=== PATIENT | male | born 1950 | race Caucasian/White ===

== ENCOUNTER → 2020-08-06 09:14 | Outpatient (CLI) | payer MEDICARE, SELFPAY ==
--- NOTE | 2020-08-06 09:20 | US_ITS ---
STUDY: ABDOMINAL ULTRASOUND - RIGHT UPPER QUADRANT REASON FOR VISIT: Male, 69 years old elevated liver enzymes TECHNIQUE: Ultrasound evaluation of the right upper quadrant was performed with real-time and static martinez-scale imaging. TECHNICAL QUALITY: Adequate. COMPARISON: None. FINDINGS: Liver: The liver measures 15.1 cm. There is normal echogenicity of the liver. The bile ducts are within normal limits. There is hepatic color flow. The direction of portal flow is hepatopetal. Simple appearing cyst in the right lobe of the liver measuring 1.1 x 1.4 x 1.3 cm as well as another cyst measuring 2.2 x 2.1 x 1.6 cm. Gallbladder: Normal distended gallbladder. The gallbladder wall measures 1.0 mm. There is a negative sonographic Galindo''s sign. There is no pericholecystic fluid. There are no gallstones. Common Bile Duct (C.B.D.): The common bile duct measures 3.2 mm. Pancreas: Normal size of the head, body and tail of the pancreas. There is normal echogenicity of the pancreas. There is no demonstrated pancreatic mass or cyst. Right Kidney: Normal size of the right kidney. The right kidney measures 10.1 cm. Normal renal cortex. The right cortex measures 1.3 cm. Upper pole cyst measuring 2.0 x 1.8 x 1.7 cm. There is no right hydronephrosis. US/Liver IMPRESSION: Right renal and liver cysts. Remainder is within normal limits. Electronically Signed: Raudel Simmons DO at 11:44 EDT Tel , Service support ,
== END ==
DX: K76.89 Other specified diseases of liver (principal); N28.1 Cyst of kidney, acquired; R79.89 Other specified abnormal findings of blood chemistry; Z72.89 Other problems related to lifestyle
CPT/HCPCS: 76705

== ENCOUNTER 2021-06-17 17:09 | Emergency (ER) | payer MEDICARE, OTHER, SELFPAY ==
[2021-06-17 17:10] VITALS: BP 140/79; PULSE 90; RESP 14; TEMP 37; O2SAT 97; BMI 18.1
--- NOTE | 2021-06-17 18:54 | EKG12_ITS ---
Test Reason : WOUND Blood Pressure : / mmHG Vent. Rate : 084 BPM Atrial Rate : 084 BPM P-R Int : 148 ms QRS Dur : 072 ms QT Int : 382 ms P-R-T Axes : 083 047 074 degrees QTc Int : 451 ms Normal sinus rhythm Normal ECG Confirmed by YUNG GRIMES, ALEYDA ([id number]), news copy editor JERRY HAMPTON ([id number]) on 06/19/2021 10:41:10 AM Referred By: DOLORES Confirmed By:ALEYDA BARRAGAN MD
--- NOTE | 2021-06-17 18:55 | ED.VIS.LOWEX ---
HPI History of Present Illness Chief Complaint: Lower Extremity Injury Informant: patient and family Onset/Context/Timing Onset: Month(s) Context: Sudden Onset Timing: Continuous Current Severity: Mild Maximum Severity: Mild Narrative Narrative: 62-year-old gentleman says he has no past medical history other than a hernia repair. Currently he is on no medications for any chronic conditions. He sees the [facility]. He states out 5 weeks ago he woke up one morning and his right great toe and fourth and fifth the small toe had areas of black skin. He thought it may have done trauma to his bed railing. He denies any other complaints. He is never had any like this before. Is not been ill recently. Has not been hospitalized. Patient does smoke a pack of cigarettes a day. Prior similar symptoms: No Recent Illness/Hospitalization: No PFSH PFSH Allergy/AdvReac Type Severity Reaction Status Date / Time No Known Allergies Allergy Verified 06/17/21 17:10 Surgical History (Updated 06/17/21 @ 19:13 by Ivonne Saleem RN) H/O hernia repair Hx of tonsillectomy Social History Smoking Status: Current every day smoker tobacco type: cigarettes ROS ROS ED ROS Narrative Denies recent illness. Review of Systems ROS Unobtainable: Denies due to encephalopathy Constitutional Constitutional ED: Denies fever(s) Eyes Eyes: Denies change in vision ENT ENT ED: Denies ear pain or sore throat Cardiovascular Cardiovascular: Denies chest pain or palpitations Respiratory/Chest Respiratory/Chest: Denies cough or dyspnea Gastrointestinal Gastrointestinal: Denies abdominal pain, diarrhea, nausea or vomiting Genitourinary Genitourinary ED: Denies dysuria Musculoskeletal Musculoskeletal: Denies myalgias Integumentary Denies rash Neurologic Neurologic: Denies headache(s) Psychiatric Psychiatric: Denies depression Endocrine Endocrinology: Denies polyuria Hematologic/Lymphatic Hematologic/Lymphatic: Denies easy bruising Allergic/Immunologic Allergic/Immunologic ED: Denies urticaria EXAM Physical Exam Narrative Exam Narrative: 8-year-old male no acute distress. Lungs are clear. Heart regular rate and rhythm rate about 90. Abdomen soft nontender normal bowel sounds no peritoneal signs no pulsatile mass. Femoral pulses equal symmetrical palpable. Brisk. Moving all 4 extremities. Neurovascularly intact. No edema. Right great toe and primarily fifth toe have areas that look like ischemic scabs. There is no trauma. He is chronic nail changes from fungal infections. He does have a DP pulse on both feet. He is able to wiggle his toes. He has normal sensation. Normal motor strength. No deformities. Feet are warm to the touch. Const Vital Signs: 06/17/21 17:10 Temperature 98.6 F Temperature Source Temporal Pulse Rate 90 Respiratory Rate 14 Blood Pressure 140/79 H Blood Pressure Mean 99 Pulse Ox 97 Oxygen Delivery Method Room Air Positive well nourished and well developed; Negative for obese, cachectic or unkempt General Appearance ED: well developed and NAD; Negative for unkempt or cachectic Nutritional Appearance: Negative for cachectic or obese HEENT Reports moist mucous membranes normocephalic and atraumatic Eyes PERRL Neck full ROM and supple Thyroid: Negative for tender Chest Wall inspection of chest normal and palpation of chest normal Resp normal respiratory effort, no retractions and clear to auscultation bilaterally Auscultation: Negative for rales, rhonchi or wheezes Cardio regular rate, regular rhythm, S1 normal heart sound, S2 normal heart sound and no murmurs GI non-tender, non-distended and no masses Inspection: Negative for abdominal distention Auscultation: normoactive bowel sounds Palpation: soft; Negative for tender, guarding or rebound tenderness present Back/Spine no CVA tenderness General Back: Negative for CVA tenderness Extremity normal to inspection Extremity Narrative: Right great toe and fourth and fifth toe have lesions that appear to be ischemic scabs. Otherwise foot is neurovascular intact with a palpable femoral and DP pulse. Normal motor strength sensation. No edema. Normal touch sensation. Neuro oriented x3 and moves all extremities Sensorium / Orientation: alert, oriented to person, oriented to place and oriented to time; Negative for orientation impaired or stuporous Motor Exam: strength 5/5 throughout Psych mental status grossly normal Appearance: Negative for unkempt Skin Lesions: no lesions Rashes: no rashes MDM MDM MDM Narrative Medical decision making narrative: Patient with wounds on his right foot that look like possible ischemia to the foot. He does have a smoking history. He does however appear to have a DP pulse and a strong femoral pulse in the right leg. X-ray and labs are being obtained. This will be outpatient follow-up. Repeat exam at 10 PM patient doing well unchanged wounds on his right foot are unchanged. We went over all test results. He had pictures when this initially happened 4 weeks ago and has gotten no worse. I discussed with the patient he is having no symptoms of claudication or poor circulation. His foot is warm. And he has a good DP and femoral pulse. I discussed with both he and his family. To follow-up with his primary care physician tomorrow. I have his physician with the physician on-call on page. He needs an outpatient arterial study of his leg to evaluate his circulation and also an echo of his heart to rule out any type of clots. Lab Data Attestation: I reviewed the patient's lab results. Lab results narrative: White count 8. Hemoglobin 13.9. Electrolytes unremarkable gap 10 normal creatinine. Glucose 84. Labs: Laboratory Results - last 24 hr 06/17/21 06/17/21 19:00 19:00 WBC 8.5 RBC 3.99 L Hgb 13.9 Hct 40.0 MCV 100.3 H MCH 34.8 H MCHC 34.8 RDW Std Deviation 43.7 RDW Coeff of Berny 11.9 Plt Count 231 MPV 8.5 Immature Gran % (Auto) 0.500 Neut % (Auto) 67.8 Lymph % (Auto) 13.6 L Bollinger % (Auto) 14.6 H Eos % (Auto) 2.9 Baso % (Auto) 0.6 Absolute Neuts (auto) 5.8 Absolute Lymphs (auto) 1.16 Nucleated RBC % 0 Sodium 135 L Potassium 3.8 Chloride 101 Carbon Dioxide 24.0 Anion Gap 10 BUN 15 Creatinine 0.65 L Estim Creat Clear Calc 57.30 Est GFR (MDRD) Af Amer 158 Est GFR (MDRD) Non-Af 131 BUN/Creatinine Ratio 23.2 H Glucose 84 Calcium 9.1 Radiography Diagnostic Testing: Radiology Impression Foot X-Ray 06/17/21 19:05 IMPRESSION: 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 This is nonspecific and can be seen in a variety of conditions including scleroderma, psoriatic arthritis, frostbite injury, or hyperparathyroidism. Electronically Signed: Raymundo Oates MD at 20:08 EDT , Service support , Right foot x-ray 3 views interpreted by myself shows chronic changes no acute process. No fracture or dislocation. Rhythm Strip Rhythm Strip: Sinus Rhythm Rate: 84 Ectopy: None EKG Initial EKG: Attestation: I personally reviewed and interpreted this EKG as follows: Interpretation: Sinus Rhythm Comments: Normal sinus rhythm rate 84 no acute signs of [place], ischemia or dysrhythmia. Prior EKG tracings: not available for review Discharge Plan Triage Chief Complaint: Lower Extremity Injury ED Provider: Kody Wells Dx/Rx/DC Orders Clinical Impression: Wound of foot, Peripheral arterial disease Instructions: ED Peripheral Artery Disease (PAD) Referrals: NICHOLAS GOODWIN [Other] Bruno Blackmon MD [NON-STAFF] - 1 Day Activity Restrictions/Additional Instructions: Follow-up with primary care physician tomorrow. They need to order to outpatient test to evaluate your lower extremity. The first test is a ultrasound of your right leg to evaluate the circulation of your right leg this will be an arterial study. Second test which does not to be done immediately but should be done as an echocardiogram of your heart to evaluate for possible clots. This may just be wounds that are healing poorly. Or it could be a circulation issue in your foot or even arterial clots. You seem to have reasonable circulation with a good pulse in your right groin and your foot. Posterior foot is warm and you not having any symptoms of poor circulation. Keep the wounds clean with soap and water and antibiotic ointment. Begin taking 1 baby aspirin 81 mg a day to help thin out your blood until we get this diagnosis. Disposition Disposition: Home, Self Care
--- NOTE | 2021-06-17 19:05 | RAD_ITS ---
STUDY: X-RAY - RIGHT FOOT CLINICAL: Male, 70 years old. RT 1st, 4th, and 5th TOE BLACKNESS AND PAIN X 5 WEEKS. UNKNOWN CAUSE. TECHNIQUE: 3 view(s) of the foot. COMPARISON: None. FINDINGS: Normal talus, calcaneus, and tarsal bones. Normal visualized subtalar, talonavicular, calcaneocuboid, tarsal and tarsometatarsal articulations. Normal metatarsi. There is degenerative arthrosis of the metatarsophalangeal joint of the hallux . Normal tibial and fibular sesamoid bones. Normal interphalangeal joint of the great toe. Normal phalanges of the great toe. Normal second through fifth metatarsophalangeal joints. Normal interphalangeal joints of the lesser toes. There is focal narrowing and sclerosis of the tuft of the second distal phalanx. There is lucency suggesting erosive change of the tuft of the fifth distal phalanx. The soft tissue structures are unremarkable. There is no demonstrated fracture. 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 This is nonspecific and can be seen in a variety of conditions including scleroderma, psoriatic arthritis, frostbite injury, or hyperparathyroidism. Electronically Signed: Raymundo Oates MD at 20:08 EDT , Service support ,
[2021-06-17 19:38] LABS: Absolute Lymphocyte Count 1.16 X10^3/uL (0.83-4.51); Absolute Neutrophil Count 5.8 X10^3/uL (2.0-7.7); Basophil# 0.05 X10^3/uL; Basophil% 0.6 % (0-1); Eosinophil# 0.25 X10^3/uL; Eosinophils% 2.9 % (0-5); Hemoglobin 13.9 g/dL (13.0-16.5); Lymphocyte # 1.16 X10^3/ul (0.83-4.51); Lymphocyte % 13.6 % (19-41); Mean Corp Hgb Conc 34.8 g/dL (32-36); Mean Corpuscular Hgb 34.8 pg (27.0-32.0); Mean Corpuscular Volume 100.3 fL (80-94); Mean Platelet Vol. 8.5 fl (6.2-12.0); Monocyte# 1.24 X10^3/uL; Monocyte% 14.6 % (0-10); NRBC Flagged by Analyzer 0 % (0-5); Neutrophil # 5.76 X10^3/uL (2.7-7.7); Neutrophil % 67.8 % (47-70); Platelet Count 231 K/mm3 (150-450); RBC Distribution Width CV 11.9 % (11.6-14.6); RBC Distribution Width SD 43.7 fl (35.1-43.9); Red Blood Count 3.99 M/mm3 (4.6-6.2); White Blood Count 8.5 K/mm3 (4.4-11.0)
[2021-06-17 19:52] LABS: Anion Gap 10 (5-15); BUN 15 mg/dL (7-18); BUN/Creat Ratio 23.2 RATIO (10-20); Calcium,Total 9.1 mg/dL (8.5-10.1); Chloride 101 mmol/L (98-107); Creatinine, Serum 0.65 mg/dL (0.70-1.30); EST Glomerular Filtration Rate 131 mL/min (>60); Est Glom Filt Rate - Afr Amer 158 mL/min (>60); Glucose 84 mg/dL (74-106); Potassium 3.8 mmol/L (3.5-5.1); Sodium Level 135 mmol/L (136-145)
[2021-06-17 22:53] VITALS: BP 145/79; PULSE 88; RESP 20; O2SAT 96
== END 2021-06-17 22:54 | disposition home or self-care (01) ==
PROVIDERS: Emergency Provider Emergency Medicine
DX: S90.931A Unspecified superficial injury of right great toe, initial encounter (principal); S90.934A Unspecified superficial injury of right lesser toe(s), initial encounter; X58.XXXA Exposure to other specified factors, initial encounter; Y93.9 Activity, unspecified; Y92.9 Unspecified place or not applicable; Y99.9 Unspecified external cause status; I73.9 Peripheral vascular disease, unspecified; F17.210 Nicotine dependence, cigarettes, uncomplicated
CPT/HCPCS: 73630; 80048; 85025; 93005; 99283; A4216

== ENCOUNTER → 2021-10-08 07:37 | Outpatient (CLI) | payer MEDICARE, SELFPAY ==
--- NOTE | 2021-10-08 07:39 | CT_ITS ---
HISTORY: Embolism and thrombosis of lower extremity arteries, right foot gangrene of 3 toes times several months. TECHNIQUE: Helically acquired images were obtained of the chest, abdomen, and pelvis following IV contrast as per angiogram protocol with 2-D and 3-D reconstructions.. A radiation dose optimization technique was used for this scan. IV Contrast dosage and agent: 100 mL Isovue-370. Oral contrast: None. # of images incl. paperwork: [id number]. COMPARISON: None. FINDINGS: Chest: CENTRAL AIRWAYS: Mild adherent material in the trachea. LUNGS: Emphysema with minimal biapical scarring and bronchiectasis. PLEURA: No pneumothorax or pleural effusion. HEART/PERICARDIUM: Heart within normal limits in size with coronary artery disease seen. No significant pericardial effusion. AORTA/VESSELS: No aortic aneurysm or dissection flap. Mild atelectasis versus. No large central filling defect in the pulmonary arteries although examination not optimized for evaluation of pulmonary arteries. MEDIASTINUM/ATILIO: Calcified subcarinal lymph node. OSSEOUS STRUCTURES: Diffuse idiopathic skeletal hyperostosis. Abdomen and pelvis: BOWEL: Bowel including appendix nondilated. Extensive colonic diverticulosis without pericolonic inflammation. PERITONEUM: No significant ascites. LIVER: Small cysts measure up to 1.6 cm. GALLBLADDER: Gallbladder present. SPLEEN/PANCREAS: Homogeneous. KIDNEYS: Right renal cysts measuring up to 1.8 cm. No hydronephrosis. ADRENAL GLANDS: Unremarkable. VESSELS: Limited evaluation of the celiac axis and aorta at the hiatus due to motion artifact. Calcified plaque of the abdominal aorta without aneurysm or dissection flap. Approximately 60% stenosis at the origin of the superior mesenteric artery. Calcified plaque at the origins of the single left, main right, and accessory right renal arteries. Patent inferior mesenteric artery. Calcified plaque at the aortic bifurcation with approximately 60% stenosis extending into the origin of the right common iliac artery. Greater than 70% stenosis in the proximal left common iliac artery then near occlusion with severe calcified plaque more distally. Calcified plaque extends into the external and internal iliac arteries. PELVIC ORGANS: Prostate calcifications. BONES: Degenerative change. CT/CTA Chst, Abd, Pel W and/or WO IMPRESSION: No evidence for thoracic aortic aneurysm, dissection, or pulmonary embolism. Coronary artery disease. Emphysematous lungs. 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 Hepatic and right renal cysts. Colonic diverticulosis without acute diverticulitis. Individualized dose optimization techniques were used for this CT. at 1005 Reported and signed by: Evelyn Smalls MD Electronically Signed: Evelyn Smalls MD at 10:04 EST Tel , Service support ,
== END ==
DX: I74.3 Embolism and thrombosis of arteries of the lower extremities (principal)
CPT/HCPCS: 71275; 74174; Q9967

== ENCOUNTER → 2021-10-28 13:01 | Outpatient (CLI) | payer MEDICARE, OTHER, SELFPAY ==
--- NOTE | 2021-10-28 13:04 | ADU_ITS ---
Reason For Study: Rt Foot Pain Right Velocities Left Velocities Ext. Iliac Artery, dist = 252 cm./sec. Ext Iliac Artery, dist = 43 cm./sec. Common Femoral Artery, dist = 129 cm./sec. Common Femoral Artery, dist = 61 cm./sec. Supf Femoral Artery, prox = 74 cm./sec. Supf. Femoral Artery, prox = 36 cm./sec. Supf Femoral Artery, mid = 96 cm./sec. Supf. Femoral Artery, mid = 35 cm./sec. Supf Femoral Artery, dist. = 53 cm./sec. Supf. Femoral Artery, dist = 26 cm./sec. Profunda Femoral Artery = 59 cm./sec. Profunda Femoral Artery = 29 cm./sec. Popliteal Artery, mid = 41 cm./sec. Popliteal Artery, mid = 33 cm./sec. Ant. Tibial Artery, prox = 82 cm./sec. Ant.Tibial Artery, prox = 44 cm./sec. Ant. Tibial Artery, mid = 42 cm./sec. Ant Tibial Artery, mid = 24 cm./sec. Ant. Tibial Artery, dist = 61 cm./sec. Ant. Tibial Artery, distal = 21 cm./sec. Post. Tibial Artery, prox = 0 cm./sec. Post. Tibial Artery, prox = 0 cm./sec. Post. Tibial Artery, mid = 0 cm./sec. Post Tibial Artery, mid = 0 cm./sec. Post. Tibial Artery, dist = 0 cm./sec. Post Tibial Artery, dist. = 0 cm./sec. Peroneal Artery, prox = 39 cm./sec. Peroneal Artery, prox = 20 cm./sec. Peroneal Artery, mid = 48 cm./sec. Peroneal Artery, mid = 22 cm./sec. Peroneal Artery,dist = 43 cm./sec. Peroneal Artery,dist. = 15 cm./sec. Rt DPA: 40 cm/s. Lt DPA: 68 cm/s. Procedure Exam performed in department. /US Art Duplex Bilat Lower Ext Interpretation Summary Diffuse calcific plaque is noted throughout the right lower extremity arterial vessels. Triphasic arterial flow is noted within the right external iliac artery distall y in the right common femoral artery and right superficial femoral artery and right profundofemoral a rtery and right popliteal artery. Right peroneal artery is patent and demonstrates generally triphasic flow thoug h of slightly diminished amplitude Right anterior tibial demonstrates triphasic flow throughout down to and includ ing the dorsalis pedis These findings would be consistent with moderate disease. Right posterior tibial artery does not demonstrate flow Irregular calcific plaque involving the left lower extremity arteries with dimi nished flow velocity noted in the distal left external iliac artery although still triphasic. More monophasic flow noted in the left common femoral, superficial femoral, pro fundofemoral, popliteal, anterior tibial, and peroneal arteries. Findings would be consistent with moderately severe occlusive disease. Flow is again noted in the left dorsalis pedis artery No flow noted in the left posterior tibial artery Ordering Physician: ADRIAN DARNELL Referring Physician: ADRIAN DARNELL Performed By: Crista Jarvis RDCS, RVT
--- NOTE | 2021-10-28 13:04 | ART_ITS ---
Reason For Study: Rt Foot Pain Procedure A bilateral lower extremity continuous wave Doppler with analog waveform analysis,segmental pressures,and ankle brachial indexes without exercise. Left Segmental Pressures Left brachial= 125mmHg. Left thigh = 121mmHg. Left calf = 117mmHg. Left posterior tibial artery = 91mmHg. Left dorsalis pedis artery = 116mmHg. Left digit = 78 mmHg. Right Segmental Pressures Right brachial= 119mmHg. Right thigh = 168mmHg. Right calf = 150mmHg. Right posterior tibial artery = >254mmHg. Right dorsalis pedis artery = >254mmHg. Right digit = 91 mmHg. Indices The right ankle brachial index by the posterior tibial artery is NC. The right ankle brachial index by the dorsalis pedis is NC. The right digital-brachial index is 0.73. The left ankle brachial index by the posterior tibial artery is 0.73. The left ankle brachial index by the dorsalis pedis is 0.93. The left digital-brachial index is 0.62. VL/Lower Ext Art Exam w/o Exercis Interpretation Summary None calculable right PT and DP ankle-brachial indices secondary to artificiall y elevated systolic pressures. Right posterior tibial Doppler waveform biphasic consistent with moderately sev ere disease while the right dorsalis pedis demonstrates a strong triphasic Doppler wave signal which is normal Right digital brachial indices just borderline abnormal at 0.73 Left PT and DP ankle-brachial index of 0.73 and 0.93 respectively with biphasic left posterior tibial and dorsalis pedis Doppler waveforms consistent with moderately severe a rterial occlusive disease Abnormal left digital brachial index of 0.62 Critical ischemia is not defined on the study bilaterally Ordering Physician: ADRIAN DARNELL Referring Physician: ADRIAN DARNELL Performed By: Crista Jarvis RDCS/RVT
== END ==
DX: I74.3 Embolism and thrombosis of arteries of the lower extremities (principal)
CPT/HCPCS: 93923; 93925

== ENCOUNTER 2022-02-12 07:52 | Outpatient (CLI) | payer OTHER, SELFPAY ==
--- NOTE | 2022-02-12 08:00 | CT_ITS ---
STUDY: LOW DOSE CT LUNG CANCER SCREENING REASON FOR EXAM: Male, 71 years old. HX TOBACCO USE. Patient smoked 1 pack per day for 53 years. RADIATION DOSAGE (If Supplied By Facility): CTDIvol = ( 3.02 ) mGy, DLP = ( 112.87 ) mGycm TECHNIQUE: No contrast was administered. Low dose technique was utilized (average mAS-38 and kVp 120). 1.25 mm axial source images with a slice interval of 1.25-mm were reconstructed in lung windows. 2.5 mm axial source images with a slice interval of 2.5-mm were reconstructed in lung windows. 5.0 mm axial source images with a slice interval of 5.0-mm were reconstructed in soft tissue windows. Nodule measured using lung windows on PACS and/or independent workstation with automated measurement of minimum and maximum diameter. Nodule measurement reported as average diameter rounded to the nearest whole number. Growth is defined as an increase ins size of greater than 1.5 mm. COMPARISON: Comparison is made with prior study dated 10/08/2021. NODULES: No suspicious nodules are seen. Emphysema: Hyperinflation. Centrilobular emphysematous changes and small bulla are seen in the lung apices likely more prominent on the right side. Minimal linear scarring in the anterior aspect of the left lower lobe. Endobronchial lesion: None Aorta: Atherosclerotic calcific plaques of the thoracic aorta. Coronary arteries: Coronary artery calcification. Heart: Unremarkable Pulmonary artery: Mediastinal nodes: Other chest and abdominal findings: 1.2 cm cyst in the anterior aspect of the right lobe of the liver. 2.1 cm cyst in the anterior upper aspect of the right kidney. CT/Low Dose CT Lung Screening IMPRESSION: Lung-RADS category 2 - Continue annual screening with LDCT in 12 months. IMPORTANT NOTES FOR USE: ACR Lung-RADS Version 1.1 Assessment Categories Release Date: 2018 Category: Coded 0-4 bases on nodule(s) with highest degree of suspicion. Negative screen is defined as categories 1 and 2; a positive screen is defined as categories 3 and 4. Category 3 and 4A nodules that are unchanged on interval CT should be coded as category 2, and individuals returned to screening in 12 months. Category 4X: Category 3 or 4 nodules with additional imaging findings that increase the suspicion of lung cancer, such as spiculation, GGN that doubles in size in 1 year, enlarged lymph notes, etc. Category Modifiers: S (significant finding unrelated to lung cancer) Electronically Signed: Bright Hoffmann MD at 10:50 EDT ,
== END 2022-02-12 23:59 | disposition home or self-care (01) ==
LOC: CT 07:53
PROVIDERS: PCP Nurse Practitioner; Referring Provider Nurse Practitioner; Visit Provider Nurse Practitioner
DX: Z87.891 Personal history of nicotine dependence (principal)
CPT/HCPCS: 71271

== ENCOUNTER → 2022-02-25 12:47 | Outpatient (CLI) | payer OTHER, SELFPAY ==
--- NOTE | 2022-02-25 12:50 | ECHOD_ITS ---
Reason For Study: Emboli Procedure This was a 2D Doppler, Color Flow transthoracic echocardiogram. Technically difficult study. Majority of images taken from subcostal window. Previous Negative Bubble study. The study was technically difficult. Limited views were obtained. Exam performed in department. Left Ventricle Based upon the 2D echocardiographic and contrast enhanced images obtained there appears to be grossly normal left ventricular size, wall motion, and systolic function. The estimated ejection fraction is 55 %. Diastolic function is indeterminate. Right Ventricle Based upon the 2D echocardiographic views obtained there appears to be grossly normal right ventricular size and systolic function. Atria Normal left atrium. Normal right atrium. Lipomatous hypertrophy of the atrial septum. Mitral Valve There is no mitral annular calcification. Normal mitral valve. Trivial mitral valve insufficiency. Tricuspid Valve Normal tricuspid valve. Trivial tricuspid valve insufficiency. Unable to estimate RV systolic pressure/pulmonary artery pressure due to technically difficult study. Aortic Valve The aortic valve is not well visualized. Pulmonic Valve The pulmonic valve is not well visualized. Great Vessels The aortic root is not well visualized. Pericardium/Pleural No pericardial effusion. MMode/2D Measurements & Calculations LVIDd: 4.4 cm IVSd: 0.67 cm LA dimension: 3.1 cm LVIDs: 2.5 cm LVPWd: 0.86 cm FS: 41.9 % Time Measurements MV dec time: 0.26 sec Doppler Measurements & Calculations MV E max donny: 46.4 cm/sec Lat Peak E' Donny: 9.2 cm/sec Med Peak E' Donny: 6.2 cm/sec MV A max donny: 66.8 cm/sec E/E' lat: 5.1 E/E' med: 7.5 MV E/A: 0.69 MV V2 max: 76.0 cm/sec MV P1/2t max donny: 69.0 cm/sec Ao V2 max: 105.4 cm/sec MV max P.3 mmHg MV P1/2t: 72.2 msec Ao max P.4 mmHg MV V2 mean: 38.2 cm/sec MV mean P.74 mmHg MV dec slope: 280.0 cm/sec2 MV V2 VTI: 23.0 cm MVA(P1/2t): 3.0 cm2 LV V1 max: 61.9 cm/sec PA V2 max: 122.3 cm/sec LV V1 max P.5 mmHg ECHO/Echo Complete Interpretation Summary The study was technically difficult. Limited views were obtained. Based upon the 2D echocardiographic and contrast enhanced images obtained there appears to be grossly normal left ventricular size, wall motion, and systolic function. The estimated ejection fraction is 55 %. Trivial mitral valve insufficiency. Trivial tricuspid valve insufficiency. Unable to estimate RV systolic pressure/pulmonary artery pressure due to techni leo difficult study. Diastolic function is indeterminate. Ordering Physician: ADRIAN DARNELL Referring Physician: ADRIAN DARNELL Performed By: Yobany Blair RCS
== END ==
PROVIDERS: PCP Nurse Practitioner
DX: I74.9 Embolism and thrombosis of unspecified artery (principal)
CPT/HCPCS: 93306

== ENCOUNTER → 2024-03-14 | Outpatient (CLI) | payer MEDICARE, SELFPAY ==
[2024-03-14 15:23] LABS: Absolute Lymphocyte Count 1.14 X10^3/uL (0.83-4.51); Absolute Neutrophil Count 3.9 X10^3/uL (2.0-7.7); Basophil# 0.05 X10^3/uL; Basophil% 0.8 % (0-1); Eosinophil# 0.15 X10^3/uL; Eosinophils% 2.4 % (0-5); Hematocrit 45.6 % (40-54); Hemoglobin 15.4 g/dL (13.0-16.5); Lymphocyte # 1.14 X10^3/ul (0.83-4.51); Lymphocyte % 18.3 % (19-41); Mean Corp Hgb Conc 33.8 g/dL (32-36); Mean Corpuscular Volume 97.6 fL (80-94); Mean Platelet Vol. 8.2 fl (6.2-12.0); Monocyte# 0.93 X10^3/uL; NRBC Flagged by Analyzer 0 % (0-5); Neutrophil # 3.94 X10^3/uL (2.7-7.7); Neutrophil % 63.3 % (47-70); Platelet Count 222 K/mm3 (150-450); RBC Distribution Width CV 12.5 % (11.6-14.6); RBC Distribution Width SD 44.8 fl (35.1-43.9); Red Blood Count 4.67 M/mm3 (4.6-6.2); White Blood Count 6.2 K/mm3 (4.4-11.0)
[2024-03-14 16:44] LABS: ALB/GLOB Ratio 1.1 RATIO (0.9-2.4); AST(SGOT) 19 U/L (15-37); Alanine Aminotransfer ALT/SGPT 17 U/L (16-61); Alkaline Phosphatase 61 U/L (45-117); Anion Gap 8 (5-15); BUN 13 mg/dL (7-18); BUN/Creat Ratio 14.9 RATIO (10-20); Calcium,Total 9.7 mg/dL (8.5-10.1); Chloride 96 mmol/L (98-107); Cholesterol 232 mg/dL (200); Creatinine, Serum 0.87 mg/dL (0.70-1.30); EST Glomerular Filtration Rate 91 mL/min (>60); Est Glom Filt Rate - Afr Amer 111 mL/min (>60); Globulin 3.6 g/dL (2.2-4.2); Glucose 141 mg/dL (74-106); High Density Lipoprotein 68 mg/dL; PSA,Total - Annual Screen 2.93 ng/mL (0.00-4.00); Potassium 4.1 mmol/L (3.5-5.1); Protein, Total 7.6 g/dL (6.4-8.2); Sodium Level 131 mmol/L (136-145); Triglycerides 160 mg/dL; Very Low Density Lipoprotein 32 mg/dL (5-40)
== END | disposition home or self-care (01) ==
LOC: MTLAB 12:39
PROVIDERS: PCP Nurse Practitioner; Referring Provider Family Medicine; Visit Provider Family Medicine
DX: Z12.5 Encounter for screening for malignant neoplasm of prostate (principal); E78.5 Hyperlipidemia, unspecified; I73.9 Peripheral vascular disease, unspecified
CPT/HCPCS: 36415; 80053; 80061; 84153; 85025; G0103

== ENCOUNTER 2024-03-17 10:12 | Inpatient (IN) | payer MEDICARE, SELFPAY ==
[2024-03-17 10:14] VITALS: BP 146/76; PULSE 78; RESP 18; TEMP 36.6; O2SAT 98
[2024-03-17 10:17] VITALS: BMI 19.8
--- NOTE | 2024-03-17 10:39 | RAD_ITS ---
STUDY: X-RAY - PELVIS AND RIGHT HIP REASON FOR EXAM: Male, 73 years old. Pain TECHNIQUE: 3 views of the pelvis and hip. COMPARISON: None. FINDINGS: There is a non-specific bowel gas pattern. There are atherosclerotic vascular calcifications of the pelvic arteries. Vascular stents in the common iliac arteries. Prior inguinal hernia repair bilaterally. There is narrowing with cortical sclerosis and osteophyte formation of the sacroiliac joint consistent with degenerative osteoarthritic changes. Normal bilateral superior and inferior pubic rami. Normal pubic symphysis. Normal bilateral ischial tuberosities. There is a nondisplaced right intertrochanteric fracture. RAD/HIP, UNI W/ Pelvis 2-3 Views IMPRESSION: Nondisplaced right intertrochanteric fracture. Electronically Signed: Bright Hoffmann MD at 11:12 EDT ,
--- NOTE | 2024-03-17 10:40 | EDS_ITS ---
HPI History of Present Illness Chief Complaint: Fall Narrative Narrative: 73-year-old male presenting with right hip pain. Patient states that he was walking last night tripped over his own foot fell hitting his right hip. He denies head injury or LOC. He is not on any oral anticoagulation. Patient states it took him about 2 hours to crawl to his bed and once he got in bed he was stuck. He did not have his phone. This morning he states that he would yell out for help who his neighbors every 10 minutes until somebody showed up. Patient denies neck or back pain. PFSH PFSH Allergy/AdvReac Type Severity Reaction Status Date / Time No Known Allergies Allergy Verified 06/17/21 17:10 Surgical History H/O hernia repair Hx of tonsillectomy Social History Smoking Status: Current every day smoker tobacco type: cigarettes ROS ROS ED Constitutional Constitutional ED: Denies chills, fever(s) or subjective Eyes Eyes: Denies blurry vision or change in vision ENT ENT ED: Denies rhinorrhea Cardiovascular Cardiovascular: Denies chest pain or palpitations Respiratory/Chest Respiratory/Chest: Denies cough or dyspnea Gastrointestinal Gastrointestinal: Denies abdominal pain, constipation or diarrhea Genitourinary Genitourinary ED: Denies dysuria or hematuria Musculoskeletal Musculoskeletal: Reports other Details: Right hip pain Integumentary Reports Abrasions Neurologic Neurologic: Denies headache(s) or paresthesias Psychiatric Psychiatric: Denies anxiety or depression Endocrine Endocrinology: Denies polydipsia EXAM Physical Exam Const Vital Signs: 03/17/24 10:14 03/17/24 10:18 Temperature 98 F Temperature Source Oral Pulse Rate 78 Respiratory Rate 18 Respiratory Effort Normal Respiratory Depth Normal Respiratory Pattern Normal Blood Pressure 146/76 H Blood Pressure Mean 99 Pulse Ox 98 Oxygen Delivery Method Room Air Positive well nourished General Appearance ED: NAD HEENT Reports moist mucous membranes normocephalic and atraumatic Neck full ROM Chest Wall inspection of chest normal Resp normal respiratory effort Auscultation: Negative for rales, rhonchi or wheezes Cardio regular rate and regular rhythm GI non-tender and non-distended Extremity Extremity Narrative: Patient evaluated in vacuum mattress. He has pain over the right hip. It is difficult to discern whether his leg is shortened on the right or whether it is externally rotated disease restrained. He does not have any tenderness over the femur on the right. He has superficial abrasions to the bilateral knees but de nies any pain here. Neuro oriented x3 Sensorium / Orientation: alert Motor Exam: strength 5/5 throughout Psych mental status grossly normal Skin Skin Narrative: Abrasions to the bilateral knees. MDM MDM MDM Narrative Medical decision making narrative: Patient presenting after fall which was mechanical. He is right hip pain and suspected right hip fracture. Patient was given fentanyl but still having pain. He was given morphine and Zofran here. I will obtain a CBC to assess white blood cell count, hemoglobin, platelets. BMP to assess renal function, electrolytes. CPK to assess for rhabdomyolysis. Patient given a liter normal saline. X-rays of the right hip will be obtained. CBC shows white blood cell count of 12.9. Hemoglobin 13.5. Platelets are normal at 195. Renal function electrolytes within normal limits. CPK normal at 124. Right hip x-ray on my interpretation shows a nondisplaced intertrochanteric fracture. Radiology interpretation agrees. Chest x-ray does not show anything acute either on my interpretation. Patient does not want a Kline catheter placed. Discussed with Dr. Thapa. Admitted to the hospitalist stable condition. Impression: 1. Mechanical fall 2. Right hip fracture Lab Data Attestation: I reviewed the patient's lab results. Labs: Laboratory Results - last 24 hr 03/17/24 10:55 WBC 12.9 H RBC 4.02 L Hgb 13.5 Hct 39.2 L MCV 97.5 H MCH 33.6 H MCHC 34.4 RDW Std Deviation 43.9 RDW Coeff of Berny 12.2 Plt Count 195 MPV 8.1 Immature Gran % (Auto) 0.400 Neut % (Auto) 80.3 H Lymph % (Auto) 4.0 L Miller % (Auto) 15.0 H Eos % (Auto) 0.1 Baso % (Auto) 0.2 Absolute Neuts (auto) 10.4 H Absolute Lymphs (auto) 0.51 L Nucleated RBC % 0 Differential Comment COMMENT Diff Path Review May foll Sodium 134 L Potassium 4.2 Chloride 99 Carbon Dioxide 28.0 Anion Gap 7 BUN 9 Creatinine 0.77 Estim Creat Clear Calc 74.98 Est GFR (MDRD) Af Amer 129 Est GFR (MDRD) Non-Af 106 BUN/Creatinine Ratio 11.7 Glucose 114 H Calcium 9.2 Total Creatine Kinase 124 Radiography Diagnostic Testing: Clinical Impression(s) from Imaging Studies Hip/Pelvis X-Ray 03/17/24 10:39 IMPRESSION: Nondisplaced right intertrochanteric fracture. Electronically Signed: Bright Hoffmann MD at 11:12 EDT , Chest X-Ray 03/17/24 11:00 IMPRESSION: Hyperinflation and COPD. No acute abnormality is seen. Electronically Signed: Bright Hoffmann MD at 11:15 EDT , Discharge Plan Triage Chief Complaint: Fall ED Provider: Pepe Chavez Dx/Rx/DC Orders Primary Care Provider: NICHOLAS GOODWIN Referrals: NICHOLAS GOODWIN CRNP [Primary Care Provider] -
[2024-03-17] MEDS: 0.9% Normal Saline (1000mL) 1,000 ML 1000 ML IV (10:50)
[2024-03-17] MEDS: Morphine 4 MG/ML Syringe IV ×2 (10:50→12:46)
[2024-03-17] MEDS: Ondansetron 4 MG/2 ML Vial IV ×2 (10:50→19:53)
--- NOTE | 2024-03-17 11:00 | RAD_ITS ---
STUDY: X-RAY CHEST REASON FOR EXAM: Male, 73 years old. preop TECHNIQUE: Single AP portable view of the chest. COMPARISON: Comparison is made with prior study dated October 21, 2009. FINDINGS: EKG electrodes are seen. There is hyperinflation of the lungs consistent with chronic obstructive lung disease (COPD). There is no demonstrated pleural abnormality. Normal size heart. Normal mediastinum and prisca. Normal visualized pulmonary arteries. There is atherosclerotic calcification of the aortic arch with tortuosity. Normal visualized thoracic spine. Surgical clips are seen along the lower anterior left ribs. There is no demonstrated abnormality of the visualized soft tissue structures of the upper abdomen. RAD/Chest 1 View (Portable) IMPRESSION: Hyperinflation and COPD. No acute abnormality is seen. Electronically Signed: Bright Hoffmann MD at 11:15 EDT ,
[2024-03-17 11:04] LABS: Absolute Lymphocyte Count 0.51 X10^3/uL (0.83-4.51); Absolute Neutrophil Count 10.4 X10^3/uL (2.0-7.7); Basophil# 0.03 X10^3/uL; Basophil% 0.2 % (0-1); Eosinophil# 0.01 X10^3/uL; Eosinophils% 0.1 % (0-5); Hematocrit 39.2 % (40-54); Hemoglobin 13.5 g/dL (13.0-16.5); Lymphocyte # 0.51 X10^3/ul (0.83-4.51); Mean Corp Hgb Conc 34.4 g/dL (32-36); Mean Corpuscular Hgb 33.6 pg (27.0-32.0); Mean Corpuscular Volume 97.5 fL (80-94); Mean Platelet Vol. 8.1 fl (6.2-12.0); Monocyte# 1.94 X10^3/uL; NRBC Flagged by Analyzer 0 % (0-5); Neutrophil # 10.37 X10^3/uL (2.7-7.7); Neutrophil % 80.3 % (47-70); POSITIVE DIFFERENTIAL YES; Platelet Count 195 K/mm3 (150-450); RBC Distribution Width CV 12.2 % (11.6-14.6); RBC Distribution Width SD 43.9 fl (35.1-43.9); Red Blood Count 4.02 M/mm3 (4.6-6.2); White Blood Count 12.9 K/mm3 (4.4-11.0)
[2024-03-17 11:06] LABS: Differential Indicated SCAN CRITERIA MET
[2024-03-17 11:28] LABS: CPK Total, Creatine Kinase 124 U/L (39-308)
[2024-03-17 11:47] LABS: Anion Gap 7 (5-15); BUN 9 mg/dL (7-18); BUN/Creat Ratio 11.7 RATIO (10-20); Calcium,Total 9.2 mg/dL (8.5-10.1); Chloride 99 mmol/L (98-107); Creatinine, Serum 0.77 mg/dL (0.70-1.30); EST Glomerular Filtration Rate 106 mL/min (>60); Est Glom Filt Rate - Afr Amer 129 mL/min (>60); Estimated Creatinine Clearance 74.98 ml/min; Glucose 114 mg/dL (74-106); Potassium 4.2 mmol/L (3.5-5.1); Sodium Level 134 mmol/L (136-145)
[2024-03-17 12:12] VITALS: BP 139/92; PULSE 90; RESP 14; O2SAT 96
[2024-03-17] MEDS: LORazepam 2 MG/ML Syringe IV (12:57)
--- NOTE | 2024-03-17 13:05 | ED.RN ---
THIS RN HAD DISCUSSION WITH PT REGARDING ETOH INTAKE. PT DOES ADMIT IT DEPENDS ON THE DAY. PT STATES FOR EX TODAY I WOULD HAVE STARTED AT 1 AND DRANK TIL IT WAS GONE. PT VERY AGREEABLE TO DISCUSSING OPTIONS
--- NOTE | 2024-03-17 13:28 | HP.PCM.HOS_ITS ---
HPI - General General Date of Admission: 03/17/24 Date of Service: 03/17/24 Chief Complaint: Right hip fracture, alcohol withdrawal HPI Narrative MAVIS IRWIN, is a 73 M who presented to [facility] ED on 03/17/2024 with right hip pain after a fall at home. Patient seen at bedside in the ED, daughter present. Patient was laying back in bed, answering questions appropriately but in mild distress due to right hip pain. Daughter helped to supplement patient's history. Patient lives at home alone, daughter lives in the area. Patient and daughter note that he has been a heavy alcohol drinker for many years. He also smokes about 1 pack/day and has smoked since age 16. However, patient has had minimal health concerns to this point. Patient states he was walking around the house last night around 9 PM and tripped over his own feet and fell onto his right hip. He had significant right hip pain right after the fall and difficulty moving at all. He was strong enough to drag himself over to his bed but his phone was not close by, so he remained in bed overnight. This morning he continually yelled for help until his neighbors came over to help him. Patient currently has mild to moderate hip pain, states the pain medication given to him in the ED was helpful. Patient states he drinks about 4-5 cocktails per night. Denies any history of alcohol withdrawal. States that he does not drink every day, though his daughter disagrees with this. Daughter states they have been trying to get him to cut back on his drinking for many years. Patient states he feels somewhat restless and agitated now. Last drink was last night shortly prior to his fall. Vitals notable for borderline sinus tachycardia in the 90s, mild hypertension, otherwise afebrile and breathing comfortably on room air. Labs notable for WBC count 12.9, hemoglobin 13.5 (at baseline), sodium 134, BMP otherwise benign, CK level 124, alcohol level less than 3. Hip x-ray showed a right nondisplaced intertrochanteric fracture. Chest x-ray showed hyperinflation of COPD, no other abnormalities. Patient will be admitted for further management. [facility] Medical History ETOH abuse Home Medications prednisolone acetate 1 % eye drops,suspension 1 drp ophthalmic (eye) 4X/DAY eye 03/17/24 [History Last Taken 03/17/24] Allergy/AdvReac Type Severity Reaction Status Date / Time No Known Allergies Allergy Verified 06/17/21 17:10 Surgical History (Updated 03/17/24 @ 15:47 by Chely Howell) H/O heart artery stent H/O hernia repair Hx of appendectomy Hx of tonsillectomy Social History Smoking Status: Current every day smoker tobacco type: cigarettes ROS Constitutional Constitutional: Reports weakness; Denies chills, fatigue or fever(s) Cardiovascular Cardiovascular: Denies chest pain or edema Respiratory/Chest Respiratory/Chest: Denies shortness of breath at rest or wheezing Gastrointestinal Gastrointestinal: Denies abdominal pain Musculoskeletal Musculoskeletal: Reports joint pain Neurologic Neurologic: Denies dizziness, focal weakness or headache(s) Vital Signs Vital Signs Vital Signs: 03/17/24 10:14 03/17/24 10:18 03/17/24 12:12 Temperature 98 F Temperature Source Oral Pulse Rate 78 90 Respiratory Rate 18 14 Respiratory Effort Normal Respiratory Depth Normal Respiratory Pattern Normal Blood Pressure 146/76 H 139/92 H Blood Pressure Mean 99 107 Pulse Ox 98 96 Oxygen Delivery Method Room Air Room Air Weight Weight: 62.596 kg Body Mass Index (BMI) 19.8 Physical Exam Const alert, oriented x3 and no apparent distress Constitutional Narrative: Elderly male, thin and somewhat cachectic appearing suspect due to pulmonary cachexia, mildly anxious appearing, otherwise laying back fairly comfortably in bed, answer questions appropriately. General Appearance: cooperative HEENT normocephalic, head/scalp atraumatic, hearing grossly normal bilaterally and nasal mucous membranes and turbinates normal Eyes PERRL, EOMs intact bilaterally and conjunctivae normal Neck full ROM Chest inspection of chest normal Resp normal respiratory effort, normal air movement, no use of accessory muscles and clear to auscultation bilaterally Resp Narrative: Breathing comfortably on room air at rest with good oxygen saturations. No wheezing or crackles noted. Cardio regular rate, regular rhythm, no murmurs and peripheral pulses 2+ throughout GI normal to inspection, nondistended, normoactive bowel sounds, soft to palpation, non-tender and non-distended Back/Spine normal ROM Extremity Extremity Narrative: Right leg noticeably externally rotated. Mild to moderate tenderness to palpation in the right hip. Did not attempt any motion. Skin no rashes or lesions noted Neuro no focal motor deficits Speech: speech normal Psych mental status grossly normal Mood & Affect: anxious Results Lab / Micro Data 03/17/24 10:55 03/17/24 10:55 Labs: Laboratory Results - last 24 hr 03/17/24 10:55: WBC 12.9 H, RBC 4.02 L, Hgb 13.5, Hct 39.2 L, MCV 97.5 H, MCH 33.6 H, MCHC 34.4, RDW Std Deviation 43.9, RDW Coeff of Berny 12.2, Plt Count 195, MPV 8.1, Immature Gran % (Auto) 0.400, Neut % (Auto) 80.3 H, Lymph % (Auto) 4.0 L, Hawkins % (Auto) 15.0 H, Eos % (Auto) 0.1, Baso % (Auto) 0.2, Absolute Neuts (auto) 10.4 H, Absolute Lymphs (auto) 0.51 L, Nucleated RBC % 0, Differential Comment COMMENT, Diff Path Review March foll, Sodium 134 L, Potassium 4.2, Chloride 99, Carbon Dioxide 28.0, Anion Gap 7, BUN 9, Creatinine 0.77, Estim Creat Clear Calc 74.98, Est GFR (MDRD) Af Amer 129, Est GFR (MDRD) Non-Af 106, BUN/Creatinine Ratio 11.7, Glucose 114 H, Calcium 9.2, Total Creatine Kinase 124 Imaging Radiology Impression Hip/Pelvis X-Ray 03/17/24 10:39 IMPRESSION: Nondisplaced right intertrochanteric fracture. Electronically Signed: Bright Hoffmann MD at 11:12 EDT , Chest X-Ray 03/17/24 11:00 IMPRESSION: Hyperinflation and COPD. No acute abnormality is seen. Electronically Signed: Bright Hoffmann MD at 11:15 EDT , Assessment & Plan Assessment/Plan (1) Closed right hip fracture: (2) ETOH abuse: (3) Tobacco abuse: PLAN: Plan Patient is a 73-year-old male who presented [facility] ED on 03/17/2024 with right hip pain after a fall at home. 1. Right hip fracture ? Admit under inpatient status to [facility]. Orthopedics consulted. Preop evaluation as noted below. N.p.o. at midnight for procedure tomorrow. PT/OT/case management consulted. Pain control with scheduled Tylenol, oxycodone as needed and IV Dilaudid as needed. 2. Preoperative evaluation ? NSQIP score: Below average risk of serious complication, any complication, discharged to nursing or rehab facility given risk factors of age, mild systemic disease, smoker and low BMI. ? Lab/imaging: Hemoglobin stable at baseline 13.5, platelets 195, BMP benign with creatinine 0.77, INR 1.1. No further labs needed preoperatively. Recommend CBC and BMP postop. ? EKG/echo: EKG showed normal sinus rhythm with heart rate in 90s, no ST changes, similar to last EKG from 2020. Last echo in February 2022 with clinically difficult study but EF 55%, no significant valve disease. Appears euvolemic, no reported chest pain with exertion. No need for further cardiac testing prior to procedure. ? Medications: Only home medication is atorvastatin, continue. ? Previous procedural complications: No previous surgeries under general anesthesia. ? Other health concerns: Patient does have history of presumed undiagnosed COPD as noted below. Chest x-ray showed hyperinflation. Patient satting in mid to high 90s on room air at rest. If procedure was less urgent, would likely recommend getting formal PFTs prior to procedure. Patient also with alcohol abuse and high risk for withdrawal as noted below. Treated with phenobarbital taper and patient tolerating well. ? Recommendation: Patient is medically optimized for procedure. 3. Alcohol abuse with concern for withdrawal ? Reports drinking 4-5 bottles per night. Has been doing this for years. Denies history of alcohol withdrawal but daughter notes he has drank essentially every day for many years. Last drink yesterday evening before 9 PM prior to fall. Alcohol level less than 3 in the ED. Borderline sinus tachycardia and hypertension in ED with mild agitation. Given high concern for withdrawal, will start phenobarbital taper. Other as needed medications ordered per alcohol withdrawal order set. Monitor closely. 4. Presumed COPD ? Current smoker with extensive smoking history as noted below. Chest x-ray with hyperinflation consistent with COPD and patient with suspected pulmonary cachexia with BMI only 18. No formal PFTs completed before. Not on any home inhalers. Will order albuterol as needed here. Recommend outpatient follow-up for formal PFTs on discharge. 5. Peripheral artery disease, hyperlipidemia ? Had ED visit here back in 2020 for concern for gangrene of right big toe, fourth toe and fifth toe. Had concern for severe vascular disease given extensive smoking history but patient had good pulses and labs were benign, was discharged home with vascular surgery follow-up. Had arterial studies done that were consistent with moderate to severe arterial occlusive disease in both the right and left lower extremities. However, patient has only been on a statin medication after that and has had no further complications. Good pulses in bilateral feet in the ED with good perfusion. Recent lipid panel ordered by outpatient PCP on 03/14 showed total cholesterol 232, LDL 132, HDL 68; however charla miranda noted he was not fasting and plan was to repeat this lipid panel. Will continue home atorvastatin and start aspirin for his peripheral artery disease. 6. Tobacco abuse ? Current smoker, smokes about 1 pack/day. Has been smoking since age 16, roughly [id number] history. Nicotine patch ordered per patient request. Encouraged cessation. DVT prophylaxis: Lovenox CODE STATUS: Full code, verified Expected disposition: Home with home health care versus SNF, TBD Total clinical time spent by myself addressing the patient's medical issues, reviewing all the data, and collaborating with patient's care team: 55 minutes. Charges/Coding Visit Charges Inpatient E&M: 58880 Init Hosp L2
[2024-03-17 14:00] VITALS: BP 140/73; PULSE 91; RESP 15; O2SAT 95
[2024-03-17 14:02] LABS: Alcohol, Blood (Medical)-Serum < 3.0 mg/dL
[2024-03-17 14:27] VITALS: BP 140/73; PULSE 91; RESP 15; TEMP 36.4; O2SAT 95
[2024-03-17] MEDS: Phenobarbital 32.4 MG Tablet 64.8 MG PO ×3 (15:06→21:55)
[2024-03-17] MEDS: HYDROmorphone 0.5 MG/0.5 ML SYRINGE IV (15:06)
[2024-03-17 15:07] LABS: International Normalized Ratio 1.1
[2024-03-17 15:36] VITALS: BMI 18.3
[2024-03-17 15:37] VITALS: BP 144/82; PULSE 90; RESP 18; TEMP 36.8; O2SAT 93
[2024-03-17 17:00] LABS: Vitamin B12 235 pg/mL (211-911); Vitamin D,25 Hydroxy 21.7 ng/mL
[2024-03-17] MEDS: Acetaminophen 500 MG Tablet 1000 MG PO ×2 (17:51→21:55)
[2024-03-17 19:39] VITALS: BP 101/79; PULSE 108; RESP 18; TEMP 36.9; O2SAT 96
[2024-03-17] MEDS: oxyCODONE 5 MG Tablet PO (19:43)
[2024-03-17] MEDS: 0.9% Saline Lock 10 ML Syringe IV (19:54)
[2024-03-17] MEDS: Senna Tablet 1 TABLET PO (21:55)
[2024-03-17] MEDS: Atorvastatin Calcium 40 MG Tablet PO (21:55)
[2024-03-18] VITALS (13 sets, daily range): BP systolic 96–139; BP diastolic 58–98; PULSE 78–102; RESP 14–18; TEMP 36.1–37.3; O2SAT 94–100
[2024-03-18] MEDS: HYDROmorphone 0.5 MG/0.5 ML SYRINGE IV (00:22)
[2024-03-18] MEDS: 0.9% Saline Lock 10 ML Syringe IV (00:22)
[2024-03-18] MEDS: Phenobarbital 32.4 MG Tablet 64.8 MG PO ×4 (02:51→22:52)
[2024-03-18] MEDS: Acetaminophen 500 MG Tablet 1000 MG PO ×2 (05:57→22:53)
[2024-03-18 07:15] LABS: Hemoglobin 11.9 g/dL (13.0-16.5); Mean Corp Hgb Conc 33.1 g/dL (32-36); Mean Corpuscular Hgb 33.4 pg (27.0-32.0); Mean Corpuscular Volume 101.1 fL (80-94); Mean Platelet Vol. 8.7 fl (6.2-12.0); Platelet Count 166 K/mm3 (150-450); RBC Distribution Width CV 12.9 % (11.6-14.6); RBC Distribution Width SD 48.1 fl (35.1-43.9); Red Blood Count 3.56 M/mm3 (4.6-6.2)
--- NOTE | 2024-03-18 07:26 | PN.HOSP_ITS ---
Reason for Visit Reason for Visit: Diagnoses Alcohol abuse, uncomplicated (03/17/24) Fracture of unspecified part of neck of right femur, initial encounter for closed fracture (03/17/24) Tobacco use (03/17/24) Subjective Subjective Right hip pain. No new issues at this time. Objective Data Objective Data Vital Signs: Vital Signs Temp Pulse Resp BP Pulse Ox O2 Del Method 36.4 C L 80 18 136/77 H 97 Room Air 03/18/24 05:52 03/18/24 05:52 03/18/24 05:52 03/18/24 05:52 03/18/24 05:52 03/18/24 06:15 Oxygen Delivery Method Room Air Weight: 58.014 kg Body Mass Index (BMI) 18.3 Intake & Output: Intake and Output for Last 24 Hours 03/16/24 03/17/24 03/18/24 23:59 23:59 23:59 Intake Total 1120 / 1120 550 / 550 Output Total 200 / 200 Balance 1120 / 1120 350 / 350 Lab / Micro Data 03/18/24 06:15 03/18/24 06:15 Labs: Laboratory Results - last 24 hr 03/17/24 10:55: WBC 12.9 H, RBC 4.02 L, Hgb 13.5, Hct 39.2 L, MCV 97.5 H, MCH 33.6 H, MCHC 34.4, RDW Std Deviation 43.9, RDW Coeff of Berny 12.2, Plt Count 195, MPV 8.1, Immature Gran % (Auto) 0.400, Neut % (Auto) 80.3 H, Lymph % (Auto) 4.0 L, Dukes % (Auto) 15.0 H, Eos % (Auto) 0.1, Baso % (Auto) 0.2, Absolute Neuts (auto) 10.4 H, Absolute Lymphs (auto) 0.51 L, Nucleated RBC % 0, Differential Comment COMMENT, Diff Path Review March foll, PT 14.0, INR 1.1, Sodium 134 L, Potassium 4.2, Chloride 99, Carbon Dioxide 28.0, Anion Gap 7, BUN 9, Creatinine 0.77, Estim Creat Clear Calc 74.98, Est GFR (MDRD) Af Amer 129, Est GFR (MDRD) Non-Af 106, BUN/Creatinine Ratio 11.7, Glucose 114 H, Calcium 9.2, Total Creatine Kinase 124, Folate 12.30 03/17/24 13:26: Vitamin B12 235, Vitamin D 25-Hydroxy 21.7, Ethyl Alcohol < 3.0 03/18/24 06:15: WBC 9.0, RBC 3.56 L, Hgb 11.9 L, Hct 36.0 L, MCV 101.1 H, MCH 33.4 H, MCHC 33.1, RDW Std Deviation 48.1 H, RDW Coeff of Berny 12.9, Plt Count 166, MPV 8.7 Radiography Diagnostic Testing: Radiology Impression Hip/Pelvis X-Ray 03/17/24 10:39 IMPRESSION: Nondisplaced right intertrochanteric fracture. Electronically Signed: Bright Hoffmann MD at 11:12 EDT , Chest X-Ray 03/17/24 11:00 IMPRESSION: Hyperinflation and COPD. No acute abnormality is seen. Electronically Signed: Bright Hoffmann MD at 11:15 EDT , Physical Exam Const alert and no apparent distress Constitutional Narrative: Appropriate. Nontoxic. Afebrile. HEENT head/scalp atraumatic and moist oral mucous membranes Resp normal respiratory effort, no retractions, no use of accessory muscles and clear to auscultation bilaterally Cardio regular rate, regular rhythm, S1 normal heart sound and S2 normal heart sound GI normal to inspection, nondistended, normoactive bowel sounds, soft to palpation, non-tender and non-distended Neuro Sensorium / Orientation: awake and alert Psych affect normal Assessment & Plan Assessment/Plan (1) Closed right hip fracture: (2) ETOH abuse: (3) Tobacco abuse: PLAN: Plan Right hip fracture * s/p mechanical fall. * Ortho consulted. * Bedrest for now. * 25-OH d 21.7. Start ergocalciferol * PT OT eval and treat. Anticipate pt will need SNF upon discharge. * pt previously deemed medically optimized for surgery by Dr. Oliveira. Alcohol abuse with acute withdrawal * No alcohol level on admission. * On phenobarbital taper, which has been initiated. * Thiamine and folate Suspected COPD * Chest x-ray reviewed and showed hyperinflated airways. * No active issues at present. Follow-up with pulmonary and outpatient PFTs Chronic conditions * peripheral artery disease: prior arterial studies done that were consistent with moderate to severe arterial occlusive disease in both the right and left lower extremities. * HLD: continue statin * Tobacco abuse? Current smoker, smokes about 1 pack/day. Has been smoking since age 16, roughly [id number] history. Nicotine patch ordered per patient request. VTE prophylaxis: enoxaparin CODE STATUS: Full code, verified Expected disposition: Suspect SNF. I doubt pt will have the physical capacity to manage safely at home when he is ready for discharge. Charges/Coding Visit Charges Inpatient E&M: 56306 Subs Hosp L2
[2024-03-18 07:37] LABS: Anion Gap 4 (5-15); BUN 16 mg/dL (7-18); Calcium,Total 8.6 mg/dL (8.5-10.1); Chloride 101 mmol/L (98-107); EST Glomerular Filtration Rate 119 mL/min (>60); Est Glom Filt Rate - Afr Amer 144 mL/min (>60); Glucose 104 mg/dL (74-106); Potassium 3.9 mmol/L (3.5-5.1); Sodium Level 134 mmol/L (136-145)
--- NOTE | 2024-03-18 10:23 | CON.PCM.OR_ITS ---
HPI Consult Data Date of Consult: 03/18/24 HPI Narrative Reason for Consultation: Right hip pain HPI Narrative: MAVIS IRWIN, is a 73 M with history of chronic alcohol abuse and nicotine abuse who presents today with right hip pain. Patient fell Thursday evening states he tripped over his dog cage and landed on his right hip. He was able to call the bed however he had 10 out of 10 pain the following morning was unable to get out of bed. After his neighbor assisted him he was able to contact the emergency department and was brought here for evaluation. Patient was found to have a right intertrochanteric hip fracture. Patient reports pain with motion better with immobilization and pain medications. Will reports his pain is a 3 out of 10 right now.Patient notes he lives home alone. His daughter lives in the area. Patient was conscious and awake and able to answer all my questions. Her daughter is expected to be at the hospital later today will have further discussions with her at that time. Patient reports he drinks 2-4 alcoholic drinks a day, according to him not every day. Patient smokes least a pack a day and has since he was 16 years old. Patient does not use a walker or cane reports no significant assistance with ADLs on a daily basis. REPLACED BY [facility] Medical History ETOH abuse Home Medications prednisolone acetate 1 % eye drops,suspension 1 drp ophthalmic (eye) 4X/DAY eye 03/17/24 [History Last Taken 03/17/24] Allergy/AdvReac Type Severity Reaction Status Date / Time No Known Allergies Allergy Verified 06/17/21 17:10 no significant family history Surgical History H/O heart artery stent H/O hernia repair Hx of appendectomy Hx of tonsillectomy Social History (Updated 03/18/24 @ 10:[address] Baltazar Thapa MD) household members: none housing: house Smoking Status: Current every day smoker tobacco type: cigarettes alcohol intake: current details: 2-4 alcoholic drinks per day ROS ROS Narrative 14 point review systems outside of what is noted in the H&P is negative Vital Signs Vital Signs Vital Signs: 03/17/24 12:12 03/17/24 14:00 03/17/24 14:27 Temperature 97.6 F L Temperature Source Pulse Rate 90 91 91 Pulse Strength Respiratory Rate 14 15 15 Respiratory Effort Respiratory Depth Respiratory Pattern Blood Pressure 139/92 H 140/73 H 140/73 H Blood Pressure Mean 107 95 95 Blood Pressure Source Blood Pressure Position Blood Pressure Location Pulse Ox 96 95 95 Oxygen Delivery Method Room Air Room Air 03/17/24 15:37 03/17/24 16:00 03/17/24 16:29 Temperature 98.3 F Temperature Source Temporal Pulse Rate 90 Pulse Strength Respiratory Rate 18 Respiratory Effort Normal Respiratory Depth Normal Respiratory Pattern Normal Blood Pressure 144/82 H Blood Pressure Mean 102 Blood Pressure Source Monitor Blood Pressure Position Semi-Fowlers Blood Pressure Location Right Arm Pulse Ox 93 Oxygen Delivery Method Room Air Room Air Room Air 03/17/24 19:39 03/17/24 23:45 03/18/24 00:43 Temperature 98.4 F 97.7 F L Temperature Source Oral Oral Pulse Rate 108 H 78 Pulse Strength Normal (2+) Respiratory Rate 18 18 Respiratory Effort Respiratory Depth Respiratory Pattern Blood Pressure 101/79 100/60 Blood Pressure Mean 86 73 Blood Pressure Source Monitor Monitor Blood Pressure Position Semi-Fowlers Semi-Fowlers Blood Pressure Location Right Arm Right Arm Pulse Ox 96 95 Oxygen Delivery Method Room Air Room Air 03/18/24 05:52 03/18/24 06:15 03/18/24 07:58 Temperature 97.6 F L Temperature Source Oral Pulse Rate 80 Pulse Strength Respiratory Rate 18 Respiratory Effort Normal Non-Labored Respiratory Depth Normal Respiratory Pattern Normal Blood Pressure 136/77 H Blood Pressure Mean 96 Blood Pressure Source Monitor Blood Pressure Position Semi-Fowlers Blood Pressure Location Right Arm Pulse Ox 97 Oxygen Delivery Method Room Air Room Air Room Air 03/18/24 10:00 Temperature Temperature Source Pulse Rate Pulse Strength Normal (2+) Respiratory Rate Respiratory Effort Respiratory Depth Respiratory Pattern Blood Pressure Blood Pressure Mean Blood Pressure Source Blood Pressure Position Blood Pressure Location Pulse Ox Oxygen Delivery Method Weight Weight: 127 lb 14.4 oz Body Mass Index (BMI) 18.3 Physical Exam Const alert, oriented x3 and no apparent distress General Appearance: cooperative and well developed HEENT normocephalic Eyes PERRL Neck no JVD Resp normal respiratory effort Cardio Cardio Narrative: Regular pulse rate GI non-tender Extremity Extremity Narrative: Right lower extremity: Skin clean, dry, and intact. Limb is shortened and externally rotated Motor is intact dorsiflexion, EHL and plantar flexion. Sensation is intact to light touch saphenous, maciel,l superficial peroneal, deep peroneal and tibial distributions. Calves are soft and supple. Skin no rashes or lesions noted Neuro CN's II-XII intact bilaterally Psych mental status grossly normal and affect normal Medical Records Data Attestation: I reviewed the patient's medical records Lab / Micro Data Attestation: I reviewed the patient's lab results. 03/18/24 06:15 03/18/24 06:15 Labs: Laboratory Results - last 24 hr 03/17/24 10:55: WBC 12.9 H, RBC 4.02 L, Hgb 13.5, Hct 39.2 L, MCV 97.5 H, MCH 33.6 H, MCHC 34.4, RDW Std Deviation 43.9, RDW Coeff of Berny 12.2, Plt Count 195, MPV 8.1, Immature Gran % (Auto) 0.400, Neut % (Auto) 80.3 H, Lymph % (Auto) 4.0 L, [place] % (Auto) 15.0 H, Eos % (Auto) 0.1, Baso % (Auto) 0.2, Absolute Neuts (auto) 10.4 H, Absolute Lymphs (auto) 0.51 L, Nucleated RBC % 0, Differential Comment COMMENT, Diff Path Review March, PT 14.0, INR 1.1, Sodium 134 L, Potassium 4.2, Chloride 99, Carbon Dioxide 28.0, Anion Gap 7, BUN 9, Creatinine 0.77, Estim Creat Clear Calc 74.98, Est GFR (MDRD) Af Amer 129, Est GFR (MDRD) Non-Af 106, BUN/Creatinine Ratio 11.7, Glucose 114 H, Calcium 9.2, Total Creatine Kinase 124, Folate 12.30 03/17/24 13:26: Vitamin B12 235, Vitamin D 25-Hydroxy 21.7, Ethyl Alcohol < 3.0 03/18/24 06:15: WBC 9.0, RBC 3.56 L, Hgb 11.9 L, Hct 36.0 L, MCV 101.1 H, MCH 33.4 H, MCHC 33.1, RDW Std Deviation 48.1 H, RDW Coeff of Berny 12.9, Plt Count 166, MPV 8.7, Sodium 134 L, Potassium 3.9, Chloride 101, Carbon Dioxide 29.0, Anion Gap 4 L, BUN 16, Creatinine 0.70, Estim Creat Clear Calc 69.50, Est GFR (MDRD) Af Amer 144, Est GFR (MDRD) Non-Af 119, BUN/Creatinine Ratio 23.0 H, Glucose 104, Calcium 8.6 Imaging Radiology Impression Hip/Pelvis X-Ray 03/17/24 10:39 IMPRESSION: Nondisplaced right intertrochanteric fracture. Electronically Signed: Bright Hoffmann MD at 11:12 EDT , Images were personally reviewed evaluate the position noting mild displacement of intertrochanteric hip fracture. Chest X-Ray 03/17/24 11:00 IMPRESSION: Hyperinflation and COPD. No acute abnormality is seen. Electronically Signed: Bright Hoffmann MD at 11:15 EDT , Images were reviewed by the orthopedic physician noting no bony abnormality shoulder is well reduced . Assessment & Plan Assessment/Plan (1) Closed right hip fracture: PLAN: Natural history of the disease process and treatment options were discussed the patient. Patient has a right intertrochanteric hip fracture with minimal displacement. Is an appropriate candidate for cephalomedullary nail. Operative and nonoperative intervention were discussed with patient. However, operative intervention was recommended based on patient's overall health, function and fracture pattern. Cephalomedullary nail procedure was described to the patient. Risk and benefits of the procedure were discussed with patient including not limited to blood loss, DVTs, PEs, nervous damage, infection, the risk of anesthesia including loss of life. We also discussed nonunion, ma lunion, hardware failure and hardware cut out as potential outcome. We discussed long-term recovery and expectations including functional changes associated with hip fractures. I also discussed acute recovery may require rehabilitation and/or fci. Patient demonstrates an understanding. Will discuss further with his daughter at bedside prior to surgical intervention. (2) ETOH abuse: PLAN: Importance of alcohol cessation was discussed with patient. Patient denies history of withdrawal. (3) Tobacco abuse: PLAN: Importance of nicotine cessation was discussed with the patient. Recommended holding nicotine patch for now.
--- NOTE | 2024-03-18 10:42 | CASEMGMT ---
KATERINA BRITTON Assessment: Face to Face with pt for initial transition planning/care coordination assessment. KATERINA BRITTON introduced self and role at [facility], pt voices understanding and consents to assessment. Pt is A&O x4 and answers all questions appropriately at this time. Care providers, pharmacy, and demographics verified/updated. Admitting Dx: PCP: Specialists: Preferred Pharmacy: Insurance: Prescription Benefit: yes LNOK: Living Arrangements: Pt lives Transportation: Pt drives self and denies concerns with transportation. DME: HHC/SNF: Pt states no concerns with going home at time of dc. Pt states no further concerns/needs. CM to follow. Advised pt to ask CM if any further question/concerns/needs arise, voices understanding. Pt Goal: Plan: Jarek BORGES CM
--- NOTE | 2024-03-18 10:42 | CASEMGMT ---
KATERINA BRITTON Assessment: Face to Face with pt for initial transition planning/care coordination assessment. RN TOBI introduced self and role at [facility], pt voices understanding and consents to assessment. Pt lying in bed in no distress. Pt is A&O x4 and answers all questions appropriately at this time. Care providers, pharmacy, and demographics verified/updated. Admitting Dx: Right hip fracture PCP: Specialists:Denies Preferred Pharmacy: [facility] Insurance: [facility] Prescription Benefit: yes LNOK: Elier - Brother, Mackenzie - daughter Living Arrangements: Pt lives alone with a dog in a ranch home with 2 steps and handrail to enter. Pt states he is independent with ADLs and IADLs. Pt states he is agreeable to SNF if therapy recommends upon DC. Transportation: Pt drives self and denies concerns with transportation. DME: Denies HHC/SNF: Denies Hx of. Pt states no concerns with going home at time of dc, and is agreeable to SNF if needed. Pt states he smokes a pack of cigarettes a day, drinks 4-5 alcoholic beverages a night, denies use of street drugs. Pt states no further concerns/needs. CM to follow. Advised pt to ask CM if any further question/concerns/needs arise, voices understanding. Pt Goal: Home, but agreeable to short term SNF if needed. Plan: TBD pending surgery and progress with therapy. Jarek BORGES CM
[2024-03-18 14:37] LABS: Pathologist Review Reviewed
[2024-03-18] MEDS: Lactated Ringers 1,000 ML 15 ML IV (14:49)
[2024-03-18] MEDS: Cefazolin 2 GM in 0.9% Normal Saline (100mL Bag) 100 ML IV (15:53)
--- NOTE | 2024-03-18 16:15 | RAD_ITS ---
STUDY: X-RAY - PELVIS AND RIGHT HIP REASON FOR EXAM: Male, 73 years old. FX TECHNIQUE: Numerous C-arm views of the pelvis and hip. 48.5 seconds fluoroscopy time. COMPARISON: None. FINDINGS: These intraoperative images show grossly satisfactory placement of fixation hardware fixating a proximal femoral fracture. Correlate with procedure note. Electronically Signed: Gt Paul MD at 17:11 EDT , RAD/Hip 1 view with Pelvis IMPRESSION: undefined
--- NOTE | 2024-03-18 16:42 | PCM.OPRPT ---
Report of Operation Date of Procedure: 03/18/24 Pre-Operative Diagnosis: Right intertrochanteric hip fracture Post-Operative Diagnosis: Right intertrochanteric hip fracture Surgery/Procedure Performed:: Right hip cephalomedullary nail Description of Surgical Findings:: Stable reduction Surgeon: Baltazar Thapa curtain supervisor: Elmer Villalobos Type of Anesthesia: General Anesthesiologist: Bob Summers Special Medications: Ancef Estimated Blood Loss (mL): 300 Fluids Replaced: 800 ML CRYSTALLOID Description of Procedure: Components used: 1. Sar[employer]hew InterTAN nail short 11.5mm nail 2. [employer] InterTAN lag screw 95mm 3. Saraiba [employer] Nephew 30 millimeter interlocking screw Procedure: On the date of the procedure the patient's Right hip was marked in the preoperative area and patient was taken back to the operating room. Anesthetic was administered and patient was transferred to the table were all bony prominence identified well-padded and the ipsilateral arm was placed across the chest. Patient was then translated down to the perineal post and the operative leg was placed in the boot while the nonoperative leg was lowered and secured. The operative leg was placed in traction and internal rotation and live fluoroscopy was used to verify adequate reduction. The operative leg was then prepped in a sterile fashion with chlorhexidine while the surgeon scrubbed. Upon reentering the room the operative extremity was draped in the standard orthopedic fashion. Skin incision was marked and a timeout was called. Everyone agreed upon the side, the site, the procedure be performed, patient's identity, and antibiotics given. Skin incision was made and the position of the entry guidepin was verified using live fluoroscopy. Once we were satisfied with our position the pin was advanced in the soft tissue protector was placed over the pin. The entry reamer was then advanced into the proximal portion of the femur. A [employer] short InterTAN 11.5 mm 125 hip nail was selected. The nail was then attached to the user experience researcher and inserted into the intramedullary canal. Initially the fit was quite tight. Based on this we remove the nail and placed a ball-tipped guidewire. We reamed the canal to 13 mm then readvanced the nail with an appropriate fit. The appropriate depth was verified and the skin incision for the lag screw was made. The lag screw guidepin was then placed under live fluoroscopy and when a satisfactory position was obtained the length of the screw was measured and the standard technique to drill for the lag screws was performed. The anti-rotation bar was used. At this time a 95 mm lag screw was selected with its corresponding compression screw. The lag screw was then passed and traction was left off the leg. The compression screw was then passed and the fracture was compressed. The final position of the lag screw was verified under fluoroscopy. Attention was then turned to the distal portion of the nail and a distal guide technique was used to locate the distal interlocking screw and a 30mm distal interlocking screw was placed using this technique. Live fluoroscopy was used to verify the position of the interlocking screw and the final position of the hip components. Once we were satisfied with our positioning the wounds were copiously irrigated out with normal saline skin was closed with 2-0 Vicryl and denia for final skin closure. A sterile dressing was placed with Xeroform. Patient was then awakened by anesthesia transferred from the fracture table back to their hospital bed and transferred to the PACU for recovery. Postoperative plan: Patient will be weight-bear as tolerated. 81 mg p.o. twice daily for 4 weeks for DVT prophylaxis with knee-high stockings. Follow up in the office in 2 weeks. Complications none Admit VTE Documentation VTE Present on Admission: No VTE Mechan Device Prophylaxis: SCD's and Thigh High MCKENZIE Hose VTE Pharm Prophylaxis ordered?: Yes
--- NOTE | 2024-03-18 17:20 | RAD_ITS ---
STUDY: X-RAY - PELVIS AND RIGHT HIP REASON FOR EXAM: Male, 73 years old. Post Op -- AP both hips on single ludy/lateral of op hip PACU TECHNIQUE: 2 views of the pelvis and hip. COMPARISON: 03/17/2024. FINDINGS: Satisfactory appearance of fixation hardware across the right intratrochanteric fracture on this single frontal view. Unremarkable visualized pelvis. Normal bilateral superior and inferior pubic rami. Normal pubic symphysis. Normal bilateral ischial tuberosities. RAD/Hip Min 2 Views (Portable) IMPRESSION: Satisfactory appearance of right proximal femoral fracture status post ORIF. Electronically Signed: Gt Paul MD at 18:18 EDT ,
[2024-03-18] MEDS: Aspirin 81 MG TAB.CHEW PO (22:53)
[2024-03-18] MEDS: Ergocalciferol 1.25 MG (50, 000 UNIT) Capsule PO (22:53)
[2024-03-18] MEDS: Senna Tablet 1 TABLET PO (22:53)
[2024-03-18] MEDS: Atorvastatin Calcium 40 MG Tablet PO (22:53)
[2024-03-18] MEDS: Cefazolin 1 GM/50 ML BAG IV (22:54)
[2024-03-19] VITALS (8 sets, daily range): BP systolic 80–110; BP diastolic 45–68; PULSE 87–118; RESP 16–18; TEMP 36.5–37.6; O2SAT 94–99
[2024-03-19] MEDS: Phenobarbital 32.4 MG Tablet 64.8 MG PO ×2 (03:31→07:02)
[2024-03-19] MEDS: Acetaminophen 500 MG Tablet 1000 MG PO ×3 (07:02→20:28)
[2024-03-19] MEDS: Cefazolin 1 GM/50 ML BAG IV (07:02)
--- NOTE | 2024-03-19 07:02 | PN.HOSP_ITS ---
Reason for Visit Reason for Visit: Diagnoses Alcohol abuse, uncomplicated (03/17/24) Fracture of unspecified part of neck of right femur, initial encounter for closed fracture (03/17/24) Tobacco use (03/17/24) Subjective Subjective Feels well. no events. Objective Data Objective Data Vital Signs: Vital Signs Temp Pulse Resp BP Pulse Ox O2 Del Method 36.6 C 92 18 110/68 96 Room Air 03/19/24 03:28 03/19/24 03:28 03/19/24 03:28 03/19/24 03:28 03/19/24 03:28 03/19/24 03:28 Oxygen Delivery Method Room Air Weight: 58.014 kg Body Mass Index (BMI) 18.3 Intake & Output: Intake and Output for Last 24 Hours 03/17/24 03/18/24 03/19/24 23:59 23:59 23:59 Intake Total 1120 / 1120 710 / 910 200 / 200 Output Total 350 / 550 200 / 200 Balance 1120 / 1120 360 / 360 0 / 0 Medical Nutrition Assessment Dietitian: Malnutrition Criteria Met Start: 03/18/24 14:44 Freq: Status: Active Protocol: Document 03/18/24 14:44 AG (Rec: 03/18/24 14:44 AG [id number]) Nutrition Malnutrition Evidence of Malnutrition Exists Yes Malnutrition (moderate): Acute Illness/Injury Evidenced By Suboptimal Energy Intake ( Moderate),Physical Changes ( Mild) Clinical Problem Chronic Disease or Condition Related Malnutrition Etiology moderate chronic malnutrition related to inadequate energy intake Signs/Symptoms as evidenced by mild muscle wasting/fat loss evident per physical exam in orbital, clavicle, and acromion areas, estimated energy intake meeting <75% of estimated energy needs > 3 months, BMI 18.4 Status Active Problem Recommendation Dietitian Recommendations/Changes recommend advance diet as tolerated to regular; will add 120mL ensure plus high protein 4x/day w/medpass given evidence of malnutrition Lab / Micro Data 03/19/24 09:58 03/19/24 09:58 Labs: Laboratory Results - last 24 hr 03/17/24 10:55: Diff Path Review Reviewed 03/18/24 06:15: WBC 9.0, RBC 3.56 L, Hgb 11.9 L, Hct 36.0 L, MCV 101.1 H, MCH 33.4 H, MCHC 33.1, RDW Std Deviation 48.1 H, RDW Coeff of Berny 12.9, Plt Count 166, MPV 8.7, Sodium 134 L, Potassium 3.9, Chloride 101, Carbon Dioxide 29.0, A nion Gap 4 L, BUN 16, Creatinine 0.70, Estim Creat Clear Calc 69.50, Est GFR (MDRD) Af Amer 144, Est GFR (MDRD) Non-Af 119, BUN/Creatinine Ratio 23.0 H, Glucose 104, Calcium 8.6 Radiography Diagnostic Testing: Radiology Impression Hip/Pelvis X-Ray 03/18/24 16:15 IMPRESSION: undefined Hip X-Ray 03/18/24 17:20 IMPRESSION: Satisfactory appearance of right proximal femoral fracture status post ORIF. Electronically Signed: Gt Paul MD at 18:18 EDT , Physical Exam Const alert and no apparent distress HEENT head/scalp atraumatic and moist oral mucous membranes Assessment & Plan Assessment/Plan (1) Closed right hip fracture: PLAN: Plan Right hip fracture s/p Right cephalomedullary nail. PT OT. Alcohol abuse. No clear alcohol
--- NOTE | 2024-03-19 07:03 | PN.HOSP_ITS ---
Reason for Visit Reason for Visit: Diagnoses Alcohol abuse, uncomplicated (03/17/24) Fracture of unspecified part of neck of right femur, initial encounter for closed fracture (03/17/24) Tobacco use (03/17/24) Subjective Subjective Feels well. Pain in right hip better. Objective Data Objective Data Vital Signs: Vital Signs Temp Pulse Resp BP Pulse Ox O2 Del Method 36.6 C 92 18 110/68 96 Room Air 03/19/24 03:28 03/19/24 03:28 03/19/24 03:28 03/19/24 03:28 03/19/24 03:28 03/19/24 03:28 Oxygen Delivery Method Room Air Weight: 58.014 kg Body Mass Index (BMI) 18.3 Intake & Output: Intake and Output for Last 24 Hours 03/17/24 03/18/24 03/19/24 23:59 23:59 23:59 Intake Total 1120 / 1120 710 / 910 200 / 200 Output Total 350 / 550 200 / 200 Balance 1120 / 1120 360 / 360 0 / 0 Medical Nutrition Assessment Dietitian: Malnutrition Criteria Met Start: 03/18/24 14:44 Freq: Status: Active Protocol: Document 03/18/24 14:44 AG (Rec: 03/18/24 14:44 AG [id number]) Nutrition Malnutrition Evidence of Malnutrition Exists Yes Malnutrition (moderate): Acute Illness/Injury Evidenced By Suboptimal Energy Intake ( Moderate),Physical Changes ( Mild) Clinical Problem Chronic Disease or Condition Related Malnutrition Etiology moderate chronic malnutrition related to inadequate energy intake Signs/Symptoms as evidenced by mild muscle wasting/fat loss evident per physical exam in orbital, clavicle, and acromion areas, estimated energy intake meeting <75% of estimated energy needs > 3 months, BMI 18.4 Status Active Problem Recommendation Dietitian Recommendations/Changes recommend advance diet as tolerated to regular; will add 120mL ensure plus high protein 4x/day w/medpass given evidence of malnutrition Lab / Micro Data 03/19/24 09:58 03/19/24 09:58 Labs: Laboratory Results - last 24 hr 03/17/24 10:55: Diff Path Review Reviewed 03/18/24 06:15: WBC 9.0, RBC 3.56 L, Hgb 11.9 L, Hct 36.0 L, MCV 101.1 H, MCH 33.4 H, MCHC 33.1, RDW Std Deviation 48.1 H, RDW Coeff of Berny 12.9, Plt Count 1 66, MPV 8.7, Sodium 134 L, Potassium 3.9, Chloride 101, Carbon Dioxide 29.0, Anion Gap 4 L, BUN 16, Creatinine 0.70, Estim Creat Clear Calc 69.50, Est GFR (MDRD) Af Amer 144, Est GFR (MDRD) Non-Af 119, BUN/Creatinine Ratio 23.0 H, Glucose 104, Calcium 8.6 Radiography Diagnostic Testing: Radiology Impression Hip/Pelvis X-Ray 03/18/24 16:15 IMPRESSION: undefined Hip X-Ray 03/18/24 17:20 IMPRESSION: Satisfactory appearance of right proximal femoral fracture status post ORIF. Electronically Signed: Gt Paul MD at 18:18 EDT , Physical Exam Const alert and no apparent distress HEENT head/scalp atraumatic and moist oral mucous membranes Resp normal respiratory effort, no retractions, no use of accessory muscles and clear to auscultation bilaterally Cardio regular rate, regular rhythm, S1 normal heart sound, S2 normal heart sound and no murmurs GI normal to inspection, nondistended, normoactive bowel sounds, soft to palpation, non-tender and non-distended Extremity normal to inspection and full ROM Neuro Sensorium / Orientation: awake and alert Assessment & Plan Assessment/Plan (1) Closed right hip fracture: (2) ETOH abuse: (3) Tobacco abuse: PLAN: Plan Right hip fracture * s/p mechanical fall. * patient underwent right cephalomedullary nail on 03/18. * Bedrest for now. * 25-OH d 21.7. Start ergocalciferol * PT OT eval and treat. Anticipate pt will need SNF upon discharge. * pt previously deemed medically optimized for surgery by Dr. Oliveira. Alcohol abuse with acute withdrawal * No alcohol level on admission. * On phenobarbital taper, which has been initiated. * Thiamine and folate Suspected COPD * Chest x-ray reviewed and showed hyperinflated airways. * No active issues at present. Follow-up with pulmonary and outpatient PFTs Chronic conditions * peripheral artery disease: prior arterial studies done that were consistent with moderate to severe arterial occlusive disease in both the right and left lower extremities. Continue ASA. * HLD: continue statin * Tobacco abuse? Current smoker, smokes about 1 pack/day. Has been smoking since age 16, roughly 16-[id number]-[id number] history. Nicotine patch ordered per patient request. VTE prophylaxis: ASA BID CODE STATUS: Full code, verified Expected disposition: Suspect SNF. I doubt pt will have the physical capacity to manage safely at home when he is ready for discharge. Charges/Coding Visit Charges Inpatient E&M: 67750 Subs Hosp L2
[2024-03-19] MEDS: Ensure Surgery 237 ML LIQUID PO ×2 (09:40→14:26)
[2024-03-19] MEDS: Aspirin 81 MG TAB.CHEW PO ×2 (09:41→20:28)
[2024-03-19] MEDS: Famotidine 20 MG Tablet PO (09:41)
[2024-03-19] MEDS: Folic Acid 1 MG Tablet PO (09:41)
[2024-03-19] MEDS: Enoxaparin 40 MG/0.4 ML Syringe SC (09:42)
[2024-03-19] MEDS: Thiamine Hydrochloride 100 MG Tablet PO (09:42)
[2024-03-19] MEDS: Senna Tablet 1 TABLET PO (09:43)
--- NOTE | 2024-03-19 09:48 | PN.ORTHO_ITS ---
Subjective Subjective Patient is doing well this morning. No acute events overnight. Did have some decreased blood pressure this morning. Has not been out of bed does not report any dizziness. No chest pain or shortness of breath. He is eating his breakfast during encounter. Objective Data Objective Data Vital Signs: Vital Signs Temp Pulse Resp BP Pulse Ox O2 Del Method 97.7 F L 87 16 96/58 L 94 Room Air 03/19/24 08:55 03/19/24 08:55 03/19/24 08:55 03/19/24 08:55 03/19/24 08:55 03/19/24 08:55 Oxygen Delivery Method Room Air Weight: 127 lb 14.384 oz Body Mass Index (BMI) 18.3 Intake & Output: Intake and Output for Last 24 Hours 03/17/24 03/18/24 03/19/24 23:59 23:59 23:59 Intake Total 1120 / 1120 710 / 910 200 / 200 Output Total 350 / 550 200 / 200 Balance 1120 / 1120 360 / 360 0 / 0 Medical Nutrition Assessment Dietitian: Malnutrition Criteria Met Start: 03/18/24 14:44 Freq: Status: Active Protocol: Document 03/18/24 14:44 AG (Rec: 03/18/24 14:44 AG [id number]) Nutrition Malnutrition Evidence of Malnutrition Exists Yes Malnutrition (moderate): Acute Illness/Injury Evidenced By Suboptimal Energy Intake ( Moderate),Physical Changes ( Mild) Clinical Problem Chronic Disease or Condition Related Malnutrition Etiology moderate chronic malnutrition related to inadequate energy intake Signs/Symptoms as evidenced by mild muscle wasting/fat loss evident per physical exam in orbital, clavicle, and acromion areas, estimated energy intake meeting <75% of estimated energy needs > 3 months, BMI 18.4 Status Active Problem Recommendation Dietitian Recommendations/Changes recommend advance diet as tolerated to regular; will add 120mL ensure plus high protein 4x/day w/medpass given evidence of malnutrition Lab / Micro Data Attestation: I reviewed the patient's lab results. Lab results narrative: New labs are pending. 03/18/24 06:15 03/18/24 06:15 Labs: Laboratory Results - last 24 hr 03/17/24 10:55: Diff Path Review Reviewed Radiography Diagnostic Testing: Radiology Impression Hip/Pelvis X-Ray 03/18/24 16:15 IMPRESSION: undefined Hip X-Ray 03/18/24 17:20 IMPRESSION: Satisfactory appearance of right proximal femoral fracture status post ORIF. Electronically Signed: Gt Paul MD at 18:18 EDT , Physical Exam Const alert, oriented x3 and no apparent distress Extremity Extremity Narrative: Right lower extremity: Dressing is clean dry and intact Sensations intact to light touch saphenous, sural, superficial peroneal, deep peroneal, and tibial distributions Motors intact EHL, DF, PF calves are soft and supple Assessment & Plan Assessment/Plan (1) Closed right hip fracture: PLAN: Postop day 1 right cephalomedullary hip nail 1. DVT prophylaxis aspirin 81 mg p.o. twice daily for 4 weeks upon discharge. Currently on Lovenox per primary service. Patient and family deny any history of DVT or PE. Patient anticipated to mobilize well. 2. Acute on chronic anemia: Labs pending for this morning. Patient overall asymptomatic does have some decreased blood pressure this morning. Satting appropriately. Will review pending labs when available. 3. Therapy: Weightbearing as tolerated, activity as tolerated 4. Pain control: Per primary service recommend minimal narcotic use. Will be careful with excessive Tylenol dosage based on patient's chronic alcohol use 5. Disposition: Patient is doing well. If pending labs showed no significant abnormalities will recommend follow-up in the office in 2 weeks for suture removal/staple removal and repeat radiographs. Patient based on preoperative function injury and anticipated rehab will likely need inpatient rehabilitation versus correction facility upon discharge from hospital. Recommend aspirin 81 mg twice a day for total of 4 weeks for DVT prophylaxis upon discharge. Dressing can be removed on postoperative day 5 left open to air if no further drainage and wounds are well-healed. Please notify orthopedics of any further questions or concerns [facility] Office:
[2024-03-19 10:08] LABS: Absolute Lymphocyte Count 0.72 X10^3/uL (0.83-4.51); Absolute Neutrophil Count 7.7 X10^3/uL (2.0-7.7); Basophil# 0.03 X10^3/uL; Basophil% 0.3 % (0-1); Eosinophil# 0.07 X10^3/uL; Eosinophils% 0.7 % (0-5); Hematocrit 32.6 % (40-54); Lymphocyte # 0.72 X10^3/ul (0.83-4.51); Lymphocyte % 7.2 % (19-41); Mean Corp Hgb Conc 33.7 g/dL (32-36); Mean Corpuscular Hgb 33.4 pg (27.0-32.0); Mean Corpuscular Volume 99.1 fL (80-94); Mean Platelet Vol. 8.4 fl (6.2-12.0); Monocyte# 1.45 X10^3/uL; Monocyte% 14.5 % (0-10); NRBC Flagged by Analyzer 0 % (0-5); Neutrophil # 7.67 X10^3/uL (2.7-7.7); Neutrophil % 76.9 % (47-70); Platelet Count 170 K/mm3 (150-450); RBC Distribution Width CV 12.5 % (11.6-14.6); RBC Distribution Width SD 45.3 fl (35.1-43.9); Red Blood Count 3.29 M/mm3 (4.6-6.2)
[2024-03-19 10:27] LABS: Anion Gap 5 (5-15); BUN 15 mg/dL (7-18); BUN/Creat Ratio 21.8 RATIO (10-20); Calcium,Total 8.4 mg/dL (8.5-10.1); Chloride 100 mmol/L (98-107); Creatinine, Serum 0.69 mg/dL (0.70-1.30); EST Glomerular Filtration Rate 120 mL/min (>60); Est Glom Filt Rate - Afr Amer 146 mL/min (>60); Glucose 134 mg/dL (74-106); Potassium 3.9 mmol/L (3.5-5.1); Sodium Level 132 mmol/L (136-145)
--- NOTE | 2024-03-19 13:32 | CASEMGMT ---
Addendum entered by Manisha Saldana 03/19/24 16:00: Social Work Referrals sent via [facility] to [place] and [facility] as well. SAVANNAH Buck Addendum entered by Manisha Saldana 03/19/24 15:10: Social Work Pt's daughter Mackenzie here. SW spoke w/her about SNF choices. Her preferences for pt are 1. [facility], 2. [place] or 3. [facility]. Referral made to TCU, SW will follow up w/[facility] and [facility]. SAVANNAH Buck Original Note: Social Work SW met w/pt in regard to prior level of function and anticipated discharge plan. Pt is in agreement at this time w/going somewhere for rehab. SW provided to pt a list from [facility] of fci facilities in network w/pt's insurance, preferred geographic area, and complete w/quality and resource use data. Pt asked about TCU, but then stated it is up to his daughter. SW offered to call daughter, he states she will be here today. SW wrote this SW's number on the skilled nursing list, asked pt to have daughter call SW with choices for rehab, and SW will start the referral process. Pt states understanding. SW will continue to follow, will make referrals once choices are known. SAVANNAH Buck
[2024-03-19] MEDS: Atorvastatin Calcium 40 MG Tablet PO (20:29)
[2024-03-20 03:00] VITALS: BP 113/67; PULSE 89; RESP 16; TEMP 36.8; O2SAT 97
[2024-03-20] MEDS: Acetaminophen 500 MG Tablet 1000 MG PO ×3 (05:39→21:01)
--- NOTE | 2024-03-20 07:48 | PN.HOSP_ITS ---
Reason for Visit Reason for Visit: Diagnoses Alcohol abuse, uncomplicated (03/17/24) Fracture of unspecified part of neck of right femur, initial encounter for closed fracture (03/17/24) Tobacco use (03/17/24) Objective Data Objective Data Vital Signs: Vital Signs Temp Pulse Resp BP Pulse Ox O2 Del Method 98.2 F 89 16 113/67 97 Room Air 03/20/24 03:00 03/20/24 03:00 03/20/24 03:00 03/20/24 03:00 03/20/24 03:00 03/20/24 03:00 Oxygen Delivery Method Room Air Weight: 127 lb 14.384 oz Body Mass Index (BMI) 18.3 Intake & Output: Intake and Output for Last 24 Hours 03/18/24 03/19/24 03/20/24 23:59 23:59 23:59 Intake Total 710 / 910 650 / 750 300 / 300 Output Total 350 / 550 200 / 325 550 / 550 Balance 360 / 360 450 / 425 -250 / -250 Medical Nutrition Assessment Dietitian: Malnutrition Criteria Met Start: 03/18/24 14:44 Freq: Status: Active Protocol: Document 03/18/24 14:44 AG (Rec: 03/18/24 14:44 AG [id number]) Nutrition Malnutrition Evidence of Malnutrition Exists Yes Malnutrition (moderate): Acute Illness/Injury Evidenced By Suboptimal Energy Intake ( Moderate),Physical Changes ( Mild) Clinical Problem Chronic Disease or Condition Related Malnutrition Etiology moderate chronic malnutrition related to inadequate energy intake Signs/Symptoms as evidenced by mild muscle wasting/fat loss evident per physical exam in orbital, clavicle, and acromion areas, estimated energy intake meeting <75% of estimated energy needs > 3 months, BMI 18.4 Status Active Problem Recommendation Dietitian Recommendations/Changes recommend advance diet as tolerated to regular; will add 120mL ensure plus high protein 4x/day w/medpass given evidence of malnutrition Lab / Micro Data 03/19/24 09:58 03/19/24 09:58 Labs: Laboratory Results - last 24 hr 03/19/24 09:58: WBC 10.0, RBC 3.29 L, Hgb 11.0 L, Hct 32.6 L, MCV 99.1 H, MCH 33.4 H, MCHC 33.7, RDW Std Deviation 45.3 H, RDW Coeff of Berny 12.5, Plt Count 170, MPV 8.4, Immature Gran % (Auto) 0.400, Neut % (Auto) 76.9 H, Lymph % (Auto) 7.2 L, [place] % (Auto) 14.5 H, Eos % (Auto) 0.7, Baso % (Auto) 0.3, Absolute Neuts (auto) 7.7, Absolute Lymphs (auto) 0.72 L, Nucleated RBC % 0, Sodium 132 L, Potassium 3.9, Chloride 100, Carbon Dioxide 27.0, Anion Gap 5, BUN 15, Creatinine 0.69 L, Estim Creat Clear Calc 69.50, Est GFR (MDRD) Af Amer 146, Est GFR (MDRD) Non-Af 120, BUN/Creatinine Ratio 21.8 H, Glucose 134 H, Calcium 8.4 L Physical Exam Narrative Seen and examined Patient had right hip surgery. Patient was talking to his brother and is doing well. On PT and OT. Patient denies burning micturition. Is moving bowel. Physical exam General: Alert, Oriented x3, Cooperative HEENT: Atraumatic, PERRLA, EOMI, Normocephalic Oral: No Gingival or Mucosal Lesions/ Ulcerations Neck: Supple, No JVD, Negative Carotid Bruits Chest wall/Lungs: Air entry diminished in bilateral lung bases. No crepitation/rhonchi Cardiovascular: Regular rate, Regular Rhythm, Normal S1, Normal S2, No M/G/R Abdomen: Bowel Sounds Present, Soft, Non Tender, Non-Distended : No dysuria. No renal angle tenderness. No suprapubic tenderness. Extremities: No edema, Capillary Refill Less than 3 Seconds Skin: Surgical wound/incision covered with dressing. No bruise or hematoma. Musculoskeletal: Right hip surgical dressing is dry. No Tenderness to Palpation of Joints or Extremities Neurological: Cranial nerves II-XII grossly intact, DTR 2+/4. No acute focal neurological deficit. Psych/Mental Status: Normal Affect, Appropriate. Assessment & Plan Assessment/Plan (1) Closed right hip fracture: (2) ETOH abuse: (3) Tobacco abuse: PLAN: Plan Right hip fracture * s/p mechanical fall. * patient underwent right cephalomedullary nail on 03/18. * Bedrest for now. * 25-OH d 21.7. Started on ergocalciferol * PT OT eval and treat. Anticipate pt will need SNF upon discharge. * pt previously deemed medically optimized for surgery by Dr. Oliveira. 03/20: Continue PT and OT. Evaluate for SNF. Alcohol abuse with acute withdrawal * No alcohol level on admission. * On phenobarbital taper, which has been initiated. * Thiamine and folate 03/20: Patient alert awake oriented x 3. Does not seem in acute withdrawals symptoms. CIWA score 0. Suspected COPD * Chest x-ray reviewed and showed hyperinflated airways. * No active issues at present. Follow-up with pulmonary and outpatient PFTs Chronic conditions * peripheral artery disease: prior arterial studies done that were consistent with moderate to severe arterial occlusive disease in both the right and left lower extremities. Continue ASA. * HLD: continue statin * Tobacco abuse? Current smoker, smokes about 1 pack/day. Has been smoking since age 16, roughly [id number] history. Nicotine patch ordered per patient request. VTE prophylaxis: ASA BID CODE STATUS: Full code, verified Expected disposition: Suspect SNF. Charges/Coding Visit Charges Inpatient E&M: 26856 Subs Hosp L2
--- NOTE | 2024-03-20 09:10 | PN.ORTHO_ITS ---
Subjective Subjective Patient doing well. No acute events overnight. Vital signs noted. Patient has been stable. Objective Data Objective Data Vital Signs: Vital Signs Temp Pulse Resp BP Pulse Ox O2 Del Method 98.2 F 89 16 113/67 97 Room Air 03/20/24 03:00 03/20/24 03:00 03/20/24 03:00 03/20/24 03:00 03/20/24 03:00 03/20/24 03:00 Oxygen Delivery Method Room Air Weight: 127 lb 14.384 oz Body Mass Index (BMI) 18.3 Intake & Output: Intake and Output for Last 24 Hours 03/18/24 03/19/24 03/20/24 23:59 23:59 23:59 Intake Total 710 / 910 650 / 750 300 / 300 Output Total 350 / 550 200 / 325 550 / 550 Balance 360 / 360 450 / 425 -250 / -250 Medical Nutrition Assessment Dietitian: Malnutrition Criteria Met Start: 03/18/24 14:44 Freq: Status: Active Protocol: Document 03/18/24 14:44 AG (Rec: 03/18/24 14:44 [id number]) Nutrition Malnutrition Evidence of Malnutrition Exists Yes Malnutrition (moderate): Acute Illness/Injury Evidenced By Suboptimal Energy Intake ( Moderate),Physical Changes ( Mild) Clinical Problem Chronic Disease or Condition Related Malnutrition Etiology moderate chronic malnutrition related to inadequate energy intake Signs/Symptoms as evidenced by mild muscle wasting/fat loss evident per physical exam in orbital, clavicle, and acromion areas, estimated energy intake meeting <75% of estimated energy needs > 3 months, BMI 18.4 Status Active Problem Recommendation Dietitian Recommendations/Changes recommend advance diet as tolerated to regular; will add 120mL ensure plus high protein 4x/day w/medpass given evidence of malnutrition Lab / Micro Data Attestation: I reviewed the patient's lab results. 03/19/24 09:58 03/19/24 09:58 Labs: Laboratory Results - last 24 hr 03/19/24 09:58: WBC 10.0, RBC 3.29 L, Hgb 11.0 L, Hct 32.6 L, MCV 99.1 H, MCH 33.4 H, MCHC 33.7, RDW Std Deviation 45.3 H, RDW Coeff of Berny 12.5, Plt Count 170, MPV 8.4, Immature Gran % (Auto) 0.400, Neut % (Auto) 76.9 H, Lymph % (Auto) 7.2 L, [place] % (Auto) 14.5 H, Eos % (Auto) 0.7, Baso % (Auto) 0.3, Absolute Neuts (auto) 7.7, Absolute Lymphs (auto) 0.72 L, Nucleated RBC % 0, Sodium 132 L, Potassium 3.9, Chloride 100, Carbon Dioxide 27.0, Anion Gap 5, BUN 15, Creatinine 0.69 L, Estim Creat Clear Calc 69.50, Est GFR (MDRD) Af Amer 146, Est GFR (MDRD) Non-Af 120, BUN/Creatinine Ratio 21.8 H, Glucose 134 H, Calcium 8.4 L Physical Exam Narrative Right lower extremity: Dressing is clean dry and intact Sensations intact to light touch saphenous, sural, superficial peroneal, deep peroneal, and tibial distributions Motors intact EHL, DF, PF calves are soft and supple Const alert and oriented x3 Assessment & Plan Assessment/Plan (1) Closed right hip fracture: PLAN: Postop day 2 right cephalomedullary hip nail 1. DVT prophylaxis aspirin 81 mg p.o. twice daily for 4 weeks upon discharge. Lovenox discontinued 2. Acute on chronic anemia: Hemoglobin stable postoperatively. 11.0. Change in hemoglobin likely associated with acute fracture and surgical intervention. 3. Therapy: Weightbearing as tolerated, activity as tolerated 4. Pain control: Per primary service recommend minimal narcotic use. Will be careful with excessive Tylenol dosage based on patient's chronic alcohol use 5. Disposition: Patient is doing well. Will recommend follow-up in the office in 2 weeks for suture removal/staple removal and repeat radiographs. Patient based on preoperative function injury and anticipated rehab will likely need inpatient rehabilitation versus senior living facility upon discharge from hospital. Recommend aspirin 81 mg twice a day for total of 4 weeks for DVT prophylaxis upon discharge. Dressing can be removed on postoperative day 5 left open to air if no further drainage and wounds are well-healed. Please notify orthopedics of any further questions or concerns [facility] Office:
[2024-03-20 10:30] VITALS: BP 98/60; PULSE 86; RESP 16; TEMP 36.5; O2SAT 99
[2024-03-20] MEDS: Ensure Surgery 237 ML LIQUID PO (10:55)
[2024-03-20] MEDS: Aspirin 81 MG TAB.CHEW PO ×2 (10:56→21:01)
[2024-03-20] MEDS: Atorvastatin Calcium 40 MG Tablet PO (10:56)
[2024-03-20] MEDS: Thiamine Hydrochloride 100 MG Tablet PO (10:56)
[2024-03-20] MEDS: Enoxaparin 40 MG/0.4 ML Syringe SC (10:56)
[2024-03-20] MEDS: Famotidine 20 MG Tablet PO (10:57)
[2024-03-20] MEDS: Senna Tablet 1 TABLET PO ×2 (10:57→21:01)
[2024-03-20] MEDS: Folic Acid 1 MG Tablet PO (11:03)
[2024-03-20] MEDS: Ensure Plus High Protein 120 ML LIQUID PO ×2 (18:25→21:00)
[2024-03-20 18:26] VITALS: BP 105/58; PULSE 89; RESP 18; TEMP 36.6; O2SAT 95
[2024-03-20 22:52] VITALS: BP 99/63; PULSE 90; RESP 16; TEMP 36.6; O2SAT 98
[2024-03-21 06:05] VITALS: BP 135/68; PULSE 92; RESP 16; TEMP 36.9; O2SAT 98
[2024-03-21] MEDS: Acetaminophen 500 MG Tablet 1000 MG PO ×3 (06:06→21:12)
[2024-03-21] MEDS: Thiamine Hydrochloride 100 MG Tablet PO (09:02)
[2024-03-21] MEDS: Senna Tablet 1 TABLET PO ×2 (09:02→21:12)
[2024-03-21] MEDS: Aspirin 81 MG TAB.CHEW PO ×2 (09:02→21:12)
[2024-03-21] MEDS: Famotidine 20 MG Tablet PO (09:02)
[2024-03-21] MEDS: Folic Acid 1 MG Tablet PO (09:03)
[2024-03-21] MEDS: Enoxaparin 40 MG/0.4 ML Syringe SC (09:03)
[2024-03-21 09:18] VITALS: BP 106/68; PULSE 103; RESP 13; TEMP 36.8; O2SAT 98
--- NOTE | 2024-03-21 09:47 | CASEMGMT ---
Social Work TCU can take pt and will start precert. SW let pt's daughter know, she is agreeable. SW let pt know, he is agreeable. SW let [facility] and [facility] know via [facility] that pt will be going to a different facility. SW will continue to follow. SW did let pt and daughter know there is a chance insurance will not approve as pt is already walking 60 feet w/contact guard. They both state understanding. SAVANNAH Buck
--- NOTE | 2024-03-21 13:13 | CASEMGMT ---
Social Work SW received a call from pt's insurance stating his case is going to medical review, asked this SW if SW has any additional information on why SNF needed. SW called back([phone], [phone]), message left emphasizing pt still needing help w/ADLs, lives alone, family 45 minutes away, and that having some time in SNF would be beneficial for him, not safe to return home alone. SW will await response. SAVANNAH Buck
[2024-03-21 14:00] VITALS: BP 139/87; PULSE 93; RESP 14; TEMP 36.7; O2SAT 96
--- NOTE | 2024-03-21 16:59 | PN.HOSP_ITS ---
Reason for Visit Reason for Visit: Diagnoses Alcohol abuse, uncomplicated (03/17/24) Fracture of unspecified part of neck of right femur, initial encounter for closed fracture (03/17/24) Tobacco use (03/17/24) Objective Data Objective Data Vital Signs: Vital Signs Temp Pulse Resp BP Pulse Ox O2 Del Method 98.0 F 93 14 139/87 H 96 Room Air 03/21/24 14:00 03/21/24 14:00 03/21/24 14:00 03/21/24 14:00 03/21/24 14:00 03/21/24 14:00 Oxygen Delivery Method Room Air Weight: 127 lb 14.384 oz Body Mass Index (BMI) 18.3 Intake & Output: Intake and Output for Last 24 Hours 03/19/24 03/20/24 03/21/24 23:59 23:59 23:59 Intake Total 650 / 750 1500 / 1500 100 / 100 Output Total 200 / 325 1075 / 1075 200 / 200 Balance 450 / 425 425 / 425 -100 / -100 Medical Nutrition Assessment Dietitian: Malnutrition Criteria Met Start: 03/18/24 14:44 Freq: Status: Active Protocol: Document 03/18/24 14:44 AG (Rec: 03/18/24 14:44 AG [id number]) Nutrition Malnutrition Evidence of Malnutrition Exists Yes Malnutrition (moderate): Acute Illness/Injury Evidenced By Suboptimal Energy Intake ( Moderate),Physical Changes ( Mild) Clinical Problem Chronic Disease or Condition Related Malnutrition Etiology moderate chronic malnutrition related to inadequate energy intake Signs/Symptoms as evidenced by mild muscle wasting/fat loss evident per physical exam in orbital, clavicle, and acromion areas, estimated energy intake meeting <75% of estimated energy needs > 3 months, BMI 18.4 Status Active Problem Recommendation Dietitian Recommendations/Changes recommend advance diet as tolerated to regular; will add 120mL ensure plus high protein 4x/day w/medpass given evidence of malnutrition Lab / Micro Data 03/19/24 09:58 03/19/24 09:58 Physical Exam Narrative Seen and examined Patient had right hip surgery. No acute issues. It seems patient has jerky movement of the upper torso although denies any diagnosed movement disorder. On PT and OT. Patient denies burning micturition. Is moving bowel. Physical exam General: Alert, Oriented x3, Cooperative HEENT: Atraumatic, PERRLA, EOMI, Normocephalic Oral: No Gingival or Mucosal Lesions/ Ulcerations Neck: Supple, No JVD, Negative Carotid Bruits Chest wall/Lungs: Air entry diminished in bilateral lung bases. No crepitation/rhonchi Cardiovascular: Regular rate, Regular Rhythm, Normal S1, Normal S2, No M/G/R Abdomen: Bowel Sounds Present, Soft, Non Tender, Non-Distended : No dysuria. No renal angle tenderness. No suprapubic tenderness. Extremities: No edema, Capillary Refill Less than 3 Seconds Skin: Surgical wound/incision covered with dressing. No bruise or hematoma. Musculoskeletal: Right hip surgical dressing is dry. Jerky movement of upper torso, nonpurposeful, nonrhythmic. No Tenderness to Palpation of Joints or Extremities Neurological: Cranial nerves II-XII grossly intact, DTR 2+/4. No acute focal neurological deficit. Psych/Mental Status: Normal Affect, Appropriate. Assessment & Plan Assessment/Plan (1) Closed right hip fracture: (2) ETOH abuse: (3) Tobacco abuse: PLAN: Plan Right hip fracture * s/p mechanical fall. * patient underwent right cephalomedullary nail on 03/18. * Bedrest for now. * 25-OH d 21.7. Started on ergocalciferol * PT OT eval and treat. Anticipate pt will need SNF upon discharge. * pt previously deemed medically optimized for surgery by Dr. Oliveira. 03/20: Continue PT and OT. Evaluate for SNF. 03/21: Continue PT and OT. Pending pre-CERT. Alcohol abuse with acute withdrawal * No alcohol level on admission. * On phenobarbital taper, which has been initiated. * Thiamine and folate 03/20: Patient alert awake oriented x 3. Does not seem in acute withdrawals symptoms. CIWA score 0. 03/21: Clinically no withdrawal symptoms. Suspected COPD * Chest x-ray reviewed and showed hyperinflated airways. * No active issues at present. Follow-up with pulmonary and outpatient PFTs Chronic conditions * peripheral artery disease: prior arterial studies done that were consistent with moderate to severe arterial occlusive disease in both the right and left lower extremities. Continue ASA. * HLD: continue statin * Tobacco abuse? Current smoker, smokes about 1 pack/day. Has been smoking since age 16, roughly [id number] history. Nicotine patch ordered per patient request. VTE prophylaxis: ASA BID CODE STATUS: Full code, verified Expected disposition: Suspect SNF. Charges/Coding Visit Charges Inpatient E&M: 83056 Subs Hosp L2
[2024-03-21] MEDS: Atorvastatin Calcium 40 MG Tablet PO (21:12)
[2024-03-21] MEDS: Polyethylene Glycol 3350 17 GM PACKET PO (21:23)
[2024-03-21 21:25] VITALS: BP 129/83; PULSE 93; RESP 16; TEMP 36.6; O2SAT 98
[2024-03-21 23:10] VITALS: BP 106/69; PULSE 87; RESP 16; TEMP 36.8; O2SAT 97
[2024-03-21] MEDS: oxyCODONE 5 MG Tablet PO (23:13)
[2024-03-21] MEDS: 0.9% Saline Lock 10 ML Syringe IV (23:13)
[2024-03-22] MEDS: Acetaminophen 500 MG Tablet 1000 MG PO ×3 (05:52→21:07)
[2024-03-22 05:59] VITALS: BP 143/74; PULSE 87; RESP 16; TEMP 36.9; O2SAT 97
[2024-03-22] MEDS: Senna Tablet 1 TABLET PO ×2 (09:24→21:07)
[2024-03-22] MEDS: Enoxaparin 40 MG/0.4 ML Syringe SC (09:24)
[2024-03-22] MEDS: Folic Acid 1 MG Tablet PO (09:24)
[2024-03-22] MEDS: Aspirin 81 MG TAB.CHEW PO ×2 (09:24→21:08)
[2024-03-22] MEDS: Thiamine Hydrochloride 100 MG Tablet PO (09:24)
[2024-03-22] MEDS: Famotidine 20 MG Tablet PO (09:25)
[2024-03-22 09:30] VITALS: BP 112/68; PULSE 90; RESP 13; TEMP 36.7; O2SAT 98
[2024-03-22] MEDS: Polyethylene Glycol 3350 17 GM PACKET PO (09:33)
--- NOTE | 2024-03-22 10:20 | CASEMGMT ---
Discharge Planning A list of HH providers including quality and resource use data and consistent with the patient's preferred geographic region, medical needs, and insurance network was created in [employer] Guide.? This list was provided to the RN TOBI. Roseann Gutierrez, Discharge Planning Asst.
--- NOTE | 2024-03-22 10:37 | CASEMGMT ---
Social Work- SW received a message that insurance offered a [id number] for pt referral to TCU. SW will discuss with MD. SW met with pt to discuss d/c. Pt states that he feels that he would like to go to a facility d/t challenges dressing and living independently. SW will update pt and family on status of peer to peer. BILL Israel
--- NOTE | 2024-03-22 14:30 | CASEMGMT ---
Social Work Peer to Peer completed and denial was upheld. SW met with pt and informed. Phone call placed to pt's dgt Mackenzie and spoke with her on speaker phone with pt present. SW explained insurance denial for SNF. SW offered options of home with home health and private pay a SNF. Pt dgt requesting time to call her brothers, speak with pt privately and will call this SW back with dc decision. SW requested dgt return call to SW today. SW will await return call. BILL Roy
[2024-03-22] MEDS: Bisacodyl 5 MG Tablet 10 MG PO (15:10)
[2024-03-22 15:31] VITALS: BP 134/85; PULSE 91; RESP 13; TEMP 36.8; O2SAT 97
--- NOTE | 2024-03-22 16:39 | PCM.PN.HOSP ---
Reason for Visit Reason for Visit: Diagnoses Alcohol abuse, uncomplicated (03/17/24) Fracture of unspecified part of neck of right femur, initial encounter for closed fracture (03/17/24) Tobacco use (03/17/24) Objective Data Objective Data Vital Signs: Vital Signs Temp Pulse Resp BP Pulse Ox O2 Del Method 98.2 F 91 13 134/85 H 97 Room Air 03/22/24 15:31 03/22/24 15:31 03/22/24 15:31 03/22/24 15:31 03/22/24 15:31 03/22/24 15:31 Oxygen Delivery Method Room Air Weight: 127 lb 14.384 oz Body Mass Index (BMI) 18.3 Intake & Output: Intake and Output for Last 24 Hours 03/20/24 03/21/24 03/22/24 23:59 23:59 23:59 Intake Total 1500 / 1500 1300 / 1300 200 / 200 Output Total 1075 / 1075 200 / 200 1000 / 1000 Balance 425 / 425 1100 / 1100 -800 / -800 Medical Nutrition Assessment Dietitian: Malnutrition Criteria Met Start: 03/18/24 14:44 Freq: Status: Active Protocol: Document 03/18/24 14:44 AG (Rec: 03/18/24 14:44 AG [id number]) Nutrition Malnutrition Evidence of Malnutrition Exists Yes Malnutrition (moderate): Acute Illness/Injury Evidenced By Suboptimal Energy Intake ( Moderate),Physical Changes ( Mild) Clinical Problem Chronic Disease or Condition Related Malnutrition Etiology moderate chronic malnutrition related to inadequate energy intake Signs/Symptoms as evidenced by mild muscle wasting/fat loss evident per physical exam in orbital, clavicle, and acromion areas, estimated energy intake meeting <75% of estimated energy needs > 3 months, BMI 18.4 Status Active Problem Recommendation Dietitian Recommendations/Changes recommend advance diet as tolerated to regular; will add 120mL ensure plus high protein 4x/day w/medpass given evidence of malnutrition Lab / Micro Data 03/19/24 09:58 03/19/24 09:58 Physical Exam Narrative Seen and examined Patient had right hip surgery. No acute issues. It seems patient has jerky movement of the upper torso although denies any diagnosed movement disorder he states he just do it in order to relieve his neck pain it is voluntary movement On PT and OT. Patient denies burning micturition. Is moving bowel. Physical exam General: Alert, Oriented x3, Cooperative HEENT: Atraumatic, PERRLA, EOMI, Normocephalic Oral: No Gingival or Mucosal Lesions/ Ulcerations Neck: Supple, No JVD, Negative Carotid Bruits Chest wall/Lungs: Air entry diminished in bilateral lung bases. No crepitation/rhonchi Cardiovascular: Regular rate, Regular Rhythm, Normal S1, Normal S2, No M/G/R Abdomen: Bowel Sounds Present, Soft, Non Tender, Non-Distended : No dysuria. No renal angle tenderness. No suprapubic tenderness. Extremities: No edema, Capillary Refill Less than 3 Seconds Skin: Surgical wound/incision covered with dressing. No bruise or hematoma. Musculoskeletal: Right hip surgical dressing is dry. Jerky movement of upper torso, nonpurposeful, nonrhythmic voluntary. No Tenderness to Palpation of Joints or Extremities Neurological: Cranial nerves II-XII grossly intact, DTR 2+/4. No acute focal neurological deficit. Psych/Mental Status: Normal Affect, Appropriate. Assessment & Plan Assessment/Plan (1) Closed right hip fracture: (2) ETOH abuse: (3) Tobacco abuse: PLAN: Plan Right hip fracture s/p mechanical fall. patient underwent right cephalomedullary nail on 03/18. Bedrest for now. 25-OH d 21.7. Started on ergocalciferol PT OT eval and treat. Anticipate pt will need SNF upon discharge. pt previously deemed medically optimized for surgery by Dr. Oliveira. 03/20: Continue PT and OT. Evaluate for SNF. 03/21: Continue PT and OT. Pending pre-CERT. 03/22: Peer to peer Conversation was done with the patient's health insurance doctor. He said that insurance company will not approve for him. ADL but he can walk on walker contact-guard therefore it is declined. Patient can go to intermediate care or home with home health. Patient did not had a bowel movement. Dulcolax given. Continue MiraLAX and senna S. Alcohol abuse with acute withdrawal No alcohol level on admission. On phenobarbital taper, which has been initiated. Thiamine and folate 03/20: Patient alert awake oriented x 3. Does not seem in acute withdrawals symptoms. CIWA score 0. 03/21: Clinically no withdrawal symptoms. Suspected COPD Chest x-ray reviewed and showed hyperinflated airways. No active issues at present. Follow-up with pulmonary and outpatient PFTs Chronic conditions peripheral artery disease: prior arterial studies done that were consistent with moderate to severe arterial occlusive disease in both the right and left lower extremities. Continue ASA. HLD: continue statin Tobacco abuse? Current smoker, smokes about 1 pack/day. Has been smoking since age 16, roughly 41-ciza-hchc history. Nicotine patch ordered per patient request. VTE prophylaxis: ASA BID CODE STATUS: Full code, verified Charges/Coding Visit Charges Inpatient E&M: 95678 Subs Hosp L2
[2024-03-22] MEDS: Atorvastatin Calcium 40 MG Tablet PO (21:08)
[2024-03-22] MEDS: oxyCODONE 5 MG Tablet PO (21:09)
[2024-03-22 21:10] VITALS: BP 124/78; PULSE 87; RESP 16; TEMP 36.8; O2SAT 97
[2024-03-22 23:01] VITALS: BP 126/70; PULSE 81; RESP 16; TEMP 36.6; O2SAT 97
[2024-03-23 04:53] VITALS: BP 150/83; PULSE 85; RESP 16; TEMP 36.7; O2SAT 98
[2024-03-23] MEDS: Acetaminophen 500 MG Tablet 1000 MG PO ×2 (05:05→13:45)
[2024-03-23 08:20] VITALS: BP 141/79; PULSE 92; RESP 16; TEMP 36.5; O2SAT 98
[2024-03-23] MEDS: Senna Tablet 1 TABLET PO (08:23)
[2024-03-23] MEDS: Thiamine Hydrochloride 100 MG Tablet PO (08:23)
[2024-03-23] MEDS: Aspirin 81 MG TAB.CHEW PO (08:23)
[2024-03-23] MEDS: Folic Acid 1 MG Tablet PO (08:23)
[2024-03-23] MEDS: Ensure Surgery 237 ML LIQUID PO (08:23)
[2024-03-23] MEDS: Famotidine 20 MG Tablet PO (08:24)
[2024-03-23] MEDS: Enoxaparin 40 MG/0.4 ML Syringe SC (08:24)
--- NOTE | 2024-03-23 09:20 | CASEMGMT ---
Social Work LILIAN placed call to pt's dgt Mackenzie to discuss discharge plan. Mackenzie states she talked to pt at length about going to a SNF private pt and pt is adamantly refusing. Mackenzie is interested in home health services. LILIAN explained that PT/OT/SN/AIRPLANE AND ENGINE INSPECTOR could be ordered and that AIRPLANE AND ENGINE INSPECTOR would only assist with bathing and dressing and be there once a week. Dgt interested in private duty aids. LILIAN emailed dgt a list of private duty home health aids. Dgt also stating he has a call out to the [place] to see if they could assist with personal care. LILIAN placed call to [facility] LILIAN Nobles and left a message. RNCM updated that pt will return home with home health. Dgt updated that RNCM will provide a list of C providers to pt for his choice of preferences. Mackenzie is agreeable to this. BILL Roy
--- NOTE | 2024-03-23 09:56 | CASEMGMT ---
Addendum entered by Isabel Ngo 03/23/24 15:01: 1211 All agencies declined pt, called [facility] to see if they accept pt insurance, [facility] does accept pt insurance and will get back to KATERINA BRITTON if they will accept. 1241 Received acceptance from [place], [facility] can start services tomorrow. 1501 referral sent to [facility] with consignment form for FWW via careport. Addendum entered by Isabel Ngo 03/23/24 10:45: KATERINA BRITTON sent referral to [facility] agencies: [place], [facility], [facility], [facility], [facility], [facility]. Original Note: KATERINA BRITTON into pt room, pt lying in bed in no distress. Provided pt list of [facility] agencies created by [place] senior agricultural assistant. Pt stated he did not have a preference and ok to send referral to all agencies on the list to determine who is able to accept. Provided pt with a verbal list of DME providers for FWW, pt stated daughter was working on getting a walker for him. Pt requested that KATERINA BRITTON call daughter, Mackenzie. KATERINA BRITTON spoke with Mackenzie, she stated working on getting other DME from [facility] but would like KATERINA BRITTON to get the walker for pt. KATERINA BRITTON provided verbal local in network list of DME providers to pt, he chose [facility].
--- NOTE | 2024-03-23 12:10 | CASEMGMT ---
Social Work Call placed to pt's dgt and notified that insurance provided number for family to complete a Fast Appeal ([phone] ph [phone] fax). Fast appeal turn around is 72 hours and SW informed that pt will not remain in hospital during this process as he is medically ready for dc and insurance denied SNF and peer to peer. Dgt understanding and appreciative of information. Dgt states pt has another dgt who will be coming here today to stay with pt at home during the weekend. RNCM kareen. BILL Roy
[2024-03-23] MEDS: Bisacodyl 5 MG Tablet 10 MG PO (12:19)
--- NOTE | 2024-03-23 13:00 | DCINST_ITS ---
Discharge Instructions Diet Discharge Diet: No restrictions Activity Discharge Activity: Return to Normal Activity Weight Bearing Status: Weight bearing as tolerated Additional Activity Instructions:: Had right hip surgery. On wheeled walker Dressing / Incision Call your doctor if you observe: Fever of 101 or Higher, Coldness, Increased Pain, Numbness or Tingling, Change in Color, Inability to urinate, Inability to have a bowel movement, Shortness of breath, Dizziness, Fainting spells, Swelling in the ankles, Chest pain, Prolonged hiccupping, Increased palpitations (irregu lar heartbeat) and Calf discomfort Follow Up Care When: IN 2 WEEKS Test Results: Test results from this visit will be discussed in further detail at your follow- up appointment, if applicable. Discharge Plan Admission Admit Date/Time: 03/17/24 13:40 Primary Reason for Your Visit: Right ear fracture Attending Provider: Dave Evans Primary Care Provider: NICHOLAS GOODWIN Consulting Providers: Lennox Oliveira; Donaldo Chavis Discharge Orders/Prescriptions Prescriptions: No Action prednisolone acetate 1 % drops,suspension 1 drp ophthalmic (eye) 4X/DAY Rx Instructions: rt eye Referrals / Follow Up: NICHOLAS GOODWIN CRNP [Primary Care Provider] -
--- NOTE | 2024-03-23 13:00 | PCM.DC ---
Discharge Instructions Diet Discharge Diet: No restrictions Activity Discharge Activity: Return to Normal Activity Weight Bearing Status: Weight bearing as tolerated Additional Activity Instructions:: Had right hip surgery. On wheeled walker Dressing / Incision Call your doctor if you observe: Fever of 101 or Higher, Coldness, Increased Pain, Numbness or Tingling, Change in Color, Inability to urinate, Inability to have a bowel movement, Shortness of breath, Dizziness, Fainting spells, Swelling in the ankles, Chest pain, Prolonged hiccupping, Increased palpitations (irregular heartbeat) and Calf discomfort Follow Up Care When: IN 2 WEEKS Test Results: Test results from this visit will be discussed in further detail at your follow-up appointment, if applicable. Discharge Plan Admission Admit Date/Time: 03/17/24 13:40 Primary Reason for Your Visit: Right ear fracture Attending Provider: Dave Evans Primary Care Provider: NICHOLAS GOODWIN Consulting Providers: Lennox Oliviera; Donaldo Chavis Instructions Additional Instructions / Restrictions: Orgr-xqp-kvgemji MiraLAX 17 g oral daily Discharge Orders/Prescriptions Prescriptions: New atorvastatin 40 mg Tablet 40 mg PO QHS 30 Days Qty: 30 2RF acetaminophen 500 mg Tablet 1,000 mg PO Q8 Qty: 0 0RF Rx Instructions: [id number]-qok-jmxwcvk. 1 g every 8 hourly for 7 days and then as needed as needed ergocalciferol (vitamin D2) [Vitamin D2] 1,250 mcg (50,000 unit) Capsule 1,250 mcg PO Q7D 30 Days Qty: 5 0RF nicotine 21 mg/24 hr Patch 24 Hour 21 mg transdermal DAILY 28 Days Qty: 28 0RF thiamine HCl (vitamin B1) [Vitamin B-1] 100 mg Tablet 100 mg PO DAILYCM 30 Days Qty: 30 3RF folic acid 1 mg Tablet 1 mg PO DAILY@0800 30 Days Qty: 30 3RF oxycodone 5 mg Tablet 2.5 mg PO Q4H PRN PRN (Reason: Pain Score 4-10) 3 Days Qty: 10 0RF Eliquis 2.5 mg tablet 2.5 mg PO BID 30 Days Qty: 60 0RF sennosides [senna] 8.6 mg Tablet 17.2 mg PO BID Qty: 0 0RF Continued prednisolone acetate 1 % drops,suspension 1 drp ophthalmic (eye) 4X/DAY Rx Instructions: rt eye Referrals / Follow Up: Baltazar Thapa MD [Med Staff - Active Staff] - Within 2 Weeks (Right hip cephalomedullary nail) NICHOLAS GOODWIN CRNP [Primary Care Provider] - Disposition Disposition (needs filled in before D/C Order can be placed): Home Health Service
--- NOTE | 2024-03-23 13:11 | DS.PCM_ITS ---
Providers Date of Admission: 03/17/24 Date of Discharge: 03/23/24 Primary Care Physician: GEMINI BERRY Reason For Visit: RIGHT HIP FRACTURE Diagnosis Discharge Diagnosis (1) Closed right hip fracture: Status: Acute Code(s): S72.001A - Fracture of unspecified part of neck of right femur, initial encounter for closed fracture (2) ETOH abuse: Status: Acute Code(s): F10.10 - Alcohol abuse, uncomplicated (3) Tobacco abuse: Status: Acute Code(s): Z72.0 - Tobacco use Plan Right hip fracture * s/p mechanical fall. * patient underwent right cephalomedullary nail on 03/18. * Bedrest for now. * 25-OH d 21.7. Started on ergocalciferol * PT OT eval and treat. Anticipate pt will need SNF upon discharge. * pt previously deemed medically optimized for surgery by Dr. Oliveira. 03/20: Continue PT and OT. Evaluate for SNF. 03/21: Continue PT and OT. Pending pre-CERT. 03/22: Peer to peer Conversation was done with the patient's health insurance doctor. He said that insurance company will not approve for him. ADL but he can walk on walker contact-guard therefore it is declined. Patient can go to intermediate care or home with home health. Patient did not had a bowel movement. Dulcolax given. Continue MiraLAX and senna S. 03/23: Discussed with the social service coordinator. Arrange for the home with home health care. Patient did not had bowel movement. Dulcolax 10 mg, oral and suppository ordered. Continue MiraLAX and senna S. Patient does not have abdominal pain or distention. Passing flatus. Bowel sounds present Alcohol abuse with acute withdrawal * No alcohol level on admission. * On phenobarbital taper, which has been initiated. * Thiamine and folate 03/20: Patient alert awake oriented x 3. Does not seem in acute withdrawals symptoms. CIWA score 0. 03/21: Clinically no withdrawal symptoms. Suspected COPD * Chest x-ray reviewed and showed hyperinflated airways. * No active issues at present. Follow-up with pulmonary and outpatient PFTs Chronic conditions * peripheral artery disease: prior arterial studies done that were consistent with moderate to severe arterial occlusive disease in both the right and left lower extremities. Continue ASA. * HLD: continue statin * Tobacco abuse? Current smoker, smokes about 1 pack/day. Has been smoking since age 16, roughly 40-qnqg-coyn history. Nicotine patch ordered per patient request. VTE prophylaxis: ASA BID CODE STATUS: Full code, verified Discharge medication reconciliation done. Discharge follow-up instructions completed. Discharge process discussed with the patient and all questions were answered to patient's satisfaction. Follow with PCP in 1 to 2 weeks Total time spent, exact 35 minutes on discharge meds reconciliation, examination, coordination of care with nurses and ancillary staff, review of imaging and blood test and discussion with the patient on follow-up instructions. Medications at Discharge Home Medications prednisolone acetate 1 % eye drops,suspension 1 drp ophthalmic (eye) 4X/DAY eye 03/17/24 acetaminophen 500 mg tablet 1,000 mg (2 x 500 mg) PO Q8 #0 tabs 03/23/24 apixaban 2.5 mg tablet (Eliquis) 2.5 mg PO BID 30 days #60 tabs 03/23/24 atorvastatin 40 mg tablet 40 mg PO QHS 30 days #30 tabs 03/23/24 ergocalciferol (vitamin D2) 1,250 mcg (50,000 unit) capsule (Vitamin D2) 1,250 mcg PO Q7D 30 days #5 caps 03/23/24 folic acid 1 mg tablet 1 mg PO DAILY@0800 30 days #30 tabs 03/23/24 nicotine 21 mg/24 hr daily transdermal patch 21 mg transdermal DAILY 28 days #28 ea 03/23/24 oxycodone 5 mg tablet 2.5 mg (1/2 x 5 mg) PO Q4H PRN PRN Pain Score 4-10 3 days #10 tabs 03/23/24 sennosides 8.6 mg tablet (senna) 17.2 mg (2 x 8.6 mg) PO BID #0 tabs 03/23/24 thiamine HCl (vitamin B1) 100 mg tablet (Vitamin B-1) 100 mg PO DAILYCM 30 days #30 tabs 03/23/24 Physical Exam Narrative Seen and examined Patient had right hip surgery. No acute issues. It seems patient has jerky movement of the upper torso although denies any diagnosed movement disorder he states he just do it in order to relieve his neck pain it is voluntary movement On PT and OT. Patient denies burning micturition. No BM. Physical exam General: Alert, Oriented x3, Cooperative HEENT: Atraumatic, PERRLA, EOMI, Normocephalic Oral: No Gingival or Mucosal Lesions/ Ulcerations Neck: Supple, No JVD, Negative Carotid Bruits Chest wall/Lungs: Air entry diminished in bilateral lung bases. No crepitation/rhonchi Cardiovascular: Regular rate, Regular Rhythm, Normal S1, Normal S2, No M/G/R Abdomen: Bowel Sounds Present, Soft, Non Tender, Non-Distended : No dysuria. No renal angle tenderness. No suprapubic tenderness. Extremities: No edema, Capillary Refill Less than 3 Seconds Skin: Surgical wound/incision covered with dressing. No bruise or hematoma. Musculoskeletal: Right hip surgical dressing is dry. No surgical spine surgery in the past. He said they cannot fix it. Jerky movement of upper torso, nonpurposeful, nonrhythmic voluntary. No Tenderness to Palpation of Joints or Extremities Neurological: Cranial nerves II-XII grossly intact, DTR 2+/4. No acute focal neurological deficit. Psych/Mental Status: Normal Affect, Appropriate. Medical Records Data Medical Nutrition Assessment Dietitian: Malnutrition Criteria Met Start: 03/18/24 14:44 Freq: Status: Active Protocol: Document 03/18/24 14:44 (Rec: 03/18/24 14:44 [id number]) Nutrition Malnutrition Evidence of Malnutrition Exists Yes Malnutrition (moderate): Acute Illness/Injury Evidenced By Suboptimal Energy Intake ( Moderate),Physical Changes ( Mild) Clinical Problem Chronic Disease or Condition Related Malnutrition Etiology moderate chronic malnutrition related to inadequate energy intake Signs/Symptoms as evidenced by mild muscle wasting/fat loss evident per physical exam in orbital, clavicle, and acromion areas, estimated energy intake meeting <75% of estimated energy needs > 3 months, BMI 18.4 Status Active Problem Recommendation Dietitian Recommendations/Changes recommend advance diet as tolerated to regular; will add 120mL ensure plus high protein 4x/day w/medpass given evidence of malnutrition Weight / BMI Weight Weight: 127 lb 14.384 oz Body Mass Index (BMI) 18.3 ABG / Lab / Microbiology Data 03/19/24 09:58 03/19/24 09:58 D/C Instructions Discharge Diet: No restrictions Weight Bearing Status: Weight bearing as tolerated Additional Activity Instructions: Had right hip surgery. On wheeled walker Call your doctor if you observe: Fever of 101 or Higher, Coldness, Increased Pain, Numbness or Tingling, Change in Color, Inability to urinate, Inability to have a bowel movement, Shortness of breath, Dizziness, Fainting spells, Swelling in the ankles, Chest pain, Prolonged hiccupping, Increased palpitations (irregular heartbeat) and Calf discomfort When: IN 2 WEEKS Meaningful Use Info Meaningful Use Meaningful Use Diagnoses (Choose all that apply): None applicable Ischemic Stroke Statin Dosing Therapy Reference: STATIN DOSE THERAPY REFERENCE: * Patients > 75 years receive moderate or high dose statin therapy. * Patients 75 years or YOUNGER should receive HIGH intensity statin dose unless contraindicated. You will be required to document reason for non-treatment if statin daily dose does not meet guidelines. HIGH DOSE STATIN THERAPY DAILY Atorvastatin > than or = to 40 mg Rosuvastatin > than or = to 20 mg Amlodipine + Atorvastatin > than or = to 2.5/40 mg Ezetimibe + Simvastatin 10/80 mg Simvastatin 80mg Discharge Plan Admission Admit Date/Time: 03/17/24 13:40 Primary Reason for Your Visit: Right ear fracture Attending Provider: Dave Evans Primary Care Provider: NICHOLAS GOODWIN Consulting Providers: Lennox Oliveira; Donaldo Chavis Instructions Additional Instructions / Restrictions: Jwac-pwb-ixoyxnr MiraLAX 17 g oral daily Discharge Orders/Prescriptions Prescriptions: New atorvastatin 40 mg Tablet 40 mg PO QHS 30 Days Qty: 30 2RF acetaminophen 500 mg Tablet 1,000 mg PO Q8 Qty: 0 0RF Rx Instructions: Oueq-joa-iajjvbg. 1 g every 8 hourly for 7 days and then as needed as needed ergocalciferol (vitamin D2) [Vitamin D2] 1,250 mcg (50,000 unit) Capsule 1,250 mcg PO Q7D 30 Days Qty: 5 0RF nicotine 21 mg/24 hr Patch 24 Hour 21 mg transdermal DAILY 28 Days Qty: 28 0RF thiamine HCl (vitamin B1) [Vitamin B-1] 100 mg Tablet 100 mg PO DAILYCM 30 Days Qty: 30 3RF folic acid 1 mg Tablet 1 mg PO DAILY@0800 30 Days Qty: 30 3RF oxycodone 5 mg Tablet 2.5 mg PO Q4H PRN PRN (Reason: Pain Score 4-10) 3 Days Qty: 10 0RF Eliquis 2.5 mg tablet 2.5 mg PO BID 30 Days Qty: 60 0RF sennosides [senna] 8.6 mg Tablet 17.2 mg PO BID Qty: 0 0RF Continued prednisolone acetate 1 % drops,suspension 1 drp ophthalmic (eye) 4X/DAY Rx Instructions: rt eye Referrals / Follow Up: Baltazar Thapa MD [Med Staff - Active Staff] - Within 2 Weeks (Right hip cephalomedullary nail) NICHOLAS GOODWIN CRNP [Primary Care Provider] - Disposition Disposition (needs filled in before D/C Order can be placed): Home Health Service Charges/Coding Visit Charges Inpatient E&M: 20622 Disch Hosp >30min
[2024-03-23] MEDS: Bisacodyl 10 MG Suppository RC (13:45)
--- NOTE | 2024-03-23 14:01 | CASEMGMT ---
Addendum entered by Maria Krishnamurthy 03/23/24 15:12: 1410- KATERINA BRITTON into pt room, pt lying in bed in no distress and two dtrs present. Pt is aware that [facility] did not show up on his insurance list but when other agencies had declined pt they were notified to see if they accept his insurance and they do and could see pt tomorrow. Pt and family agreeable to [facility]. Discussed HHC expectations and visit frequency and duration. Pt and family verbalized understanding. Provided pt with FWW, pt signed consignment form. Pt states $47 is affordable for the eliquis. Pt dtr has obtained a sock aid, seismic prospecting observer, 3 in 1 and shower chair. Pt and family deny any further needs at this time. Original Note: TC to [facility] Retail pharmacy, pt cost of eliquis is $47.
[2024-03-23 15:00] VITALS: BP 138/78; PULSE 88; RESP 16; TEMP 36.6; O2SAT 98
--- NOTE | 2024-03-23 15:53 | CASEMGMT ---
Social Work Phone call received from [facility] social services coordinator Aline Nobles. SW explained discharge plan and request for home health aids. Aline states pt does need to update some information with the clinic and then she may be able to obtain home health aids for pt. Pt's dgt Mackenzie's name and phone number provided to Aline who plans to reach out to dgt to obtain information. SW spoke with dgt Mackenzie and provided [facility] for [facility] and explained conversation. Mackenzie appreciative of information. BILL Roy
== END 2024-03-23 15:46 | disposition home health service (06) | DRG 481 ==
LOC: ED 13:04 → MS3 14:22
PROVIDERS: Specialist; Admitting Provider Hospitalist; Emergency Provider Student in an Organized Health Care Education/Training Program; PCP Nurse Practitioner; Visit Provider Internal Medicine
PROC: 0QS636Z Reposition Right Upper Femur with Intramedullary Internal Fixation Device, Percutaneous Approach (ICD-10-PCS; CPT 27245; principal; 2024-03-18 15:00)
DX: S72.144A Nondisplaced intertrochanteric fracture of right femur, initial encounter for closed fracture (principal); E44.0 Moderate protein-calorie malnutrition; F10.139 Alcohol abuse with withdrawal, unspecified; Z68.1 Body mass index [BMI] 19.9 or less, adult; J44.9 Chronic obstructive pulmonary disease, unspecified; I73.9 Peripheral vascular disease, unspecified; E78.5 Hyperlipidemia, unspecified; F17.210 Nicotine dependence, cigarettes, uncomplicated; W01.0XXA Fall on same level from slipping, tripping and stumbling without subsequent striking against object, initial encounter; Y90.0 Blood alcohol level of less than 20 mg/100 ml; Z79.82 Long term (current) use of aspirin; Z79.899 Other long term (current) drug therapy
CPT/HCPCS: 36415; 71045; 73501; 73502; 76000; 80048; 80053; 80061; 80320; 82306; 82550; 82607; 82746; 84153; 85025; 85027; 85610; 93005; 94668; 97116; 97162; 97166; 97530; 97535; 99252; 99283; 99406; C1776; J7030; J7120; A4216; G0103; G0463; G0480; J2405

== ENCOUNTER → 2024-07-22 | Outpatient (CLI) | payer MEDICARE, SELFPAY ==
[2024-07-22 17:38] LABS: ALB/GLOB Ratio 1.2 RATIO (0.9-2.4); AST(SGOT) 18 U/L (15-37); Alanine Aminotransfer ALT/SGPT 14 U/L (16-61); Albumin, Serum 4.1 g/dL (3.2-5.0); Alkaline Phosphatase 78 U/L (45-117); Anion Gap 8 (5-15); BUN 14 mg/dL (7-18); BUN/Creat Ratio 20.5 RATIO (10-20); Calcium,Total 10.1 mg/dL (8.5-10.1); Chloride 96 mmol/L (98-107); Creatinine, Serum 0.68 mg/dL (0.70-1.30); EST Glomerular Filtration Rate 121 mL/min (>60); Est Glom Filt Rate - Afr Amer 147 mL/min (>60); Globulin 3.5 g/dL (2.2-4.2); Glucose 85 mg/dL (74-106); Protein, Total 7.6 g/dL (6.4-8.2); Sodium Level 133 mmol/L (136-145)
== END | disposition home or self-care (01) ==
LOC: MFPLAB 12:23
PROVIDERS: PCP Family Medicine; Visit Provider Family Medicine
DX: B35.1 Tinea unguium (principal)
CPT/HCPCS: 36415; 80053

== ENCOUNTER → 2024-11-11 | Outpatient (CLI) | payer MEDICARE, SELFPAY ==
--- NOTE | 2024-11-11 10:22 | RAD_ITS ---
STUDY: X-RAY - RIGHT KNEE REASON FOR EXAM: Male, 73 years old. Knee pain. TECHNIQUE: 4 views of the right knee. COMPARISON: None. FINDINGS: Normal visualized distal femur. Normal visualized proximal tibia and fibula. Normal proximal tibiofibular articulation. There is no demonstrated fracture. There is severe degenerative arthrosis of the medial femorotibial compartment with severe joint space narrowing. There is mild degenerative arthrosis of the lateral femorotibial compartment. There is mild degenerative arthrosis of the patellofemoral articulation. There is a tiny knee joint effusion. There are atherosclerotic calcifications. 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 Tiny knee joint effusion. No demonstrated fracture. Electronically Signed: Blaek Jarquin MD at 14:50 EST ,
== END | disposition home or self-care (01) ==
LOC: MTRAD 10:18
PROVIDERS: PCP Family Medicine; Referring Provider Family Medicine; Visit Provider Family Medicine
DX: M25.561 Pain in right knee (principal)
CPT/HCPCS: 73564

== ENCOUNTER → 2025-02-14 | Outpatient (CLI) | payer MEDICARE, SELFPAY ==
--- NOTE | 2025-02-14 11:11 | RAD_ITS ---
EXAM: Three views of the right foot CLINICAL HISTORY: Right 5th digit pain COMPARISON: None available TECHNIQUE: Three views of the right foot FINDINGS: OSSEOUS STRUCTURES: No evidence for acute fracture. No aggressive osseous abnormality. JOINT: No dislocation is noted. No significant degenerative changes. SOFT TISSUES: Mild soft tissue swelling overlying the 5th digit. HARDWARE: None. RAD/Foot min 3 Views IMPRESSION: IMPRESSION: Age-indeterminate fracture of the intermediate phalanx of the 5th digit. There is mild resorption of the PIP joint. Consider dedicated evaluation with MRI as clinically indicated. Reading Location: [facility]
== END | disposition home or self-care (01) ==
LOC: MTRAD 11:09
PROVIDERS: PCP Family Medicine; Referring Provider Family Medicine; Visit Provider Family Medicine
DX: B35.1 Tinea unguium (principal); S99.921S Unspecified injury of right foot, sequela
CPT/HCPCS: 73630

== ENCOUNTER → 2025-03-15 | Outpatient (CLI) | payer MEDICARE, SELFPAY ==
--- NOTE | 2025-03-15 13:03 | ART_ITS ---
Reason For Study Reason For Study: PVD Procedure A bilateral lower extremity continuous wave Doppler with analog waveform analysis,segmental pressures,and ankle brachial indexes without exercise. Left Segmental Pressures Left brachial= 130mmHg. Left posterior tibial artery = 146mmHg. Left dorsalis pedis artery = 229mmHg. Left digit = 90 mmHg. The left dorsalis pedis waveforms are triphasic. The left posterior tibial artery waveforms are triphasic. Right Segmental Pressures Right brachial= 139mmHg. Right posterior tibial artery = 196mmHg. Right dorsalis pedis artery = >254mmHg. Right digit = 111 mmHg. The right dorsalis pedis waveforms are triphasic. The right posterior tibial artery waveforms are biphasic. Indices The right ankle brachial index by the dorsalis pedis is NC. The right ankle brachial index by the posterior tibial artery is 1.41. The right digital-brachial index is 0.80. The left ankle brachial index by the dorsalis pedis is 1.65. The left ankle brachial index by the posterior tibial artery is 1.05. The left digital-brachial index is 0.65. VL/Lower Ext Art Exam w/o Exercis Interpretation Summary Right MECCA 1.41, normal. TBI and Doppler/PVR waveforms of the right leg normal a t rest. Left MECCA 1.65, artificially elevated. Doppler/PVR waveforms of the left leg nor mal at rest. 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 Ordering Physician: Titus Condon Referring Physician: TITUS CONDON DPM Performed By: LUIS ENRIQUE BERMUDEZ RVT
== END | disposition home or self-care (01) ==
LOC: CVS 13:02
PROVIDERS: PCP Family Medicine; Referring Provider Podiatrist; Visit Provider Podiatrist
DX: I73.89 Other specified peripheral vascular diseases (principal)
CPT/HCPCS: 93923

== ENCOUNTER → 2025-05-26 | Outpatient (CLI) | payer MEDICARE, SELFPAY ==
[2025-05-26 12:10] LABS: Hematocrit 42.8 % (40-54); Hemoglobin 14.8 g/dL (13.0-16.5); Immature Granulocytes Count 0.030 X10^3/uL (0.0-0.0); Mean Corp Hgb Conc 34.6 g/dL (32-36); Mean Corpuscular Volume 97.3 fL (80-94); Mean Platelet Vol. 8.7 fl (6.2-12.0); NRBC Flagged by Analyzer 0 % (0-5); Platelet Count 268 K/mm3 (150-450); RBC Distribution Width CV 11.9 % (11.6-14.6); RBC Distribution Width SD 43.2 fl (35.1-43.9); Red Blood Count 4.40 M/mm3 (4.6-6.2); White Blood Count 8.5 K/mm3 (4.4-11.0)
[2025-05-26 13:18] LABS: AST(SGOT) 29 U/L (<=37); Alanine Aminotransfer ALT/SGPT 23 U/L (<=46); Albumin, Serum 4.8 g/dL (3.4-4.8); Alkaline Phosphatase 75 U/L (40-129); Anion Gap 14 (5-15); BUN 10 mg/dL (4-19); BUN/Creat Ratio 15.5 RATIO (10-20); Calcium,Total 10.1 mg/dL (7.6-11.0); Carbon Dioxide 25.8 mmol/L (21.0-32.0); Chloride 92 mmol/L (98-108); Cholesterol 176 mg/dL (<=200); Globulin 3.0 g/dL (2.2-4.2); Glucose 88 mg/dL (70-99); Low Density Lipoprotein Calc. 56 mg/dL; Potassium 4.3 mmol/L (3.3-5.1); Triglycerides 98 mg/dL; Very Low Density Lipoprotein 20 mg/dL (5-40); Vitamin D,25 Hydroxy 27.8 ng/mL (30-100); cholesterol:hdl ratio screen 1.76
--- OUTSIDE RECORDS SUMMARY | 2025-05-26 13:51 | XMS RPT_ITS | CCD ---
Author Organization [facility] Care Team Providers Care Search Engineer Name Role Phone Dr. Eugene Simmons Attending Provider Dr. Eugene Simmons Referring Provider Kris GRIMES, Aure Primary Care Provider Kris GRIMES, Aure Attending Provider [phone] Kris GRIMES, Aure Referring Provider [phone] Kris GRIMES, Aure Primary Care Provider Kris GRIMES, Aure Attending Provider [phone] Kris GRIMES, Aure Referring Provider [phone] Taurus FRYE, Dr. Qureshi Attending Provider Taurus FRYE, Dr. Qureshi Referring Provider Stephanie GRIMES, Dr. Fulton Attending Provider Kris, Chalon Primary Care Unavailable Titus Burns Attending Unavailable Titus Burns Referring Unavailable Kris, Aure Attending Unavailable Kris, Chalon Referring Unavailable Kris, Chalon Primary Care Unavailable Kris, Chalon Primary Care Unavailable Titus Burns Referring Unavailable Donaldo Brown Attending Unavailable Kris, Chalon Attending Unavailable Kris, Chalon Primary Care Unavailable Kris, Chalon Attending Unavailable Kris, Chalon Referring Unavailable Kris, Chalon Primary Care Unavailable Medications Current Medications Medication Drug Class(es) Dates Sig (Normalized) Sig (Original) acetaminophen 500 mg oral tablet (2 sources) Start: 03-23-2024 Acetaminophen 500 mg Tablet Active 1000 mg PO EVERY 8 HOURS 0 March 23, 2024 12:00am Wena-ubc-kjayhkq. 1 g every 8 hourly for 7 days and then as needed as needed apixaban 2.5 mg oral tablet (2 sources) Factor Xa Inhibitor Start: 03-23-2024 take 1 tablet by mouth twice daily Apixaban (Eliquis) 2.5 mg tablet Active 2.5 mg PO TWICE A DAY 60 March 23, 2024 12:00am atorvastatin 40 mg oral tablet (2 sources) HMG-CoA Reductase Inhibitor Start: 03-23-2024 take 1 tablet by mouth at bedtime Atorvastatin 40 mg Tablet Active 40 mg PO AT BEDTIME 30 March 23, 2024 12:00am ergocalciferol 1.25 mg oral capsule (2 sources) Provitamin D2 Compound Start: 03-23-2024 Ergocalciferol (Vitamin D2) (Vitamin D2) 1,250 mcg (50,000 unit) Capsule Active 1250 ug PO Q7D 5 March 23, 2024 12:00am folic acid 1 mg oral tablet (2 sources) Start: 03-23-2024 take 1 tablet by mouth once daily Folic Acid 1 mg Tablet Active 1 mg PO DAILY@0800 30 March 23, 2024 12:00am 24 hr nicotine 0.875 mg/hr transdermal system (2 sources) Cholinergic Nicotinic Agonist Start: 03-23-2024 apply 1 dose transdermal route every twenty-four hours Nicotine 21 mg/24 hr Patch 24 Hour Active 21 mg TD DAILY 28 March 23, 2024 12:00am oxyCODONE hydrochloride 5 mg oral tablet (2 sources) Opioid Agonist Start: 03-23-2024 take 2.5 mg by mouth every four hours as needed for pain Oxycodone 5 mg Tablet Active 2.5 mg PO EVERY 4 HOURS NEEDED as needed for Pain Score 4-10 10 3 March 23, 2024 prednisoLONE acetate 10 mg/ml ophthalmic suspension (4 sources) Corticosteroid Start: 03-17-2024 Prednisolone Acetate 1 % drops,suspension Active 1 NMA OPHTHALMIC 4 TIMES DAILY March 17, 2024 12:00am rt eye Sennosides (Senna) 8.6 mg Tablet (2 sources) Start: 03-23-2024 take 2 tablets by mouth twice daily Sennosides (Senna) 8.6 mg Tablet Active 17.2 mg PO TWICE A DAY 0 March 23, 2024 12:00am thiamine 100 mg oral tablet (2 sources) Start: 03-23-2024 take 1 tablet by mouth once daily at mealtime Thiamine Hcl (Vitamin B1) (Vitamin B-1) 100 mg Tablet Active 100 mg PO DAILY WITH MEALS March 23, 2024 12:00am Problems Active Problems Problem Classification Problem Date Documented Da te Episodic/Chronic Alcohol-related disorders (4 sources) Alcohol abuse; Translations: [Alcohol abuse, uncomplicated] 03-17-2024 Chronic Comment on above: vodka w/ oj- 2-3drin ks (coffee cup mugs) Fracture of neck of femur (hip) (4 sources) Closed fracture of hip; Translations: [Fracture of unspecified part of neck of right femur, initial encounter for closed fracture] 03-17-2024 Episodic Mycoses (1 source) Tinea unguium; Translations: [Tinea unguium] Onset: 02-18-2025 Episodic Open wounds of extremities (5 sources) Disorder of foot; Translations: [Unspecified open wound, unspecified foot, initial encounter] 06-17-2021 Episodic Other circulatory disease (1 source) Other specified peripheral vascular diseases; Translations: [Other specified peripheral vascular diseases] Onset: 03-20-2025 Chronic Peripheral and visceral atherosclerosis (5 sources) Peripheral vascular disease, unspecified; Translations: [Peripheral arterial disease] 06-17-2021 Chronic Residual codes; unclassified (3 sources) Tobacco user; Translations: [Tobacco use] 03-17-2024 Episodic Residual codes; unclassified (1 source) Tobacco use; Translations: [Tobacco use disorder] 03-17-2024 Episodic Past or Other Problems Problem Classification Problem Date Documented Da te Episodic/Chronic Other non-traumatic joint disorders (1 source) Pain in right knee; Translations: [Pain in right knee] Onset: 12-05-2024 Episodic Results Test Name Value Interpretation Reference Range Facility Arterial study reportOrdered By: Donaldo Brown on 03-15-2025 Noninvasive arteriosclerosis study report [facility] [address] [place] [address] Lower Ext Art Exam w/o Exercis 03/15/25 1312 MR#: [id number] Acct: [id number] Name: MAVIS IRWIN Rep #:[id number] : 1950 74 From: Donaldo Ballard Attending Dr: Dr. Titus Burns, DPM Status: REG CLI Ordering Dr: Titus Burns DPM Date: 03/15/25 Location: [facility] Sex: M C Admitted: Reason For Study Reason For Study: PVD Procedure A bilateral lower extremity continuous wave Doppler with analog waveform analysis,segmental pressures,and ankle brachial indexes without exercise. Left Segmental Pressures Left brachial= 130mmHg. Left posterior tibial artery = 146mmHg. Left dorsalis pedis artery = 229mmHg. Left digit = 90 mmHg. The left dorsalis pedis waveforms are triphasic. The left posterior tibialartery waveforms are triphasic. Right Segmental Pressures Right brachial= 139mmHg. Right posterior tibial artery = 196mmHg. Right dorsalispedis artery = >254mmHg. Right digit = 111 mmHg. The right dorsalis pedis waveforms are triphasic. The right posterior tibial artery waveforms are biphasic. Indices The right ankle brachial index by the dorsalis pedis is NC. The right ankle brachial index by the posterior tibial artery is 1.41. The right digital-brachial index is 0.80. The left ankle brachial index by the dorsalis pedis is 1.65. The left ankle brachial index by the posterior tibial artery is 1.05. The left digital-brachial index is 0.65. VL/Lower Ext Art Exam w/o Exercis Interpretation Summary Right MECCA 1.41, normal. TBI and Doppler/PVR waveforms of the right leg normal atrest. Left MECCA 1.65, artificially elevated. Doppler/PVR waveforms of the left leg normal at rest. 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 Ordering Physician: Titus Burns Referring Physician: TITUS BURNS DPM Performed By: LUIS ENRIQUE BERMUDEZ RVT 03/15/25 1658 Date _ Donaldo Brown MD CC: DPM Dr. Titus Burns; Dr. Aure Ponce MD ~ Date Dictated: 03/15/25 131 Date Transcribed: 03/15/251657 Signal Inspector: Signed [facility] Work Phone: Lower Ext Art Exam w/o Exerc moe 03-15-2025 Lower Ext Art Exam w/o Exercis [facility] [address] [place] [address] Lower Ext Art Exam w/o Exercis 03/15/25 131 MR#: [id number] Acct: [id number] Name: MAVIS IRWIN Rep #: [id number] : 1950 74 From: Donaldo Brown MD Attending Dr: Dr. Titus Burns DPM Status: R EG CLI Ordering Dr: Titus Burns DPM Date: 03/15/25 Location: [facility] Sex: M C Admitted: Reason For Study Reason For Study: PVD Procedure A bilateral lower extremity continuous wave Doppler with analog waveform analysis,segmental pressures,and ankle brachial indexes without exercise. Left Segmental Pressures Left brachial= 130mmHg. Left posterior tibial artery = 146mmHg. Left dorsalis pedis artery = 229mmHg. Left digit = 90 mmHg. The left dorsalis pedis waveforms are triphasic. The left posterior tibial artery waveforms are triphasic. Right Segmental Pressures Right brachial= 139mmHg. Right posterior tibial artery = 196mmHg. Right dorsalis pedis artery = >254mmHg. Right digit = 111 mmHg. The right dorsalis pedis waveforms are triphasic. The right posterior tibial artery waveforms are biphasic. Indices The right ankle brachial index by the dorsalis pedis is NC. The right ankle brachial index by the posterior tibial artery is 1.41. The right digital-brachial index is 0.80. The left ankle brachial index by the dorsalis pedis is 1.65. The left ankle brachial index by the posterior tibial artery is 1.05. The left digital-brachial index is 0.65. VL/Lower Ext Art Exam w/o Exercis Interpretation Summary Right MECCA 1.41, normal. TBI and Doppler/PVR waveforms of the right leg normal at rest. Left MECCA 1.65, artificially elevated. Doppler/PVR waveforms of the left leg normal at rest. 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 Ordering Physician: Titus Burns Referring Physician: TITUS BURNS DPM Performed By: LUIS ENRIQUE BERMUDEZ RVT 03/15/251657 Date Donaldo Brown MD CC: DPM Dr. Titus Burns; Dr. Aure Ponce MD Date Dictated: 03/15/25 1312 Date Transcribed: 03/15/251657 Signal Inspector: Signed Normal [facility] Foot min 3 Viewson 5 Foot min 3 Views [facility] [address] [place] [address] Foot min 3 Views MR#: [id number] Acct: [id number] Name: MAVIS IRWIN Rep #: [id number] : 1950 M 74 From: Shabana Swartz MD PCP: Dr. Aure Ponce MD Status: REG CLI Study: Foot min 3 Views Date of Exam: 02/14/25 Exam# [id number] Ordering Dr: Aure Ponce MD EXAM: Three views of the right foot CLINICAL HISTORY: Right 5th digit pain COMPARISON: None available TECHNIQUE: Three views of the right foot FINDINGS: OSSEOUS STRUCTURES: No evidence for acute fracture. No aggressive osseous abnormality. JOINT: No dislocation is noted. No significant degenerative changes. SOFT TISSUES: Mild soft tissue swelling overlying the 5th digit. HARDWARE: None. RAD/Foot min 3 Views IMPRESSION: IMPRESSION: Age-indeterminate fracture of the intermediate phalanx of the 5th digit. There is mild resorption of the PIP joint. Consider dedicated evaluation with MRI as clinically indicated. Reading Location: [facility] CC: Dr. Aure Ponce MD Signal Inspector: Signed Normal [facility] Knee 4 or More Viewson 11-11 Knee 4 or More Views [facility] Imaging Services [address] [place], [place] [id number] Knee 4 or More Views MR#: [id number] Acct: [id number] Name: MAVIS IRWIN Rep #: [id number] : 1950 M 73 From: Blake Jarquin MD PCP: Dr. Aure Ponce MD Status: REG CLI Study: Knee 4 or More Views Date of Exam: 11/11/24 Exam# [id number] Ordering Dr: Aure Ponce MD [id number] STUDY: X-RAY - RIGHT KNEE REASON FOR EXAM: Male, 73 years old. Knee pain. TECHNIQUE: 4 views of the right knee. COMPARISON: None. FINDINGS: Normal visualized distal femur. Normal visualized proximal tibia and fibula. Normal proximal tibiofibular articulation. There is no demonstrated fracture. There is severe degenerative arthrosis of the medial femorotibial compartment with severe joint space narrowing. There is mild degenerative arthrosis of the lateral femorotibial compartment. There is mild degenerative arthrosis of the patellofemoral articulation. There is a tiny knee joint effusion. There are atherosclerotic calcifications. 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 Tiny knee joint effusion. No demonstrated fracture. Electronically Signed: Blake Jarquin MD at 14:50 EST , CC: Dr. Aure Ponce MD Signal Inspector: Signed Normal [facility] Comprehensive Metabolic Prof ilon 07-22-2024 Albumin [Mass/Vol] 4.1 g/dL Normal 3.2-5.0 [facility] Comment on above: Order Comment: Order Date: 07/22/24 Order Info: 0786-1 - CMP Performed By: #### L [id number] #### [facility] [address] [place], [address] Albumin/Globulin [Mass ratio] 1.2 {ratio} Normal 0.9-2.4 [facility] Comment on above: Order Comment: Order Date: 07/22/24 Order Info: 0786-1 - CMP Performed By: #### L [id number] #### [facility] [address] [place], [address] ALK P 78 U/L Normal 45-117 [facility] Comment on above: Order Comment: Order Date: 07/22/24 Order Info: 0786-1 - CMP Performed By: #### L [id number] #### [facility] [address] [place], [address] ALT [Catalytic activity/Vol] 14 U/L Low 16-61 [facility] Comment on above: Order Comment: Order Date: 07/22/24 Order Info: 0786-1 - CMP Performed By: #### L [id number] #### [facility] [address] [place], [address] AST [Catalytic activity/Vol] 18 U/L Normal 15-37 [facility] Comment on above: Order Comment: Order Date: 07/22/24 Order Info: 0786-1 - CMP Performed By: #### L [id number] #### [facility] [address] [place], [address] Bilirubin [Mass/Vol] 0.80 mg/dL Normal 0.20-1.00 [facility] Comment on above: Order Comment: Order Date: 07/22/24 Order Info: 0786-1 - CMP Result Comment: For patients on eltrombopag therapy, use of Dimension [place] TBIL is not recommended. Performed By: #### L [id number] #### [facility] [address] [place], [address] BUN/CRE 20.5 RATIO High 10-20 [facility] Comment on above: Order Comment: Order Date: 07/22/24 Order Info: 0786-1 - CMP Performed By: #### L [id number] #### [facility] [address] [place], [address] CA,Total 10.1 mg/dL Normal 8.5-10.1 [facility] Comment on above: Order Comment: Order Date: 07/22/24 Order Info: 0786-1 - CMP Performed By: #### L [id number] #### [facility] [address] [place], [address] Chloride [Moles/Vol] 96 mmol/L Low 98-107 [facility] Comment on above: Order Comment: Order Date: 07/22/24 Order Info: 0786-1 - CMP Performed By: #### L [id number] #### [facility] [address] [place], [address] CO2 [Moles/Vol] 29.0 mmol/L Normal 21.0-32.0 [facility] Comment on above: Order Comment: Order Date: 07/22/24 Order Info: 0786-1 - CMP Performed By: #### L [id number] #### [facility] [address] [place], [address] Creatinine [Mass/Vol] 0.68 mg/dL Low 0.70-1.30 [facility] Comment on above: Order Comment: Order Date: 07/22/24 Order Info: 0786-1 - CMP Result Comment: The validity of the calculated GFR GFRAA in patients over 70 years has not been determined. Clinical correlation is essential. Performed By: #### L [id number] #### [facility] [address] [place], [address] EST GFR - AA 147 mL/min Normal >60 [facility] Comment on above: Order Comment: Order Date: 07/22/24 Order Info: 0786-1 - CMP Result Comment: Afri can [place] GFR Calc Performed By: #### L [id number] #### [facility] [address] [place], [address] GAP 8 Normal 5-15 [facility] Comment on above: Order Comment: Order Date: 07/22/24 Order Info: 0786-1 - CMP Performed By: #### L [id number] #### [facility] [address] [place], [address] GFR/1.73 sq M.predicted among non-blacks MDRD (S/P/Bld) [Vol rate/Area] 121 mL/min/{1.73_m2} Normal >60 [facility] Comment on above: Order Comment: Order Date: 07/22/24 Order Info: 0786-1 - CMP Result Comment: Non- GFR Calc Performed By: #### L [id number] #### [facility] [address] [place], [address] Globulin (S) [Mass/Vol] 3.5 g/dL Normal 2.2-4.2 [facility] Comment on above: Order Comment: Order Date: 07/22/24 Order Info: 0786-1 - CMP Performed By: #### L [id number] #### [facility] [address] [place], [address] Glucose [Mass/Vol] 85 mg/dL Normal 74-106 [facility] Comment on above: Order Comment: Order Date: 07/22/24 Order Info: 0786-1 - CMP Performed By: #### L [id number] #### [facility] [address] [place], [place], [address] Potassium [Moles/Vol] 5.0 mmol/L Normal 3.5-5.1 [facility] Comment on above: Order Comment: Order Date: 07/22/24 Order Info: 0786-1 - CMP Performed By: #### L [id number] #### [facility] [address] [place], [address] Sodium [Moles/Vol] 133 mmol/L Low 136-145 [facility] Comment on above: Order Comment: Order Date: 07/22/24 Order Info: 0786-1 - CMP Performed By: #### L [id number] #### [facility] [address] [place], [place], [address] T PROT 7.6 g/dL Normal 6.4-8.2 [facility] Comment on above: Order Comment: Order Date: 07/22/24 Order Info: 0786-1 - CMP Performed By: #### L [id number] #### [facility] [address] [place], [address] Urea nitrogen [Mass/Vol] 14 mg/dL Normal 7-18 [facility] Comment on above: Order Comment: Order Date: 07/22/24 Order Info: 0786-1 - CMP Performed By: #### L [id number] #### [facility] [address] [place], [address] Discharge Instructionon 03-09 Discharge Instruction [facility] Medical Records Department [address] [place] [address] Instructions for Home/Discharge Instructions 03/23/24 1300 MR#: [id number] Acct: [id number] Name: MAVIS IRWIN Rep #: [id number] : 1950 73 From: Dave Evans MD PCP: BUDDY,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 On wheeled walker Dressing / Incision Call your doctor if you observe: Fever of 101 or Higher, Coldness, Increased Pain, Numbness or Tingling, Change in Color, Inability to urinate, Inability to have a bowel movement, Shortness of breath, Dizziness, Fainting spells, Swelling in the ankles, Chest pain, Prolonged hiccupping, Increased palpitations (irregular heartbeat) and Calf discomfort Follow Up Care When: IN 2 WEEKS Test Results: Test results from this visit will be discussed in further detail at your follow-up appointment, if applicable. Discharge Plan Admission Admit Date/Time: 03/17/24 13:40 Primary Reason for Your Visit: Right ear fracture Attending Provider: Dave Evans Primary Care Provider: NICHOLAS GOODWIN Consulting Providers: Lennox Oliveira; Donaldo Chavis Instructions Additional Instructions / Restrictions: Tomh-zzu-mqexebs MiraLAX 17 g oral daily Discharge Orders/Prescriptions Prescriptions: New atorvastatin 40 mg Tablet 40 mg PO QHS 30 Days Qty: 30 2RF acetaminophen 500 mg Tablet 1,000 mg PO Q8 Qty: 0 0RF Rx Instructions: Kevr-lqh-hihpjwa. 1 g every 8 hourly for 7 days and then as needed as needed ergocalciferol (vitamin D2) [Vitamin D2] 1,250 mcg (50,000 unit) Capsule 1,250 mcg PO Q7D 30 Days Qty: 5 0RF nicotine 21 mg/24 hr Patch 24 Hour 21 mg transdermal DAILY 28 Days Qty: 28 0RF thiamine HCl (vitamin B1) [Vitamin B-1] 100 mg Tablet 100 mg PO DAILYCM 30 Days Qty: 30 3RF folic acid 1 mg Tablet 1 mg PO DAILY@0800 30 Days Qty: 30 3RF oxycodone 5 mg Tablet 2.5 mg PO Q4H PRN PRN (Reason: Pain Score 4-10) 3 Days Qty: 10 0RF Eliquis 2.5 mg tablet 2.5 mg PO BID 30 Days Qty: 60 0RF sennosides [senna] 8.6 mg Tablet 17.2 mg PO BID Qty: 0 0RF Continued prednisolone acetate 1 % drops,suspension 1 drp ophthalmic (eye) 4X/DAY Rx Instructions: rt eye Referrals / Follow Up: Baltazar Thapa MD [Med Staff - Active Staff] - Within 2 Weeks (Right hip cephalomedullary nail) NICHOLAS GOODWIN CRNP [Primary Care Provider] - Disposition Disposition (needs filled in before D/C Order can be placed): Home Health Service 03/23/24 1310 Dave Evans MD CC: Dr. Lennox Oliveira, DO; Dr. Donaldo Chavis DO; GEMINI BERRY Signed Normal [facility] Basophil percentageOrdered B y: Lennox Oliveira on 03-18-2024 Hemoglobin (Bld) [Mass/Vol] 11.9 g/dL 13.0-16.5 [facility] WBC (Bld) [#/Vol] 9.0 10*3/uL 4.4-11.0 [facility] Determination of erythrocyte mean corpuscular volume (MCV)Ordered By: Lennox Oliveira on 03-18-2024 MCV (RBC) [Entitic vol] 101.1 fL 80-94 [facility] Erythrocyte distribution wid th ratioOrdered By: Lennox Oliveira on 03-18-2024 Erythrocyte distribution width (RBC) [Ratio] 12.9 % 11.6-14.6 [facility] Erythrocyte distribution wid th standard deviationOrdered By: Lennox Oliveira on 03-18-2024 Erythrocyte distribution width (RBC) [Entitic vol] 48.1 fL 35.1-43.9 [facility] Hematocrit Auto (Bld) [Volum e fraction]Ordered By: Lennox Oliveira on 03-18-2024 Hematocrit (Bld) [Volume fraction] 36.0 % 40-54 [facility] - Hematology and Cell countsOrdered By: Lennox Oliveira on 03-18-2024 MCH (RBC) [Entitic mass] 33.4 pg 27.0-32.0 [facility] MCHC (RBC) [Mass/Vol] 33.1 g/dL 32-36 [facility] Platelet mean volume (Bld) [Entitic vol] 8.7 fL 6.2-12.0 [facility] Platelets (Bld) [#/Vol] 166 10*3/uL 150-450 [facility] RBC Auto (Bld) [#/Vol]Ordere d By: Lennox Oliveira on 03-18-2024 RBC (Bld) [#/Vol] 3.56 10*6/uL 4.6-6.2 [facility] [place] Absolute lymphocyte countOrd ered By: Pepe Chavez on 03-17-2024 Lymphocytes Auto (Unsp spec) [#/Vol] 0.51 10*3/uL 0.83-4.51 [facility] Automated lymphocyte count a s percentage of total leukocytesOrdered By: Pepe Chavez on 03-17-2024 Lymphocytes/100 WBC Auto (Unsp spec) 4.0 % 19-41 [facility] Basophil percentageOrdered B y: Pepe Chavez on 03-17-2024 Basophils/100 WBC (Bld) 0.2 % 0-1 [facility] Chloride [Moles/Vol] 99 mmol/L 98-107 [facility] Eosinophils/100 WBC (Bld) 0.1 % 0-5 [facility] Glucose [Mass/Vol] 114 mg/dL 74-106 [facility] Comment on above: Fasting Glucose resu lt from 100 to 125 mg/dL suggests IMPAIRED HOMEOSTASIS per A.D.A. criteria. Hemoglobin (Bld) [Mass/Vol] 13.5 g/dL 13.0-16.5 [facility] Monocytes/100 WBC (Bld) 15.0 % 0-10 [facility] Neutrophils (Bld) [#/Vol] 10.4 10*3/uL 2.0-7.7 [facility] Neutrophils/100 WBC (Bld) 80.3 % 47-70 [facility] Potassium [Moles/Vol] 4.2 mmol/L 3.5-5.1 [facility] Sodium [Moles/Vol] 134 mmol/L 136-145 [facility] WBC (Bld) [#/Vol] 12.9 10*3/uL 4.4-11.0 [facility] [place] Blood manual differential co mment interpretation (narrative result)Ordered By: Pepe Chavez on 03-17-2024 Manual differential comment Dougie (Bld) [Interp] COMMENT [facility] Comment on above: LYMPHOPENIA.MONOCYTO SIS. Determination of erythrocyte mean corpuscular volume (MCV)Ordered By: Pepe Chavez on 03-17-2024 MCV (RBC) [Entitic vol] 97.5 fL 80-94 [facility] Erythrocyte distribution wid th ratioOrdered By: Pepe Chavez on 03-17-2024 Erythrocyte distribution width (RBC) [Ratio] 12.2 % 11.6-14.6 [facility] Erythrocyte distribution wid th standard deviationOrdered By: Pepe Chavez on 03-17-2024 Erythrocyte distribution width (RBC) [Entitic vol] 43.9 fL 35.1-43.9 [facility] Hematocrit Auto (Bld) [Volum e fraction]Ordered By: Pepe Chavez on 03-17-2024 Hematocrit (Bld) [Volume fraction] 39.2 % 40-54 [facility] Immature granulocytes/100 WB C Auto (Bld)Ordered By: Pepe Chavez on 03-17-2024 Immature granulocytes/100 WBC (Bld) 0.400 % 0.0-0.9 [facility] Comment on above: IG% - Immature Granu locytes (promyelocytes, myelocytes and metamyelocytes) > 1% indicates that a LEFT SHIFT is Present. Laboratory - Chemistry and C hemistry - challengeOrdered By: Lennox Oliveira on 03-17-2024 Cobalamin (Vitamin B12) [Mass/Vol] 235 pg/mL 211-911 [facility] - Chemistry and C hemistry - challengeOrdered By: Pepe Chavez on 03-17-2024 CK [Catalytic activity/Vol] 124 U/L 39-308 [facility] CO2 [Moles/Vol] 28.0 mmol/L 21.0-32.0 [facility] Urea nitrogen/Creatinine [Mass ratio] 11.7 mg/mg 10-20 [facility] - CoagulationOrde red By: Lennox Oliveira on 03-17-2024 INR Coag (Bld) [Relative time] 1.1 {INR} [facility] PT Coag (PPP) [Time] 14.0 s 11.7-14.9 [facility] Laboratory - Hematology and Cell countsOrdered By: Pepe Chavez on 03-17-2024 MCH (RBC) [Entitic mass] 33.6 pg 27.0-32.0 [facility] MCHC (RBC) [Mass/Vol] 34.4 g/dL 32-36 [facility] Nucleated RBC/100 WBC (Bld) [Ratio] 0 % 0-5 [facility] Platelet mean volume (Bld) [Entitic vol] 8.1 fL 6.2-12.0 [facility] Platelets (Bld) [#/Vol] 195 10*3/uL 150-450 [facility] No Panel InformationOrdered By: Pepe Chavez on 03-17-2024 Ethyl Alcohol Level < 3.0 mg/dL [facility] Comment on above: The serum:whole bloo d ethanol ratio is approximately 1.14and varies slightly with hematocrit. Medical Alcohol reference interval and critical value innon-tolerant individuals; 50 - 100 Impairment 100 Intoxication 100 - 250 Severe Poisoning 250 - 400 Deep/possible fatal coma Estimated Creatinine Clearance Calc 74.98 ml/min [facility] Estimated GFR (MDRD) Amer 129 mL/min >60 [facility] Comment on above: GFR Calc Estimated GFR (MDRD) Non-Af Amer 106 mL/min >60 [facility] Comment on above: Non- GFR Calc No Panel InformationOrdered By: Lennox Oliveira on 03-17-2024 Vitamin D 25-Hydroxy 21.7 ng/mL [facility] Comment on above: Vitamin D 25(OH) Sta tus Range Deficiency <20 ng/mL (50nmol/L) Insufficiency 20 - 30 ng/mL (50 - 75 nmol/L) Sufficiency 30 - 100 ng/mL (75 - 250 nmol/L) Toxicity >100 ng/mL (>250 nmol/L) Folate 12.30 ng/mL 3.1-55.4 [facility] RBC Auto (Bld) [#/Vol]Ordere d By: Pepe Chavez on 03-17-2024 RBC (Bld) [#/Vol] 4.02 10*6/uL 4.6-6.2 [facility] Review by pathologistOrdered By: Pepe Chavez on 03-17-2024 Pathologist review Dougie (Unsp spec) [Interp] March [facility] Serum or plasma calcium rufina urement (mass/volume)Ordered By: Pepe Chavez on 03-17-2024 Calcium [Mass/Vol] 9.2 mg/dL 8.5-10.1 [facility] Serum or plasma creatinine m easurement (mass/volume)Ordered By: Pepe Chavez on 03-17-2024 Creatinine [Mass/Vol] 0.77 mg/dL 0.70-1.30 [facility] Comment on above: The validity of the calculated GFR & GFRAA in patients over 70 years has not been determined. Clinical correlation is essential. Serum or plasma urea nitroge n measurement (mass/volume)Ordered By: Pepe Chavez on 03-17-2024 Urea nitrogen [Mass/Vol] 9 mg/dL 7-18 [facility] Thin prep Papanicolaou smear with manual screeningOrdered By: Pepe Chavez on 03-17-2024 Thin prep Papanicolaou smear with manual screening 7 5-15 [facility] Absolute lymphocyte countOrd ered By: Aure Ponce on 03-14-2024 Lymphocytes Auto (Unsp spec) [#/Vol] 1.14 10*3/uL 0.83-4.51 [facility] Automated lymphocyte count a s percentage of total leukocytesOrdered By: Aure Ponce on 03-14-2024 Lymphocytes/100 WBC Auto (Unsp spec) 18.3 % 19-41 [facility] Basophil percentageOrdered B y: Aure Ponce on 03-14-2024 Basophils/100 WBC (Bld) 0.8 % 0-1 [facility] Bilirubin [Mass/Vol] 0.70 mg/dL 0.20-1.00 [facility] Comment on above: For patients on eltr ombopag therapy, use of Dimension [place] TBIL is not recommended. Chloride [Moles/Vol] 96 mmol/L 98-107 [facility] Cholesterol [Mass/Vol] 232 mg/dL <200 [facility] Comment on above: <200 mg/dL Desirable 200-240 mg/dL Borderline >240 mg/dL High Risk Eosinophils/100 WBC (Bld) 2.4 % 0-5 [facility] Glucose [Mass/Vol] 141 mg/dL 74-106 [facility] Comment on above: Fasting Glucose resu lt greater than or equal to 126 mg/dL suggests DIABETES MELLITUS per A.D.A. criteria. Hemoglobin (Bld) [Mass/Vol] 15.4 g/dL 13.0-16.5 [facility] Monocytes/100 WBC (Bld) 15.0 % 0-10 [facility] Neutrophils (Bld) [#/Vol] 3.9 10*3/uL 2.0-7.7 [facility] Neutrophils/100 WBC (Bld) 63.3 % 47-70 [facility] Potassium [Moles/Vol] 4.1 mmol/L 3.5-5.1 [facility] Protein [Mass/Vol] 7.6 g/dL 6.4-8.2 [facility] Sodium [Moles/Vol] 131 mmol/L 136-145 [facility] Triglyceride [Mass/Vol] 160 mg/dL <199 [facility] Comment on above: The drugs N-Acetylcy steine and Metamizole may falsely depress this assay.Serum Triglycerides Reference Interval Normal <150 mg/dL Borderline high 150 - 199 mg/dL High 200 - 499 mg/dL Very High > or = 500 mg/dL WBC (Bld) [#/Vol] 6.2 10*3/uL 4.4-11.0 [facility] Determination of erythrocyte mean corpuscular volume (MCV)Ordered By: Aure Ponce on 03-14-2024 MCV (RBC) [Entitic vol] 97.6 fL 80-94 [facility] Erythrocyte distribution wid th ratioOrdered By: [facility] on 03-14-2024 Erythrocyte distribution width (RBC) [Ratio] 12.5 % 11.6-14.6 [facility] Erythrocyte distribution wid th standard deviationOrdered By: [facility] on 03-14-2024 Erythrocyte distribution width (RBC) [Entitic vol] 44.8 fL 35.1-43.9 [facility] Hematocrit Auto (Bld) [Volum e fraction][facility]: [facility]-14-2024 Hematocrit (Bld) [Volume fraction] 45.6 % 40-54 [facility] Immature granulocytes/100 WB C Auto (Bld)Ordered By: Aure Kris on 03-14-2024 Immature granulocytes/100 WBC (Bld) 0.200 % 0.0-0.9 [facility] Comment on above: IG% - Immature Granu locytes (promyelocytes, myelocytes and metamyelocytes) > 1% indicates that a LEFT SHIFT is Present. Laboratory - Chemistry and C hemistry - challengeOrdered By: Aure Ponce on 03-14-2024 Albumin/Globulin [Mass ratio] 1.1 {ratio} 0.9-2.4 [facility] ALP [Catalytic activity/Vol] 61 U/L 45-117 [facility] ALT [Catalytic activity/Vol] 17 U/L 16-61 [facility] Cholesterol in HDL [Mass/Vol] 68 mg/dL >40 [facility] Comment on above: The drugs N-Acetylcy steine and Metamizole may falsely depress this assay. Reference Range HDL <40 mg/dL Low HDL Cholesterol HDL >or= 60 mg/dL High HDL Cholesterol Cholesterol in LDL [Mass/Vol] 132 mg/dL 0-130 [facility] CO2 [Moles/Vol] 27.0 mmol/L 21.0-32.0 [facility] Globulin (S) [Mass/Vol] 3.6 g/dL 2.2-4.2 [facility] Urea nitrogen/Creatinine [Mass ratio] 14.9 mg/mg 10-20 [facility] Laboratory - Hematology and Cell countsOrdered By: Aure Ponce on 03-14-2024 MCH (RBC) [Entitic mass] 33.0 pg 27.0-32.0 [facility] MCHC (RBC) [Mass/Vol] 33.8 g/dL 32-36 [facility] Nucleated RBC/100 WBC (Bld) [Ratio] 0 % 0-5 [facility] Platelet mean volume (Bld) [Entitic vol] 8.2 fL 6.2-12.0 [facility] Platelets (Bld) [#/Vol] 222 10*3/uL 150-450 [facility] No Panel InformationOrdered By: Aure Ponce on 03-14-2024 Estimated GFR (MDRD) Amer 111 mL/min >60 [facility] Comment on above: GFR Calc Estimated GFR (MDRD) Non-Af Amer 91 mL/min >60 [facility] Comment on above: Non- GFR Calc Prostate Specific Antigen Screen 2.93 ng/mL 0.00-4.00 [facility] Comment on above: This test was perfor med using the TPSA assay method for theDimension chemistry system. Values obtained with differentassay methods cannot be used interchangably.When changing PSA assays in the course of monitoring apatient, additional sequential testing should be carriedout to confirm baseline values. VLDL Cholesterol 32 mg/dL 5-40 [facility] RBC Auto (Bld) [#/Vol]Ordere d By: Aure Ponce on 03-14-2024 RBC (Bld) [#/Vol] 4.67 10*6/uL 4.6-6.2 [facility] Serum or plasma calcium rufina urement (mass/volume)Ordered By: Aure Ponce on 03-14-2024 Calcium [Mass/Vol] 9.7 mg/dL 8.5-10.1 [facility] Serum or plasma creatinine m easurement (mass/volume)Ordered By: Aure Ponce on 03-14-2024 Creatinine [Mass/Vol] 0.87 mg/dL 0.70-1.30 [facility] Comment on above: The validity of the calculated GFR & GFRAA in patients over 70 years has not been determined. Clinical correlation is essential. Serum or plasma urea nitroge n measurement (mass/volume)Ordered By: Aure Ponce on 03-14-2024 Urea nitrogen [Mass/Vol] 13 mg/dL 7-18 [facility] Thin prep Papanicolaou smear with manual screeningOrdered By: Aure Ponce on 03-14-2024 Thin prep Papanicolaou smear with manual screening 4.0 g/dL 3.2-5.0 [facility] Thin prep Papanicolaou smear with manual screening 19 U/L 15-37 [facility] Thin prep Papanicolaou smear with manual screening 8 5-15 [facility] Clinical Event Noteon 2020 Clinical Event Note Clinical Event: Clinical Event Note: Details Patient has necrotic right pinky toe. Causing him pain. Patient was not seen here he was instructed to go straight to the ER. Patient says been going on about 5 weeks. Patient wants to go to the [place] [facility]. Electronic Signatures: Mayra Reyes (MEAT PICKLER-ROOM SERVICE ATTENDANT) (Signed 17-Jun-2021 16:06) Authored: Clinical Event Note Last Updated: 17-Jun-2021 16:06 by Mayra Reyes (MEAT PICKLER-ROOM SERVICE ATTENDANT) Normal [facility] Auto Diffon 08-09-2019 Basophils (Bld) [#/Vol] 0.0 E3/mcL Normal 0.0-0.2 [facility] Comment on above: Order Comment: Order Added by Discern Expert. Performed By: #### 2 [id number] #### [employer] [address] [place] [address] Basophils/100 WBC (Bld) 0.9 % Normal 0.0-2.0 [facility] Comment on above: Order Comment: Order Added by Discern Expert. Performed By: #### 2 [id number] #### [employer] [address] [place] [address] Eos Absolute 0.2 E3/mcL Normal 0.0-0.7 [facility] Comment on above: Order Comment: Order Added by Discern Expert. Performed By: #### 2 [id number] #### [employer] [address] [place] [address] Eosinophils/100 WBC (Bld) 3.9 % Normal 0.0-11.0 [facility] Comment on above: Order Comment: Order Added by Discern Expert. Performed By: #### 2 [id number] #### [employer] [address] [place] [address] Lymphocytes (Bld) [#/Vol] 1.1 E3/mcL Low 1.2-3.4 [facility] Comment on above: Order Comment: Order Added by Discern Expert. Performed By: #### 2 [id number] #### [employer] [address] [place] [address] Lymphocytes/100 WBC (Bld) 21.0 % Normal 20.0-55.0 [facility] Comment on above: Order Comment: Order Added by Discern Expert. Performed By: #### 2 [id number] #### [employer] [address] [place] [address] [place] Absolute 0.8 E3/mcL High 0.0-0.7 [facility] Comment on above: Order Comment: Order Added by Discern Expert. Performed By: #### 2 [id number] #### [employer] [address] [place] [address] Monocytes/100 WBC (Bld) 14.3 % High 0.0-10.0 [facility] Comment on above: Order Comment: Order Added by Discern Expert. Performed By: #### 2 [id number] #### ZEE FerreiraHemo [address] [place] [address] Neutro Absolute 3.3 E3/mcL Normal 1.4-6.5 [facility] Comment on above: Order Comment: Order Added by Discern Expert. Performed By: #### 2 [id number] #### ZEE Ferreira[employer] [address] [place] [address] Neutro Auto 59.9 % Normal 37.0-75.0 [facility] Comment on above: Order Comment: Order Added by Discern Expert. Performed By: #### 2 [id number] #### ZEE FerreiraHemo [address] [place] [address] CBC w/ Auto Diffon 9 Erythrocyte distribution width (RBC) [Ratio] 12.7 % Normal 11.5-14.5 [facility] Comment on above: Performed By: #### 2 045386 #### ZEE Fer[employer] [address] [place] [address] Hematocrit (Bld) [Volume fraction] 40.2 % Low 42.0-52.0 [facility] Comment on above: Performed By: #### 2 092770 #### ZEE Fer[employer] [address] [place] [address] Hemoglobin (Bld) [Mass/Vol] 13.7 g/dL Normal 13.5-18.0 [facility] Comment on above: Performed By: #### 2 [id number] #### [employer]EE [employer] [address] [place] [address] MCH (RBC) [Entitic mass] 34.9 pg High 27.0-31.0 [facility] Comment on above: Performed By: #### 2 515159 #### [employer]EE [employer] [address] [place] [address] MCHC (RBC) [Mass/Vol] 34.1 g/dL Normal 33.0-37.0 [facility] Comment on above: Performed By: #### 2 [id number] #### ZEE [employer] [address] [place] [address] MCV (RBC) [Entitic vol] 102.5 fL High 78.0-100.0 [facility] Comment on above: Performed By: #### 2 146773 #### ZEE [employer] [address] [place] [address] Platelet mean volume (Bld) [Entitic vol] 6.6 fL Low 7.4-11.0 [facility] Comment on above: Performed By: #### 2 071472 #### [employer]EE [employer] [address] [place] [address] Platelets (Bld) [#/Vol] 195 E3/mcL Normal 130-400 [facility] Comment on above: Performed By: #### 2 [id number] #### [employer]EE [employer] [address] [place] [address] RBC (Bld) [#/Vol] 3.92 E6/mcL Normal 3.90-6.10 [facility] Comment on above: Performed By: #### 2 [id number] #### ZEE FerreiraHemo [address] [place] [address] WBC (Bld) [#/Vol] 5.5 E3/mcL Normal 3.6-11.0 [facility] Comment on above: Performed By: #### 2 [id number] #### ZEE Rem[employer]emo [address] [place] [address] CMPon 08-09-2019 Albumin [Mass/Vol] 3.9 g/dL Normal 3.4-5.0 [facility] Comment on above: Performed By: #### 2 051256 #### [employer] [address] [place] [address] Albumin/Globulin [Mass ratio] 1.6 {ratio} Normal 1.1-1.9 [facility] Comment on above: Performed By: #### 2 806674 #### [employer] [address] [place] [address] Alk Phos 41 Int._Unit/L Normal 33-136 [facility] Comment on above: Performed By: #### 2 374624 #### [employer] [address] [place] [address] ALT [Catalytic activity/Vol] 7 Int._Unit/L Low 10-52 [facility] Comment on above: Performed By: #### 2 806432 #### [employer] [address] [place] [address] Anion gap [Moles/Vol] 14 mmol/L Normal 10-20 [facility] Comment on above: Performed By: #### 2 871349 #### [employer] [address] [place] [address] AST [Catalytic activity/Vol] 14 Int._Unit/L Normal 9-39 [facility] Comment on above: Performed By: #### 2 047122 #### [employer] [address] [place] [address] Bili Total 0.39 mg/dL Normal 0.00-1.20 [facility] Comment on above: Performed By: #### 2 978126 #### [employer] [address] [place] [address] Calcium [Mass/Vol] 8.6 mg/dL Normal 8.6-10.3 [facility] Comment on above: Performed By: #### 2 347871 #### [employer] [address] [place] [address] Chloride [Moles/Vol] 101 mmol/L Normal 98-107 [facility] Comment on above: Performed By: #### 2 273400 #### [employer] [address] [place] [address] CO2 [Moles/Vol] 24.0 mmol/L Normal 21.0-32.0 [facility] Comment on above: Performed By: #### 2 200574 #### [employer] [address] [place] [address] Creatinine [Mass/Vol] 0.8 mg/dL Normal 0.5-1.3 [facility] Comment on above: Performed By: #### 2 892192 #### [employer] [address] [place] [address] Globulin (S) [Mass/Vol] 3.0 g/dL Normal 2.0-4.0 [facility] Comment on above: Performed By: #### 2 733050 #### [employer] [address] [place] [address] Glucose [Mass/Vol] 96 mg/dL Normal 70-99 [facility] Comment on above: Performed By: #### 2 542085 #### [employer] [address] [place] [address] Potassium [Moles/Vol] 4.2 mmol/L Normal 3.5-5.3 [facility] Comment on above: Performed By: #### 2 341827 #### [employer] [address] [place] [address] Protein [Mass/Vol] 6.4 g/dL Normal 6.4-8.2 [facility] Comment on above: Performed By: #### 2 974141 #### [employer] [address] [place] [address] Sodium [Moles/Vol] 135 mmol/L Low 136-145 [facility] Comment on above: Performed By: #### 2 012189 #### [employer] [address] [place] [address] Urea nitrogen [Mass/Vol] 12 mg/dL Normal 6-23 [facility] Comment on above: Performed By: #### 2 796567 #### [employer] [address] [place] [address] Urea nitrogen/Creatinine [Mass ratio] 15.0 ratio Normal 5.4-30.0 [facility] Comment on above: Performed By: #### 2 506940 #### [employer] [address] [place] [address] Ethanolon 08-09-2019 Ethanol [Mass/Vol] 74 mg/dL High <=10 [facility] Comment on above: Result Comment: SAMP LES WITH CONCENTRATIONS <15 MG/DL SHOULD BE INTERPRETED NEGATIVE. FOR MEDICAL USE ONLY Performed By: #### 2 [id number] #### [employer] [address] [place] [address] Lipase Levelon 08-09-2019 Lipase Lvl 30 Int._Unit/L Normal 9-82 [facility] Comment on above: Performed By: #### 2 249219 #### [employer] [address] [place] [address] Magnesiumon 08-09-2019 Magnesium [Mass/Vol] 2.0 mg/dL Normal 1.6-2.4 [facility] Comment on above: Performed By: #### 2 435903 #### [employer] [facility] [place] [id number] Troponin-Ion 08-09-2019 Troponin I.cardiac [Mass/Vol] 0.03 ng/mL Normal 0.00-0.03 [facility] Comment on above: Performed By: #### 2 735917 #### [employer] [facility] [place] [id number] eGFRon 08-09-2019 GFR/1.73 sq M predicted among non-blacks MDRD (S/P/Bld) [Vol rate/Area] mL/min/{1.73_m2} Normal [facility] Comment on above: Order Comment: Order added by Discern Expert. Performed By: #### 1 [id number] #### [employer] [facility] [place] [id number] Vital Signs Date Time Vital Sign Value Performing Clinician Faci lity 03-18-2024 05:52-0400 Body temperature 97.6 [degF] [facility] 03-18-2024 05:52-0400 Diastolic blood pressure 77 mm[Hg] [facility] 03-18-2024 05:52-0400 Heart rate 80 /min [facility] 03-18-2024 05:52-0400 Respiratory rate 18 /min [facility] 03-18-2024 05:52-0400 SaO2% (BldA) [Mass fraction] 97 % [facility] 03-18-2024 05:52-0400 Systolic blood pressure 136 mm[Hg] [facility] 03-17-2024 15:37-0400 Body temperature 98.3 [degF] [facility] 03-17-2024 15:37-0400 Diastolic blood pressure 82 mm[Hg] [facility] 03-17-2024 15:37-0400 Heart rate 90 /min [facility] 03-17-2024 15:37-0400 Respiratory rate 18 /min [facility] 03-17-2024 15:37-0400 SaO2% (BldA) [Mass fraction] 93 % [facility] 03-17-2024 15:37-0400 Systolic blood pressure 144 mm[Hg] [facility] 03-17-2024 15:36-0400 Body height 177.8 cm [facility] 03-17-2024 15:36-0400 Body mass index (BMI) [Ratio] 18.3 kg/m2 [facility] 03-17-2024 15:36-0400 Body weight 58.01 kg [facility] Encounters Encounter Date Encounter Type Care Provider Facility Start: 03-15-2025 Non-patient / Non-visit Dr. Donlado petty [facility] Start: 03-15-2025 End: 03-15-2025 ambulatory Aure Ponce MD Work Phone: [facility] Work Phone: Start: 03-15-2025 End: 03-15-[address] Titus Burns DP -Cardiovascular Services Work Phone: Start: 03-15-2025 End: 03-15-2025 ambulatory Aure Ponce Facility:[facility] Start: 02-14-2025 End: 02-14-2025 ambulatory Aure Ponce MD Work Phone: [facility] Work Phone: Start: 02-14-2025 End: 02-14-[address] Aure Ponce MD -Radiology, [place] Work Phone: Start: 02-14-2025 End: 02-14-2025 ambulatory Aure Ponce Facility:[facility] Start: 11-11-2024 End: 11-11-[address] Aure Ponce MD -Radiology, [place] Work Phone: Start: 11-11-2024 End: 11-11-2024 ambulatory Aure Ponce Facility:[facility] Start: 07-22-2024 End: 07-22-2024 ambulatory Aure Ponce Facility:[facility] Start: 03-17-2024 Evaluation and management of inpatient [facility]-Medical Surgical 3 Work Phone: Start: 03-14-2024 End: 03-14-2024 ambulatory [facility] Work Phone: Start: 03-14-2024 End: 03-14-2024 [facility] Start: 02-12-2022 End: 02-12-[address] Eugene Simmons Work Phone: [facility] Start: 10-28-2021 Non-patient / Non-visit Dr. Jael Simmons Work Phone: [facility] Start: 10-28-[address] Eugene Simmons Work Phone: [facility]-Cardiovascula r Services Procedures Date Procedure Procedure Detail Performing Clinician Start: 02-14-2025 X-ray of foot, three or more views Aure Ponce MD Work Phone: Start: 11-11-2024 X-ray of knee, four or more views Aure Ponce MD Work Phone: Start: 03-17-2024 Plain chest X-ray Start: 03-17-2024 Plain x-ray of pelvi s and lower extremity Start: 02-12-[address] Eugene Simmons Work Phone: Plan of Treatment Date Care Activity Detail Author Start: 03-18-2024 Osteoplasty of femur IM Roddin g Hip, Intertan Nail S/N (Right) [facility] Start: 03-18-2024 Fluoroscopic guidance O.R. Flu crystal for C-Arm [facility] Start: 03-18-2024 Plain x-ray of pelvi s and lower extremity Hip 1 view with Pelvis [facility] Start: 03-18-2024 Blood chemistry [facility] Start: 03-17-2024 Assessment of risk o f venous thromboembolism [facility] Start: 03-17-2024 Incentive spirometry [facility] Start: 03-17-2024 Insertion of cathete r into peripheral vein [facility] Start: 03-17-2024 Oxygen therapy [facility] Start: 03-17-2024 Providing care accor ding to standard [facility] Start: 03-17-2024 Provision of activit y privileges [facility] Start: 03-17-2024 Referral to occupati onal therapist [facility] Start: 03-17-2024 Referral to service [facility] Start: 03-17-2024 [facility] Start: 03-17-2024 Following clinical p athway protocol [facility] Start: 03-17-2024 Verification routine [facility] Start: 03-17-2024 [facility] Start: 03-17-2024 Hospital admission, emergency, from emergency room, medical nature [facility] Start: 03-17-2024 Admission procedure [facility] Anion gap measurement [facility] BUN/Creatinine ratio [facility] Calcium [Mass/volume ] in Serum or Plasma [facility] Carbon dioxide, tota l [Moles/volume] in Serum or Plasma [facility] Chloride [Moles/volu me] in Serum or Plasma [facility] Creatinine [Moles/vo lume] in Serum or Plasma [facility] Glucose [Mass/volume ] in Serum or Plasma [facility] Measurement of renal function [facility] Patient referral [facility] Work Phone: Potassium [Moles/vol ume] in Serum or Plasma [facility] Sodium [Moles/volume ] in Serum or Plasma [facility] Urea nitrogen [Mass/ volume] in Serum or Plasma [facility] Payers Date Payer Category Payer Self-pay [id number] 2024 Unknown [id number] Medicare [id number] Unknown [id number] Unknown [employer] AUTH REQUIRED SEE NOTE* * [id number] Unknown [id number] Unknown [id number] Unknown [id number] Unknown [id number] Unknown [id number] Social History Date Type Detail Facility Start: 06-17-2021 End: 03-17-2024 Tobacco smoking status NEIS Unknown if ever smoked [facility] Start: 1950 Sex Assigned At Male [facility]: [facility]18-[facility] Start: 02-18-2025 Sex Male (finding) [facility] Medical Equipment Procedure Code Equipment Code Equipment Origin al Text Equipment Identifier Dates Insertion, trochanteric nail, femur, proximal ([id number]) Orthopaedic bone screw, non-bioabsorbable, sterile ()[id number] FDA Start: 03-18-2024 Insertion, trochanteric nail, femur, proximal ([id number]) Femur nail, sterile ()[id number] FDA Start: 03-18-2024 Insertion, trochanteric nail, femur, proximal ([id number]) Orthopaedic bone screw, non-bioabsorbable, sterile ()[id number] FDA Start: 03-18-2024 Goals Date Patient Goal Desired Activity /State Functional Status Date Assessment Result Facility 03-18-2024 Functional status [facility] [place] [facility] Work Phone: Mental Status Date Assessment Result Facility 03-18-2024 Cognitive function Voice/Name [facility] Work Phone: Radiology Diagnostic study note 02-15-2025 Note Date & Type Note Facility 02-15-2025 Radiology Diagnostic study note [facility] Imaging Services [address] [place], [place] [id number] Foot min 3 Views MR#: [id number] Acct: [id number] Name: MAVIS IRWIN Rep #: [id number] : 1950 M 74 From: Crystal James MD PCP: Dr. Aure Ponce MD Status: REG CL I Study:Foot min 3 Views Date of Exam: 07/03 Exam# [id number] Ordering Dr: Luz Maria Ponce MD EXAM: Three views of the right foot CLINICAL HISTORY: Right 5th digit pain COMPARISON: None available TECHNIQUE: Three views of the right foot FINDINGS: OSSEOUS STRUCTURES: No evidence for acute fracture. No aggressive osseous abnormality. JOINT: No dislocation is noted. No significant degenerative changes. SOFT TISSUES: Mild soft tissue swelling overlying the 5th digit. HARDWARE: None. RAD/Foot min 3 Views IMPRESSION: IMPRESSION: Age-indeterminate fracture of the intermediate phalanx of the 5th digit. There is mild resorption of the PIP joint. Consider dedicated evaluation with MRI as clinically indicated. Reading Location: [id number] CC: Dr. Aure Ponce MD ~ Signal Inspector: Signed [facility] Discharge summary note 03-23-2024 Note Date & Type Note Facility 03-23-2024 Note [facility] Medical Records Department [address] [place] [address] Discharge Summary 03/23/24 1311 MR#: [id number] Acct: [id number] Name: MAVIS IRWIN Rep #: [id number] : 1950 73 From: Dave Evans MD PCP: NICHOLAS GOODWIN Status:DIS IN Location: [place] [id number] Providers Date of Admission: 03/17/24 Date of Discharge: 03/23/24 Primary Care Physician: GEMINI BERRY Reason For Visit: RIGHT HIP FRACTURE Diagnosis Discharge Diagnosis (1) Closed right hip fracture: Status: Acute Code(s): S72.001A - Fracture of unspecified part of neck of right femur, initial encounter for closed fracture (2) ETOH abuse: Status: Acute Code(s): F10.10 - Alcohol abuse, uncomplicated (3) Tobacco abuse: Status: Acute Code(s): Z72.0 - Tobacco use Plan Right hip fracture * s/p mechanical fall. * patient underwent right cephalomedullary nail on 03/18. * Bedrest for now. * 25-OH d 21.7. Started on ergocalciferol * PT OT eval and treat. Anticipate pt will need SNF upon discharge. * pt previously deemed medically optimized for surgery by Dr. Oliveira. 03/20: Continue PT and OT. Evaluate for SNF. 03/21: Continue PT and OT. Pending pre-CERT. 03/22: Peer to peer Conversation was done with the patient's health insurance doctor. He said that insurance company will not approve for him. ADL but he can walk on walker contact-guard therefore it is declined. Patient can go to intermediate care or home with home health. Patient did not had a bowel movement. Dulcolax given. Continue MiraLAX and senna S. 03/23: Discussed with the drug abuse social worker. Arrange for the home with home health care. Patient did not had bowel movement. Dulcolax 10 mg, oral and suppository ordered. Continue MiraLAX and senna S. Patient does not have abdominal pain or distention. Passing flatus. Bowel sounds present Alcohol abuse with acute withdrawal * No alcohol level on admission. * On phenobarbital taper, which has been initiated. * Thiamine and folate 03/20: Patient alert awake oriented x 3. Does not seem in acute withdrawals symptoms. CIWA score 0. 03/21: Clinically no withdrawal symptoms. Suspected COPD * Chest x-ray reviewed and showed hyperinflated airways. * No active issues at present. Follow-up with pulmonary and outpatient PFTs Chronic conditions * peripheral artery disease: prior arterial studies done that were consistent with moderate to severe arterial occlusive disease in both the right and left lower extremities. Continue ASA. * HLD: continue statin * Tobacco abuse??? Current smoker, smokes about 1 pack/day. Has been smoking since age 16, roughly [id number] history. Nicotine patch ordered per patient request. VTE prophylaxis: ASA BID CODE STATUS: Full code, verified Discharge medication reconciliation done. Discharge follow-up instructions completed. Discharge process discussed with the patient and all questions were answered to patient's satisfaction. Follow with PCP in 1 to 2 weeks Total time spent, exact 35 minutes on discharge meds reconciliation, examination, coordination of care with nurses and ancillary staff, review of imaging and blood test and discussion with the patient on follow-up instructions. Medications at Discharge Home Medications prednisolone acetate 1 % eye drops,suspension 1 drp ophthalmic (eye) 4X/DAY eye 03/17/24 acetaminophen 500 mg tablet 1,000 mg (2 x 500 mg) PO Q8 #0 tabs 03/23/24 apixaban 2.5 mg tablet (Eliquis) 2.5 mg PO BID 30 days #60 tabs 03/23/24 atorvastatin 40 mg tablet 40 mg PO QHS 30 days #30 tabs 03/23/24 ergocalciferol (vitamin D2) 1,250 mcg (50,000 unit) capsule (Vitamin D2) 1,250 mcg PO Q7D 30 days #5 caps 03/23/24 folic acid 1 mg tablet 1 mg PO DAILY@0800 30 days #30 tabs 03/23/24 nicotine 21 mg/24 hr daily transdermal patch 21 mg transdermal DAILY 28 days #28 ea 03/23/24 oxycodone 5 mg tablet 2.5 mg (1/2 x 5 mg) PO Q4H PRN PRN Pain Score 4-10 3 days #10 tabs 03/23/24 sennosides 8.6 mg tablet (senna) 17.2 mg (2 x 8.6 mg) PO BID #0 tabs 03/23/24 thiamine HCl (vitamin B1) 100 mg tablet (Vitamin B-1) 100 mg PO DAILYCM 30 days #30 tabs 03/23/24 Physical Exam Narrative Seen and examined Patient had right hip surgery. No acute issues. It seems patient has jerky movement of the upper torso although denies any diagnosed movement disorder he states he just do it in order to relieve his neck pain it is voluntary movement On PT and OT. Patient denies burning micturition. No BM. Physical exam General: Alert, Oriented x3, Cooperative HEENT: Atraumatic, PERRLA, EOMI, Normocephalic Oral: No Gingival or Mucosal Lesions/ Ulcerations Neck: Supple, No JVD, Negative Carotid Bruits Chest wall/Lungs: Air entry diminished in bilateral lung bases. No crepitation/rhonchi Cardiovascular: Regular rate, Regular Rhythm, Normal S1, Normal S2, No M/G/R Abdomen: Bowel Sounds Pres (more content not included)... [facility] Discharge summary 03-17-2024 Note Date & Type Note Facility 03-17-2024 Discharge summary Note Date/Time March 17, 2024 10:44am [facility] Medical Records Department [address] [place] [address] Emergency Department Summary 03/17/24 MR#: [id number] Acct: [id number] Name: MAVIS IRWIN Rep #:[id number] : 1950 73 From: Pepe Chavez DO PCP: NICHOLAS GOODWIN Status:REG ER Location: ED HPI History of Present Illness Chief Complaint: Fall Narrative Narrative: 73-year-old male presenting with right hip pain. Patient states that he was walking last night tripped over his own foot fell hitting his right hip. He denies head injury or LOC. He is not on any oral anticoagulation. Patient states it took him about 2 hours to crawl to his bed and once he got in bed he was stuck. He did not have his phone. This morning he states that he would yell out for help who his neighbors every 10 minutes until somebody showed up. Patient denies neck or back pain. PFSH PFSH Allergy/AdvReac Type Severity Reaction Status Date / Time No Known Allergies Allergy Verified 06/17/21 17:10 Surgical History H/O hernia repair Hx of tonsillectomy Social History Smoking Status: Current every day smoker tobacco type: cigarettes ROS ROS ED Constitutional Constitutional ED: Denies chills, fever(s) or subjective Eyes Eyes: Denies blurry vision or change in vision ENT ENT ED: Denies rhinorrhea Cardiovascular Cardiovascular: Denies chest pain or palpitations Respiratory/Chest Respiratory/Chest: Denies cough or dyspnea Gastrointestinal Gastrointestinal: Denies abdominal pain, constipation or diarrhea Genitourinary Genitourinary ED: Denies dysuria or hematuria Musculoskeletal Musculoskeletal: Reports other Details: Right hip pain Integumentary Reports Abrasions Neurologic Neurologic: Denies headache(s) or paresthesias Psychiatric Psychiatric: Denies anxiety or depression Endocrine Endocrinology: Denies polydipsia EXAM Physical Exam Const Vital Signs: 03/17/24 10:14 03/17/24 10:18 Temperature 98 F Temperature Source Oral Pulse Rate 78 Respiratory Rate 18 Respiratory Effort Normal Respiratory Depth Normal Respiratory Pattern Normal Blood Pressure 146/76 H Blood Pressure Mean 99 Pulse Ox 98 Oxygen Delivery Method Room Air Positive well nourished General Appearance ED: NAD HEENT Reports moist mucous membranes normocephalic and atraumatic Neck full ROM Chest Wall inspection of chest normal Resp normal respiratory effort Auscultation: Negative for rales, rhonchi or wheezes Cardio regular rate and regular rhythm GI non-tender and non-distended Extremity Extremity Narrative: Patient evaluated in vacuum mattress. He has pain over the right hip. It is difficult to discern whether his leg is shortened on the right or whether it is externally rotated disease restrained. He does not have any tenderness over thefemur on the right. He has superficial abrasions to the bilateral knees but denies any pain here. Neuro oriented x3 Sensorium / Orientation: alert Motor Exam: strength 5/5 throughout Psych mental status grossly normal Skin Skin Narrative: Abrasions to the bilateral knees. MDM MDM MDM Narrative Medical decision making narrative: Patient presenting after fall which was mechanical. He is right hip pain and suspected right hip fracture. Patient was given fentanyl but still having pain. He was given morphine and Zofran here. I will obtain a CBC to assess white blood cell count, hemoglobin, platelets. BMP to assess renal function, electrolytes. CPK to assess for rhabdomyolysis. Patient given a liter normal saline. X-rays of the right hip will be obtained. CBC shows white blood cell count of 12.9. Hemoglobin 13.5. Platelets are normal at 195. Renal function electrolytes within normal limits. CPK normal at 124. Right hip x-ray on my interpretation shows a nondisplaced intertrochanteric fracture. Radiology interpretation agrees. Chest x-ray does not show anything acute either on my interpretation. Patient does not want a Kline catheter placed. Discussed with Dr. Thapa. Admitted to the hospitalist stable condition. Impression: 1. Mechanical fall 2. Right hip fracture Lab Data Attestation: I reviewed the patient's lab results. Labs: Laboratory Results - last 24 hr 03/17/24 10:55 WBC 12.9 H RBC 4.02 L Hgb 13.5 Hct 39.2 L MCV 97.5 H MCH 33.6 H MCHC 34.4 RDW Std Deviation 43.9 RDW Coeff of Berny 12.2 Plt Count 195 MPV 8.1 Immature Gran % (Auto) 0.400 Neut % (Auto) 80.3 H Lymph % (Auto) 4.0 L [place] % (Auto) 15.0 H Eos % (Auto) 0.1 Baso % (Auto) 0.2 Absolute Neuts (auto) 10.4 H Absolute Lymphs (auto) 0.51 L Nucleated RBC % 0 Differential Comment COMMENT Diff Path Review May foll Sodium 134 L Potassium 4.2 Chloride 99 Carbon Dioxide 28.0 Anion Gap 7 BUN 9 Creatinine 0.77 Estim Creat Clear Calc 74.98 Est GFR (MDRD) Af Amer 129 Est GFR (MDRD) Non-Af 106 BUN/Creatinine Ratio 11.7 Glucose 114 H Calcium 9.2 Total Creatine Kinase 124 Radiography Diagnostic Testing: Clinical Impression(s) from Imaging Studies Hip/Pelvis X-Ray 03/17/24 10:39 IMPRESSION: Nondisplaced right intertrochanteric fracture. Electronically Signed: Brgiht Hoffmann MD at 11:12 EDT , Chest X-Ray 03/17/24 11:00 IMPRESSION: Hyperinflation and COPD. No acute abnormality is seen. Electronically Signed: Bright Hoffmann MD at 11:15 EDT , Discharge Plan Triage Chief Complaint: Fall ED Provider: Pepe Chavez Dx/Rx/DC Orders Primary Care Provider: NICHOLAS GOODWIN Referrals: NICHOLAS GOODWIN CRNP [Primary Care Provider] - What to do if you have Problems For any increased pain, shortness of breath, bleeding, nausea or vomiting, chestpain, or any unexpected problems, contact your Primary Care Provider. Call [facility] ([phone]) or report to the closest Emergency Room. Call 911 if necessary. 03/17/24 1217 <Electronically signed by Pepe Chavez DO> Cosigner Signature (if applicable): CC: GEMINI BERRY ~ Signed ADDENDUM by Dr. Pepe Chavez DO on 03/17/24 at 1300 12:50 PM nursing staff states that the daughter brought up that the patient is an alcoholic and did not want to sit in front of him. She feels he is starting to withdrawal. Patient is given Ativan 2 mg IV. 03/17/24 1300<Electronically signed by Pepe Chavez DO> Cosigner Signature (if applicable): cc: GEMINI BERRY ~* Signed [facility] Work Phone: Evaluation note Note Date & Type Note Facility Evaluation note No assessment information availa ble [facility] Work Phone: Evaluation note Note Date & Type Note Facility Evaluation note Diagnosis Onset Date Closed right hip fracture ac hazel ETOH abuse acute Tobacco abuse acute [facility] Work Phone: Reason for referral (narrative) Note Date & Type Note Facility Reason for referral (narrative) No reason for referral information available [facility] Work Phone: Summary Purpose Family History No Family History Records FoundNo Family History Records FoundNo Family History Records Found Advance Directives No Advanced Directives Records Found Advance Directive Response Recorded Date/ Time Living Will No June 17, 2021 7:12pm Power of Bioinformaticist No June 17 7:12pm Advance Directive Response Recorded Date/ Time Name of Medical Power of Bioinformaticist JULIA--JOLENE MCKENZIE March 17, 2024 10:18am Living Will Yes March 17, 2024 10 :18am Power of Bioinformaticist Yes March 17, 2024 10:18am Advance Directive Response Recorded Date/ Time Name of Medical Power of Bioinformaticist Julia farley, Brenda March 17, 2024 3:40pm Living Will Yes March 17, 2024 3: 40pm Power of Bioinformaticist Yes March 17, 2024 3:40pm Chief Complaint and Reason for Visit Chief Complaint right foot pain HX TOBACCO USE (1-PPD SINCE AGE 18) Chief Complaint EORDER RIGHT HIP FRACTURE Chief Complaint EORDER RIGHT HIP FRACTURE Reason for Visit Closed right hip fra cture ETOH abuse Tobacco abuse Chief Complaint Admit Date knee pain- RIGHT KNEE November 11, 2024 10:16am TOE INJURY February 14, 2025 11:0 7am Chief Complaint Admit Date TOE INJURY February 14, 2025 11:0 7am Other specified peripheral vascular dise ases March 15, 2025 1:02pm Additional Source Comments (unrecognized sect ion and content) No Status Records FoundNo Status Records FoundNo Status Records Found INFORMATION SOURCE (unrecogn ized section and content) DATE CREATED AUTHOR 08/10/2019 [facility] DATE CREATED AUTHOR AUTHOR'S ORGANIZ ATION 06/18/2021 [facility] DATE CREATED AUTHOR AUTHOR'S ORGANIZ ATION 03/22/2025 [facility] Goals (unrecognized section and content) Goals may be documented in a n alternate sectionGoals may be documented in an alternate sectionGoals may be documented in an alternate sectionGoals may be documented in an alternate section Care Teams (unrecognized sec tion and content) Team Status: Active Member Role Status Dates Dr. Bruno Blackmon MD Family Provider Active GEMINI BERRY Primary Care Provider Active Team Status: Active Member Role Status Dates GEMINI BERRY Primary Care Provider Active Aure Ponce MD Attending Provider, Referring Provide r Active Team Status: Active Member Role Status Dates GEMINI BERRY Primary Care Provider Active Dr. Pepe Chavez DO Emergency Provider Active Dr. Lennox Oliveira DO Admit Provider, Attending Provider Active Team Status: Inactive Member Role Status Dates GEMINI BERRY Primary Care Provider Active Aure Ponce MD Attending Provider, Referring Provide r Active Team Status: Active Member Role Status Dates GEMINI BERRY Primary Care Provider Active Dr. Pepe Chavez DO Emergency Provider Active Dr. Lennox Mosteller , DO Admit Provider, Other Pro vider Active Dr. Donaldo Chavis DO Attending Provider Active Team Status: Active Member Role Status Dates Dr. Bruno Blackmon MD Family Provider Active Aure Ponce MD Primary Care Provider Active Team Status: Inactive Member Role Status Bella Ponce MD Primary Care Provider Active St art: November 11, 2024 End: November 11, 2024 Aure Ponce MD Attending Provider Active Start : November 11, 2024 End: November 11, 2024 Aure Ponce MD Referring Provider Active Start : November 11, 2024 End: November 11, 2024 Team Status: Inactive Member Role Status Bella Ponce MD Primary Care Provider Active St art: February 14, 2025 End: February 14, 2025 Aure Ponce MD Attending Provider Active Start : February 14, 2025 End: February 14, 2025 Aure Ponce MD Referring Provider Active Start : February 14, 2025 End: February 14, 2025 Team Status: Active Member Role Status Bella Ponce MD Primary Care Provider Active Team Status: Inactive Member Role Status Bella Ponce MD Primary Care Provider Active St art: March 15, 2025 End: March 15, 2025 Dr. Titus Burns DPM Attending Provider Active Start: March 15, 2025 End: March 15, 2025 Dr. Titus Burns DPM Referring Provider Active Start: March 15, 2025 End: March 15, 2025 Team Status: Active Member Role Status Bella Ponce MD Primary Care Provider Active St art: March 15, 2025 Dr. Donaldo Brown MD Attending Provider Active S tart: March 15, 2025 FOR RECORDS PERTAINING TO PATIENTS WHO ARE OR HAVE BEEN ENROLLED IN A CHEMICAL DEPENDENCY/SUBSTANCEABUSE PROGRAM, SOME INFORMATION MAY BE OMITTED. This clinical summary was aggregated from multiple sources. Caution should be exercised in using it in the provision of clinical care. This summary normalizes information from multiple sources, and as a consequence, information in this document may materially change the coding, format and clinical context of patient data. In addition, data may be omitted in some cases. CLINICAL DECISIONS SHOULD BE BASED ON THE PRIMARY CLINICAL RECORDS. [facility]. provides no warranty or guarantee of the accuracy or completeness of information in this document.
== END | disposition home or self-care (01) ==
LOC: MFPLAB 10:37
PROVIDERS: PCP Family Medicine; Referring Provider Family Medicine; Visit Provider Family Medicine
DX: Z00.00 Encounter for general adult medical examination without abnormal findings (principal); E78.5 Hyperlipidemia, unspecified; E55.9 Vitamin D deficiency, unspecified; Z72.0 Tobacco use
CPT/HCPCS: 36415; 80053; 80061; 82306; 83036; 84443; 85025

== ENCOUNTER → 2025-07-21 | Outpatient (CLI) | payer MEDICARE, SELFPAY ==
--- OUTSIDE RECORDS SUMMARY | 2025-07-21 06:30 | XMS RPT_ITS | CCD ---
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 Eugene Simmons Attending Provider Dr. Eugene Simmons Referring Provider Kris GRIMES, Aure Primary Care Provider [phone] Kris GRIMES, Aure Attending Provider [phone] Kris GRIMES, Aure Referring Provider [phone] Kris GRIMES, Aure Primary Care Provider [phone] Kris GRIMES, Aure Attending Provider [phone] Kris GRIMES, Aure Referring Provider [phone] Taurus FRYE, Dr. Qureshi Attending Provider [phone] Taurus FRYE, Dr. Qurehsi Referring Provider [phone] Stephanie GRIMES, Dr. Fulton Attending Provider Kris GRIMES, Aure Primary Care Provider [phone] Aure Ponce MD Attending Provider [phone] Kris GRIMES, Aure Referring Provider [phone] Carlitos GRIMES, Dr. Fu Attending Provider Kris, Chalon Primary Care Unavailable Kris, Chalon Attending Unavailable Kris, Chalon Referring Unavailable Kris, Chalon Primary Care Unavailable Titus Burns Attending Unavailable Titus Burns Referring Unavailable Kris, Chalon Primary Care Unavailable Carlitos, Tank Attending Unavailable CarlitosTank Referring Unavailable Kris, Chalon Primary Care Unavailable Kris, Chalon Attending Unavailable Kris, Chalon Attending Unavailable Kris, Chalon Referring Unavailable Kris, Chalon Primary Care Unavailable Kris, Chalon Primary Care Unavailable CarlitosTank Attending Unavailable Carlitos, Tank Referring Unavailable Carlitos, Tank Attending Unavailable Kris, Chalon Primary Care Unavailable Carlitos, Tank Referring Unavailable Carlitos, Tank Attending Unavailable Kris, Chalon Primary Care Unavailable Carlitos, Tank Referring Unavailable Kris, Chalon Primary Care Unavailable Taurus Titus Referring Unavailable Donaldo Brown Attending Unavailable Kris, Chalon Referring Unavailable Kris, Chalon Primary Care Unavailable Carlitos, Tank Attending Unavailable Kris, Howardon Attending Unavailable Kris, Chalon Primary Care Unavailable Kris, Chalon Referring Unavailable Medications Current Medications Medication Drug Class(es) Dates Sig (Normalized) Sig (Original) atorvastatin 20 mg oral tablet (5 sources) HMG-CoA Reductase Inhibitor Start: 06-28-2025 take 1 tablet by mouth once daily in the evening Atorvastatin (Lipitor) 20 mg tablet Active 20 mg PO EVERY EVENING June 28, 2025 12:00am Start: 03-23-2024 End: 06-28-2025 take 1 tablet by mouth at bedtime Atorvastatin 40 mg Tablet Discontinued 40 mg PO AT BEDTIME 30 30 2 March 23, 2024 12:00am June 28, 2025 9:29am FLUoxetine 20 mg oral capsule (1 source) Serotonin Reuptake Inhibitor Start: 06-28-2025 take 1 capsule by mouth once daily Fluoxetine (Prozac) 20 mg capsule Active 20 mg PO daily June 28, 2025 12:00am Completed/Discontinued Medications Medication Drug Class(es) Dates Sig (Normalized) Sig (Original) acetaminophen 500 mg oral tablet (4 sources) Start: 03-23-2024 End: 06-28-2025 Acetaminophen 500 mg Tablet Discontinued 1000 mg PO EVERY 8 HOURS 0 March 23, 2024 12:00am June 28, 2025 9:29am Lxvl-vof-bekifpx. 1 g every 8 hourly for 7 days and then as needed as needed apixaban 2.5 mg oral tablet (4 sources) Factor Xa Inhibitor Start: 03-23-2024 End: 06-28-2025 take 1 tablet by mouth twice daily Apixaban (Eliquis) 2.5 mg tablet Discontinued 2.5 mg PO TWICE A DAY 60 30 0 March 23, 2024 12:00am June 28, 2025 9:29am ergocalciferol 1.25 mg oral capsule (4 sources) Provitamin D2 Compound Start: 03-23-2024 End: 06-28-2025 Ergocalciferol (Vitamin D2) (Vitamin D2) 1,250 mcg (50,000 unit) Capsule Discontinued 1250 ug PO Q7D 5 30 0 March 23, 2024 12:00am June 28, 2025 9:29am folic acid 1 mg oral tablet (4 sources) Start: 03-23-2024 End: 06-28-2025 take 1 tablet by mouth once daily Folic Acid 1 mg Tablet Discontinued 1 mg PO DAILY@0800 30 30 3 March 23, 2024 12:00am June 28, 2025 9:29am 24 hr nicotine 0.875 mg/hr transdermal system (4 sources) Cholinergic Nicotinic Agonist Start: 03-23-2024 End: 06-28-2025 apply 1 dose transdermal route every twenty-four hours Nicotine 21 mg/24 hr Patch 24 Hour Discontinued 21 mg TD DAILY 28 28 0 March 23, 2024 12:00am June 28, 2025 9:29am oxyCODONE hydrochloride 5 mg oral tablet (4 sources) Opioid Agonist Start: 03-23-2024 End: 06-28-2025 take 2.5 mg by mouth every four hours as needed for pain Oxycodone 5 mg Tablet Discontinued 2.5 mg PO EVERY 4 HOURS NEEDED as needed for Pain Score 4-10 10 3 0 March 23, 2024 June 28, 2025 9:29am Closed fracture of right hip prednisoLONE acetate 10 mg/ml ophthalmic suspension (6 sources) Corticosteroid Start: 03-17-2024 End: 06-28-2025 Prednisolone Acetate 1 % drops,suspension Discontinued 1 NMA OPHTHALMIC 4 TIMES DAILY March 17, 2024 12:00am June 28, 2025 9:29am eye rt eye Sennosides (Senna) 8.6 mg Tablet (4 sources) Start: 03-23-2024 End: 06-28-2025 take 2 tablets by mouth twice daily Sennosides (Senna) 8.6 mg Tablet Discontinued 17.2 mg PO TWICE A DAY 0 March 23, 2024 12:00am June 28, 2025 9:29am Start: 03-23-2024 take 2 tablets by mo [facility] twice daily Sennosides (Senna) 8.6 mg Tablet Active 17.2 mg PO TWICE A DAY 0 March 23, 2024 12:00am Start: 03-23-2024 take 2 tablets by [facility] twice daily Sennosides (Senna) 8.6 mg Tablet Active 17.2 mg PO TWICE A DAY 0 March 23, 2024 12:00am thiamine 100 mg oral tablet (4 sources) Start: 03-23-2024 End: 06-28-2025 take 1 tablet by mouth once daily at mealtime Thiamine Hcl (Vitamin B1) (Vitamin B-1) 100 mg Tablet Discontinued 100 mg PO DAILY WITH MEALS 30 30 3 March 23, 2024 12:00am June 28, 2025 9:29am Problems Active Problems Problem Classification Problem Date Documented Da te Episodic/Chronic Alcohol-related disorders (7 sources) Alcohol abuse; Translations: [Alcohol abuse, uncomplicated] Onset: 07-12-2025 03-17-2024 Chronic Comment on above: [place] w/ oj- 2-3drin ks (coffee cup mugs) Coronary atherosclerosis and other heart disease (3 sources) Coronary arteriosclerosis; Translations: [Atherosclerotic heart disease of [place] coronary artery without angina pectoris] Onset: 07-12-2025 07-12-2025 Chronic Disorders of lipid metabolism (2 sources) Dyslipidemia; Translations: [Hyperlipidemia, unspecified] Onset: 07-12-2025 07-12-2025 Chronic Fracture of neck of femur (hip) (6 sources) Closed fracture of hip; Translations: [Fracture of unspecified part of neck of right femur, initial encounter for closed fracture] 03-17-2024 Episodic Open wounds of extremities (7 sources) Disorder of foot; Translations: [Unspecified open wound, unspecified foot, initial encounter] 06-17-2021 Episodic Other circulatory disease (1 source) Other specified peripheral vascular diseases; Translations: [Other specified peripheral vascular diseases] Onset: 03-20-2025 Chronic Peripheral and visceral atherosclerosis (8 sources) Peripheral vascular disease, unspecified; Translations: [Peripheral arterial disease] Onset: 07-12-2025 06-17-2021 Chronic Residual codes; unclassified (5 sources) Tobacco user; Translations: [Tobacco use] 03-17-2024 Episodic Residual codes; unclassified (2 sources) Tobacco use; Translations: [Tobacco use disorder] Onset: 07-12-2025 03-17-2024 Episodic Syncope (3 sources) Syncope; Translations: [Syncope and collapse] Onset: 07-12-2025 07-12-2025 Episodic Past or Other Problems Problem Classification Problem Date Documented Da te Episodic/Chronic Mycoses (1 source) Tinea unguium; Translations: [Tinea unguium] Onset: 02-18-2025 Episodic Other non-traumatic joint disorders (1 source) Pain in right knee; Translations: [Pain in right knee] Onset: 12-05-2024 Episodic Results Test Name Value Interpretation Reference Range Facility Cardiology Visit Reporton Cardiology Visit Report [facility] [address] [place] [address] OFFICE VISIT Date of Service: 07/12/25 MR#: [id number] Acct: [id number] Name: MAVIS IRWIN Rep #: [id number] : 1950 Provider: Dr. Tank Urbina MD Age/Sex: 74/M Location: [facility] Status: Signed HPI HPI History of Present Illness Details: This gentleman has been referred to us for his syncopal episodes. Patient has past medical history significant for peripheral arterial disease. Heavy smoker. Also EtOH abuse. Per patient and his daughter, he has been having episodes where in particularly after standing for a long time, he feels diaphoretic, lightheaded and then passes out. Wakes up on his own. No seizure activity noted. Denies any chest pains or shortness of breath before or after the episodes. Denies any palpitations. Denies any chest pains or shortness of breath at rest or with exertion. No orthopnea. No PND. No ankle edema. Per patient, he has had a TIA before. 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 gets dizzy and pass out) PFSH Medical History Blindness of right eye Closed right hip fracture ETOH abuse Surgical History (Updated 07/12/25 @ 12:53 by Akilah Merrill LPN) History of surgery Hx of appendectomy H/O heart artery stent H/O hernia repair Hx of tonsillectomy Social History household members: none housing: house Smoking Status: Heavy Smoker (>10/day) alcohol intake: current details: 2-4 alcoholic drinks per day substance use type: marijuana ROS Const Const: Negative for fatigue or weakness Eyes Eyes: Negative for change in vision ENT ENT: Positive for dizziness and balance problems Cardio Chest Pain: No Palpitations: No Edema: None Resp Respiratory: Positive for SOB with activity; Negative for SOB at rest or SOB orthopnea SOB lying down GI GI: Negative nausea or heartburn Musc Musc: Positive for balance problems Neuro Neuro: Positive for dizziness, lightheadedness, near syncope and syncope; Negative for weakness Endo Endo: Negative for fatigue Cardiology Exam Exam Narrative Repetitive movements of the head and upper extremities noted. No tremor. No JVD. No carotid bruits. Heart sounds 1 and 2 noted. Distant. Chest with decreased air entry bilaterally. No crepitations or rhonchi. No abdominal pulsatile mass noted. Alert oriented x 3. No ankle edema. Orthostatic blood pressure changes did not fulfill criteria for orthostatic hypotension. However heart rate did go up with standing. Supplemental Info Supplemental Information Labs: HDL Cholesterol 100 mg/dL (40-) Cholesterol 176 mg/dL (<=200) Triglycerides 98 mg/dL (-199) Diagnostics: Electrocardiogram Chest X-Ray Extremity Arterial Study Pulmonary: No Data to Display Past Visits: Cardiology Visit 07/12/25 Assessment and Plan Assessment and Plan (1) Syncope: Status: Chronic Plan: Check echocardiogram. Check 48-hour Holter. Tilt table test. I also recommended the patient be evaluated by neurology. I have taken the liberty of ordering a CT scan of his head. (2) Coronary artery disease: Status: Chronic Plan: Surveillance CT scan of the chest showed coronary calcifications as an incidental finding. Start enteric-coated aspirin 81 mg daily. Risk factor modification. Check Lexiscan stress Myoview to evaluate physiological significance. (3) Tobacco abuse: Status: Chronic Plan: Quit smoking. (4) ETOH abuse: Status: Acute Comment: vodka w/ oj- 2-3drinks (coffee cup mugs) Plan: Quit drinking. (5) Peripheral arterial disease: Status: Chronic Plan: Follows with vascular surgery. (6) Dyslipidemia: Status: Chronic Plan: On atorvastatin. PCP managing. Orders: Orders 12 Lead EKG performed by [facility] Today I73.9 - Peripheral vascular disease, unspecified Plan Details Follow Up: 3 Months Coding Level of Care Code Off vis,new,level 4 Diagnoses Syncope R55 (more content not included)... Normal [facility] Absolute lymphocyte countOrd ered By: Aure Ponce on 05-26-2025 Lymphocytes Auto (Unsp spec) [#/Vol] 0.84 10*3/uL 0.83-4.51 [facility] Absolute neutrophil countOrd ered By: Aure Ponce on 05-26-2025 Neutrophils (Bld) [#/Vol] 6.5 10*3/uL 2.0-7.7 [facility] Anion gap in Serum or Plasma Ordered By: Aure Ponce on 05-26-2025 Anion gap [Moles/Vol] 14 mmol/L 5-15 [facility] Automated lymphocyte count a s percentage of total leukocytesOrdered By: Aure Ponce on 05-26-2025 Lymphocytes/100 WBC Auto (Unsp spec) 9.9 % Low 19-41 [facility] BUN/creatinine ratioOrdered By: Aure Ponce on 05-26-2025 Urea nitrogen/Creatinine [Mass ratio] 15.5 mg/mg 10-20 [facility] Basophil percentageOrdered B y: Aure Ponce on 05-26-2025 Basophils/100 WBC (Bld) 0.6 % 0-1 [facility] Bilirubin, totalOrdered By: Aure Ponce on 05-26-2025 Bilirubin [Mass/Vol] 0.63 mg/dL 0.00-1.[address] [facility] CBC W/Diff, Automatedon 05-09-2024 Absolute Lymph 0.84 X10 3/uL Normal 0.83-4.51 [facility] Comment on above: Order Comment: Order Date: 05/26/25 Order Info: [id number]- - CBCD Performed By: #### L [id number], L100.0100, L501.9520, L500.4100, L500.4050 #### [facility] [address] [place], [address] Absolute Neut 6.5 X10 3/uL Normal 2.0-7.7 [facility] Comment on above: Order Comment: Order Date: 05/26/25 Order Info: [id number] - CBCD Performed By: #### L [id number], L100.0100, L501.9520, L500.4100, L500.4050 #### [facility] [address] [place], [address] Basophils/100 WBC (Bld) 0.6 % Normal 0-1 [facility] Comment on above: Order Comment: Order Date: 05/26/25 Order Info: [id number] - CBCD Performed By: #### L [id number], L100.0100, L501.9520, L500.4100, L500.4050 #### [facility] [address] [place], [address] Eosinophils/100 WBC (Bld) 0.9 % Normal 0-5 [facility] Comment on above: Order Comment: Order Date: 05/26/25 Order Info: 0184- - CBCD Performed By: #### L [id number], L100.0100, L501.9520, L500.4100, L500.4050 #### [facility] [address] [place], [address] Erythrocyte distribution width (RBC) [Ratio] 11.9 % Normal 11.6-14.6 [facility] Comment on above: Order Comment: Order Date: 05/26/25 Order Info: 0184-1 - CBCD Performed By: #### L [id number], L100.0100, L501.9520, L500.4100, L500.4050 #### [facility] [address] [place], [address] Hematocrit (Bld) [Volume fraction] 42.8 % Normal 40-54 [facility] Comment on above: Order Comment: Order Date: 05/26/25 Order Info: 0184-1 - CBCD Performed By: #### L [id number], L100.0100, L501.9520, L500.4100, L500.4050 #### [facility] [address] [place], [address] Hemoglobin (Bld) [Mass/Vol] 14.8 g/dL Normal 13.0-16.5 [facility] Comment on above: Order Comment: Order Date: 05/26/25 Order Info: 0184-1 - CBCD Performed By: #### L [id number], L100.0100, L501.9520, L500.4100, L500.4050 #### [facility] [address] [place], [address] IG% 0.400 Normal 0.0-0.9 [facility] Comment on above: Order Comment: Order Date: 05/26/25 Order Info: 0184-1 - CBCD Result Comment: IG% - Immature Granulocytes (promyelocytes, myelocytes and metamyelocytes) > 1% indicates that a LEFT SHIFT is Present. Performed By: #### L 501.9985, L100.0100, L501.9520, L500.4100, L500.4050 #### [facility] [address] [place], [address] Lymphocytes/100 WBC (Bld) 9.9 % Low 19-41 [facility] Comment on above: Order Comment: Order Date: 05/26/25 Order Info: 0184- - CBCD Performed By: #### L 501.9985, L100.0100, L501.9520, L500.4100, L500.4050 #### [facility] [address] [place], [address] MCH (RBC) [Entitic mass] 33.6 pg High 27.0-32.0 [facility] Comment on above: Order Comment: Order Date: 05/26/25 Order Info: 018- - CBCD Performed By: #### L 501.9985, L100.0100, L501.9520, L500.4100, L500.4050 #### [facility] [address], [address] MCHC (RBC) [Mass/Vol] 34.6 g/dL Normal 32-36 [facility] Comment on above: Order Comment: Order Date: 05/26/25 Order Info: 018- - CBCD Performed By: #### L 501.9985, L100.0100, L501.9520, L500.4100, L500.4050 #### [facility] [address] [place], [address] MCV (RBC) [Entitic vol] 97.3 fL High 80-94 [facility] Comment on above: Order Comment: Order Date: 05/26/25 Order Info: 0184- - CBCD Performed By: #### L 501.9985, L100.0100, L501.9520, L500.4100, L500.4050 #### [facility] [address] [place], [address] Monocytes/100 WBC (Bld) 11.9 % High 0-10 [facility] Comment on above: Order Comment: Order Date: 05/26/25 Order Info: 0184- - CBCD Performed By: #### L 501.9985, L100.0100, L501.9520, L500.4100, L500.4050 #### [facility] [address] [place], [address] Neutrophils/100 WBC (Bld) 76.3 % High 47-70 [facility] Comment on above: Order Comment: Order Date: 05/26/25 Order Info: 0184-1 - CBCD Performed By: #### L 501.9985, L100.0100, L501.9520, L500.4100, L500.4050 #### [facility] [address] [place], [address] Nucleated RBC (Bld) [#/Vol] 0 10*3/uL Normal 0-5 [facility] Comment on above: Order Comment: Order Date: 05/26/25 Order Info: 018- - CBCD Performed By: #### L 501.9985, L100.0100, L501.9520, L500.4100, L500.4050 #### [facility] [address] [place], [address] Platelet mean volume (Bld) [Entitic vol] 8.7 fL Normal 6.2-12.0 [facility] Comment on above: Order Comment: Order Date: 05/26/25 Order Info: 018- - CBCD Performed By: #### L 501.9985, L100.0100, L501.9520, L500.4100, L500.4050 #### [facility] [address] [place], [address] Platelets (Bld) [#/Vol] 268 10*3/uL Normal 150-450 [facility] Comment on above: Order Comment: Order Date: 05/26/25 Order Info: 018-1 - CBCD Performed By: #### L 501.9985, L100.0100, L501.9520, L500.4100, L500.4050 #### [facility] [address] [place], [address] RBC (Bld) [#/Vol] 4.40 10*6/uL Low 4.6-6.2 [facility] Comment on above: Order Comment: Order Date: 05/26/25 Order Info: 0184-1 - CBCD Performed By: #### L 501.9985, L100.0100, L501.9520, L500.4100, L500.4050 #### [facility] [address] [place], [place], [id number] RDW SD 43.2 fl Normal 35.1-43.9 [facility] Comment on above: Order Comment: Order Date: 05/26/25 Order Info: 0184-1 - CBCD Performed By: #### L 501.9985, L100.0100, L501.9520, L500.4100, L500.4050 #### [facility] [address] [place], [place], [id number] WBC (Bld) [#/Vol] 8.5 10*3/uL Normal 4.4-11.0 [facility] Comment on above: Order Comment: Order Date: 05/26/25 Order Info: 0184-1 - CBCD Performed By: #### L 501.9985, L100.0100, L501.9520, L500.4100, L500.4050 #### [facility] [address] [place], [place], [id number] Calculated very low density lipoprotein (VLDL) cholesterol measurementOrdered By: Aure Ponce on 05-26-2025 Calculated very low density lipoprotein (VLDL) cholesterol measurement 20 mg/dL 5-40 [facility] Carbon dioxide, total [Moles /volume] in Central venous bloodOrdered By: Aure Ponce on 05-26-2025 CO2 [Moles/Vol] 25.8 mmol/L 21.0-32.0 [facility] Chloride assayOrdered By: Sarbjit Ponce on 05-26-2025 Chloride [Moles/Vol] 92 mmol/L Low 98-[address] [facility] Comprehensive Metabolic Prof ilon 05-26-2025 Albumin [Mass/Vol] 4.8 g/dL Normal 3.4-4.8 [facility] Comment on above: Order Comment: Order Date: 05/26/25 Order Info: 785-11 - CMP Order Info: [id number] - LIPID Order Info: [id number] - TSH Performed By: #### L 501.9985, L100.0100, L501.9520, L500.4100, L500.4050 #### [facility] [address] [place], [address] Albumin/Globulin [Mass ratio] 1.6 {ratio} Normal 0.9-2.4 [facility] Comment on above: Order Comment: Order Date: 05/26/25 Order Info: [id number] - CMP Order Info: - LIPID Order Info: [id number] - TSH Performed By: #### L 501.9985, L100.0100, L501.9520, L500.4100, L500.4050 #### [facility] [address] [place], [address] ALK PHOS 75 U/L Normal 40-129 [facility] Comment on above: Order Comment: Order Date: 05/26/25 Order Info: [id number] - CMP Order Info: - LIPID Order Info: [id number] - TSH Performed By: #### L 501.9985, L100.0100, L501.9520, L500.4100, L500.4050 #### [facility] [address] [place], [address] ALT [Catalytic activity/Vol] 23 U/L Normal <=46 [facility] Comment on above: Order Comment: Order Date: 05/26/25 Order Info: [id number] - CMP Order Info: - LIPID Order Info: [id number] - TSH Performed By: #### L 501.9985, L100.0100, L501.9520, L500.4100, L500.4050 #### [facility] [address] [place], [address] AST [Catalytic activity/Vol] 29 U/L Normal <=37 [facility] Comment on above: Order Comment: Order Date: 05/26/25 Order Info: 785- - CMP Order Info: [id number] - LIPID Order Info: 3 - TSH Performed By: #### L 501.9985, L100.0100, L501.9520, L500.4100, L500.4050 #### [facility] [address] [place], [address] Bilirubin [Mass/Vol] 0.63 mg/dL Normal 0.00-1.[address] [facility] Comment on above: Order Comment: Order Date: 05/26/25 Order Info: 785-11 - CMP Order Info: - LIPID Order Info: [id number] - TSH Performed By: #### L 501.9985, L100.0100, L501.9520, L500.4100, L500.4050 #### [facility] [address] [place], [address] BUN/CRE 15.5 RATIO Normal 10-20 [facility] Comment on above: Order Comment: Order Date: 05/26/25 Order Info: 785-11 - CMP Order Info: [id number] - LIPID Order Info: [id number] - TSH Performed By: #### L 501.9985, L100.0100, L501.9520, L500.4100, L500.4050 #### [facility] [address] [place], [address] Calcium [Mass/Vol] 10.1 mg/dL Normal 7.6-11.0 [facility] Comment on above: Order Comment: Order Date: 05/26/25 Order Info: 785-11 - CMP Order Info: - LIPID Order Info: [id number] - TSH Performed By: #### L 501.9985, L100.0100, L501.9520, L500.4100, L500.4050 #### [facility] [address] [place], [address] Chloride [Moles/Vol] 92 mmol/L Low 98-[address] [facility] Comment on above: Order Comment: Order Date: 05/26/25 Order Info: 07- - CMP Order Info: [id number] - LIPID Order Info: 3 - TSH Performed By: #### L 501.9985, L100.0100, L501.9520, L500.4100, L500.4050 #### [facility] [address] [place], [address] CO2 [Moles/Vol] 25.8 mmol/L Normal 21.0-32.0 [facility] Comment on above: Order Comment: Order Date: 05/26/25 Order Info: 785-11 - CMP Order Info: [id number] - LIPID Order Info: 3 - TSH Performed By: #### L 501.9985, L100.0100, L501.9520, L500.4100, L500.4050 #### [facility] [address] [place], [address] Creatinine [Mass/Vol] 0.64 mg/dL Low 0.70-1.20 [facility] Comment on above: Order Comment: Order Date: 05/26/25 Order Info: 07 - CMP Order Info: [id number] - LIPID Order Info: 3 - TSH Performed By: #### L 501.9985, L100.0100, L501.9520, L500.4100, L500.4050 #### [facility] [address] [place], [address] GAP 14 Normal 5-15 [facility] Comment on above: Order Comment: Order Date: 05/26/25 Order Info: 0786- - CMP Order Info: [id number] - LIPID Order Info: [id number] - TSH Performed By: #### L 501.9985, L100.0100, L501.9520, L500.4100, L500.4050 #### [facility] [address] [place], [address] GFR/1.73 sq M.predicted among non-blacks MDRD (S/P/Bld) [Vol rate/Area] 101 mL/min/{1.73_m2} Normal >60 [facility] Comment on above: Order Comment: Order Date: 05/26/25 Order Info: 07 - CMP Order Info: - LIPID Order Info: [id number] - TSH Result Comment: mL/m in/1.73m2 CKD-EPI Creatinine Equation (2020) Performed By: #### L 501.9985, L100.0100, L501.9520, L500.4100, L500.4050 #### [facility] [address] [place], [address] Globulin (S) [Mass/Vol] 3.0 g/dL Normal 2.2-4.2 [facility] Comment on above: Order Comment: Order Date: 05/26/25 Order Info: [id number] - CMP Order Info: [id number] - LIPID Order Info: [id number] - TSH Performed By: #### L 501.9985, L100.0100, L501.9520, L500.4100, L500.4050 #### [facility] [address] [place], [address] Glucose [Mass/Vol] 88 mg/dL Normal 70-99 [facility] Comment on above: Order Comment: Order Date: 05/26/25 Order Info: 0786 - CMP Order Info: [id number] - LIPID Order Info: [id number] - TSH Performed By: #### L 501.9985, L100.0100, L501.9520, L500.4100, L500.4050 #### [facility] [address] [place], [address] Potassium [Moles/Vol] 4.3 mmol/L Normal 3.3-5.1 [facility] Comment on above: Order Comment: Order Date: 05/26/25 Order Info: [id number] - CMP Order Info: - LIPID Order Info: [id number] - TSH Performed By: #### L 501.9985, L100.0100, L501.9520, L500.4100, L500.4050 #### [facility] [address] [place], [address] Sodium [Moles/Vol] 132 mmol/L Low 133-145 [facility] Comment on above: Order Comment: Order Date: 05/26/25 Order Info: [id number] - CMP Order Info: - LIPID Order Info: [id number] - TSH Performed By: #### L 501.9985, L100.0100, L501.9520, L500.4100, L500.4050 #### [facility] [address] [place], [address] T PROT 7.8 g/dL Normal 5.9-8.4 [facility] Comment on above: Order Comment: Order Date: 05/26/25 Order Info: [id number] - CMP Order Info: - LIPID Order Info: [id number] - TSH Performed By: #### L 501.9985, L100.0100, L501.9520, L500.4100, L500.4050 #### [facility] [address] [place], [address] Urea nitrogen [Mass/Vol] 10 mg/dL Normal 4-19 [facility] Comment on above: Order Comment: Order Date: 05/26/25 Order Info: [id number] - CMP Order Info: [id number] - LIPID Order Info: [id number] - TSH Performed By: #### L 501.9985, L100.0100, L501.9520, L500.4100, L500.4050 #### [facility] [address] [place], [place], [id number] Eosinophil percentageOrdered By: Aure Kris on 05-26-2025 Eosinophils/100 WBC (Bld) 0.9 % 0-5 [facility] Erythrocyte distribution wid th ratioOrdered By: [facility] on 05-[facility]-2025 Erythrocyte distribution width (RBC) [Ratio] 11.9 % 11.6-14.6 [facility] Erythrocyte distribution wid th standard deviationOrdered By: [facility] Kris on 05-26-2025 Erythrocyte distribution width (RBC) [Ratio] 43.2 fl 35.1-43.9 [facility] Glomerular filtration rate ( GFR) estimation/1.73 sq m using serum, plasma, or whole bOrdered By: [facility] Kris on 05-26-2025 GFR/1.73 sq M.predicted among non-blacks MDRD (S/P/Bld) [Vol rate/Area] 101 mL/min/{1.73_m2} >60 [facility] Comment on above: mL/min/1.73m2 CKD-EP I Creatinine Equation (2020) Hematocrit Auto (Bld) [Volum e fraction]Ordered By: Aure Ponce on 05-26-2025 Hematocrit (Bld) [Volume fraction] 42.8 % 40-54 [facility] Hemoglobin A1con 05-26-2025 HbA1c (Bld) [Mass fraction] 5.5 % Normal <=5.6 [facility] Comment on above: Order Comment: Order Date: 05/26/25 Order Info: [id number] - A1C Result Comment: Norm al < 5.7 % Prediabetic 5.7 - 6.4 % Diabetic >or= 6.5 % Please note range changes. Performed By: #### L 501.9985, L100.0100, L501.9520, L500.1460, L500.2910 #### [facility] [address] [place], [place], [id number] Hemoglobin A1c percentageOrd ered By: Aure Kris on 05-26-2025 HbA1c (Bld) [Mass fraction] 5.5 % <5.7 [facility] Comment on above: Normal < 5.7 % Predi abetic 5.7 - 6.4 % Diabetic >or= 6.5 % Please note range changes. Hemoglobin measurementOrdere d By: Aure Ponce on 05-26-2025 Hemoglobin (Bld) [Mass/Vol] 14.8 g/dL 13.0-16.5 [facility] Immature granulocytes/100 WB C Auto (Bld)Ordered By: Aure Ponce on 05-26-2025 Immature granulocytes/100 WBC (Bld) 0.400 % 0.0-0.9 [facility] Comment on above: IG% - Immature Granu locytes (promyelocytes, myelocytes and metamyelocytes) > 1% indicates that a LEFT SHIFT is Present. LDL calc ser/plasOrdered By: Aure Ponce on 05-26-2025 Cholesterol in LDL [Mass/Vol] 56 mg/dL [facility] Comment on above: Afvaxefsla=708-967 m g/dL & Higher Ymbw=435 mg/dL or greater Laboratory - Chemistry and C hemistry - challengeOrdered By: Aure Ponce on 05-26-2025 AST [Catalytic activity/Vol] 29 U/L <38 [facility] Lipid Profileon 05-26-2025 CHOL:HDL 1.76 Normal [facility] Comment on above: Order Comment: Order Date: 05/26/25 Order Info: [id number] - CMP Order Info: [id number] - LIPID Order Info: [id number] - TSH Performed By: #### L 501.9985, L100.0100, L501.9520, L500.4100, L500.4050 #### [facility] [address] [place], [place], [address] Cholesterol [Mass/Vol] 176 mg/dL Normal <=200 [facility] Comment on above: Order Comment: Order Date: 05/26/25 Order Info: 0786-1 - CMP Order Info: [id number] - LIPID Order Info: [id number] - TSH Result Comment: Chol esterol level, Desirable <200 mg/dL Borderline high cholesterol 200-239 mg/dL High cholesterol >=240 mg/dL Recommendations of the NCEP Adult Treatment Panel for the following risk-cutoff thresholds for the [place] population. Performed By: #### L 501.9985, L100.0100, L501.9520, L500.4100, L500.4050 #### [facility] [address] [place], [address] Cholesterol in HDL [Mass/Vol] 100 mg/dL Normal [facility] Comment on above: Order Comment: Order Date: 05/26/25 Order Info: 0786 - CMP Order Info: - LIPID Order Info: [id number] - TSH Result Comment: Marielle onal Cholesterol Education Program (NCEP) guidelines: <40 mg/dL: Low HDL-cholesterol (major risk factor for CHD) >= 60 mg/dL: High HDL-cholesterol (negative risk factor for CHD) HDL-cholesterol is affected by a number of factors, e.g. smoking, exercise, hormones, sex and age. Performed By: #### L 501.9985, L100.0100, L501.9520, L500.4100, L500.4050 #### [facility] [address] [place], [address] Cholesterol in LDL [Mass/Vol] 56 mg/dL Normal [facility] Comment on above: Order Comment: Order Date: 05/26/25 Order Info: 0786 - CMP Order Info: - LIPID Order Info: [id number] - TSH Result Comment: Bord zlevuc=353-239 mg/dL Higher Xhvu=681 mg/dL or greater Performed By: #### L 501.9985, L100.0100, L501.9520, L500.4100, L500.4050 #### [facility] [address] [place], [address] Cholesterol in VLDL [Mass/Vol] 20 mg/dL Normal 5-40 [facility] Comment on above: Order Comment: Order Date: 05/26/25 Order Info: 0786 - CMP Order Info: - LIPID Order Info: [id number] - TSH Performed By: #### L 501.9985, L100.0100, L501.9520, L500.4100, L500.4050 #### [facility] [address] [place], [place], [address] Triglyceride [Mass/Vol] 98 mg/dL Normal [facility] Comment on above: Order Comment: Order Date: 05/26/25 Order Info: [id number] - CMP Order Info: [id number] - LIPID Order Info: [id number] - TSH Result Comment: The drugs N-Acetylcysteine and Metamizole may falsely depress this assay. Normal range: <150 mg/dL Borderline High: 150-199 mg/dL High: 200-499 mg/dL Very High: >500 mg/dL Performed By: #### L 501.9985, L100.0100, L501.9520, L500.4100, L500.4050 #### [facility] [address], [address] MCV (mean corpuscular volume ) determinationOrdered By: Aure Ponce on 05-26-2025 MCV (RBC) [Entitic vol] 97.3 fL High 80-94 [facility] Mean corpuscular hemoglobin (MCH) determinationOrdered By: Aure Ponce on 05-26-2025 MCH (RBC) [Entitic mass] 33.6 pg High 27.0-32.0 [facility] Mean corpuscular hemoglobin concentration (MCHC) determinationOrdered By: Aure Ponce on 05-26-2025 MCHC (RBC) [Mass/Vol] 34.6 g/dL 32-36 [facility] Mean platelet volume determi nationOrdered By: Aure Ponce on 05-26-2025 Platelet mean volume (Bld) [Entitic vol] 8.7 fL 6.2-12.0 [facility] Monocyte percentageOrdered B y: Aure Ponce on 05-26-2025 Monocytes/100 WBC (Bld) 11.9 % High 0-10 [facility] Neutrophil percentageOrdered By: Aure Ponce on 05-26-2025 Neutrophils/100 WBC (Bld) 76.3 % High 47-70 [facility] Nucleated red blood cell per centageOrdered By: Aure Ponce on 05-26-2025 Nucleated RBC/100 WBC (Bld) [Ratio] 0 % 0-5 [facility] Platelet countOrdered By: Sarbjit Ponce on 05-26-2025 Platelets (Bld) [#/Vol] 268 10*3/uL 150-450 [facility] Potassium measurement (mass/ volume)Ordered By: Aure Ponce on 05-26-2025 Potassium (Unsp spec) [Mass/Vol] 4.3 mmol/L 3.3-5.1 [facility] RBC Auto (Bld) [#/Vol]Ordere d By: Aure Ponce on 05-26-2025 RBC (Bld) [#/Vol] 4.40 10*6/uL Low 4.6-6.2 [facility] Screening total cholesterol/ high density lipoprotein (HDL) cholesterol ratioOrdered By: Aure Ponce on 05-26-2025 Cholesterol.total/Cholest mili in HDL [Mass ratio] 1.76 {ratio} [facility] Serum creatinine measurement (mass/volume)Ordered By: Aure Ponce on 05-26-2025 Creatinine [Mass/Vol] 0.64 mg/dL Low 0.70-1.20 [facility] Serum globulin measurementOr dered By: Aure Ponce on 05-26-2025 Globulin (S) [Mass/Vol] 3.0 g/dL 2.2-4.2 [facility] Serum glucose measurement (m ass/volume)Ordered By: Aure Ponce on 05-26-2025 Glucose [Mass/Vol] 88 mg/dL 70-99 [facility] Serum or plasma alanine montero otransferase (ALT) measurementOrdered By: Aure Ponce on 05-26-2025 ALT [Catalytic activity/Vol] 23 U/L <47 [facility] Serum or plasma albumin rufina urement (mass/volume)Ordered By: Aure Ponce on 05-26-2025 Albumin [Mass/Vol] 4.8 g/dL 3.4-4.8 [facility] Serum or plasma albumin/glob ulin mass ratioOrdered By: Aure Ponce on 05-26-2025 Albumin/Globulin [Mass ratio] 1.6 {ratio} 0.9-2.4 [facility] Serum or plasma alkaline gabriel sphatase measurementOrdered By: Aure Ponce on 05-26-2025 ALP [Catalytic activity/Vol] 75 U/L 40-129 [facility] Serum or plasma calcium rufina urement (mass/volume)Ordered By: Aure Ponce on 05-26-2025 Calcium [Mass/Vol] 10.1 mg/dL 7.6-11.0 [facility] Serum or plasma cholesterol in HDL measurement (mass/volume)Ordered By: Aure Ponce on 05-26-2025 Cholesterol in HDL [Mass/Vol] 100 mg/dL >40 [facility] Comment on above: National Cholesterol Education Program (NCEP) guidelines:<40 mg/dL: Low HDL-cholesterol (major risk factor for CHD)>= 60 mg/dL: High HDL-cholesterol (negative risk factor for CHD)HDL-cholesterol is affected by a number of factors, e.g. smoking, exercise, hormones, sex and age. Serum or plasma cholesterol measurement (mass/volume)Ordered By: Aure Ponce on 05-26-2025 Cholesterol [Mass/Vol] 176 mg/dL <201 [facility] Comment on above: Cholesterol level, D esirable <200 mg/dLBorderline high cholesterol 200-239 mg/dLHigh cholesterol >=240 mg/dLRecommendations of the NCEP Adult Treatment Panel for the following risk-cutoff thresholds for the [place] population. Serum or plasma urea nitroge n measurement (mass/volume)Ordered By: Aure Ponce on 05-26-2025 Urea nitrogen [Mass/Vol] 10 mg/dL 4-19 [facility] Sodium levelOrdered By: Howard Ponce on 05-26-2025 Sodium [Moles/Vol] 132 mmol/L Low 133-145 [facility] TSH DL <= 0.005 mIU/L QnOrde red By: Aure Ponce on 05-26-2025 TSH Qn 0.561 uIU/mL 0.300-4.200 [facility] Thyroid Stim Hormone (TSH)on 05-26-2025 TSH 0.561 uIU/mL Normal 0.300-4.200 [facility] Comment on above: Order Comment: Order Date: 05/26/25 Order Info: 0786-1 - CMP Order Info: [id number] - LIPID Order Info: [id number] - TSH Performed By: #### L 501.9985, L100.0100, L501.9520, L500.4100, L500.4050 #### [facility] [address] [place], [place], [address] Total proteinOrdered By: Luz Maria Ponce on 05-26-2025 Protein [Mass/Vol] 7.8 g/dL 5.9-8.4 [facility] Triglycerides measurementOrd ered By: Aure Ponce on 05-26-2025 Triglyceride [Mass/Vol] 98 mg/dL <199 [facility] Comment on above: The drugs N-Acetylcy steine and Metamizole may falsely depress this assay. Normal range: <150 mg/dLBorderline High: 150-199 mg/dLHigh: 200-499 mg/dLVery High: >500 mg/dL Vitamin D,25 Hydroxyon 05-26 Vitamin D 25-OH 27.8 ng/mL Low 30-100 [facility] Comment on above: Order Comment: Order Date: 05/26/25Order Info: 0786-1 - CMPOrder Info: [id number] - LIPIDOrder Info: [id number] - TSH Result Comment: Deborah min D Status Deficiency: <20 ng/mL (50nmol/L) Insufficiency: 20-30 ng/mL (50-75 nmol/L) Sufficiency: 30-100 ng/mL (75-250 nmol/L) Toxicity: >100 ng/mL (>250 nmol/L) Performed By: #### L 506.1001 ####[facility] [address] [place], [place], [address] White blood cell (WBC) count Ordered By: Aure Ponce on 05-26-2025 WBC (Bld) [#/Vol] 8.5 10*3/uL 4.4-11.0 [facility] Arterial study reportOrdered By: Donaldo Brown on 03-15-2025 Noninvasive arteriosclerosis study report [facility] [address] [place] [address] Lower Ext Art Exam w/o Exercis 03/15/25 1312 MR#: [id number] Acct: [id number] Name: MAVIS IRWIN Rep #:[id number] : 1950 74 From: Donaldo Ballard Attending Dr: Dr. Titus Burns DPM Status: REG CLI Ordering Dr: Titus Burns DPM Date: 03/15/25 Location: [facility] Sex: M C Admitted: Reason For Study [...] rest. 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 __ Ordering Physician: Titus Burns Referring Physician: TITUS BURNS DPM Performed By: LUIS ENRIQUE BERMUDEZ T 03/15/25 1658 Date _ Donaldo Brown MD CC: DPM Dr. Titus Burns; Dr. Aure Ponce MD ~ Date Dictated: 03/15/25 1312 Date Transcribed: 03/15/251657 [employer] Supervisor: Signed [facility] Work Phone: Lower Ext Art Exam w/o Exerc moe 03-15-2025 Lower Ext Art Exam w/o Exercis [facility] Cardi[facility] Services [address] [facility] [place] [address] Lower Ext Art Exam w/o Exercis 03/15/251311 MR#: [id number] Acct: [id number] Name: MAVIS IRWIN Rep #: [id number] : 1950 74 From: Donaldo Brown MD Attending Dr: Dr. Titus Burns DPM Status: R EG CLI Ordering Dr: Titus Burns DPM Date: 03/15/25 Location: [facility] Sex: M C Admitted: Reason For Study [...] rest. 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 __ Ordering Physician: Titus Burns Referring Physician: TITUS BURNS DPM Performed By: LUIS ENRIQUE BERMUDEZ T 03/15/251657 Date Donaldo Brown MD CC: DPM Dr. Titus Burns; Dr. Aure Ponce MD Date Dictated: 03/15/25 1312 Date Transcribed: 03/15/251657 [employer] Supervisor: Signed Normal [facility] Foot min 3 Viewson 5 Foot min 3 Views [facility] Imaging Services [address] [place] [address] Foot min 3 Views MR#: [id number] Acct: [id number] Name: MAVIS IRWIN Rep #: [id number] : 1950 M 74 From: Shabana Swartz MD PCP: Dr. Aure Ponce MD Status: REG CLI Study: Foot min 3 Views Date of Exam: 02/14/25 Exam# [id number] Ordering Dr: Aure Pocne MD EXAM: Three views of the right [...] with MRI as clinically indicated. Reading Location: [facility] CC: Dr. Aure Ponce MD [employer] Supervisor: Signed Normal [facility] Knee 4 or More Viewson 11-11 Knee 4 or More Views [facility] Imaging Services [address] [place] [address] Knee 4 or More Views MR#: [id number] Acct: [id number] Name: MAVIS IRWIN Rep #: [id number] : 1950 M 73 From: Blake Jarquin MD PCP: Dr. Aure Ponce MD Status: REG CLI Study: Knee 4 or More Views Date of Exam: 11/11/24 Exam# [id number] Ordering Dr: Aure Ponce MD -[id number] STUDY: X-RAY - RIGHT KNEE REASON FOR [...] Signed: Blake Jarquin MD at 14:50 EST Reading Location ID and State: [facility] / [place] , Service support , CC: Dr. Aure Ponce MD [employer] Supervisor: Signed Normal [facility] Comprehensive Metabolic Prof ilon 07-22-2024 Albumin [Mass/Vol] 4.1 g/dL Normal 3.2-5.0 [facility] Comment on above: Order Comment: Order Date: 07/22/24 Order Info: 0786-1 - CMP Performed By: #### L 500.4050 #### [facility] [address] [place], [place], [address] Albumin/Globulin [Mass ratio] 1.2 {ratio} Normal 0.9-2.4 [facility] Comment on above: Order Comment: Order Date: 07/22/24 Order Info: 0786-1 - CMP Performed By: #### L 500.4050 #### [facility] [address] [place], [address] ALK P 78 U/L Normal 45-117 [facility] Comment on above: Order Comment: Order Date: 07/22/24 Order Info: 0786-1 - CMP Performed By: #### L 500.4050 #### [facility] [address] [place], [address] ALT [Catalytic activity/Vol] 14 U/L Low 16-61 [facility] Comment on above: Order Comment: Order Date: 07/22/24 Order Info: 0786-1 - CMP Performed By: #### L 500.4050 #### [facility] [address] [place], [place], [address] AST [Catalytic activity/Vol] 18 U/L Normal 15-37 [facility] Comment on above: Order Comment: Order Date: 07/22/24 Order Info: 0786-1 - CMP Performed By: #### L 500.4050 #### [facility] [address] [place], [phone] Bilirubin [Mass/Vol] 0.80 mg/dL Normal 0.20-1.[address] [facility] Comment on above: Order Comment: Order Date: 07/22/24 Order Info: 0786-1 - CMP Result Comment: For patients on eltrombopag therapy, use of Dimension Winner TBIL is not recommended. Performed By: #### L 500.4050 #### [facility] [address] [place], [address] BUN/CRE 20.5 RATIO High 10-20 [facility] Comment on above: Order Comment: Order Date: 07/22/24 Order Info: 0786-1 - CMP Performed By: #### L 500.4050 #### [facility] [address] [place], [address] CA,Total 10.1 mg/dL Normal 8.5-10.1 [facility] Comment on above: Order Comment: Order Date: 07/22/24 Order Info: 0786-1 - CMP Performed By: #### L 500.4050 #### [facility] [address] [place], [address] Chloride [Moles/Vol] 96 mmol/L Low 98-[address] [facility] Comment on above: Order Comment: Order Date: 07/22/24 Order Info: 0786-1 - CMP Performed By: #### L 500.4050 #### [facility] [address] [place], [address] CO2 [Moles/Vol] 29.0 mmol/L Normal 21.0-32.0 [facility] Comment on above: Order Comment: Order Date: 07/22/24 Order Info: 0786-1 - CMP Performed By: #### L 500.4050 #### [facility] [address] [place], [address] Creatinine [Mass/Vol] 0.68 mg/dL Low 0.70-1.30 [facility] Comment on above: Order Comment: Order Date: 07/22/24 Order Info: 0786- - CMP Result Comment: The validity of the calculated GFR GFRAA in patients over 70 years has not been determined. Clinical correlation is essential. Performed By: #### L 500.4050 #### [facility] [address] [place], [address] EST GFR - AA 147 mL/min Normal >60 [facility] Comment on above: Order Comment: Order Date: 07/22/24 Order Info: 0786- - CMP Result Comment: Afri can Guinean GFR Calc Performed By: #### L 500.4050 #### [facility] [address] [place], [address] GAP 8 Normal 5-15 [facility] Comment on above: Order Comment: Order Date: 07/22/24 Order Info: 0786- - CMP Performed By: #### L 500.4050 #### [facility] [address] [place], [address] GFR/1.73 sq M.predicted among non-blacks MDRD (S/P/Bld) [Vol rate/Area] 121 mL/min/{1.73_m2} Normal >60 [facility] Comment on above: Order Comment: Order Date: 07/22/24 Order Info: 0786-1 - CMP Result Comment: Non- GFR Calc Performed By: #### L 500.4050 #### [facility] [address] [place], [address] Globulin (S) [Mass/Vol] 3.5 g/dL Normal 2.2-4.2 [facility] Comment on above: Order Comment: Order Date: 07/22/24 Order Info: 0786-1 - CMP Performed By: #### L 500.4050 #### [facility] [address] [place], [address] Glucose [Mass/Vol] 85 mg/dL Normal 74-106 [facility] Comment on above: Order Comment: Order Date: 07/22/24 Order Info: 0786-1 - CMP Performed By: #### L 500.4050 #### [facility] [address] [place], [address] Potassium [Moles/Vol] 5.0 mmol/L Normal 3.5-5.1 [facility] Comment on above: Order Comment: Order Date: 07/22/24 Order Info: 0786-1 - CMP Performed By: #### L 500.4050 #### [facility] [address] [place], [address] Sodium [Moles/Vol] 133 mmol/L Low 136-145 [facility] Comment on above: Order Comment: Order Date: 07/22/24 Order Info: 0786-1 - CMP Performed By: #### L 500.4050 #### [facility] [address] [place], [address] T PROT 7.6 g/dL Normal 6.4-8.2 [facility] Comment on above: Order Comment: Order Date: 07/22/24 Order Info: 0786-1 - CMP Performed By: #### L 500.4050 #### [facility] [address] [place], [address] Urea nitrogen [Mass/Vol] 14 mg/dL Normal 7-18 [facility] Comment on above: Order Comment: Order Date: 07/22/24 Order Info: 0786-1 - CMP Performed By: #### L 500.4050 #### [facility] [address] [place], [address] Basophil percentageOrdered B y: Lennox Oliveira on 03-18-2024 Hemoglobin (Bld) [Mass/Vol] 11.9 g/dL 13.0-16.5 [facility] WBC (Bld) [#/Vol] 9.0 10*3/uL 4.4-11.0 [facility] Determination of erythrocyte mean corpuscular volume (MCV)Ordered By: Lennox Oliveira on 03-18-2024 MCV (RBC) [Entitic vol] 101.1 fL 80-94 [facility] Erythrocyte distribution wid th ratioOrdered By: Lennox Oliveira on 03-18-2024 Erythrocyte distribution width (RBC) [Ratio] 12.9 % 11.6-14.6 [facility] Erythrocyte distribution wid th standard deviationOrdered By: Lennox Oliveira on 03-18-2024 Erythrocyte distribution width (RBC) [Entitic vol] 48.1 fL 35.1-43.9 [facility] Hematocrit Auto (Bld) [Volum e fraction]Ordered By: Lennox Oliveira on 03-18-2024 Hematocrit (Bld) [Volume fraction] 36.0 % 40-54 [facility] - Hematology and Cell countsOrdered By: Lennox Oliveira on 03-18-2024 MCH (RBC) [Entitic mass] 33.4 pg 27.0-32.0 [facility] MCHC (RBC) [Mass/Vol] 33.1 g/dL 32-36 [facility] Platelet mean volume (Bld) [Entitic vol] 8.7 fL 6.2-12.0 [facility] Platelets (Bld) [#/Vol] 166 10*3/uL 150-450 [facility] RBC Auto (Bld) [#/Vol]Ordere d By: Lennox Oliveira on 03-18-2024 RBC (Bld) [#/Vol] 3.56 10*6/uL 4.6-6.2 [facility] Absolute lymphocyte countOrd ered By: Pepe Chavez on 03-17-2024 Lymphocytes Auto (Unsp spec) [#/Vol] 0.51 10*3/uL 0.83-4.51 [facility] Automated lymphocyte count a s percentage of total leukocytesOrdered By: Pepe Chavez on 03-17-2024 Lymphocytes/100 WBC Auto (Unsp spec) 4.0 % 19-41 [facility] Basophil percentageOrdered B y: Pepe Chavez on 03-17-2024 Basophils/100 WBC (Bld) 0.2 % 0-1 [facility] Chloride [Moles/Vol] 99 mmol/L 98-[address] [facility] Eosinophils/100 WBC (Bld) 0.1 % 0-5 [facility] Glucose [Mass/Vol] 114 mg/dL 74-106 [facility] Comment on above: Fasting Glucose resu lt from 100 to 125 mg/dL suggests IMPAIRED HOMEOSTASIS per A.D.A. criteria. Hemoglobin (Bld) [Mass/Vol] 13.5 g/dL 13.0-16.5 [facility] Monocytes/100 WBC (Bld) 15.0 % 0-10 [facility] Neutrophils (Bld) [#/Vol] 10.4 10*3/uL 2.0-7.7 [facility] Neutrophils/100 WBC (Bld) 80.3 % 47-70 [facility] Potassium [Moles/Vol] 4.2 mmol/L 3.5-5.1 [facility] Sodium [Moles/Vol] 134 mmol/L 136-145 [facility] WBC (Bld) [#/Vol] 12.9 10*3/uL 4.4-11.0 [facility] Blood manual differential co mment interpretation (narrative result)Ordered By: Pepe Chavez on 03-17-2024 Manual differential comment Dougie (Bld) [Interp] COMMENT [facility] Comment on above: [email or web address].MONOCYTO SIS. Determination of erythrocyte mean corpuscular volume (MCV)Ordered By: Pepe Chavez on 03-17-2024 MCV (RBC) [Entitic vol] 97.5 fL 80-94 [facility] Erythrocyte distribution wid th ratioOrdered By: Pepe Chavez on 03-17-2024 Erythrocyte distribution width (RBC) [Ratio] 12.2 % 11.6-14.6 [facility] Erythrocyte distribution wid th standard deviationOrdered By: Pepe Chavez on 03-17-2024 Erythrocyte distribution width (RBC) [Entitic vol] 43.9 fL 35.1-43.9 [facility] Hematocrit Auto (Bld) [Volum e fraction]Ordered By: Pepe Chavez on 03-17-2024 Hematocrit (Bld) [Volume fraction] 39.2 % 40-54 [facility] Immature granulocytes/100 WB C Auto (Bld)Ordered By: Pepe Chavez on 03-17-2024 Immature granulocytes/100 WBC (Bld) 0.400 % 0.0-0.9 [facility] Comment on above: IG% - Immature Granu locytes (promyelocytes, myelocytes and metamyelocytes) > 1% indicates that a LEFT SHIFT is Present. Laboratory - Chemistry and C hemistry - challengeOrdered By: Lennox Oliveira on 03-17-2024 Cobalamin (Vitamin B12) [Mass/Vol] 235 pg/mL 211-911 [facility] Laboratory - Chemistry and C hemistry - challengeOrdered By: Pepe Chavez on 03-17-2024 CK [Catalytic activity/Vol] 124 U/L 39-308 [facility] CO2 [Moles/Vol] 28.0 mmol/L 21.0-32.0 [facility] Urea nitrogen/Creatinine [Mass ratio] 11.7 mg/mg 10-20 [facility] Laboratory - CoagulationOrde red By: Lennox Oliveira on 03-17-2024 INR Coag (Bld) [Relative time] 1.1 {INR} [facility] PT Coag (PPP) [Time] 14.0 s 11.7-14.[address] [facility] Laboratory - Hematology and Cell countsOrdered By: Pepe Cahvez on 03-17-2024 MCH (RBC) [Entitic mass] 33.6 pg 27.0-32.0 [facility] MCHC (RBC) [Mass/Vol] 34.4 g/dL 32-36 [facility] Nucleated RBC/100 WBC (Bld) [Ratio] 0 % 0-5 [facility] Platelet mean volume (Bld) [Entitic vol] 8.1 fL 6.2-12.0 [facility] Platelets (Bld) [#/Vol] 195 10*3/uL 150-450 [facility] No Panel InformationOrdered By: Pepe Chavez on 03-17-2024 Ethyl Alcohol Level < 3.0 mg/dL [facility] Comment on above: The serum:whole bloo d ethanol ratio is approximately 1.14and varies slightly with hematocrit. Medical Alcohol reference interval and critical value innon-tolerant individuals; 50 - 100 Impairment 100 Intoxication 100 - 250 Severe Poisoning 250 - 400 Deep/possible fatal coma Estimated Creatinine Clearance Calc 74.98 ml/min [facility] Estimated GFR (MDRD) Amer 129 mL/min >60 [facility] Comment on above: GFR Calc Estimated GFR (MDRD) Non-Af Amer 106 mL/min >60 [facility] Comment on above: Non- GFR Calc No Panel InformationOrdered By: Lennox Oliveira on 03-17-2024 Vitamin D 25-Hydroxy 21.7 ng/mL [facility] Comment on above: Vitamin D 25(OH) Sta tus Range Deficiency <20 ng/mL (50nmol/L) Insufficiency 20 - 30 ng/mL (50 - 75 nmol/L) Sufficiency 30 - 100 ng/mL (75 - 250 nmol/L) Toxicity >100 ng/mL (>250 nmol/L) Folate 12.30 ng/mL 3.1-55.4 [facility] RBC Auto (Bld) [#/Vol]Ordere d By: Pepe Chavez on 03-17-2024 RBC (Bld) [#/Vol] 4.02 10*6/uL 4.6-6.2 [facility] Review by pathologistOrdered By: Pepe Chavez on 03-17-2024 Pathologist review Dougie (Unsp spec) [Interp] May foll [facility] Serum or plasma calcium rufina urement (mass/volume)Ordered By: Pepe Chavez on 03-17-2024 Calcium [Mass/Vol] 9.2 mg/dL 8.5-10.1 [facility] Serum or plasma creatinine m easurement (mass/volume)Ordered By: Pepe Chavez on 03-17-2024 Creatinine [Mass/Vol] 0.77 mg/dL 0.70-1.30 [facility] Comment on above: The validity of the calculated GFR & GFRAA in patients over 70 years has not been determined. Clinical correlation is essential. Serum or plasma urea nitroge n measurement (mass/volume)Ordered By: Pepe Chavez on 03-17-2024 Urea nitrogen [Mass/Vol] 9 mg/dL 7-18 [facility] Thin prep Papanicolaou smear with manual screeningOrdered By: Pepe Chavez on 03-17-2024 Thin prep Papanicolaou smear with manual screening 7 5-15 [facility] Absolute lymphocyte countOrd ered By: Aure Noriegake on 03-14-2024 Lymphocytes Auto (Unsp spec) [#/Vol] 1.14 10*3/uL 0.83-4.51 [facility] Automated lymphocyte count a s percentage of total leukocytesOrdered By: Aure Ponce on 03-14-2024 Lymphocytes/100 WBC Auto (Unsp spec) 18.3 % 19-41 [facility] Basophil percentageOrdered B y: Howardjunior Kris on 03-14-2024 Basophils/100 WBC (Bld) 0.8 % 0-1 [facility] Bilirubin [Mass/Vol] 0.70 mg/dL 0.20-1.[address] [facility] Comment on above: For patients on eltr ombopag therapy, use of Dimension Winner TBIL is not recommended. Chloride [Moles/Vol] 96 mmol/L 98-[address] [facility] Cholesterol [Mass/Vol] 232 mg/dL <200 [facility] Comment on above: <200 mg/dL Desirable 200-240 mg/dL Borderline >240 mg/dL High Risk Eosinophils/100 WBC (Bld) 2.4 % 0-5 [facility] Glucose [Mass/Vol] 141 mg/dL 74-106 [facility] Comment on above: Fasting Glucose resu lt greater than or equal to 126 mg/dL suggests DIABETES MELLITUS per A.D.A. criteria. Hemoglobin (Bld) [Mass/Vol] 15.4 g/dL 13.0-16.5 [facility] Monocytes/100 WBC (Bld) 15.0 % 0-10 [facility] Neutrophils (Bld) [#/Vol] 3.9 10*3/uL 2.0-7.7 [facility] Neutrophils/100 WBC (Bld) 63.3 % 47-70 [facility] Potassium [Moles/Vol] 4.1 mmol/L 3.5-5.1 [facility] Protein [Mass/Vol] 7.6 g/dL 6.4-8.2 [facility] Sodium [Moles/Vol] 131 mmol/L 136-145 [facility] Triglyceride [Mass/Vol] 160 mg/dL <199 [facility] Comment on above: The drugs N-Acetylcy steine and Metamizole may falsely depress this assay.Serum Triglycerides Reference Interval Normal <150 mg/dL Borderline high 150 - 199 mg/dL High 200 - 499 mg/dL Very High > or = 500 mg/dL WBC (Bld) [#/Vol] 6.2 10*3/uL 4.4-11.0 [facility] Determination of erythrocyte mean corpuscular volume (MCV)Ordered By: Aure Ponce on 03-14-2024 MCV (RBC) [Entitic vol] 97.6 fL 80-94 [facility] Erythrocyte distribution wid th ratioOrdered By: Aure Kris on 03-14-2024 Erythrocyte distribution width (RBC) [Ratio] 12.5 % 11.6-14.6 [facility] Erythrocyte distribution wid th standard deviationOrdered By: Aure Ponce on 03-14-2024 Erythrocyte distribution width (RBC) [Entitic vol] 44.8 fL 35.1-43.9 [facility] Hematocrit Auto (Bld) [Volum e fraction]Ordered By: Aure Ponce on 03-14-2024 Hematocrit (Bld) [Volume fraction] 45.6 % 40-54 [facility] Immature granulocytes/100 WB C Auto (Bld)Ordered By: Aure Kris on 03-14-2024 Immature granulocytes/100 WBC (Bld) 0.200 % 0.0-0.9 [facility] Comment on above: IG% - Immature Granu locytes (promyelocytes, myelocytes and metamyelocytes) > 1% indicates that a LEFT SHIFT is Present. Laboratory - Chemistry and C hemistry - challengeOrdered By: Aure Ponce on 03-14-2024 Albumin/Globulin [Mass ratio] 1.1 {ratio} 0.9-2.4 [facility] ALP [Catalytic activity/Vol] 61 U/L 45-117 [facility] ALT [Catalytic activity/Vol] 17 U/L 16-61 [facility] Cholesterol in HDL [Mass/Vol] 68 mg/dL >40 [facility] Comment on above: The drugs N-Acetylcy steine and Metamizole may falsely depress this assay. Reference Range HDL <40 mg/dL Low HDL Cholesterol HDL >or= 60 mg/dL High HDL Cholesterol Cholesterol in LDL [Mass/Vol] 132 mg/dL 0-130 [facility] CO2 [Moles/Vol] 27.0 mmol/L 21.0-32.0 [facility] Globulin (S) [Mass/Vol] 3.6 g/dL 2.2-4.2 [facility] Urea nitrogen/Creatinine [Mass ratio] 14.9 mg/mg 10-20 [facility] Laboratory - Hematology and Cell countsOrdered By: Aure Ponce on 03-14-2024 MCH (RBC) [Entitic mass] 33.0 pg 27.0-32.0 [facility] MCHC (RBC) [Mass/Vol] 33.8 g/dL 32-36 [facility] Nucleated RBC/100 WBC (Bld) [Ratio] 0 % 0-5 [facility] Platelet mean volume (Bld) [Entitic vol] 8.2 fL 6.2-12.0 [facility] Platelets (Bld) [#/Vol] 222 10*3/uL 150-450 [facility] No Panel InformationOrdered By: Aure Ponce on 03-14-2024 Estimated GFR (MDRD) Amer 111 mL/min >60 [facility] Comment on above: GFR Calc Estimated GFR (MDRD) Non-Af Amer 91 mL/min >60 [facility] Comment on above: Non- GFR Calc Prostate Specific Antigen Screen 2.93 ng/mL 0.00-4.00 [facility] Comment on above: This test was perfor med using the TPSA assay method for theFoodyn chemistry system. Values obtained with differentassay methods cannot be used interchangably.When changing PSA assays in the course of monitoring apatient, additional sequential testing should be carriedout to confirm baseline values. VLDL Cholesterol 32 mg/dL 5-40 [facility] RBC Auto (Bld) [#/Vol]Ordere d By: Aure Ponce on 03-14-2024 RBC (Bld) [#/Vol] 4.67 10*6/uL 4.6-6.2 [facility] Serum or plasma calcium rufina urement (mass/volume)Ordered By: Aure Ponce on 03-14-2024 Calcium [Mass/Vol] 9.7 mg/dL 8.5-10.1 [facility] Serum or plasma creatinine m easurement (mass/volume)Ordered By: Aure Ponce on 03-14-2024 Creatinine [Mass/Vol] 0.87 mg/dL 0.70-1.30 [facility] Comment on above: The validity of the calculated GFR & GFRAA in patients over 70 years has not been determined. Clinical correlation is essential. Serum or plasma urea nitroge n measurement (mass/volume)Ordered By: Aure Ponce on 03-14-2024 Urea nitrogen [Mass/Vol] 13 mg/dL 7-18 [facility] Thin prep Papanicolaou smear with manual screeningOrdered By: [facility] on 03-14-2024 Thin prep Papanicolaou smear with manual screening 4.0 g/dL 3.2-5.0 [facility] Thin prep Papanicolaou smear with manual screening 19 U/L 15-37 [facility] Thin prep Papanicolaou smear with manual screening 8 5-15 [facility] Clinical Event Noteon 2020 Clinical Event Note Clinical Event: Clinical Event Note: Details Patient has necrotic right pinky toe. Causing him pain. Patient was not seen here he was instructed to go straight to the ER. Patient says been going on about 5 weeks. Patient wants to go to the [place] [facility]. Electronic Signatures: Mayra Reyes (SALES AND SERVICE OFFICER-FITTER / WELDER) (Signed 17-Jun-2021 16:06) Authored: Clinical Event Note Last Updated: 17-Jun-2021 16:06 by Mayra Reyes (SALES AND SERVICE OFFICER-FITTER / WELDER) Normal [facility] Auto Diffon 08-09-2019 Basophils (Bld) [#/Vol] 0.0 E3/mcL Normal 0.0-0.2 [facility] Comment on above: Order Comment: Order Added by Discern Expert. Performed By: #### 2 [id number] #### ZEE RemHemo [address] [place] [address] Basophils/100 WBC (Bld) 0.9 % Normal 0.0-2.0 [facility] Comment on above: Order Comment: Order Added by Discern Expert. Performed By: #### 2 [id number] #### ZEE RemHemo [address] [place] [address] Eos Absolute 0.2 E3/mcL Normal 0.0-0.[address] [facility] Comment on above: Order Comment: Order Added by Discern Expert. Performed By: #### 2 [id number] #### ZEE RemHemo [address] [place] [address] Eosinophils/100 WBC (Bld) 3.9 % Normal 0.0-11.[address] [facility] Comment on above: Order Comment: Order Added by Discern Expert. Performed By: #### 2 [id number] #### ZEE RemHemo [address] [place] [address] Lymphocytes (Bld) [#/Vol] 1.1 E3/mcL Low 1.2-3.[address] [facility] Comment on above: Order Comment: Order Added by Discern Expert. Performed By: #### 2 [id number] #### ZEE RemHemo [address] [place] [address] Lymphocytes/100 WBC (Bld) 21.0 % Normal 20.0-55.[address] [facility] Comment on above: Order Comment: Order Added by Discern Expert. Performed By: #### 2 [id number] #### ZEE RemHemo [address] [place] [address] Forest Absolute 0.8 E3/mcL High 0.0-0.[address] [facility] Comment on above: Order Comment: Order Added by Discern Expert. Performed By: #### 2 [id number] #### ZEE RemHemo [address] [place] [address] Monocytes/100 WBC (Bld) 14.3 % High 0.0-10.0 [facility] Comment on above: Order Comment: Order Added by Discern Expert. Performed By: #### 2 [id number] #### ZEE RemHemo [address] [place] [address] Neutro Absolute 3.3 E3/mcL Normal 1.4-6.[address] [facility] Comment on above: Order Comment: Order Added by Discern Expert. Performed By: #### 2 [id number] #### ZEE RemHemo [address] [place] [address] Neutro Auto 59.9 % Normal 37.0-75.[address] [facility] Comment on above: Order Comment: Order Added by Discern Expert. Performed By: #### 2 [id number] #### ZEE RemHemo [address] [place] [address] CBC w/ Auto Diffon Erythrocyte distribution width (RBC) [Ratio] 12.7 % Normal 11.5-14.[address] [facility] Comment on above: Performed By: #### 2 [id number] #### ZEE RemHemo [address] [place] [address] Hematocrit (Bld) [Volume fraction] 40.2 % Low 42.0-52.[address] [facility] Comment on above: Performed By: #### 2 [id number] #### ZEE RemHemo [facility] [place] [address] Hemoglobin (Bld) [Mass/Vol] 13.7 g/dL Normal 13.5-18.[address] [facility] Comment on above: Performed By: #### 2 [id number] #### ZEE RemHemo [address] [place] [address] MCH (RBC) [Entitic mass] 34.9 pg High 27.0-31.[address] [facility] Comment on above: Performed By: #### 2 [id number] #### ZEE RemHemo [address] [place] [address] MCHC (RBC) [Mass/Vol] 34.1 g/dL Normal 33.0-37.0 [facility] Comment on above: Performed By: #### 2 [id number] #### ZEE RemHemo [address] [place] [address] MCV (RBC) [Entitic vol] 102.5 fL High 78.0-100.0 [facility] Comment on above: Performed By: #### 2 [id number] #### ZEE RemHemo [address] [place] [address] Platelet mean volume (Bld) [Entitic vol] 6.6 fL Low 7.4-11.[address] [facility] Comment on above: Performed By: #### 2 [id number] #### ZEE FerreiraHemo [address] [place] [address] Platelets (Bld) [#/Vol] 195 E3/mcL Normal 130-400 [facility] Comment on above: Performed By: #### 2 [id number] #### ZEE FerreiraHemo [address] [place] [address] RBC (Bld) [#/Vol] 3.92 E6/mcL Normal 3.90-6.10 [facility] Comment on above: Performed By: #### 2 [id number] #### ZEESimone FerreiraHemo [address] [place] [address] WBC (Bld) [#/Vol] 5.5 E3/mcL Normal 3.6-11.0 [facility] Comment on above: Performed By: #### 2 [id number] #### ZEE FerreiraHemo [address] [place] [address] CMPon 08-09-2019 Albumin [Mass/Vol] 3.9 g/dL Normal 3.4-5.0 [facility] Comment on above: Performed By: #### 2 [id number] #### ZEE FerreiraChem [address] [place] [address] Albumin/Globulin [Mass ratio] 1.6 {ratio} Normal 1.1-1.[address] [facility] Comment on above: Performed By: #### 2 [id number] #### ZEESimone FerreiraChem [address] [place] [address] Alk Phos 41 Int._Unit/L Normal 33-[address] [facility] Comment on above: Performed By: #### 2 [id number] #### ZEE [employer] [address] [place] [address] ALT [Catalytic activity/Vol] 7 Int._Unit/L Low 10-[address] [facility] Comment on above: Performed By: #### 2 [id number] #### ZEE [employer] [address] [place] [address] Anion gap [Moles/Vol] 14 mmol/L Normal 10-20 [facility] Comment on above: Performed By: #### 2 [id number] #### ZEE [employer]reiraChem [address] [place] [address] AST [Catalytic activity/Vol] 14 Int._Unit/L Normal 9-[address] [facility] Comment on above: Performed By: #### 2 [id number] #### ZEE FerreiraChem [address] [place] [address] Bili Total 0.39 mg/dL Normal 0.00-1.[address] [facility] Comment on above: Performed By: #### 2 [id number] #### ZEE FerreiraChem [facility] [place] [address] Calcium [Mass/Vol] 8.6 mg/dL Normal 8.6-10.3 [facility] Comment on above: Performed By: #### 2 [id number] #### [place] [address] [place] [address] Chloride [Moles/Vol] 101 mmol/L Normal 98-107 [facility] Comment on above: Performed By: #### 2 385228 #### ZEESimone FerreiraChem [address] [place] [address] CO2 [Moles/Vol] 24.0 mmol/L Normal 21.0-32.0 [facility] Comment on above: Performed By: #### 2 [id number] #### ZEE [address] [address] Creatinine [Mass/Vol] 0.8 mg/dL Normal 0.5-1.3 [facility] Comment on above: Performed By: #### 2 [id number] #### ZEE FerreiraChem [facility] [place] [address] Globulin (S) [Mass/Vol] 3.0 g/dL Normal 2.0-4.0 [facility] Comment on above: Performed By: #### 2 706376 #### ZEEiSmone FerreiraChem [address] [place] [address] Glucose [Mass/Vol] 96 mg/dL Normal 70-99 [facility] Comment on above: Performed By: #### 2 [id number] #### ZEESimone FerreiraChem [facility] [place] [address] Potassium [Moles/Vol] 4.2 mmol/L Normal 3.5-5.3 [facility] Comment on above: Performed By: #### 2 [id number] #### ZEE [employer] [address] [place] [address] Protein [Mass/Vol] 6.4 g/dL Normal 6.4-8.2 [facility] Comment on above: Performed By: #### 2 [id number] #### ZEE [employer] [address] [place] [address] Sodium [Moles/Vol] 135 mmol/L Low 136-145 [facility] Comment on above: Performed By: #### 2 [id number] #### ZEE [employer] [address] [place] [address] Urea nitrogen [Mass/Vol] 12 mg/dL Normal 6-[address] [facility] Comment on above: Performed By: #### 2 [id number] #### ZEE [employer] [address] [place] [address] Urea nitrogen/Creatinine [Mass ratio] 15.0 ratio Normal 5.4-30.[address] [facility] Comment on above: Performed By: #### 2 [id number] #### ZEE [employer] [address] [place] [address] Ethanolon 08-09-2019 Ethanol [Mass/Vol] 74 mg/dL High <=10 [facility] Comment on above: Result Comment: SAMP LES WITH CONCENTRATIONS <15 MG/DL SHOULD BE INTERPRETED NEGATIVE. FOR MEDICAL USE ONLY Performed By: #### 2 [id number] #### [employer]EE [employer] [address] [place] [address] Lipase Levelon 08-09-2019 Lipase Lvl 30 Int._Unit/L Normal 9-[address] [facility] Comment on above: Performed By: #### 2 [id number] #### ZEE [employer] [address] [place] [address] Magnesiumon 08-09-2019 Magnesium [Mass/Vol] 2.0 mg/dL Normal 1.6-2.4 [facility] Comment on above: Performed By: #### 2 [id number] #### ZEE [employer] [address] [place] [address] Troponin-Ion 08-09-2019 Troponin I.cardiac [Mass/Vol] 0.03 ng/mL Normal 0.00-0.[address] [facility] Comment on above: Performed By: #### 2 [id number] #### [employer]EE [employer] [address] [place] [address] eGFRon 08-09-2019 GFR/1.73 sq M predicted among non-blacks MDRD (S/P/Bld) [Vol rate/Area] mL/min/{1.73_m2} Normal [facility] Comment on above: Order Comment: Order added by Discern Expert. Performed By: #### 1 [id number] #### ZEE [employer] [address] [place] [address] Vital Signs Date Time Vital Sign Value Performing Clinician Siddhartha garvey 07-12-2025 12:45-0400 Body height 177.8 cm Aure Ponce MD Work Phone: [facility] 07-12-2025 12:45-0400 Body mass index (BMI) [Ratio] 16.5 kg/m2 Aure Ponce MD Work Phone: [facility] 07-12-2025 12:45-0400 Body weight 52.16 kg Aure Ponce MD Work Phone: [facility] 07-12-2025 12:45-0400 Diastolic blood pressure 73 mm[Hg] Aure Ponce MD Work Phone: [facility] 07-12-2025 12:45-0400 Heart rate 87 /min Aure Ponce MD Work Phone: [facility] 07-12-2025 12:45-0400 Respiratory rate 20 /min Aure Ponce MD Work Phone: [facility] 07-12-2025 12:45-0400 Systolic blood pressure 122 mm[Hg] Aure Ponce MD Work Phone: [facility] 03-18-2024 05:52-0400 Body temperature 97.6 [degF] [facility] 03-18-2024 05:52-0400 Diastolic blood pressure 77 mm[Hg] [facility] 03-18-2024 05:52-0400 Heart rate 80 /min [facility] 03-18-2024 05:52-0400 Respiratory rate 18 /min [facility] 03-18-2024 05:52-0400 SaO2% (BldA) [Mass fraction] 97 % [facility] 03-18-2024 05:52-0400 Systolic blood pressure 136 mm[Hg] [facility] 03-17-2024 15:37-0400 Body temperature 98.3 [degF] [facility] 03-17-2024 15:37-0400 Diastolic blood pressure 82 mm[Hg] [facility] 03-17-2024 15:37-0400 Heart rate 90 /min [facility] 03-17-2024 15:37-0400 Respiratory rate 18 /min [facility] 03-17-2024 15:37-0400 SaO2% (BldA) [Mass fraction] 93 % [facility] 03-17-2024 15:37-0400 Systolic blood pressure 144 mm[Hg] [facility] 03-17-2024 15:36-0400 Body height 177.8 cm [facility] 03-17-2024 15:36-0400 Body mass index (BMI) [Ratio] 18.3 kg/m2 [facility] 03-17-2024 15:36-0400 Body weight 58.01 kg [facility] Encounters Encounter Date Encounter Type Care Provider Facility Start: 08-08-2025 ambulatory Tank Urbina Facility:[facility] Start: 08-02-2025 ambulatory Tank Urbina Facility:[facility] Start: 07-21-2025 ambulatory Aure Ponce Facility:[facility] Start: [facility] Start: 07-12-2025 End: 07-12-[address] Tank Urbina MD -[facility] Work Phone: Start: 07-12-2025 End: 07-12-2025 ambulatory Aure Ponce MD Work Phone: -[facility] Start: 06-01-2025 Encounter for genera l adult medical examination without abnormal findings Aure Ponce [facility] Start: 05-26-2025 End: 05-26-2025 ambulatory Aure Ponce MD Work Phone: -[facility] Start: 05-26-2025 End: 05-26-[address] Aure Ponce MD -[facility] Start: 05-26-2025 End: 05-26-2025 ambulatory Aure Ponce Facility:[facility] Start: 03-15-2025 Non-patient / Non-visit Dr. Donaldo petty MD -[facility] Start: 03-15-2025 End: 03-15-2025 ambulatory Aure Ponce MD Work Phone: [facility] Work Phone: Start: 03-15-2025 End: 03-15-[address] Titus Burns DP -[facility] Work Phone: Start: 03-15-2025 End: 03-15-2025 ambulatory Aure Ponce Facility:[facility] Start: 02-14-2025 End: 02-14-2025 ambulatory Aure Ponce MD Work Phone: [facility] Work Phone: Start: 02-14-2025 End: 02-14-2025 Patient encounter procedure Dr. Aure Ponce MD -Radiology, [place] Work Phone: Start: 02-14-2025 End: 02-14-2025 ambulatory Aure Ponce Facility:[facility] Start: 11-11-2024 End: 11-11-[address] Aure Ponce MD -Radiology, [place] Work Phone: Start: 11-11-2024 End: 11-11-2024 ambulatory Aure Ponce Facility:[facility] Start: 07-22-2024 End: 07-22-2024 [facility] Start: 03-17-2024 Evaluation and management of inpatient [facility] Work Phone: Start: 03-14-2024 End: 03-14-2024 ambulatory [facility] Work Phone: Start: 03-14-2024 End: 03-14-2024 Patient encounter procedure [facility] Work Phone: Start: 02-12-2022 End: 02-12-[address] Eugene Simmons Work Phone: [facility] Start: 10-28-2021 Non-patient / Non-visit Dr. Jael Simmons Work Phone: [facility] Start: 10-28-[address] Eugene Simmons Work Phone: [facility] Procedures Date Procedure Procedure Detail Performing Clinician Start: 05-26-2025 Vitamin D, 25-hydrox y measurement Aure Ponce MD Work Phone: Comment on above: Vitamin D StatusDefi ciency: <20 ng/mL (50nmol/L)Insufficiency: 20-30 ng/mL (50-75 nmol/L)Sufficiency: 30-100 ng/mL (75-250 nmol/L)Toxicity: >100 ng/mL (>250 nmol/L) Start: 02-14-2025 X-ray of foot, three or more views Aure Ponce MD Work Phone: Start: 11-11-2024 X-ray of knee, four or more views Aure Ponce MD Work Phone: Start: 03-17-2024 Plain chest X-ray Start: 03-17-2024 Plain x-ray of pelvi s and lower extremity Start: 02-12-[address] Eugene Simmons Work Phone: Plan of Treatment Date Care Activity Detail Author Start: 07-12-2025 Evaluation of diagno stic study results [facility] Start: 03-18-2024 Osteoplasty of femur IM Roddin g Hip, Intertan Nail S/N (Right) [facility] Start: 03-18-2024 Fluoroscopic guidance O.R. Flu crystal for C-Arm [facility] Start: 03-18-2024 Plain x-ray of pelvi s and lower extremity Hip 1 view with Pelvis [facility] Start: 03-18-2024 Blood chemistry [facility] Start: 03-17-2024 Assessment of risk o f venous thromboembolism [facility] Start: 03-17-2024 Incentive spirometry [facility] Start: 03-17-2024 Insertion of cathete r into peripheral vein [facility] Start: 03-17-2024 Oxygen therapy [facility] Start: 03-17-2024 Providing care accor ding to standard [facility] Start: 03-17-2024 Provision of activit y privileges [facility] Start: 03-17-2024 Referral to occupati onal therapist [facility] Start: 03-17-2024 Referral to service [facility] Start: 03-17-2024 [facility] Start: 03-17-2024 Following clinical p athway protocol [facility] Start: 03-17-2024 Verification routine [facility] Start: 03-17-2024 [facility] Start: 03-17-2024 Hospital admission, emergency, from emergency room, medical nature [facility] Start: 03-17-2024 Admission procedure [facility] Anion gap measurement [facility] BUN/Creatinine ratio [facility] Calcium [Mass/volume ] in Serum or Plasma [facility] Carbon dioxide, tota l [Moles/volume] in Serum or Plasma [facility] Chloride [Moles/volu me] in Serum or Plasma [facility] Creatinine [Moles/vo lume] in Serum or Plasma [facility] Glucose [Mass/volume ] in Serum or Plasma [facility] Measurement of renal function [facility] Patient referral [facility] Work Phone: Potassium [Moles/vol ume] in Serum or Plasma [facility] Sodium [Moles/volume ] in Serum or Plasma [facility] Urea nitrogen [Mass/ volume] in Serum or Plasma [facility] Payers Date Payer Category Payer Self-pay [id number] 2024 Unknown [id number] Medicare [id number] Unknown [id number] Unknown VA AUTH REQUIRED SEE NOTE* * [id number] Unknown [id number] Unknown [id number] Unknown [id number] Unknown [id number] Unknown [id number] Unknown [id number] Unknown [id number] Unknown [id number] Unknown [id number] Unknown [id number] Unknown [id number] Social History Date Type Detail Facility Start: 06-17-2021 End: 03-17-2024 Tobacco smoking status NHIS Unknown if ever smoked [facility] Start: 1950 Sex Assigned At Male [facility] Start: 03-18-2024 [facility] Start: 02-18-2025 Sex Male (finding) [facility] Start: 06-28-2025 Tobacco smoking stat [facility] Current Heavy tobacco smoker [facility] Medical Equipment Procedure Code Equipment Code Equipment Origin al Text Equipment Identifier Dates Insertion, trochanteric nail, femur, proximal ([id number]) Orthopaedic bone screw, non-bioabsorbable, sterile [id number] FDA Start: 03-18-2024 Insertion, trochanteric nail, femur, proximal ([id number]) Femur nail, sterile [id number] FDA Start: 03-18-2024 Insertion, trochanteric nail, femur, proximal ([id number]) Orthopaedic bone screw, non-bioabsorbable, sterile ()[id number] FDA Start: 03-18-2024 Goals Date Patient Goal Desired Activity /State Functional Status Date Assessment Result Facility 03-18-2024 Functional status Bedrest [facility] Work Phone: Mental Status Date Assessment Result Facility 03-18-2024 Cognitive function Voice/Name [facility] Work Phone: Radiology Diagnostic study note 02-15-2025 Note Date & Type Note Facility 02-15-2025 Radiology Diagnostic study note [facility] Imaging Services [address] [place] [address] Foot min 3 Views MR#: [id number] Acct: [id number] Name: MAVIS IRWIN Rep #: [id number] : 1950 M 74 From: Crystal James MD PCP: Dr. Aure Ponce MD Status: REG CL I Study:Foot min 3 Views Date of Exam: 07/03 Exam# [id number] Ordering Dr: Luz Maria Ponce MD EXAM: [...] with MRI as clinically indicated. Reading Location: [facility] CC: Dr. Aure Ponce MD ~ Wood Crew Supervisor: Signed [facility] Discharge summary 03-17-2024 Note Date & Type Note Facility 03-17-2024 Discharge summary Note Date/Time March 17, 2024 10:44am [facility] Medical Records Department [address] [place] [address] Emergency Department Summary 03/17/24 MR#: [id number] Acct: [id number] Name: MAVIS IRWIN Rep #:[id number] : [...] 80.3 H Lymph % (Auto) 4.0 L [place] % (Auto) 15.0 H Eos % (Auto) [...] IMPRESSION: Nondisplaced right intertrochanteric fracture. Electronically Signed: Bright Hoffmann MD at 11:12 EDT , Chest [...] your Primary Care Provider. Call [facility] ([phone]) or report to the closest Emergency Room. [...] (if applicable): cc: GEMINI BERRY ~* Signed [facility] Work Phone: Evaluation note Note Date & Type Note Facility Evaluation note No assessment information availa ble [facility] Work Phone: Evaluation note Note Date & Type Note Facility Evaluation note Diagnosis Onset Date Closed right hip fracture ac yurok ETOH abuse acute Tobacco abuse acute [facility] Work Phone: Reason for referral (narrative) Note Date & Type Note Facility Reason for referral (narrative) No reason for referral information available [facility] Work Phone: Summary Purpose Family History No Family History Records FoundNo Family History Records FoundNo Family History Records Found Advance Directives No Advanced Directives Records Found Advance Directive Response Recorded Date/ Time Living Will No June 17, 2021 7:12pm 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 No June 17 7:12pm Advance Directive Response Recorded Date/ Time Name of Medical 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 JULIA--JOLENE MCKENZIE March 17, 2024 10:18am Living Will Yes March 17, 2024 10 :18am 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 Yes March 17, 2024 10:18am Advance Directive Response Recorded Date/ Time Name of Medical 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 Julia farley, Daughter March 17, 2024 3:40pm Living Will Yes March 17, 2024 3: 40pm 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 Yes March 17, 2024 3:40pm Chief Complaint [...] vascular dise ases March 15, 2025 1:02pm Chief Complaint Admit Date Other specified peripheral vascular dise ases March 15, 2025 1:02pm ORTHOSTATIC HYPOTENSION July 12, 12:35pm Additional Source Comments (unrecognized sect ion and content) No Status Records FoundNo Status Records FoundNo Status Records Found INFORMATION SOURCE (unrecogn ized section and content) DATE CREATED AUTHOR 08/10/2019 [facility] DATE CREATED AUTHOR AUTHOR'S ORGANIZ ATION 06/18/2021 [facility] DATE CREATED AUTHOR AUTHOR'S ORGANIZ ATION [facility] Goals (unrecognized section and content) Goals [...] Primary Care Provider Active Dr. Pepe Chavez , DO Emergency Provider Active Dr. Lennox Oliveira , DO Admit Provider, Attending Provider Active Team Status: Inactive Member Role Status Dates GEMINI BERRY Primary Care Provider Active Aure Ponce MD Attending Provider, Referring Provide r Active Team Status: Active Member Role Status Dates GEMINI BERRY Primary Care Provider Active Dr. Pepe Chavez , Emergency Provider Active Dr. Lennox Oliveira DO Admit Provider, Other Pro vider Active Dr. Donaldo Chavis , Attending Provider Active Team Status: Active Member [...] Provider Active S tart: March 15, 2025 Team Status: Active Member Role/Relationship Status Bella Ponce MD Primary Care Provider Active Team Status: Inactive Member Role/Relationship Status Bella Ponce MD Primary Care Provider Active St art: February 14, 2025 End: February 14, 2025 Aure Ponce MD Attending Provider Active Start : February 14, 2025 End: February 14, 2025 Aure Ponce MD Referring Provider Active Start : February 14, 2025 End: February 14, 2025 Team Status: Inactive Member Role/Relationship Status Bella Ponce MD Primary Care Provider Active St art: March 15, 2025 End: March 15, 2025 Dr. Titus Burns DPM Attending Provider Active Start: March 15, 2025 End: March 15, 2025 Dr. Titus Burns DPM Referring Provider Active Start: March 15, 2025 End: March 15, 2025 Team Status: Active Member Role/Relationship Status Bella Ponce MD Primary Care Provider Active St art: March 15, 2025 Dr. Donaldo Brown MD Attending Provider Active S tart: March 15, 2025 Dr. Titus Burns DPM Referring Provider Active Start: March 15, 2025 Team Status: Inactive Member Role/Relationship Status Bella Ponce MD Primary Care Provider Active St art: May 26, 2025 End: May 26, 2025 Aure Ponce MD Attending Provider Active Start : May 26, 2025 End: May 26, 2025 Aure Ponce MD Referring Provider Active Start : May 26, 2025 End: May 26, 2025 Team Status: Inactive Member Role/Relationship Status Bella Ponce MD Primary Care Provider Active St art: March 15, 2025 End: March 15, 2025 Dr. Titus Burns DPM Attending Provider Active Start: March 15, 2025 End: March 15, 2025 Dr. Titus Burns DPM Referring Provider Active Start: March 15, 2025 End: March 15, 2025 Team Status: Active Member Role/Relationship Status Bella Ponce MD Primary Care Provider Active St art: March 15, 2025 Dr. Donaldo Brown MD Attending Provider Active S tart: March 15, 2025 Dr. Tiuts Burns DPM Referring Provider Active Start: March 15, 2025 Team Status: Inactive Member Role/Relationship Status Bella Ponce MD Primary Care Provider Active St art: May 26, 2025 End: May 26, 2025 Aure Ponce MD Attending Provider Active Start : May 26, 2025 End: May 26, 2025 Aure Ponce MD Referring Provider Active Start : May 26, 2025 End: May 26, 2025 Team Status: Inactive Member Role/Relationship Status Dates Aure Ponce MD Primary Care Provider Active St art: July 12, 2025 End: July 12, 2025 Aure Ponce MD Referring Provider Active Start : July 12, 2025 End: July 12, 2025 Dr. Tank Urbina MD Attending Provider Active Start: July 12, 2025 End: July 12, 2025 FOR RECORDS PERTAINING TO PATIENTS WHO [...] BE BASED ON THE PRIMARY CLINICAL RECORDS. [facility] [employer] [facility]. provides no warranty or guarantee of the accuracy or completeness of information in this document.
--- NOTE | 2025-07-21 09:46 | STRESSREP_ITS ---
Stress Test Report Date: 07/21/2025 Procedure: Pharmacologic stress nuclear imaging study Indications: CAD Consent: Per the patient Procedure: The patient underwent pharmacologic (Regadenoson 0.4mg ) evaluation with a peak heart rate of 114 beats per minute (77%predicted maximal heart rate) and a peak blood pressure of 190/94 mmHg. The baseline ECG demonstrated sinus rhythm. The peak pharmacologic ECG did not show any ischemic changes. There were no cardiac dysrhythmias pretest, during pharmacologic infusion, or recovery. There was no complaint of chest discomfort during pharmacologic infusion or recovery. The patient was injected with 11.4 millicuries of technetium 99m Cardiolite and subsequently rest SPECT Cardiolite nuclear imaging was obtained in the horizontal long, vertical long, and short axis views. The patient underwent pharmacologic (Regadenoson) evaluation. The patient was injected with 33.9 millicuries of technetium 99m Cardiolite and subsequently stress SPECT Cardiolite nuclear imaging was obtained in the horizontal long, vertical long, and short axis views. A gated Cardiolite study at peak stress was obtained. The examination was stopped secondary to completion of protocol. Rest and stress SPECT Cardiolite nuclear imaging status post realignment, normalization, and attenuation correction demonstrate reduced perfusion of the inferior wall and septum at rest which appears better post pharmacological stress. Consider artifact. There is end systolic thickening and brightening. The gated Cardiolite study demonstrates myocardial thickening and inward wall motion. The reported LVEF is 72%. Impression: 1. Pharmacologic (Regadenoson) evaluation 2. Peak pharmacologic ECG with no diagnostic ischemic changes. Exaggerated blood pressure response to pharmacological stress. 3. There were no cardiac dysrhythmias pretest, during pharmacologic infusion, or recovery. 5. No fixed or post pharmacological stress reversible perfusion defects. 6. The gated Cardiolite study reports an LVEF of 72%. This note was generated with [employer] software. It may contain incorrect words, spelling, and punctuation that were not noted in checking the note before signing.
== END | disposition home or self-care (01) ==
LOC: CVS 06:28
PROVIDERS: PCP Family Medicine; Referring Provider Internal Medicine Cardiovascular Disease; Visit Provider Internal Medicine Cardiovascular Disease
DX: R55 Syncope and collapse (principal); I25.10 Atherosclerotic heart disease of native coronary artery without angina pectoris
CPT/HCPCS: 78452; 93017; A9500; A4216; J2785

== ENCOUNTER → 2025-08-02 | Outpatient (CLI) | payer MEDICARE, SELFPAY ==
--- NOTE | 2025-08-02 12:45 | CT_ITS ---
PROCEDURE: CTA HEAD W/WO CONTRAST 08/02/2025 REASON FOR EXAM: SYNCOPE TECHNIQUE: Procedure Code: CTCTAHWW Modality: CT Procedure: CTA HEAD W/WO CONTRAST Multiplanar Sagittal and Coronal images were obtained. 3D reconstructions CONTRAST: Isovue 370 VOLUME: 100 mL One or more dose reduction techniques were used (e.g., Automated exposure control, adjustment of the mA and/or kV according to patient size, use of iterative reconstruction technique). RADIATION DOSE SUMMARY: CTDlvol: 79 mGy DLP: 1216 mGycm FINDINGS: Distal Internal carotid arteries are patent. Normal petrous internal carotid vessels. Calcified plaque in both cavernous carotid arteries. Right M1, right M2, left M1, left M2 and KAUR vessels are patent. Normal basilar artery caliber. Basilar tip is patent. 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 No dural sinus thrombosis. CT/CTA Head W/WO Contrast IMPRESSION: No significant stenosis Reading [facility]
--- NOTE | 2025-08-02 12:45 | CT_ITS ---
PROCEDURE: CTA HEAD W/WO CONTRAST 08/02/2025 REASON FOR EXAM: SYNCOPE TECHNIQUE: Procedure Code: CTCTAHWW Modality: CT Procedure: CTA HEAD W/WO CONTRAST Multiplanar Sagittal and Coronal images were obtained. 3D reconstructions CONTRAST: Isovue 370 VOLUME: 100 mL One or more dose reduction techniques were used (e.g., Automated exposure control, adjustment of the mA and/or kV according to patient size, use of iterative reconstruction technique). RADIATION DOSE SUMMARY: CTDlvol: 79 mGy DLP: 1216 mGycm FINDINGS: Distal Internal carotid arteries are patent. Normal petrous internal carotid vessels. Calcified plaque in both cavernous carotid arteries. Right M1, right M2, left M1, left M2 and KAUR vessels are patent. Normal basilar artery caliber. Basilar tip is patent. 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 No dural sinus thrombosis. CT/CTA Head W/WO Contrast IMPRESSION: No significant stenosis Reading Location[facility]
--- OUTSIDE RECORDS SUMMARY | 2025-08-02 15:20 | XMS RPT_ITS | CCD ---
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 Eugene Simmons Attending Provider Dr. Eugene Simmons Referring Provider [phone] Kris GRIMES, Aure Primary Care Provider [phone] Aure Ponce MD Attending Provider [phone] Kris GRIMES, Aure Referring Provider Kris GRIMES, Aure Primary Care Provider [phone] Aure Ponce MD Attending Provider Aure Ponce MD Referring Provider Dr. Titus Burns DPM Attending Provider [phone] Dr. Titus Burns DPM Referring Provider [phone] Dr. Donaldo Brown MD Attending Provider Kris GRIMES, Aure Primary Care Provider [phone] Aure Ponce MD Attending Provider [phone] Aure Ponce MD Referring Provider [phone] Carlitos GRIMES, Dr. Fu Attending Provider Kris, Chalon Primary Care Unavailable Kris, Chalon Attending Unavailable Kris, Chalon Referring Unavailable Kris, Chalon Primary Care Unavailable Titus Burns Referring Unavailable Donaldo Brown Attending Unavailable Kris, Chaljunior Referring Unavailable Kris, Chalon Primary Care Unavailable Tank Urbina Attending Unavailable Kris, Chalon Attending Unavailable Kris, Chalon Primary Care Unavailable Kris, Chalon Referring Unavailable Kris, Chalon Primary Care Unavailable Kris, Chalon Attending Unavailable Kris, Chalon Referring Unavailable Carlitos, Tank Attending Unavailable Kris, [...] Unavailable Carlitos, Tank Referring Unavailable Carlitos, Tank Consulting Unavailable Carlitos, Tank Attending Unavailable Kris, Chalon Primary Care Unavailable Titus Burns Attending Unavailable Titus Burns Referring Unavailable Medications Current Medications Medication Drug [...] 1000 mg PO EVERY 8 HOURS 0 0 March 23, 2024 12:00am June 28, 2025 9:29am Ycra-yxc-louakuc. 1 g every 8 hourly for 7 [...] Start: 03-23-2024 take 2 tablets by mo uth twice daily Sennosides (Senna) 8.6 mg Tablet Active 17.2 mg PO TWICE A DAY 0 March 23, 2024 12:00am Start: 03-23-2024 take 2 tablets by mo uth twice daily Sennosides (Senna) 8.6 mg Tablet [...] Comment on above: [place] w/ oj- 2-3drin keaton (coffee cup mugs) Coronary atherosclerosis and other heart disease (3 sources) Coronary arteriosclerosis; Translations: [Atherosclerotic heart disease of [place] coronary artery without angina pectoris] Onset: 07-12-2025 [...] Test Name Value Interpretation Reference Range Facility Stress Reporton 07-21-2025 Stress Report [facility] [address] [place] [address] MR#: [id number] Acct: [id number] Name: MAVIS IRWIN Rep #: [id number] : 1950 74 From: Tank Urbina MD Primary Care: Dr. Aure Ponce MD Status: REG CLI Referring Dr: Tank Urbina MD Sex: M C Stress Test Report Date: 07/21/2025 Procedure: Pharmacologic stress nuclear imaging study Indications: CAD Consent: Per the patient Procedure: The patient underwent pharmacologic (Regadenoson 0.4mg ) evaluation with a peak heart rate of 114 beats per minute (77%predicted maximal heart rate) and a peak blood pressure of 190/94 mmHg. The baseline ECG demonstrated sinus rhythm. The peak pharmacologic ECG did not show any ischemic changes. There were no cardiac dysrhythmias pretest, during pharmacologic infusion, or recovery. There was no complaint of chest discomfort during pharmacologic infusion or recovery. The patient was injected with 11.4 millicuries of technetium 99m Cardiolite and subsequently rest SPECT Cardiolite nuclear imaging was obtained in the horizontal long, vertical long, and short axis views. The patient underwent pharmacologic (Regadenoson) evaluation. The patient was injected with 33.9 millicuries of technetium 99m Cardiolite and subsequently stress SPECT Cardiolite nuclear imaging was obtained in the horizontal long, vertical long, and short axis views. A gated Cardiolite study at peak stress was obtained. The examination was stopped secondary to completion of protocol. Rest and stress SPECT Cardiolite nuclear imaging status post realignment, normalization, and attenuation correction demonstrate reduced perfusion of the inferior wall and septum at rest which appears better post pharmacological stress. Consider artifact. There is end systolic thickening and brightening. The gated Cardiolite study demonstrates myocardial thickening and inward wall motion. The reported LVEF is 72%. Impression: 1. Pharmacologic (Regadenoson) evaluation 2. Peak pharmacologic ECG with no diagnostic ischemic changes. Exaggerated blood pressure response to pharmacological stress. 3. There were no cardiac dysrhythmias pretest, during pharmacologic infusion, or recovery. 5. No fixed or post pharmacological stress reversible perfusion defects. 6. The gated Cardiolite study reports an LVEF of 72%. This note was generated with Omnisensation software. It may contain incorrect words, spelling, and punctuation that were not noted in checking the note before signing. 07/21/25948 Date Tank Urbina MD CC: Dr. Tank Urbina MD; Dr. Aure Ponce MD Date Dictated: 07/21/25945 Date Transcribed: 07/21/25945 Care Trainer: KIAN Signed Normal [facility] Basic Metabolic Profile (BMP )on 07-20-2025 BUN Normal 4-19 [facility] Comment on above: Result Comment: LETICIA STRATION PULLED ORDERS ACROSS; CALLED OFFICE AND SPOKE TO MACHO, SHE WILL HAVE THEM RE-ENTERED. Performed By: #### L 500.2500, L100.0500 ####[facility] [address] [place], [address] BUN/CRE Normal 10-20 [facility] Comment on above: Result Comment: LETICIA STRATION PULLED ORDERS ACROSS; CALLED OFFICE AND SPOKE TO MACHO, SHE WILL HAVE THEM RE-ENTERED. Performed By: #### L 500.2500, L100.0500 ####[facility] [address] [place], [address] Calcium Normal 7.6-11.0 [facility] Comment on above: Result Comment: LETICIA STRATION PULLED ORDERS ACROSS; CALLED OFFICE AND SPOKE TO MACHO, SHE WILL HAVE THEM RE-ENTERED. Performed By: #### L 500.2500, L100.0500 ####[facility] [address] [place], [address] CL Normal 98-108 [facility] Comment on above: Result Comment: LETICIA STRATION PULLED ORDERS ACROSS; CALLED OFFICE AND SPOKE TO MACHO, SHE WILL HAVE THEM RE-ENTERED. Performed By: #### L 500.2500, L100.0500 ####[facility] [address] [place], [address] CO2 Normal 21.0-32.0 [facility] Comment on above: Result Comment: LETICIA STRATION PULLED ORDERS ACROSS; CALLED OFFICE AND SPOKE TO MACHO, SHE WILL HAVE THEM RE-ENTERED. Performed By: #### L 500.2500, L100.0500 ####[facility] [address] [place], [address] CREAT,SERUM Normal 0.70-1.20 [facility] Comment on above: Result Comment: LETICIA STRATION PULLED ORDERS ACROSS; CALLED OFFICE AND SPOKE TO MACHO, SHE WILL HAVE THEM RE-ENTERED. Performed By: #### L 500.2500, L100.0500 ####[facility] [address] [place], [address] eGFR Normal >60 [facility] Comment on above: Result Comment: LETICIA STRATION PULLED ORDERS ACROSS; CALLED OFFICE AND SPOKE TO MACHO, SHE WILL HAVE THEM RE-ENTERED. Performed By: #### L 500.2500, L100.0500 ####[facility] [address] [place], [address] GAP Normal 5-15 [facility] Comment on above: Result Comment: LETICIA STRATION PULLED ORDERS ACROSS; CALLED OFFICE AND SPOKE TO MACHO, SHE WILL HAVE THEM RE-ENTERED. Performed By: #### L 500.2500, L100.0500 ####[facility] [address] [place], [address] GLU Normal 70-99 [facility] Comment on above: Result Comment: LETICIA STRATION PULLED ORDERS ACROSS; CALLED OFFICE AND SPOKE TO MACHO, SHE WILL HAVE THEM RE-ENTERED. Performed By: #### L 500.2500, L100.0500 ####[facility] [address] [place], [address] Potassium Normal 3.3-5.1 [facility] Comment on above: Result Comment: LETICIA STRATION PULLED ORDERS ACROSS; CALLED OFFICE AND SPOKE TO MACHO, SHE WILL HAVE THEM RE-ENTERED. Performed By: #### L 500.2500, L100.0500 ####[facility] [address] [place], [address] Basic Metabolic Profile (BMP) Normal 133-145 [facility] Comment on above: Result Comment: LETICIA STRATION PULLED ORDERS ACROSS; CALLED OFFICE AND SPOKE TO MACHO, SHE WILL HAVE THEM RE-ENTERED. Performed By: #### L 500.2500, L100.0500 ####[facility] [address] [place], [address] CBC-Complete Blood Cnt No Di ffon 07-20-2025 HCT Normal 40-54 [facility] Comment on above: Performed By: #### L 500.2500, L100.0500 #### [facility] [address] [place], [address] HGB Normal 13.0-16.5 [facility] Comment on above: Performed By: #### L 500.2500, L100.0500 #### [facility] [address] [place], [address] MCH Normal 27.0-32.0 [facility] Comment on above: Performed By: #### L 500.2500, L100.0500 #### [facility] [address] [place], [address] MCHC Normal 32-36 [facility] Comment on above: Performed By: #### L 500.2500, L100.0500 #### [facility] [address] [place], [address] MCV Normal 80-94 [facility] Comment on above: Performed By: #### L 500.2500, L100.0500 #### [facility] [address] [place], [address] PLT Normal 150-450 [facility] Comment on above: Performed By: #### L 500.2500, L100.0500 #### [facility] [address] [place], [address] RBC Normal 4.6-6.2 [facility] Comment on above: Performed By: #### L 500.2500, L100.0500 #### [facility] [address] [place], [address] RDW CV Normal 11.6-14.6 [facility] Comment on above: Performed By: #### L 500.2500, L100.0500 #### [facility] [address] [place], [address] RDW SD Normal 35.1-43.9 [facility] Comment on above: Performed By: #### L 500.2500, L100.0500 #### [facility] [address] [place], [address] WBC Normal 4.4-11.0 [facility] Comment on above: Performed By: #### L 500.2500, L100.0500 #### [facility] [address] [place], [address] Cardiology Visit Reporton Cardiology Visit Report [facility] [address] [place] [address] OFFICE VISIT Date of Service: 07/12/25 MR#: [id number] Acct: [id number] Name: MAVIS IRWIN Rep #: [id number] : 1950 Provider: Dr. Tank Urbina MD Age/Sex: 74/M [place] [facility] [place] [facility] [place] Status: Signed HPI HPI [...] Source Monitor Intake Visit Reasons: ORTHOSTATIC HYPOTENSION Ux Architect Required: No Accompanied by: Daughter Is patient [...] Syncope R55 (more content not included)... Normal [facility] Absolute lymphocyte countOrd ered By: Aure Ponce on 05-26-2025 Lymphocytes Auto (Unsp spec) [#/Vol] 0.84 10*3/uL 0.83-4.51 [facility] Absolute neutrophil countOrd ered By: [facility] Kris on 05-26-2025 Neutrophils (Bld) [#/Vol] 6.5 10*3/uL 2.0-7.7 [facility] Anion gap in Serum or Plasma Ordered By: Aure Ponce on 05-26-2025 Anion gap [Moles/Vol] 14 mmol/L 5-15 [facility] Automated lymphocyte count a s percentage of total leukocytesOrdered By: Aure Ponce on 05-26-2025 Lymphocytes/100 WBC Auto (Unsp spec) 9.9 % Low 19-41 [facility] BUN/creatinine ratioOrdered By: [facility] on 05-26-2025 Urea nitrogen/Creatinine [Mass ratio] 15.5 mg/mg 10-20 [facility] Basophil percentageOrdered B y: Aure Ponce on 05-26-2025 Basophils/100 WBC (Bld) 0.6 % 0-1 [facility] Bilirubin, totalOrdered By: Aure Kris on 05-26-2025 Bilirubin [Mass/Vol] 0.63 mg/dL 0.00-1.30 [facility] CBC W/Diff, Automatedon 05-09 Absolute Lymph 0.84 X10 3/uL Normal 0.83-4.51 [facility] Comment on above: Order Comment: Order Date: 05/26/25 Order Info: 0184-1 - CBCD Performed By: #### L 501.9985, L100.0100, L501.9520, L500.4100, L500.4050 #### [facility] [place], [address] Absolute Neut 6.5 X10 3/uL Normal 2.0-7.7 [facility] Comment on above: Order Comment: Order Date: 05/26/25 Order Info: 0184-1 - CBCD Performed By: #### L 501.9985, L100.0100, L501.9520, L500.4100, L500.4050 #### [facility] [address] [place], [address] Basophils/100 WBC (Bld) 0.6 % Normal 0-1 [facility] Comment on above: Order Comment: Order Date: 05/26/25 Order Info: 0184-1 - CBCD Performed By: #### L 501.9985, L100.0100, L501.9520, L500.4100, L500.4050 #### [facility] [address] [place], [address] Eosinophils/100 WBC (Bld) 0.9 % Normal 0-5 [facility] Comment on above: Order Comment: Order Date: 05/26/25 Order Info: 0184- - CBCD Performed By: #### L 501.9985, L100.0100, L501.9520, L500.4100, L500.4050 #### [facility] [address] [place], [address] Erythrocyte distribution width (RBC) [Ratio] 11.9 % Normal 11.6-14.6 [facility] Comment on above: Order Comment: Order Date: 05/26/25 Order Info: 0184-1 - CBCD Performed By: #### L 501.9985, L100.0100, L501.9520, L500.4100, L500.4050 #### [facility] [address] [place], [address] Hematocrit (Bld) [Volume fraction] 42.8 % Normal 40-54 [facility] Comment on above: Order Comment: Order Date: 05/26/25 Order Info: 0184-1 - CBCD Performed By: #### L 501.9985, L100.0100, L501.9520, L500.4100, L500.4050 #### [facility] [address] [place], [address] Hemoglobin (Bld) [Mass/Vol] 14.8 g/dL Normal 13.0-16.5 [facility] Comment on above: Order Comment: Order Date: 05/26/25 Order Info: 0184-1 - CBCD Performed By: #### L 501.9985, L100.0100, L501.9520, L500.4100, L500.4050 #### [facility] [address] [place], [address] IG% 0.400 Normal 0.0-0.9 [facility] Comment on above: Order Comment: Order Date: 05/26/25 Order Info: 0184- - CBCD Result Comment: IG% - Immature Granulocytes (promyelocytes, myelocytes and metamyelocytes) > 1% indicates that a LEFT SHIFT is Present. Performed By: #### L 501.9985, L100.0100, L501.9520, L500.4100, L500.4050 #### [facility] [address] [place], [address] Lymphocytes/100 WBC (Bld) 9.9 % Low 19-41 [facility] Comment on above: Order Comment: Order Date: 05/26/25 Order Info: 0184-1 - CBCD Performed By: #### L 501.9985, L100.0100, L501.9520, L500.4100, L500.4050 #### [facility] [address] [place], [address] MCH (RBC) [Entitic mass] 33.6 pg High 27.0-32.0 [facility] Comment on above: Order Comment: Order Date: 05/26/25 Order Info: 0184-1 - CBCD Performed By: #### L 501.9985, L100.0100, L501.9520, L500.4100, L500.4050 #### [facility] [address] [place], [address] MCHC (RBC) [Mass/Vol] 34.6 g/dL Normal 32-36 [facility] Comment on above: Order Comment: Order Date: 05/26/25 Order Info: 0184-1 - CBCD Performed By: #### L 501.9985, L100.0100, L501.9520, L500.4100, L500.4050 #### [facility] [address] [place], [address] MCV (RBC) [Entitic vol] 97.3 fL High 80-94 [facility] Comment on above: Order Comment: Order Date: 05/26/25 Order Info: 018- - CBCD Performed By: #### L 501.9985, L100.0100, L501.9520, L500.4100, L500.4050 #### [facility] [address] [place], [address] Monocytes/100 WBC (Bld) 11.9 % High 0-10 [facility] Comment on above: Order Comment: Order Date: 05/26/25 Order Info: 018- - CBCD Performed By: #### L 501.9985, L100.0100, L501.9520, L500.4100, L500.4050 #### [facility] [address] [place], [address] Neutrophils/100 WBC (Bld) 76.3 % High 47-70 [facility] Comment on above: Order Comment: Order Date: 05/26/25 Order Info: 0184-1 - CBCD Performed By: #### L 501.9985, L100.0100, L501.9520, L500.4100, L500.4050 #### [facility] [address] [place], [address] Nucleated RBC (Bld) [#/Vol] 0 10*3/uL Normal 0-5 [facility] Comment on above: Order Comment: Order Date: 05/26/25 Order Info: 0184-1 - CBCD Performed By: #### L 501.9985, L100.0100, L501.9520, L500.4100, L500.4050 #### [facility] [address] [place], [address] Platelet mean volume (Bld) [Entitic vol] 8.7 fL Normal 6.2-12.0 [facility] Comment on above: Order Comment: Order Date: 05/26/25 Order Info: 0184- - CBCD Performed By: #### L 501.9985, L100.0100, L501.9520, L500.4100, L500.4050 #### [facility] [address] [place], [address] Platelets (Bld) [#/Vol] 268 10*3/uL Normal 150-450 [facility] Comment on above: Order Comment: Order Date: 05/26/25 Order Info: 0184- - CBCD Performed By: #### L 501.9985, L100.0100, L501.9520, L500.4100, L500.4050 #### [facility] [address] [place], [address] RBC (Bld) [#/Vol] 4.40 10*6/uL Low 4.6-6.2 [facility] Comment on above: Order Comment: Order Date: 05/26/25 Order Info: 0184-1 - CBCD Performed By: #### L 501.9985, L100.0100, L501.9520, L500.4100, L500.4050 #### [facility] [address] [place], [address] RDW SD 43.2 fl Normal 35.1-43.9 [facility] Comment on above: Order Comment: Order Date: 05/26/25 Order Info: 0184-1 - CBCD Performed By: #### L 501.9985, L100.0100, L501.9520, L500.4100, L500.4050 #### [facility] [address] [place], [address] WBC (Bld) [#/Vol] 8.5 10*3/uL Normal 4.4-11.0 [facility] Comment on above: Order Comment: Order Date: 05/26/25 Order Info: 0184-1 - CBCD Performed By: #### L 501.9985, L100.0100, L501.9520, L500.4100, L500.4050 #### [facility] [address] [place], [address] Calculated very low density lipoprotein (VLDL) cholesterol measurementOrdered By: Aure Ponce on 05-26-2025 Calculated very low density lipoprotein (VLDL) cholesterol measurement 20 mg/dL 5-40 [facility] Carbon dioxide, total [Moles /volume] in Central venous bloodOrdered By: Aure Ponce on 05-26-2025 CO2 [Moles/Vol] 25.8 mmol/L 21.0-32.0 [facility] Chloride assayOrdered By: Sarbjit Ponce on 05-26-2025 Chloride [Moles/Vol] 92 mmol/L Low 98-108 [facility] Comprehensive Metabolic Prof ilon 05-26-2025 Albumin [Mass/Vol] 4.8 g/dL Normal 3.4-4.8 [facility] Comment on above: Order Comment: Order Date: 05/26/25 Order Info: [id number] - CMP Order Info: [id number] - LIPID Order Info: [id number] - TSH Performed By: #### L 501.9985, L100.0100, L501.9520, L500.4100, L500.4050 #### [facility] [address] [place], [address] Albumin/Globulin [Mass ratio] 1.6 {ratio} Normal 0.9-2.4 [facility] Comment on above: Order Comment: Order Date: 05/26/25 Order Info: [id number] - CMP Order Info: - LIPID Order Info: [id number] - TSH Performed By: #### L 501.9985, L100.0100, L501.9520, L500.4100, L500.4050 #### [facility] [address] [place], [address] ALK PHOS 75 U/L Normal 40-129 [facility] Comment on above: Order Comment: Order Date: 05/26/25 Order Info: [id number] - CMP Order Info: - LIPID Order Info: [id number] - TSH Performed By: #### L 501.9985, L100.0100, L501.9520, L500.4100, L500.4050 #### [facility] [address] [place], [address] ALT [Catalytic activity/Vol] 23 U/L Normal <=46 [facility] Comment on above: Order Comment: Order Date: 05/26/25 Order Info: [id number] - CMP Order Info: - LIPID Order Info: [id number] - TSH Performed By: #### L 501.9985, L100.0100, L501.9520, L500.4100, L500.4050 #### [facility] [address] [place], [place], [address] AST [Catalytic activity/Vol] 29 U/L Normal <=37 [facility] Comment on above: Order Comment: Order Date: 05/26/25 Order Info: 07 - CMP Order Info: [id number] - LIPID Order Info: [id number] - TSH Performed By: #### L 501.9985, L100.0100, L501.9520, L500.4100, L500.4050 #### [facility] [address] [place], [address] Bilirubin [Mass/Vol] 0.63 mg/dL Normal 0.00-1.30 [facility] Comment on above: Order Comment: Order Date: 05/26/25 Order Info: [id number] - CMP Order Info: - LIPID Order Info: [id number] - TSH Performed By: #### L 501.9985, L100.0100, L501.9520, L500.4100, L500.4050 #### [facility] [address] [place], [address] BUN/CRE 15.5 RATIO Normal 10-20 [facility] Comment on above: Order Comment: Order Date: 05/26/25 Order Info: [id number] - CMP Order Info: - LIPID Order Info: [id number] - TSH Performed By: #### L 501.9985, L100.0100, L501.9520, L500.4100, L500.4050 #### [facility] [address] [place], [address] Calcium [Mass/Vol] 10.1 mg/dL Normal 7.6-11.0 [facility] Comment on above: Order Comment: Order Date: 05/26/25 Order Info: 785-11 - CMP Order Info: - LIPID Order Info: [id number] - TSH Performed By: #### L 501.9985, L100.0100, L501.9520, L500.4100, L500.4050 #### [facility] [address] [place], [address] Chloride [Moles/Vol] 92 mmol/L Low 98-108 [facility] Comment on above: Order Comment: Order Date: 05/26/25 Order Info: [id number] - CMP Order Info: - LIPID Order Info: [id number] - TSH Performed By: #### L 501.9985, L100.0100, L501.9520, L500.4100, L500.4050 #### [facility] [address] [place], [address] CO2 [Moles/Vol] 25.8 mmol/L Normal 21.0-32.0 [facility] Comment on above: Order Comment: Order Date: 05/26/25 Order Info: 785- - CMP Order Info: [id number] - LIPID Order Info: [id number] - TSH Performed By: #### L 501.9985, L100.0100, L501.9520, L500.4100, L500.4050 #### [facility] [address] [place], [place], [address] Creatinine [Mass/Vol] 0.64 mg/dL Low 0.70-1.20 [facility] Comment on above: Order Comment: Order Date: 05/26/25 Order Info: [id number] - CMP Order Info: [id number] - LIPID Order Info: [id number] - TSH Performed By: #### L 501.9985, L100.0100, L501.9520, L500.4100, L500.4050 #### [facility] [address] [place], [address] GAP 14 Normal 5-15 [facility] Comment on above: Order Comment: Order Date: 05/26/25 Order Info: [id number] - CMP Order Info: [id number] - LIPID Order Info: [id number] - TSH Performed By: #### L 501.9985, L100.0100, L501.9520, L500.4100, L500.4050 #### [facility] [address] [place], [place], [address] GFR/1.73 sq M.predicted among non-blacks MDRD (S/P/Bld) [Vol rate/Area] 101 mL/min/{1.73_m2} Normal >60 [facility] Comment on above: Order Comment: Order Date: 05/26/25 Order Info: 07-1 - CMP Order Info: - LIPID Order Info: [id number] - TSH Result Comment: mL/m in/1.73m2 CKD-EPI Creatinine Equation (2020) Performed By: #### L 501.9985, L100.0100, L501.9520, L500.4100, L500.4050 #### [facility] [address] [place], [address] Globulin (S) [Mass/Vol] 3.0 g/dL Normal 2.2-4.2 [facility] Comment on above: Order Comment: Order Date: 05/26/25 Order Info: [id number] - CMP Order Info: - LIPID Order Info: [id number] - TSH Performed By: #### L 501.9985, L100.0100, L501.9520, L500.4100, L500.4050 #### [facility] [address] [place], [address] Glucose [Mass/Vol] 88 mg/dL Normal 70-99 [facility] Comment on above: Order Comment: Order Date: 05/26/25 Order Info: [id number] - CMP Order Info: - LIPID Order Info: [id number] - TSH Performed By: #### L 501.9985, L100.0100, L501.9520, L500.4100, L500.4050 #### [facility] [address] [place], [address] Potassium [Moles/Vol] 4.3 mmol/L Normal 3.3-5.1 [facility] Comment on above: Order Comment: Order Date: 05/26/25 Order Info: [id number] - CMP Order Info: - LIPID Order Info: [id number] - TSH Performed By: #### L 501.9985, L100.0100, L501.9520, L500.4100, L500.4050 #### [facility] [address] [place], [address] Sodium [Moles/Vol] 132 mmol/L Low 133-145 [facility] Comment on above: Order Comment: Order Date: 05/26/25 Order Info: 0786- - CMP Order Info: [id number] - LIPID Order Info: [id number] - TSH Performed By: #### L 501.9985, L100.0100, L501.9520, L500.4100, L500.4050 #### [facility] [address] [place], [place], [address] T PROT 7.8 g/dL Normal 5.9-8.4 [facility] Comment on above: Order Comment: Order Date: 05/26/25 Order Info: 0786- - CMP Order Info: [id number] - LIPID Order Info: [id number] - TSH Performed By: #### L 501.9985, L100.0100, L501.9520, L500.4100, L500.4050 #### [facility] [address] [place], [place], [address] Urea nitrogen [Mass/Vol] 10 mg/dL Normal 4-19 [facility] Comment on above: Order Comment: Order Date: 05/26/25 Order Info: 0786- - CMP Order Info: [id number] - LIPID Order Info: [id number] - TSH Performed By: #### L 501.9985, L100.0100, L501.9520, L500.4100, L500.4050 #### [facility] [address] [place], [place], [address] Eosinophil percentageOrdered By: Aure Ponce on 05-26-2025 Eosinophils/100 WBC (Bld) 0.9 % 0-5 [facility] Erythrocyte distribution wid th ratioOrdered By: Aure Ponce on 05-26-2025 Erythrocyte distribution width (RBC) [Ratio] 11.9 % 11.6-14.6 [facility] Erythrocyte distribution wid th standard deviationOrdered By: Aure Ponce on 05-26-2025 Erythrocyte distribution width (RBC) [Ratio] 43.2 fl 35.1-43.9 [facility] Glomerular filtration rate ( GFR) estimation/1.73 sq m using serum, plasma, or whole bOrdered By: Aure Ponce on 05-26-2025 GFR/1.73 sq M.predicted among non-blacks MDRD (S/P/Bld) [Vol rate/Area] 101 mL/min/{1.73_m2} >60 [facility] Comment on above: mL/min/1.73m2 CKD-EP I Creatinine Equation (2020) Hematocrit Auto (Bld) [Volum e fraction]Ordered By: Aure Ponce on 05-26-2025 Hematocrit (Bld) [Volume fraction] 42.8 % 40-54 [facility] Hemoglobin A1con 05-26-2025 HbA1c (Bld) [Mass fraction] 5.5 % Normal <=5.6 [facility] Comment on above: Order Comment: Order Date: 05/26/25 Order Info: [id number] - A1C Result Comment: Norm al < 5.7 % Prediabetic 5.7 - 6.4 % Diabetic >or= 6.5 % Please note range changes. Performed By: #### L 501.9985, L100.0100, L501.9520, L500.4100, L500.4050 #### [facility] [place], [address] Hemoglobin A1c percentageOrd ered By: Aure Ponce on 05-26-2025 HbA1c (Bld) [Mass fraction] 5.5 % <5.7 [facility] Comment on above: Normal < 5.7 % Predi abetic 5.7 - 6.4 % Diabetic >or= 6.5 % Please note range changes. Hemoglobin measurementOrdere d By: Aure Ponce on 05-26-2025 Hemoglobin (Bld) [Mass/Vol] 14.8 g/dL 13.0-16.5 [facility] Immature granulocytes/100 WB C Auto (Bld)Ordered By: Aure Ponce on 05-26-2025 Immature granulocytes/100 WBC (Bld) 0.400 % 0.0-0.9 [facility] Comment on above: IG% - Immature Granu locytes (promyelocytes, myelocytes and metamyelocytes) > 1% indicates that a LEFT SHIFT is Present. LDL calc ser/plasOrdered By: Aure Ponce on 05-26-2025 Cholesterol in LDL [Mass/Vol] 56 mg/dL [facility] Comment on above: Iyxvqbkmgv=752-372 m g/dL & Higher Mbpu=614 mg/dL or greater Laboratory - Chemistry and C hemistry - challengeOrdered By: Aure Ponce on 05-26-2025 AST [Catalytic activity/Vol] 29 U/L <38 [facility] Lipid Profileon 05-26-2025 CHOL:HDL 1.76 Normal [facility] Comment on above: Order Comment: Order Date: 05/26/25 Order Info: 0786- - CMP Order Info: [id number] - LIPID Order Info: 3 - TSH Performed By: #### L 501.9985, L100.0100, L501.9520, L500.4100, L500.4050 #### [facility] [address] [place], [address] Cholesterol [Mass/Vol] 176 mg/dL Normal <=200 [facility] Comment on above: Order Comment: Order Date: 05/26/25 Order Info: 07 - CMP Order Info: [id number] - LIPID Order Info: 6-3 - TSH Result Comment: Chol esterol level, Desirable <200 mg/dL Borderline high cholesterol 200-239 mg/dL High cholesterol >=240 mg/dL Recommendations of the NCEP Adult Treatment Panel for the following risk-cutoff thresholds for the [place] population. Performed By: #### L 501.9985, L100.0100, L501.9520, L500.4100, L500.4050 #### [facility] [address] [place], [address] Cholesterol in HDL [Mass/Vol] 100 mg/dL Normal [facility] Comment on above: Order Comment: Order Date: 05/26/25 Order Info: [id number] - CMP Order Info: [id number] - LIPID Order Info: [id number] - TSH Result Comment: Marielle onal Cholesterol Education Program (NCEP) guidelines: <40 mg/dL: Low HDL-cholesterol (major risk factor for CHD) >= 60 mg/dL: High HDL-cholesterol (negative risk factor for CHD) HDL-cholesterol is affected by a number of factors, e.g. smoking, exercise, hormones, sex and age. Performed By: #### L 501.9985, L100.0100, L501.9520, L500.4100, L500.4050 #### [facility] [address] [place], [address] Cholesterol in LDL [Mass/Vol] 56 mg/dL Normal [facility] Comment on above: Order Comment: Order Date: 05/26/25 Order Info: 07 - CMP Order Info: - LIPID Order Info: 3 - TSH Result Comment: Bord jrcxmj=126-750 mg/dL Higher Ufbt=646 mg/dL or greater Performed By: #### L 501.9985, L100.0100, L501.9520, L500.4100, L500.4050 #### [facility] [address] [place], [address] Cholesterol in VLDL [Mass/Vol] 20 mg/dL Normal 5-40 [facility] Comment on above: Order Comment: Order Date: 05/26/25 Order Info: 0786- - CMP Order Info: [id number] - LIPID Order Info: 3 - TSH Performed By: #### L 501.9985, L100.0100, L501.9520, L500.4100, L500.4050 #### [facility] [address] [place], [address] Triglyceride [Mass/Vol] 98 mg/dL Normal [facility] Comment on above: Order Comment: Order Date: 05/26/25 Order Info: 0786- - CMP Order Info: [id number] - LIPID Order Info: [id number] - TSH Result Comment: The drugs N-Acetylcysteine and Metamizole may falsely depress this assay. Normal range: <150 mg/dL Borderline High: 150-199 mg/dL High: 200-499 mg/dL Very High: >500 mg/dL Performed By: #### L 501.9985, L100.0100, L501.9520, L500.4100, L500.4050 #### [facility] [address] [place], [address] MCV (mean corpuscular volume ) determinationOrdered By: Aure Ponce on 05-26-2025 MCV (RBC) [Entitic vol] 97.3 fL High 80-94 [facility] Mean corpuscular hemoglobin (MCH) determinationOrdered By: Aure Ponce on 05-26-2025 MCH (RBC) [Entitic mass] 33.6 pg High 27.0-32.0 [facility] Mean corpuscular hemoglobin concentration (MCHC) determinationOrdered By: Aure Ponce on 05-26-2025 MCHC (RBC) [Mass/Vol] 34.6 g/dL 32-36 [facility] Mean platelet volume determi nationOrdered By: Aure Ponce on 05-26-2025 Platelet mean volume (Bld) [Entitic vol] 8.7 fL 6.2-12.0 [facility] Monocyte percentageOrdered B y: Aure Ponce on 05-26-2025 Monocytes/100 WBC (Bld) 11.9 % High 0-10 [facility] Neutrophil percentageOrdered By: Aure Ponce on 05-26-2025 Neutrophils/100 WBC (Bld) 76.3 % High 47-70 [facility] Nucleated red blood cell per centageOrdered By: Aure Ponce on 05-26-2025 Nucleated RBC/100 WBC (Bld) [Ratio] 0 % 0-5 [facility] Platelet countOrdered By: Sarbjit Ponce on 05-26-2025 Platelets (Bld) [#/Vol] 268 10*3/uL 150-450 [facility] Potassium measurement (mass/ volume)Ordered By: Aure Ponce on 05-26-2025 Potassium (Unsp spec) [Mass/Vol] 4.3 mmol/L 3.3-5.1 [facility] RBC Auto (Bld) [#/Vol]Ordere d By: Aure Ponce on 05-26-2025 RBC (Bld) [#/Vol] 4.40 10*6/uL Low 4.6-6.2 [facility] Screening total cholesterol/ high density lipoprotein (HDL) cholesterol ratioOrdered By: Aure Ponce on 05-26-2025 Cholesterol.total/Cholest mili in HDL [Mass ratio] 1.76 {ratio} [facility] Serum creatinine measurement (mass/volume)Ordered By: Aure Ponce on 05-26-2025 Creatinine [Mass/Vol] 0.64 mg/dL Low 0.70-1.20 [facility] Serum globulin measurementOr dered By: Aure Ponce on 05-26-2025 Globulin (S) [Mass/Vol] 3.0 g/dL 2.2-4.2 [facility] Serum glucose measurement (m ass/volume)Ordered By: Aure Ponce on 05-26-2025 Glucose [Mass/Vol] 88 mg/dL 70-99 [facility] Serum or plasma alanine montero otransferase (ALT) measurementOrdered By: Aure Ponce on 05-26-2025 ALT [Catalytic activity/Vol] 23 U/L <47 [facility] Serum or plasma albumin rufina urement (mass/volume)Ordered By: Aure Ponce on 05-26-2025 Albumin [Mass/Vol] 4.8 g/dL 3.4-4.8 [facility] Serum or plasma albumin/glob ulin mass ratioOrdered By: Aure Ponce on 05-26-2025 Albumin/Globulin [Mass ratio] 1.6 {ratio} 0.9-2.4 [facility] Serum or plasma alkaline gabriel sphatase measurementOrdered By: Aure Ponce on 05-26-2025 ALP [Catalytic activity/Vol] 75 U/L 40-129 [facility] Serum or plasma calcium rufina urement (mass/volume)Ordered By: Aure Ponce on 05-26-2025 Calcium [Mass/Vol] 10.1 mg/dL 7.6-11.0 [facility] Serum or plasma cholesterol in HDL measurement (mass/volume)Ordered By: Aure Ponce on 05-26-2025 Cholesterol in HDL [Mass/Vol] 100 mg/dL >40 [facility] Comment on above: National Cholesterol Education Program (NCEP) guidelines:<40 mg/dL: Low HDL-cholesterol (major risk factor for CHD)>= 60 mg/dL: High HDL-cholesterol (negative risk factor for CHD)HDL-cholesterol is affected by a number of factors, e.g. smoking, exercise, hormones, sex and age. Serum or plasma cholesterol measurement (mass/volume)Ordered By: Aure Ponce on 05-26-2025 Cholesterol [Mass/Vol] 176 mg/dL <201 [facility] Comment on above: Cholesterol level, D esirable <200 mg/dLBorderline high cholesterol 200-239 mg/dLHigh cholesterol >=240 mg/dLRecommendations of the NCEP Adult Treatment Panel for the following risk-cutoff thresholds for the [place] population. Serum or plasma urea nitroge n measurement (mass/volume)Ordered By: Aure Ponce on 05-26-2025 Urea nitrogen [Mass/Vol] 10 mg/dL 4-19 [facility] Sodium levelOrdered By: Howard Ponce on 05-26-2025 Sodium [Moles/Vol] 132 mmol/L Low 133-145 [facility] TSH DL <= 0.005 mIU/L QnOrde red By: Aure Ponce on 05-26-2025 TSH Qn 0.561 uIU/mL 0.300-4.200 [facility] Thyroid Stim Hormone (TSH)on 05-26-2025 TSH 0.561 uIU/mL Normal 0.300-4.200 [facility] Comment on above: Order Comment: Order Date: 05/26/25 Order Info: [id number] - CMP Order Info: [id number] - LIPID Order Info: [id number] - TSH Performed By: #### L 501.9985, L100.0100, L501.9520, L500.4100, L500.4050 #### [facility] [address] [place], [address] Total proteinOrdered By: Luz Maria Ponce on 05-26-2025 Protein [Mass/Vol] 7.8 g/dL 5.9-8.4 [facility] Triglycerides measurementOrd ered By: Aure Ponce on 05-26-2025 Triglyceride [Mass/Vol] 98 mg/dL <199 [facility] Comment on above: The drugs N-Acetylcy steine and Metamizole may falsely depress this assay. Normal range: <150 mg/dLBorderline High: 150-199 mg/dLHigh: 200-499 mg/dLVery High: >500 mg/dL Vitamin D,25 Hydroxyon 05-26 Vitamin D 25-OH 27.8 ng/mL Low 30-100 [facility] Comment on above: Order Comment: Order Date: 05/26/25 Order Info: [id number] - CMP Order Info: [id number] - LIPID Order Info: [id number] - TSH Result Comment: Deborah min D Status Deficiency: <20 ng/mL (50nmol/L) Insufficiency: 20-30 ng/mL (50-75 nmol/L) Sufficiency: 30-100 ng/mL (75-250 nmol/L) Toxicity: >100 ng/mL (>250 nmol/L) Performed By: #### L 506.1001 #### [facility] [address] [facility] [place], [place], [id number] White blood cell (WBC) count Ordered By: Aure Ponce on 05-26-2025 WBC (Bld) [#/Vol] 8.5 10*3/uL 4.4-11.0 [facility] Arterial study reportOrdered By: Donaldo Brown on 03-15-2025 Noninvasive arteriosclerosis study report [facility] [address] [facility] [place] [address] Lower Ext Art Exam w/o Exercis 03/15/25 1312 MR#: [id number] Acct: [id number] Name: MAVIS IRWIN Rep #:[id number] : 1950 74 From: Donaldo Ballard Attending Dr: Dr. Titus Burns DPM Status: REG CLI Ordering Dr: Titus Burns DPM Date: 03/15/25 Location: [facility] Sex: M C Admitted: Reason For Study [...] Performed By: LUIS ENRIQUE BERMUDEZ T 03/15/25 2458 Date _ Donaldo Brown MD CC: DPSam Burns; Dr. Aure Ponce MD ~ Date Dictated: 03/15/25 1312 Date Transcribed: 03/15/258 Care Trainer: Signed [facility] Work Phone: Lower Ext Art Exam w/o Exerc moe 03-15-2025 Lower Ext Art Exam w/o Exercis [facility] [place] [address] Lower Ext Art Exam w/o Exercis 03/15/25 1312 MR#: [id number] Acct: [id number] Name: MAVIS IRWIN Rep #: [id number] : 1950 74 From: Donaldo Brown MD Attending Dr: Dr. Titus Burns DPM Status: R EG CLI Ordering Dr: Titus Burns DPM Date: 03/15/25 Location: [facility] Sex: M C Admitted: Reason For Study [...] Date Dictated: 03/15/25 1312 Date Transcribed: 03/15/251657 Care Trainer: Signed Normal [facility] Foot min 3 Viewson 5 Foot min 3 Views [facility] Imaging Services [address] [place] [address] Foot min 3 Views MR#: [id number] Acct: [id number] Name: MAVIS IRWIN Rep #: [id number] : 1950 M 74 From: Shabana Swartz MD PCP: Dr. Aure Ponce MD Status: REG CLI Study: Foot min 3 Views Date of Exam: 02/14/25 Exam# [id number] Ordering Dr: Aure Ponce MD EXAM: Three [...] with MRI as clinically indicated. Reading Location: [facility] CC: Dr. Aure Ponce MD Care Trainer: Signed Normal [facility] Knee 4 or More Viewson 11-11 Knee 4 or More Views [facility] Imaging Services [address] [place], [place] [address] Knee 4 or More Views MR#: [id number] Acct: [id number] Name: MAVIS IRWIN Rep #: [id number] : 1950 M 73 From: Blake Jarquin MD PCP: Dr. Aure Ponce MD Status: REG CLI Study: Knee 4 or More Views Date of Exam: 11/11/24 Exam# [id number] Ordering Dr: Aure Ponce MD -[id number] STUDY: X-RAY - RIGHT KNEE REASON [...] EST , CC: Dr. Aure Ponce MD Care Trainer: Signed Normal [facility] Basophil percentageOrdered B y: Lennox Oliveira on 03-18-2024 Hemoglobin (Bld) [Mass/Vol] 11.9 g/dL 13.0-16.5 [facility] WBC (Bld) [#/Vol] 9.0 10*3/uL 4.4-11.0 [facility] Determination of erythrocyte mean corpuscular volume (MCV)Ordered By: Lennox Oliveira on 03-18-2024 MCV (RBC) [Entitic vol] 101.1 fL 80-94 [facility] Erythrocyte distribution wid th ratioOrdered By: Lennox Oliveira on 03-18-2024 Erythrocyte distribution width (RBC) [Ratio] 12.9 % 11.6-14.6 [facility] Erythrocyte distribution wid th standard deviationOrdered By: Lennox Oliveira on 03-18-2024 Erythrocyte distribution width (RBC) [Entitic vol] 48.1 fL 35.1-43.9 [facility] Hematocrit Auto (Bld) [Volum e fraction]Ordered By: Lennox Oliveira on 03-18-2024 Hematocrit (Bld) [Volume fraction] 36.0 % 40-54 [facility] - Hematology and Cell countsOrdered By: Lennox Oliveira on 03-18-2024 MCH (RBC) [Entitic mass] 33.4 pg 27.0-32.0 [facility] MCHC (RBC) [Mass/Vol] 33.1 g/dL 32-36 [facility] Platelet mean volume (Bld) [Entitic vol] 8.7 fL 6.2-12.0 [facility] Platelets (Bld) [#/Vol] 166 10*3/uL 150-450 [facility] RBC Auto (Bld) [#/Vol]Ordere d By: Lennox Oliveira on 03-18-2024 RBC (Bld) [#/Vol] 3.56 10*6/uL 4.6-6.2 [facility] Absolute lymphocyte countOrd ered By: Pepe Chavez on 03-17-2024 Lymphocytes Auto (Unsp spec) [#/Vol] 0.51 10*3/uL 0.83-4.51 [facility] Automated lymphocyte count a s percentage of total leukocytesOrdered By: Pepe Chavez on 03-17-2024 Lymphocytes/100 WBC Auto (Unsp spec) 4.0 % 19-41 [facility] Basophil percentageOrdered B y: Pepe Chavez on 03-17-2024 Basophils/100 WBC (Bld) 0.2 % 0-1 [facility] Chloride [Moles/Vol] 99 mmol/L 98-107 [facility] Eosinophils/100 WBC (Bld) 0.1 % 0-5 [facility] Glucose [Mass/Vol] 114 mg/dL 74-106 [facility] Comment on above: Fasting Glucose resu lt from 100 to 125 mg/dL suggests IMPAIRED HOMEOSTASIS per A.D.A. criteria. Hemoglobin (Bld) [Mass/Vol] 13.5 g/dL 13.0-16.5 [facility] Monocytes/100 WBC (Bld) 15.0 % 0-10 [facility] Neutrophils (Bld) [#/Vol] 10.4 10*3/uL 2.0-7.7 [facility] Neutrophils/100 WBC (Bld) 80.3 % 47-70 [facility] Potassium [Moles/Vol] 4.2 mmol/L 3.5-5.1 [facility] Sodium [Moles/Vol] 134 mmol/L 136-145 [facility] WBC (Bld) [#/Vol] 12.9 10*3/uL 4.4-11.0 [facility] Blood manual differential co mment interpretation (narrative result)Ordered By: Pepe Chavez on 03-17-2024 Manual differential comment Dougie (Bld) [Interp] COMMENT [facility] Comment on above: LYMPHOPENIA.MONOCYTO SIS. Determination of erythrocyte mean corpuscular volume (MCV)Ordered By: Pepe Chavez on 03-17-2024 MCV (RBC) [Entitic vol] 97.5 fL 80-94 [facility] Erythrocyte distribution wid th ratioOrdered By: Pepe Chavez on 03-17-2024 Erythrocyte distribution width (RBC) [Ratio] 12.2 % 11.6-14.6 [facility] Erythrocyte distribution wid th standard deviationOrdered By: Pepe Chavez on 03-17-2024 Erythrocyte distribution width (RBC) [Entitic vol] 43.9 fL 35.1-43.9 [facility] Hematocrit Auto (Bld) [Volum e fraction]Ordered By: Pepe Chavez on 03-17-2024 Hematocrit (Bld) [Volume fraction] 39.2 % 40-54 [facility] Immature granulocytes/100 WB C Auto (Bld)Ordered By: Pepe Chavez on 03-17-2024 Immature granulocytes/100 WBC (Bld) 0.400 % 0.0-0.9 [facility] Comment on above: IG% - Immature Granu locytes (promyelocytes, myelocytes and metamyelocytes) > 1% indicates that a LEFT SHIFT is Present. Laboratory - Chemistry and C hemistry - challengeOrdered By: Lennox Oliveira on 03-17-2024 Cobalamin (Vitamin B12) [Mass/Vol] 235 pg/mL 211-911 [facility] Laboratory - Chemistry and C hemistry - challengeOrdered By: Pepe Chavez on 03-17-2024 CK [Catalytic activity/Vol] 124 U/L 39-308 [facility] CO2 [Moles/Vol] 28.0 mmol/L 21.0-32.0 [facility] Urea nitrogen/Creatinine [Mass ratio] 11.7 mg/mg 10-20 [facility] Laboratory - CoagulationOrde red By: Lennox Oliveira on 03-17-2024 INR Coag (Bld) [Relative time] 1.1 {INR} [facility] PT Coag (PPP) [Time] 14.0 s 11.7-14.9 [facility] Laboratory - Hematology and Cell countsOrdered By: Pepe Chavez on 03-17-2024 MCH (RBC) [Entitic mass] 33.6 pg 27.0-32.0 [facility] MCHC (RBC) [Mass/Vol] 34.4 g/dL 32-36 [facility] Nucleated RBC/100 WBC (Bld) [Ratio] 0 % 0-5 [facility] Platelet mean volume (Bld) [Entitic vol] 8.1 fL 6.2-12.0 [facility] Platelets (Bld) [#/Vol] 195 10*3/uL 150-450 [facility] No Panel InformationOrdered By: Pepe Chavez on [...] coma Estimated Creatinine Clearance Calc 74.98 ml/min [facility] Estimated GFR (MDRD) Amer 129 mL/min >60 [facility] Comment on above: GFR Calc Estimated GFR (MDRD) Non-Af Amer 106 mL/min >60 [facility] Comment on above: Non- GFR Calc No Panel InformationOrdered By: Lennox Oliveira on 03-17-2024 Vitamin D 25-Hydroxy 21.7 ng/mL [facility] Comment on above: Vitamin D 25(OH) Sta tus Range Deficiency <20 ng/mL (50nmol/L) Insufficiency 20 - 30 ng/mL (50 - 75 nmol/L) Sufficiency 30 - 100 ng/mL (75 - 250 nmol/L) Toxicity >100 ng/mL (>250 nmol/L) Folate 12.30 ng/mL 3.1-55.4 [facility] RBC Auto (Bld) [#/Vol]Ordere d By: Pepe Chavez on 03-17-2024 RBC (Bld) [#/Vol] 4.02 10*6/uL 4.6-6.2 [facility] Review by pathologistOrdered By: Pepe Chavez on 03-17-2024 Pathologist review Dougie (Unsp spec) [Interp] May foll [facility] Serum or plasma calcium rufina urement (mass/volume)Ordered By: Pepe Chavez on 03-17-2024 Calcium [Mass/Vol] 9.2 mg/dL 8.5-10.1 [facility] Serum or plasma creatinine m easurement (mass/volume)Ordered By: Pepe Chavez on 03-17-2024 Creatinine [Mass/Vol] 0.77 mg/dL 0.70-1.30 [facility] Comment on above: The validity of the calculated GFR & GFRAA in patients over 70 years has not been determined. Clinical correlation is essential. Serum or plasma urea nitroge n measurement (mass/volume)Ordered By: Pepe Chavez on 03-17-2024 Urea nitrogen [Mass/Vol] 9 mg/dL 7-18 [facility] Thin prep Papanicolaou smear with manual screeningOrdered By: Pepe Chavez on 03-17-2024 Thin prep Papanicolaou smear with manual screening 7 5-15 [facility] Absolute lymphocyte countOrd ered By: Aure Noriegake on 03-14-2024 Lymphocytes Auto (Unsp spec) [#/Vol] 1.14 10*3/uL 0.83-4.51 [facility] Automated lymphocyte count a s percentage of total leukocytesOrdered By: Aure Ponce on 03-14-2024 Lymphocytes/100 WBC Auto (Unsp spec) 18.3 % 19-41 [facility] Basophil percentageOrdered B y: Howardjunior Kris on 03-14-2024 Basophils/100 WBC (Bld) 0.8 % 0-1 [facility] Bilirubin [Mass/Vol] 0.70 mg/dL 0.20-1.00 [facility] Comment on above: For patients on eltr ombopag therapy, use of Dimension [place] TBIL is not recommended. Chloride [Moles/Vol] 96 mmol/L 98-107 [facility] Cholesterol [Mass/Vol] 232 mg/dL <200 [facility] Comment on above: <200 mg/dL Desirable 200-240 mg/dL Borderline >240 mg/dL High Risk Eosinophils/100 WBC (Bld) 2.4 % 0-5 [facility] Glucose [Mass/Vol] 141 mg/dL 74-106 [facility] Comment on above: Fasting Glucose resu lt greater than or equal to 126 mg/dL suggests DIABETES MELLITUS per A.D.A. criteria. Hemoglobin (Bld) [Mass/Vol] 15.4 g/dL 13.0-16.5 [facility] Monocytes/100 WBC (Bld) 15.0 % 0-10 [facility] Neutrophils (Bld) [#/Vol] 3.9 10*3/uL 2.0-7.7 [facility] Neutrophils/100 WBC (Bld) 63.3 % 47-70 [facility] Potassium [Moles/Vol] 4.1 mmol/L 3.5-5.1 [facility] Protein [Mass/Vol] 7.6 g/dL 6.4-8.2 [facility] Sodium [Moles/Vol] 131 mmol/L 136-145 [facility] Triglyceride [Mass/Vol] 160 mg/dL <199 [facility] Comment on above: The drugs N-Acetylcy steine and Metamizole may falsely depress this assay.Serum Triglycerides Reference Interval Normal <150 mg/dL Borderline high 150 - 199 mg/dL High 200 - 499 mg/dL Very High > or = 500 mg/dL WBC (Bld) [#/Vol] 6.2 10*3/uL 4.4-11.0 [facility] Determination of erythrocyte mean corpuscular volume (MCV)Ordered By: Aure Ponce on 03-14-2024 MCV (RBC) [Entitic vol] 97.6 fL 80-94 [facility] Erythrocyte distribution wid th ratioOrdered By: Aure Kris on 03-14-2024 Erythrocyte distribution width (RBC) [Ratio] 12.5 % 11.6-14.6 [facility] Erythrocyte distribution wid th standard deviationOrdered By: Aure Ponce on 03-14-2024 Erythrocyte distribution width (RBC) [Entitic vol] 44.8 fL 35.1-43.9 [facility] Hematocrit Auto (Bld) [Volum e fraction]Ordered By: Aure Ponce on 03-14-2024 Hematocrit (Bld) [Volume fraction] 45.6 % 40-54 [facility] Immature granulocytes/100 WB C Auto (Bld)Ordered By: Aure Kris on 03-14-2024 Immature granulocytes/100 WBC (Bld) 0.200 % 0.0-0.9 [facility] Comment on above: IG% - Immature Granu locytes (promyelocytes, myelocytes and metamyelocytes) > 1% indicates that a LEFT SHIFT is Present. Laboratory - Chemistry and C hemistry - challengeOrdered By: Aure Ponce on 03-14-2024 Albumin/Globulin [Mass ratio] 1.1 {ratio} 0.9-2.4 [facility] ALP [Catalytic activity/Vol] 61 U/L 45-117 [facility] ALT [Catalytic activity/Vol] 17 U/L 16-61 [facility] Cholesterol in HDL [Mass/Vol] 68 mg/dL >40 [facility] Comment on above: The drugs N-Acetylcy steine and Metamizole may falsely depress this assay. Reference Range HDL <40 mg/dL Low HDL Cholesterol HDL >or= 60 mg/dL High HDL Cholesterol Cholesterol in LDL [Mass/Vol] 132 mg/dL 0-130 [facility] CO2 [Moles/Vol] 27.0 mmol/L 21.0-32.0 [facility] Globulin (S) [Mass/Vol] 3.6 g/dL 2.2-4.2 [facility] Urea nitrogen/Creatinine [Mass ratio] 14.9 mg/mg 10-20 [facility] Laboratory - Hematology and Cell countsOrdered By: Aure Ponce on 03-14-2024 MCH (RBC) [Entitic mass] 33.0 pg 27.0-32.0 [facility] MCHC (RBC) [Mass/Vol] 33.8 g/dL 32-36 [facility] Nucleated RBC/100 WBC (Bld) [Ratio] 0 % 0-5 [facility] Platelet mean volume (Bld) [Entitic vol] 8.2 fL 6.2-12.0 [facility] Platelets (Bld) [#/Vol] 222 10*3/uL 150-450 [facility] No Panel InformationOrdered By: Aure Ponce on 03-14-2024 Estimated GFR (MDRD) Amer 111 mL/min >60 [facility] Comment on above: GFR Calc Estimated GFR (MDRD) Non-Af Amer 91 mL/min >60 [facility] Comment on above: Non- GFR Calc Prostate Specific Antigen Screen 2.93 ng/mL 0.00-4.00 [facility] Comment on above: This test was perfor med using the TPSA assay method for the[employer] chemistry system. Values obtained with differentassay methods cannot be used interchangably.When changing PSA assays in the course of monitoring apatient, additional sequential testing should be carriedout to confirm baseline values. VLDL Cholesterol 32 mg/dL 5-40 [facility] RBC Auto (Bld) [#/Vol]Ordere d By: Aure Ponce on 03-14-2024 RBC (Bld) [#/Vol] 4.67 10*6/uL 4.6-6.2 [facility] Serum or plasma calcium rufina urement (mass/volume)Ordered By: Aure Ponce on 03-14-2024 Calcium [Mass/Vol] 9.7 mg/dL 8.5-10.1 [facility] Serum or plasma creatinine m easurement (mass/volume)Ordered By: Aure Ponce on 03-14-2024 Creatinine [Mass/Vol] 0.87 mg/dL 0.70-1.30 [facility] Comment on above: The validity of the calculated GFR & GFRAA in patients over 70 years has not been determined. Clinical correlation is essential. Serum or plasma urea nitroge n measurement (mass/volume)Ordered By: Aure Ponce on 03-14-2024 Urea nitrogen [Mass/Vol] 13 mg/dL 7-18 [facility] Thin prep Papanicolaou smear with manual screeningOrdered By: [facility] on 03-14-2024 Thin prep Papanicolaou smear with manual screening 4.0 g/dL 3.2-5.0 [facility] Thin prep Papanicolaou smear with manual screening 19 U/L 15-37 [facility] Thin prep Papanicolaou smear with manual screening 8 5-15 [facility] Clinical Event Noteon 2020 Clinical Event Note Clinical Event: Clinical Event Note: Details Patient has necrotic right pinky toe. Causing him pain. Patient was not seen here he was instructed to go straight to the ER. Patient says been going on about 5 weeks. Patient wants to go to the [place] [facility]. Electronic Signatures: Mayra Reyes (COMMUNICATION CONSULTANT-QUALITATIVE RESEARCHER) (Signed 17-Jun-2021 16:06) Authored: Clinical Event Note Last Updated: 17-Jun-2021 16:06 by Mayra Reyes (COMMUNICATION CONSULTANT-QUALITATIVE RESEARCHER) Normal [facility] Auto Diffon 08-09-2019 Basophils (Bld) [#/Vol] 0.0 E3/mcL Normal 0.0-0.[address] [facility] Comment on above: Order Comment: Order Added by Discern Expert. Performed By: #### 2 [id number] #### ZEE RemHemo [address] [place] [address] Basophils/100 WBC (Bld) 0.9 % Normal 0.0-2.[address] [facility] Comment on above: Order Comment: Order Added by Discern Expert. Performed By: #### 2 [id number] #### ZEE RemHemo [address] [place] [address] Eos Absolute 0.2 E3/mcL Normal 0.0-0.7 [facility] Comment on above: Order Comment: Order Added by Discern Expert. Performed By: #### 2 [id number] #### ZEE RemHemo [address] [place] [address] Eosinophils/100 WBC (Bld) 3.9 % Normal 0.0-11.0 [facility] Comment on above: Order Comment: Order Added by Discern Expert. Performed By: #### 2 [id number] #### ZEE RemHemo [address] [place] [address] Lymphocytes (Bld) [#/Vol] 1.1 E3/mcL Low 1.2-3.4 [facility] Comment on above: Order Comment: Order Added by Discern Expert. Performed By: #### 2 [id number] #### ZEE Rem[employer] [address] [place] [address] Lymphocytes/100 WBC (Bld) 21.0 % Normal 20.0-55.0 [facility] Comment on above: Order Comment: Order Added by Discern Expert. Performed By: #### 2 [id number] #### ZEE Rem[employer] [address] [place] [address] [place] Absolute 0.8 E3/mcL High 0.0-0.7 [facility] Comment on above: Order Comment: Order Added by Discern Expert. Performed By: #### 2 870256 #### ZEE Rem[employer] [address] [place] [address] Monocytes/100 WBC (Bld) 14.3 % High 0.0-10.[address] [facility] Comment on above: Order Comment: Order Added by Discern Expert. Performed By: #### 2 018373 #### ZEE RemHemo [address] [place] [address] Neutro Absolute 3.3 E3/mcL Normal 1.4-6.5 [facility] Comment on above: Order Comment: Order Added by Discern Expert. Performed By: #### 2 088379 #### ZEE RemHemo [address] [place] [address] Neutro Auto 59.9 % Normal 37.0-75.0 [facility] Comment on above: Order Comment: Order Added by Discern Expert. Performed By: #### 2 499393 #### ZEE RemHemo [address] [place] [address] CBC w/ Auto Diffon Erythrocyte distribution width (RBC) [Ratio] 12.7 % Normal 11.5-14.5 [facility] Comment on above: Performed By: #### 2 045269 #### ZEE RemHemo [address] [place] [address] Hematocrit (Bld) [Volume fraction] 40.2 % Low 42.0-52.0 [facility] Comment on above: Performed By: #### 2 045815 #### ZEE RemHemo [facility] [place] [address] Hemoglobin (Bld) [Mass/Vol] 13.7 g/dL Normal 13.5-18.0 [facility] Comment on above: Performed By: #### 2 271170 #### ZEE RemHemo [address] [place] [address] MCH (RBC) [Entitic mass] 34.9 pg High 27.0-31.0 [facility] Comment on above: Performed By: #### 2 398492 #### ZEE RemHemo [address] [place] [address] MCHC (RBC) [Mass/Vol] 34.1 g/dL Normal 33.0-37.0 [facility] Comment on above: Performed By: #### 2 799759 #### ZEE RemHemo [address] [place] [address] MCV (RBC) [Entitic vol] 102.5 fL High 78.0-100.[address] [facility] Comment on above: Performed By: #### 2 854952 #### ZEE RemHemo [address] [place] [address] Platelet mean volume (Bld) [Entitic vol] 6.6 fL Low 7.4-11.0 [facility] Comment on above: Performed By: #### 2 734759 #### ZEE FerreiraHemo [address] [place] [address] Platelets (Bld) [#/Vol] 195 E3/mcL Normal 130-[address] [facility] Comment on above: Performed By: #### 2 527325 #### ZEE FerreiraHemo [address] [place] [address] RBC (Bld) [#/Vol] 3.92 E6/mcL Normal 3.90-6.10 [facility] Comment on above: Performed By: #### 2 818168 #### ZEESimone FerreiraHemo [address] [place] [address] WBC (Bld) [#/Vol] 5.5 E3/mcL Normal 3.6-11.0 [facility] Comment on above: Performed By: #### 2 770033 #### ZEE FerreiraHemo [address] [place] [address] CMPon 08-09-2019 Albumin [Mass/Vol] 3.9 g/dL Normal 3.4-5.0 [facility] Comment on above: Performed By: #### 2 353372 #### ZEE FerreiraChem [address] [place] [address] Albumin/Globulin [Mass ratio] 1.6 {ratio} Normal 1.1-1.9 [facility] Comment on above: Performed By: #### 2 789355 #### ZEESimone FerreiraChem [address] [place] [address] Alk Phos 41 Int._Unit/L Normal 33-136 [facility] Comment on above: Performed By: #### 2 818782 #### ZEE [employer] [address] [place] [address] ALT [Catalytic activity/Vol] 7 Int._Unit/L Low 10-52 [facility] Comment on above: Performed By: #### 2 387039 #### ZEE [employer] [address] [place] [address] Anion gap [Moles/Vol] 14 mmol/L Normal 10-20 [facility] Comment on above: Performed By: #### 2 303912 #### ZEE FerreiraChem [address] [place] [address] AST [Catalytic activity/Vol] 14 Int._Unit/L Normal 9-39 [facility] Comment on above: Performed By: #### 2 648137 #### ZEE FerreiraChem [address] [place] [address] Bili Total 0.39 mg/dL Normal 0.00-1.20 [facility] Comment on above: Performed By: #### 2 684807 #### ZEE FerreiraChem [facility] [place] [address] Calcium [Mass/Vol] 8.6 mg/dL Normal 8.6-10.3 [facility] Comment on above: Performed By: #### 2 573920 #### ZEE [place] [place] [address] Chloride [Moles/Vol] 101 mmol/L Normal 98-107 [facility] Comment on above: Performed By: #### 2 719681 #### ZEESimone FerreiraChem [address] [place] [address] CO2 [Moles/Vol] 24.0 mmol/L Normal 21.0-32.0 [facility] Comment on above: Performed By: #### 2 229430 #### ZEE Ferreira[address] [address] Creatinine [Mass/Vol] 0.8 mg/dL Normal 0.5-1.3 [facility] Comment on above: Performed By: #### 2 977400 #### ZEE FerreiraChem [facility] [place] [address] Globulin (S) [Mass/Vol] 3.0 g/dL Normal 2.0-4.[address] [facility] Comment on above: Performed By: #### 2 437750 #### ZEESimone FerreiraChem [address] [place] [address] Glucose [Mass/Vol] 96 mg/dL Normal 70-99 [facility] Comment on above: Performed By: #### 2 079778 #### ZEESimone FerreiraChem [facility] [place] [address] Potassium [Moles/Vol] 4.2 mmol/L Normal 3.5-5.3 [facility] Comment on above: Performed By: #### 2 632827 #### ZEE [employer] [address] [place] [address] Protein [Mass/Vol] 6.4 g/dL Normal 6.4-8.2 [facility] Comment on above: Performed By: #### 2 629025 #### ZEE [employer] [address] [place] [address] Sodium [Moles/Vol] 135 mmol/L Low 136-145 [facility] Comment on above: Performed By: #### 2 272399 #### [employer]EE [employer] [address] [place] [address] Urea nitrogen [Mass/Vol] 12 mg/dL Normal 6-23 [facility] Comment on above: Performed By: #### 2 872335 #### [employer]EE [employer] [address] [place] [address] Urea nitrogen/Creatinine [Mass ratio] 15.0 ratio Normal 5.4-30.0 [facility] Comment on above: Performed By: #### 2 724211 #### ZEE [employer] [address] [place] [address] Ethanolon 08-09-2019 Ethanol [Mass/Vol] 74 mg/dL High <=10 [facility] Comment on above: Result Comment: SAMP LES WITH CONCENTRATIONS <15 MG/DL SHOULD BE INTERPRETED NEGATIVE. FOR MEDICAL USE ONLY Performed By: #### 2 102348 #### ZEE [employer] [address] [place] [address] Lipase Levelon 08-09-2019 Lipase Lvl 30 Int._Unit/L Normal 9-82 [facility] Comment on above: Performed By: #### 2 771318 #### ZEE [employer] [address] [place] [address] Magnesiumon 08-09-2019 Magnesium [Mass/Vol] 2.0 mg/dL Normal 1.6-2.4 [facility] Comment on above: Performed By: #### 2 819480 #### ZEE [employer] [address] [place] [address] Troponin-Ion 08-09-2019 Troponin I.cardiac [Mass/Vol] 0.03 ng/mL Normal 0.00-0.03 [facility] Comment on above: Performed By: #### 2 380419 #### ZEE [employer] [address] [place] [address] eGFRon 08-09-2019 GFR/1.73 sq M predicted among non-blacks MDRD (S/P/Bld) [Vol rate/Area] mL/min/{1.73_m2} Normal [facility] Comment on above: Order Comment: Order added by Discern Expert. Performed By: #### 1 [id number] #### ZEE [employer] [address] [place] [address] Vital Signs Date Time Vital Sign Value Performing Clinician Siddhartha garvey 07-12-2025 12:45-0400 Body height 177.8 cm Aure Ponce MD Work Phone: [facility] 07-12-2025 12:45-0400 Body mass index (BMI) [Ratio] 16.5 kg/m2 Aure Ponce MD Work Phone: [facility] 07-12-2025 12:45-0400 Body weight 52.16 kg Aure Ponce MD Work Phone: [facility] 07-12-2025 12:45-0400 Diastolic blood pressure 73 mm[Hg] Aure Ponce MD Work Phone: [facility] 07-12-2025 12:45-0400 Heart rate 87 /min Aure Ponce MD Work Phone: [facility] 07-12-2025 12:45-0400 Respiratory rate 20 /min Aure Ponce MD Work Phone: [facility] 07-12-2025 12:45-0400 Systolic blood pressure 122 mm[Hg] Aure Ponce MD Work Phone: [facility] 03-18-2024 05:52-0400 Body temperature 97.6 [degF] [facility] 03-18-2024 05:52-0400 Diastolic blood pressure 77 mm[Hg] [facility] 03-18-2024 05:52-0400 Heart rate 80 /min [facility] 03-18-2024 05:52-0400 Respiratory rate 18 /min [facility] 03-18-2024 05:52-0400 SaO2% (BldA) [Mass fraction] 97 % [facility] 03-18-2024 05:52-0400 Systolic blood pressure 136 mm[Hg] [facility] 03-17-2024 15:37-0400 Body temperature 98.3 [degF] [facility] 03-17-2024 15:37-0400 Diastolic blood pressure 82 mm[Hg] [facility] 03-17-2024 15:37-0400 Heart rate 90 /min [facility] 03-17-2024 15:37-0400 Respiratory rate 18 /min [facility] 03-17-2024 15:37-0400 SaO2% (BldA) [Mass fraction] 93 % [facility] 03-17-2024 15:37-0400 Systolic blood pressure 144 mm[Hg] [facility] 03-17-2024 15:36-0400 Body height 177.8 cm [facility] 03-17-2024 15:36-0400 Body mass index (BMI) [Ratio] 18.3 kg/m2 [facility] 03-17-2024 15:36-0400 Body weight 58.01 kg [facility] Encounters Encounter Date Encounter Type Care Provider Facility Start: 08-15-2025 delisa Urbina Facility:[facility] Start: 08-09-2025 ambulatory Chalon Kris Facility:[facility] Start: 08-08-2025 ambulatory Chalon Kris Facility:[facility] Start: 08-02-2025 ambulatory Chalon Kris Facility:[facility] Start: 07-21-2025 ambulatory Chalon Kris Facility:[facility] Start: 07-21-2025 ambulatory Tank Carlitos Facility:[facility] Start: 07-12-2025 End: 07-12-[address] Tank Urbina MD -[facility] Work Phone: Start: 07-12-2025 End: 07-12-2025 ambulatory Chalon Kris MD Work Phone: -[facility] Start: 06-01-2025 Encounter for genera l adult medical examination without abnormal findings Aure Ponce [facility] Start: 05-26-2025 End: 05-26-2025 ambulatory Aure Ponce MD Work Phone: -Laboratory [facility] Start: 05-26-2025 End: 05-26-[address] Aure Ponce MD -Laboratory [facility] Start: 05-26-2025 End: 05-26-2025 ambulatory Aure Ponce Facility:[facility] Start: 03-15-2025 Non-patient / Non-visit Dr. Donaldo petty MD -[facility] Start: 03-15-2025 End: 03-15-2025 ambulatory Aure Ponce MD Work Phone: [facility] Work Phone: Start: 03-15-2025 End: 03-15-[address] Titus Burns DP -Cardiovascular Services Work Phone: Start: 03-15-2025 End: 03-15-2025 ambulatory Aure Ponce Facility:[facility] Start: 02-14-2025 End: 02-14-2025 ambulatory Aure Ponce MD Work Phone: [facility] Work Phone: Start: 02-14-2025 End: 02-14-[address] Aure Ponce MD -Radiology, [place] Work Phone: Start: 02-14-2025 End: 02-14-2025 ambulatory Aure Ponce Facility:[facility] Start: 11-11-2024 End: 11-11-[address] Aure Ponce MD -Radiology, [place] Work Phone: Start: 11-11-2024 End: 11-11-2024 ambulatory Aure Ponce Facility:[facility] Start: 03-17-2024 Evaluation and management of inpatient [facility]-Medical Surgical 3 Work Phone: Start: 03-14-2024 End: 03-14-2024 ambulatory [facility] Work Phone: Start: 03-14-2024 End: 03-14-2024 Patient encounter procedure [facility] Work Phone: Start: 02-12-2022 End: 02-12-[address] Eugene Simomns Work Phone: [facility] Start: 10-28-2021 Non-patient / Non-visit Dr. Jael Simmons Work Phone: [facility] Start: 10-28-[address] Eugene Simmons Work Phone: [facility]-Cardiovascula r Services Procedures Date Procedure Procedure Detail [...] 07-12-2025 Evaluation of diagno stic study results [facility] Start: 03-18-2024 Osteoplasty of femur IM Roddin g Hip, Intertan Nail S/N (Right) [facility] Start: 03-18-2024 Fluoroscopic guidance O.R. Flu crystal for C-Arm [facility] Start: 03-18-2024 Plain x-ray of pelvi s and lower extremity Hip 1 view with Pelvis [facility] Start: 03-18-2024 Blood chemistry [facility] Start: 03-17-2024 Assessment of risk o f venous thromboembolism [facility] Start: 03-17-2024 Incentive spirometry [facility] Start: 03-17-2024 Insertion of cathete r into peripheral vein [facility] Start: 03-17-2024 Oxygen therapy [facility] Start: 03-17-2024 Providing care accor ding to standard [facility] Start: 03-17-2024 Provision of activit y privileges [facility] Start: 03-17-2024 Referral to occupati onal therapist [facility] Start: 03-17-2024 Referral to service [facility] Start: 03-17-2024 [facility] Start: 03-17-2024 Following clinical p athway protocol [facility] Start: 03-17-2024 Verification routine [facility] Start: 03-17-2024 [facility] Start: 03-17-2024 Hospital admission, emergency, from emergency room, medical nature [facility] Start: 03-17-2024 Admission procedure [facility] Anion gap measurement [facility] BUN/Creatinine ratio [facility] Calcium [Mass/volume ] in Serum or Plasma [facility] Carbon dioxide, tota l [Moles/volume] in Serum or Plasma [facility] Chloride [Moles/volu me] in Serum or Plasma [facility] Creatinine [Moles/vo lume] in Serum or Plasma [facility] Glucose [Mass/volume ] in Serum or Plasma [facility] Measurement of renal function [facility] Patient referral [facility] Work Phone: Potassium [Moles/vol ume] in Serum or Plasma [facility] Sodium [Moles/volume ] in Serum or Plasma [facility] Urea nitrogen [Mass/ volume] in Serum or Plasma [facility] Payers Date Payer Category Payer Self-pay [id number] 2024 Unknown [id number] Medicare [id number] Unknown [id number] Unknown [employer] AUTH REQUIRED SEE NOTE* * [id number] Unknown [id number] Unknown [id number] Unknown [id number] Unknown [id number] Unknown [id number] Unknown [id number] Unknown [id number] Unknown [id number] Unknown [id number] [id number] Unknown [id number] [id number] Unknown [id number] [id number] Unknown [id number] Social History Date Type Detail Facility Start: 06-17-2021 End: 03-17-2024 Tobacco smoking status NHIS Unknown if ever smoked [facility] Start: 1950 Sex Assigned At Male [facility] Start: [facility]-18-[facility] Start: 02-18-2025 Sex Male (finding) [facility] Start: 06-28-2025 [facility] sm[facility] Medical Equipment Procedure Code Equipment Code Equipment Origin al Text Equipment Identifier Dates Insertion, trochanteric nail, femur, proximal ([id number]) Orthopaedic bone screw, non-bioabsorbable, sterile [id number] FDA Start: 03-18-2024 Insertion, trochanteric nail, femur, proximal ([id number]) Femur nail, sterile [id number] FDA Start: 03-18-2024 Insertion, trochanteric nail, femur, proximal ([id number]) Orthopaedic bone screw, non-bioabsorbable, sterile ()[id number] FDA Start: 03-18-2024 Goals Date Patient Goal Desired Activity /State Functional Status Date Assessment Result Facility 03-18-2024 Functional status Bedrest [facility] Work Phone: Mental Status Date Assessment Result Facility 03-18-2024 Cognitive function Voice/Name [facility] Work Phone: Radiology Diagnostic study note 02-15-2025 Note Date & Type Note Facility 02-15-2025 Radiology Diagnostic study note [facility] Imaging Services [address] [place], [place] [id number] Foot min 3 Views MR#: [id number] Acct: [id number] Name: MAVIS IRWIN Rep #: [id number] : 1950 M 74 From: Crystal James MD PCP: Dr. Aure Ponce MD Status: REG CL I Study:Foot min 3 Views Date of Exam: 07/03 Exam# [id number] Ordering Dr: Luz Maria Ponce MD EXAM: [...] with MRI as clinically indicated. Reading Location: [facility] CC: Dr. Aure Ponce MD ~ Care Trainer: Signed [facility] Discharge summary 03-17-2024 Note Date & Type Note Facility 03-17-2024 Discharge summary Note Date/Time March 17, 2024 10:44am [facility] Medical Records Department [address] [place] [address] Emergency Department Summary 03/17/24 MR#: [id number] Acct: [id number] Name: MAVIS IRWIN Rep #:[id number] : [...] 80.3 H Lymph % (Auto) 4.0 L [place] % (Auto) 15.0 H Eos % (Auto) [...] your Primary Care Provider. Call [facility] ([phone]) or report to the closest Emergency Room. [...] (if applicable): cc: GEMINI BERRY ~* Signed [facility] Work Phone: Evaluation note Note Date & Type Note Facility Evaluation note No assessment information availa ble [facility] Work Phone: Evaluation note Note Date & Type Note Facility Evaluation note Diagnosis Onset Date Closed right hip fracture ac hazel ETOH abuse acute Tobacco abuse acute [facility] Work Phone: Reason for referral (narrative) Note Date & Type Note Facility Reason for referral (narrative) No reason for referral information available [facility] Work Phone: Summary Purpose Family History No Family History Records FoundNo Family History Records FoundNo Family History Records Found Advance Directives No Advanced Directives Records Found Advance Directive Response Recorded Date/ Time Living Will No June 17, 2021 7:12pm Power of Farm Management Teacher No June 17 7:12pm Advance Directive Response Recorded Date/ Time Name of Medical Power of Farm Management Teacher JULIA--JOLENE MCKENZIE March 17, 2024 10:18am Living Will Yes March 17, 2024 10 :18am Power of Farm Management Teacher Yes March 17, 2024 10:18am Advance Directive Response Recorded Date/ Time Name of Medical Power of Farm Management Teacher Julia farley, Daughter March 17, 2024 3:40pm Living Will Yes March 17, 2024 3: 40pm Power of Farm Management Teacher Yes March 17, 2024 3:40pm Chief [...] 15, 2025 1:02pm ORTHOSTATIC HYPOTENSION July 12, 2 025 12:35pm Additional Source Comments (unrecognized sect ion and content) No Status Records FoundNo Status Records FoundNo Status Records Found INFORMATION SOURCE (unrecogn ized section and content) DATE CREATED AUTHOR 08/10/2019 [facility] DATE CREATED AUTHOR AUTHOR'S ORGANIZ ATION 06/18/2021 [facility] DATE CREATED AUTHOR AUTHOR'S ORGANIZ ATION 08/02/2025 [facility] Goals (unrecognized section and content) Goals may [...] Emergency Provider Active Dr. Lennox Oliveira , Admit Provider, Attending Provider Active Team Status: Inactive Member Role Status Dates GEMINI BERRY Primary Care Provider Active Aure Ponce MD Attending Provider, Referring Provide r Active Team Status: Active Member Role Status Dates GEMINI BERRY Primary Care Provider Active Dr. Pepe Chavez DO Emergency Provider Active Dr. Lennox Oliveira , Admit Provider, Other Pro vider Active Dr. [...] BE BASED ON THE PRIMARY CLINICAL RECORDS. [employer] provides no warranty or guarantee of the accuracy or completeness of information in this document.
--- OUTSIDE RECORDS SUMMARY | 2025-08-02 15:20 | XMS RPT_ITS | CCD ---
Author Organization [facility] CliniSyoh Care Team Providers Care Solutions Manager Name Role Phone Dr. Eugene Simmons Attending [...] Donaldo Brown MD Attending Provider Kris GRIMES, Auer Primary Care Provider [phone] [...] Unavailable Kris, Chalon Primary Care Unavailable Carlitos, Takn Referring Unavailable Carlitos, Tank Attending Unavailable Kris, [...] 23, 2024 12:00am June 28, 2025 9:29am Iilq-gix-zkzqgtp. 1 g every 8 hourly for 7 [...] Coronary arteriosclerosis; Translations: [Atherosclerotic heart disease of [place] coronary artery without angina pectoris] Onset: 07-12-2025 [...] Range Facility Stress Reporton 07-21-2025 Stress Report [facility] [address] [place] [address] MR#: [id number] Acct: [id number] Name: MAVIS IRWIN Rep #: [id number] : 1950 74 From: Tank Urbina MD [...] of 72%. This note was generated with Lover[employer]ation software. It may contain incorrect words, spelling, and punctuation that were not noted in checking the note before signing. 07/21/25948 Date Tank Urbina MD CC: Dr. Tank Urbina MD; Dr. Aure Ponce MD Date Dictated: 07/21/25945 Date Transcribed: 07/21/25945 Suspender Maker: KIAN Signed Normal [facility] Basic Metabolic Profile (BMP )on 07-20-2025 BUN Normal 4-19 [facility] Comment on above: Result Comment: LETICIA STRATION PULLED ORDERS ACROSS; CALLED OFFICE AND SPOKE TO MACHO, SHE WILL HAVE THEM RE-ENTERED. Performed By: #### L 500.2500, L100.0500 ####[facility] [address] [place], [address] BUN/CRE Normal 10-20 [facility] Comment on above: Result Comment: LETICIA STRATION PULLED ORDERS ACROSS; CALLED OFFICE AND SPOKE TO MACHO, SHE WILL HAVE THEM RE-ENTERED. Performed By: #### L 500.2500, L100.0500 ####[facility] [address] [place], [address] Calcium Normal 7.6-11.0 [facility] Comment on above: Result Comment: LETICIA STRATION PULLED ORDERS ACROSS; CALLED OFFICE AND SPOKE TO MACHO, SHE WILL HAVE THEM RE-ENTERED. Performed By: #### L 500.2500, L100.0500 ####[facility] [address] [place], [address] CL Normal 98-108 [facility] Comment on above: Result Comment: LETICIA STRATION PULLED ORDERS ACROSS; CALLED OFFICE AND SPOKE TO MACHO, SHE WILL HAVE THEM RE-ENTERED. Performed By: #### L 500.2500, L100.0500 ####[facility] [address] [place], [address] CO2 Normal 21.0-32.0 [facility] Comment on above: Result Comment: LETICIA STRATION PULLED ORDERS ACROSS; CALLED OFFICE AND SPOKE TO MACHO, SHE WILL HAVE THEM RE-ENTERED. Performed By: #### L 500.2500, L100.0500 ####[facility] [address] [place], [address] CREAT,SERUM Normal 0.70-1.20 [facility] Comment on above: Result Comment: LETICIA STRATION PULLED ORDERS ACROSS; CALLED OFFICE AND SPOKE TO MACHO, SHE WILL HAVE THEM RE-ENTERED. Performed By: #### L 500.2500, L100.0500 ####[facility] [address] [place], [address] eGFR Normal >60 [facility] Comment on above: Result Comment: LETICIA STRATION PULLED ORDERS ACROSS; CALLED OFFICE AND SPOKE TO MACHO, SHE WILL HAVE THEM RE-ENTERED. Performed By: #### L 500.2500, L100.0500 ####[facility] [address] [place], [address] GAP Normal 5-15 [facility] Comment on above: Result Comment: LETICIA STRATION PULLED ORDERS ACROSS; CALLED OFFICE AND SPOKE TO MACHO, SHE WILL HAVE THEM RE-ENTERED. Performed By: #### L 500.2500, L100.0500 ####[facility] [address] [place], [address] GLU Normal 70-99 [facility] Comment on above: Result Comment: LETICIA STRATION PULLED ORDERS ACROSS; CALLED OFFICE AND SPOKE TO MACHO, SHE WILL HAVE THEM RE-ENTERED. Performed By: #### L 500.2500, L100.0500 ####[facility] [address] [place], [address] Potassium Normal 3.3-5.1 [facility] Comment on above: Result Comment: LETICIA STRATION PULLED ORDERS ACROSS; CALLED OFFICE AND SPOKE TO MACHO, SHE WILL HAVE THEM RE-ENTERED. Performed By: #### L 500.2500, L100.0500 ####[facility] [address] [place], [address] Basic Metabolic Profile (BMP) Normal 133-145 [facility] Comment on above: Result Comment: LETICIA STRATION PULLED ORDERS ACROSS; CALLED OFFICE AND SPOKE TO MACHO, SHE WILL HAVE THEM RE-ENTERED. Performed By: #### L 500.2500, L100.0500 ####[facility] [address] [place], [address] CBC-Complete Blood Cnt No Di ffon 07-20-2025 HCT Normal 40-54 [facility] Comment on above: Performed By: #### L 500.2500, L100.0500 #### [facility] Laboratory [address] [place], [address] HGB Normal 13.0-16.5 [facility] Comment on above: Performed By: #### L 500.2500, L100.0500 #### [facility] [address] [place], [address] MCH Normal 27.0-32.0 [facility] Comment on above: Performed By: #### L 500.2500, L100.0500 #### [facility] [address] [place], [address] MCHC Normal 32-36 [facility] Comment on above: Performed By: #### L 500.2500, L100.0500 #### [facility] [address] [place], [address] MCV Normal 80-94 [facility] Comment on above: Performed By: #### L 500.2500, L100.0500 #### [facility] [address] [place], [address] PLT Normal 150-450 [facility] Comment on above: Performed By: #### L 500.2500, L100.0500 #### [facility] [address] [place], [address] RBC Normal 4.6-6.2 [facility] Comment on above: Performed By: #### L 500.2500, L100.0500 #### [facility] [address] [place], [address] RDW CV Normal 11.6-14.6 [facility] Comment on above: Performed By: #### L 500.2500, L100.0500 #### [facility] [address] [place], [address] RDW SD Normal 35.1-43.9 [facility] Comment on above: Performed By: #### L 500.2500, L100.0500 #### [facility] [address] [place], [address] WBC Normal 4.4-11.0 [facility] Comment on above: Performed By: #### L 500.2500, L100.0500 #### [facility] [address] [place], [address] Cardiology Visit Reporton Cardiology Visit Report [facility] [address] [place] [address] OFFICE VISIT Date of Service: 07/12/25 MR#: [id number] Acct: [id number] Name: MAVIS IRWIN Rep #: [id number] : 1950 Provider: Dr. Tank Urbina MD Age/Sex: 74/M Location: [facility] [place] Status: Signed HPI HPI History of [...] Source Monitor Intake Visit Reasons: ORTHOSTATIC HYPOTENSION Administrative Support Technician Required: No Accompanied by: Daughter Is patient [...] Syncope R55 (more content not included)... Normal [facility] Absolute lymphocyte countOrd ered By: Aure Ponce on 05-26-2025 Lymphocytes Auto (Unsp spec) [#/Vol] 0.84 10*3/uL 0.83-4.51 [facility] Absolute neutrophil countOrd ered By: [facility] on 05-26-2025 Neutrophils (Bld) [#/Vol] 6.5 10*3/uL 2.0-7.7 [facility] Anion gap in Serum or Plasma Ordered By: Aure Ponce on 05-26-2025 Anion gap [Moles/Vol] 14 mmol/L 5-15 [facility] Automated lymphocyte count a s percentage of total leukocytesOrdered By: Aure Ponce on 05-26-2025 Lymphocytes/100 WBC Auto (Unsp spec) 9.9 % Low 19-41 [facility] BUN/creatinine ratioOrdered By: [facility] on 05-26-2025 Urea nitrogen/Creatinine [Mass ratio] 15.5 mg/mg 10-20 [facility] Basophil percentageOrdered B y: Aure Ponce on 05-26-2025 Basophils/100 WBC (Bld) 0.6 % 0-[address] [facility] Bilirubin, totalOrdered By: Aure Kris on 05-26-2025 Bilirubin [Mass/Vol] 0.63 mg/dL 0.00-1.30 [facility] CBC W/Diff, Automatedon 05-09 Absolute Lymph 0.84 X10 3/uL Normal 0.83-4.51 [facility] Comment on above: Order Comment: Order Date: 05/26/25 Order Info: 0184-1 - CBCD Performed By: #### L 501.9985, L100.0100, L501.9520, L500.4100, L500.4050 #### [facility] Laboratory [facility] [place], [address] Absolute Neut 6.5 X10 3/uL Normal 2.0-7.7 [facility] Comment on above: Order Comment: Order Date: 05/26/25 Order Info: 0184-1 - CBCD Performed By: #### L 501.9985, L100.0100, L501.9520, L500.4100, L500.4050 #### [facility] [address] [place], [address] Basophils/100 WBC (Bld) 0.6 % Normal 0-[address] [facility] Comment on above: Order Comment: Order Date: 05/26/25 Order Info: 0184-1 - CBCD Performed By: #### L 501.9985, L100.0100, L501.9520, L500.4100, L500.4050 #### [facility] [address] [place], [address] Eosinophils/100 WBC (Bld) 0.9 % Normal 0-5 [facility] Comment on above: Order Comment: Order Date: 05/26/25 Order Info: 0184- - CBCD Performed By: #### L 501.9985, L100.0100, L501.9520, L500.4100, L500.4050 #### [facility] [address] [place], [address] Erythrocyte distribution width (RBC) [Ratio] 11.9 % Normal 11.6-14.6 [facility] Comment on above: Order Comment: Order Date: 05/26/25 Order Info: 0184-1 - CBCD Performed By: #### L 501.9985, L100.0100, L501.9520, L500.4100, L500.4050 #### [facility] [address] [place], [address] Hematocrit (Bld) [Volume fraction] 42.8 % Normal 40-54 [facility] Comment on above: Order Comment: Order Date: 05/26/25 Order Info: 0184-1 - CBCD Performed By: #### L 501.9985, L100.0100, L501.9520, L500.4100, L500.4050 #### [facility] [address] [place], [address] Hemoglobin (Bld) [Mass/Vol] 14.8 g/dL Normal 13.0-16.5 [facility] Comment on above: Order Comment: Order Date: 05/26/25 Order Info: 0184-1 - CBCD Performed By: #### L 501.9985, L100.0100, L501.9520, L500.4100, L500.4050 #### [facility] [address] [place], [address] IG% 0.400 Normal 0.0-0.9 [facility] Comment on above: Order Comment: Order Date: 05/26/25 Order Info: 0184- - CBCD Result Comment: IG% - Immature Granulocytes (promyelocytes, myelocytes and metamyelocytes) > 1% indicates that a LEFT SHIFT is Present. Performed By: #### L 501.9985, L100.0100, L501.9520, L500.4100, L500.4050 #### [facility] [address] [place], [address] Lymphocytes/100 WBC (Bld) 9.9 % Low 19-41 [facility] Comment on above: Order Comment: Order Date: 05/26/25 Order Info: 0184-1 - CBCD Performed By: #### L 501.9985, L100.0100, L501.9520, L500.4100, L500.4050 #### [facility] [address] [place], [address] MCH (RBC) [Entitic mass] 33.6 pg High 27.0-32.0 [facility] Comment on above: Order Comment: Order Date: 05/26/25 Order Info: 0184-1 - CBCD Performed By: #### L 501.9985, L100.0100, L501.9520, L500.4100, L500.4050 #### [facility] [address] [place], [address] MCHC (RBC) [Mass/Vol] 34.6 g/dL Normal 32-36 [facility] Comment on above: Order Comment: Order Date: 05/26/25 Order Info: 0184-1 - CBCD Performed By: #### L 501.9985, L100.0100, L501.9520, L500.4100, L500.4050 #### [facility] [address] [place], [address] MCV (RBC) [Entitic vol] 97.3 fL High 80-94 [facility] Comment on above: Order Comment: Order Date: 05/26/25 Order Info: 018- - CBCD Performed By: #### L 501.9985, L100.0100, L501.9520, L500.4100, L500.4050 #### [facility] [address] [place], [address] Monocytes/100 WBC (Bld) 11.9 % High 0-10 [facility] Comment on above: Order Comment: Order Date: 05/26/25 Order Info: 018- - CBCD Performed By: #### L 501.9985, L100.0100, L501.9520, L500.4100, L500.4050 #### [facility] [address] [place], [address] Neutrophils/100 WBC (Bld) 76.3 % High 47-70 [facility] Comment on above: Order Comment: Order Date: 05/26/25 Order Info: 0184-1 - CBCD Performed By: #### L 501.9985, L100.0100, L501.9520, L500.4100, L500.4050 #### [facility] [address] [place], [address] Nucleated RBC (Bld) [#/Vol] 0 10*3/uL Normal 0-5 [facility] Comment on above: Order Comment: Order Date: 05/26/25 Order Info: 0184-1 - CBCD Performed By: #### L 501.9985, L100.0100, L501.9520, L500.4100, L500.4050 #### [facility] [address] [place], [address] Platelet mean volume (Bld) [Entitic vol] 8.7 fL Normal 6.2-12.0 [facility] Comment on above: Order Comment: Order Date: 05/26/25 Order Info: 0184- - CBCD Performed By: #### L 501.9985, L100.0100, L501.9520, L500.4100, L500.4050 #### [facility] [address] [place], [address] Platelets (Bld) [#/Vol] 268 10*3/uL Normal 150-450 [facility] Comment on above: Order Comment: Order Date: 05/26/25 Order Info: 0184- - CBCD Performed By: #### L 501.9985, L100.0100, L501.9520, L500.4100, L500.4050 #### [facility] [address] [place], [address] RBC (Bld) [#/Vol] 4.40 10*6/uL Low 4.6-6.2 [facility] Comment on above: Order Comment: Order Date: 05/26/25 Order Info: 0184-1 - CBCD Performed By: #### L 501.9985, L100.0100, L501.9520, L500.4100, L500.4050 #### [facility] [address] [place], [address] RDW SD 43.2 fl Normal 35.1-43.9 [facility] Comment on above: Order Comment: Order Date: 05/26/25 Order Info: 0184-1 - CBCD Performed By: #### L 501.9985, L100.0100, L501.9520, L500.4100, L500.4050 #### [facility] [address] [place], [address] WBC (Bld) [#/Vol] 8.5 10*3/uL Normal 4.4-11.0 [facility] Comment on above: Order Comment: Order Date: 05/26/25 Order Info: 0184-1 - CBCD Performed By: #### L 501.9985, L100.0100, L501.9520, L500.4100, L500.4050 #### [facility] [address] [place], [address] Calculated very low density lipoprotein (VLDL) cholesterol measurementOrdered By: Aure Ponce on 05-26-2025 Calculated very low density lipoprotein (VLDL) cholesterol measurement 20 mg/dL 5-40 [facility] Carbon dioxide, total [Moles /volume] in Central venous bloodOrdered By: Aure Ponce on 05-26-2025 CO2 [Moles/Vol] 25.8 mmol/L 21.0-32.0 [facility] Chloride assayOrdered By: Sarbjit Ponce on 05-26-2025 Chloride [Moles/Vol] 92 mmol/L Low 98-108 [facility] Comprehensive Metabolic Prof ilon 05-26-2025 Albumin [Mass/Vol] 4.8 g/dL Normal 3.4-4.8 [facility] Comment on above: Order Comment: Order Date: 05/26/25 Order Info: 0786-1 - CMP Order Info: [id number] - LIPID Order Info: [id number] - TSH Performed By: #### L 501.9985, L100.0100, L501.9520, L500.4100, L500.4050 #### [facility] [address] [place], [address] Albumin/Globulin [Mass ratio] 1.6 {ratio} Normal 0.9-2.4 [facility] Comment on above: Order Comment: Order Date: 05/26/25 Order Info: 785-11 - CMP Order Info: - LIPID Order Info: [id number] - TSH Performed By: #### L 501.9985, L100.0100, L501.9520, L500.4100, L500.4050 #### [facility] [address] [place], [address] ALK PHOS 75 U/L Normal 40-129 [facility] Comment on above: Order Comment: Order Date: 05/26/25 Order Info: 785-11 - CMP Order Info: - LIPID Order Info: [id number] - TSH Performed By: #### L 501.9985, L100.0100, L501.9520, L500.4100, L500.4050 #### [facility] [address] [place], [address] ALT [Catalytic activity/Vol] 23 U/L Normal <=46 [facility] Comment on above: Order Comment: Order Date: 05/26/25 Order Info: 785-11 - CMP Order Info: - LIPID Order Info: [id number] - TSH Performed By: #### L 501.9985, L100.0100, L501.9520, L500.4100, L500.4050 #### [facility] [address] [place], [place], [address] AST [Catalytic activity/Vol] 29 U/L Normal <=37 [facility] Comment on above: Order Comment: Order Date: 05/26/25 Order Info: 07 - CMP Order Info: [id number] - LIPID Order Info: [id number] - TSH Performed By: #### L 501.9985, L100.0100, L501.9520, L500.4100, L500.4050 #### [facility] [address] [place], [address] Bilirubin [Mass/Vol] 0.63 mg/dL Normal 0.00-1.30 [facility] Comment on above: Order Comment: Order Date: 05/26/25 Order Info: 785-11 - CMP Order Info: - LIPID Order Info: [id number] - TSH Performed By: #### L 501.9985, L100.0100, L501.9520, L500.4100, L500.4050 #### [facility] [address] [place], [address] BUN/CRE 15.5 RATIO Normal 10-20 [facility] Comment on above: Order Comment: Order Date: 05/26/25 Order Info: 785-11 - CMP Order Info: - LIPID Order Info: [id number] - TSH Performed By: #### L 501.9985, L100.0100, L501.9520, L500.4100, L500.4050 #### [facility] [address] [place], [address] Calcium [Mass/Vol] 10.1 mg/dL Normal 7.6-11.0 [facility] Comment on above: Order Comment: Order Date: 05/26/25 Order Info: 785-11 - CMP Order Info: - LIPID Order Info: [id number] - TSH Performed By: #### L 501.9985, L100.0100, L501.9520, L500.4100, L500.4050 #### [facility] [address] [place], [address] Chloride [Moles/Vol] 92 mmol/L Low 98-108 [facility] Comment on above: Order Comment: Order Date: 05/26/25 Order Info: 785-11 - CMP Order Info: - LIPID Order Info: [id number] - TSH Performed By: #### L 501.9985, L100.0100, L501.9520, L500.4100, L500.4050 #### [facility] [address] [place], [address] CO2 [Moles/Vol] 25.8 mmol/L Normal 21.0-32.0 [facility] Comment on above: Order Comment: Order Date: 05/26/25 Order Info: 785- - CMP Order Info: [id number] - LIPID Order Info: 301-3 - TSH Performed By: #### L 501.9985, L100.0100, L501.9520, L500.4100, L500.4050 #### [facility] [address] [place], [place], [address] Creatinine [Mass/Vol] 0.64 mg/dL Low 0.70-1.20 [facility] Comment on above: Order Comment: Order Date: 05/26/25 Order Info: 785-11 - CMP Order Info: [id number] - LIPID Order Info: [id number] - TSH Performed By: #### L 501.9985, L100.0100, L501.9520, L500.4100, L500.4050 #### [facility] [address] [place], [address] GAP 14 Normal 5-15 [facility] Comment on above: Order Comment: Order Date: 05/26/25 Order Info: 0786 - CMP Order Info: [id number] - LIPID Order Info: [id number] - TSH Performed By: #### L 501.9985, L100.0100, L501.9520, L500.4100, L500.4050 #### [facility] [address] [place], [place], [address] GFR/1.73 sq M.predicted among non-blacks MDRD (S/P/Bld) [Vol rate/Area] 101 mL/min/{1.73_m2} Normal >60 [facility] Comment on above: Order Comment: Order Date: 05/26/25 Order Info: 07-1 - CMP Order Info: - LIPID Order Info: [id number] - TSH Result Comment: mL/m in/1.73m2 CKD-EPI Creatinine Equation (2020) Performed By: #### L 501.9985, L100.0100, L501.9520, L500.4100, L500.4050 #### [facility] [address] [place], [address] Globulin (S) [Mass/Vol] 3.0 g/dL Normal 2.2-4.2 [facility] Comment on above: Order Comment: Order Date: 05/26/25 Order Info: 785-11 - CMP Order Info: - LIPID Order Info: [id number] - TSH Performed By: #### L 501.9985, L100.0100, L501.9520, L500.4100, L500.4050 #### [facility] [address] [place], [address] Glucose [Mass/Vol] 88 mg/dL Normal 70-99 [facility] Comment on above: Order Comment: Order Date: 05/26/25 Order Info: 785-11 - CMP Order Info: - LIPID Order Info: [id number] - TSH Performed By: #### L 501.9985, L100.0100, L501.9520, L500.4100, L500.4050 #### [facility] [address] [place], [address] Potassium [Moles/Vol] 4.3 mmol/L Normal 3.3-5.1 [facility] Comment on above: Order Comment: Order Date: 05/26/25 Order Info: 785-11 - CMP Order Info: - LIPID Order Info: [id number] - TSH Performed By: #### L 501.9985, L100.0100, L501.9520, L500.4100, L500.4050 #### [facility] [address] [place], [address] Sodium [Moles/Vol] 132 mmol/L Low 133-145 [facility] Comment on above: Order Comment: Order Date: 05/26/25 Order Info: 0786- - CMP Order Info: [id number] - LIPID Order Info: [id number] - TSH Performed By: #### L 501.9985, L100.0100, L501.9520, L500.4100, L500.4050 #### [facility] [address] [place], [place], [address] T PROT 7.8 g/dL Normal 5.9-8.4 [facility] Comment on above: Order Comment: Order Date: 05/26/25 Order Info: 0786- - CMP Order Info: [id number] - LIPID Order Info: [id number] - TSH Performed By: #### L 501.9985, L100.0100, L501.9520, L500.4100, L500.4050 #### [facility] [address] [place], [place], [address] Urea nitrogen [Mass/Vol] 10 mg/dL Normal 4-19 [facility] Comment on above: Order Comment: Order Date: 05/26/25 Order Info: 0786- - CMP Order Info: [id number] - LIPID Order Info: [id number] - TSH Performed By: #### L 501.9985, L100.0100, L501.9520, L500.4100, L500.4050 #### [facility] [address] [place], [place], [address] Eosinophil percentageOrdered By: Aure Ponce on 05-26-2025 Eosinophils/100 WBC (Bld) 0.9 % 0-5 [facility] Erythrocyte distribution wid th ratioOrdered By: Aure Ponce on 05-26-2025 Erythrocyte distribution width (RBC) [Ratio] 11.9 % 11.6-14.6 [facility] Erythrocyte distribution wid th standard deviationOrdered By: Aure Ponce on 05-26-2025 Erythrocyte distribution width (RBC) [Ratio] 43.2 fl 35.1-43.9 [facility] Glomerular filtration rate ( GFR) estimation/1.73 sq m using serum, plasma, or whole bOrdered By: Aure Ponce on 05-26-2025 GFR/1.73 sq M.predicted among non-blacks MDRD (S/P/Bld) [Vol rate/Area] 101 mL/min/{1.73_m2} >60 [facility] Comment on above: mL/min/1.73m2 CKD-EP I Creatinine Equation (2020) Hematocrit Auto (Bld) [Volum e fraction]Ordered By: Aure Ponce on 05-26-2025 Hematocrit (Bld) [Volume fraction] 42.8 % 40-54 [facility] Hemoglobin A1con 05-26-2025 HbA1c (Bld) [Mass fraction] 5.5 % Normal <=5.6 [facility] Comment on above: Order Comment: Order Date: 05/26/25 Order Info: [id number] - A1C Result Comment: Norm al < 5.7 % Prediabetic 5.7 - 6.4 % Diabetic >or= 6.5 % Please note range changes. Performed By: #### L 501.9985, L100.0100, L501.9520, L500.4100, L500.4050 #### [facility] [place], [address] Hemoglobin A1c percentageOrd ered By: Aure Ponce on 05-26-2025 HbA1c (Bld) [Mass fraction] 5.5 % <5.7 [facility] Comment on above: Normal < 5.7 % Predi abetic 5.7 - 6.4 % Diabetic >or= 6.5 % Please note range changes. Hemoglobin measurementOrdere d By: Aure Ponce on 05-26-2025 Hemoglobin (Bld) [Mass/Vol] 14.8 g/dL 13.0-16.5 [facility] Immature granulocytes/100 WB C Auto (Bld)Ordered By: Aure Ponce on 05-26-2025 Immature granulocytes/100 WBC (Bld) 0.400 % 0.0-0.9 [facility] Comment on above: IG% - Immature Granu locytes (promyelocytes, myelocytes and metamyelocytes) > 1% indicates that a LEFT SHIFT is Present. LDL calc ser/plasOrdered By: Aure Ponce on 05-26-2025 Cholesterol in LDL [Mass/Vol] 56 mg/dL [facility] Comment on above: Qfzdjoqomg=883-494 m g/dL & Higher Wbqd=838 mg/dL or greater Laboratory - Chemistry and C hemistry - challengeOrdered By: Aure Ponce on 05-26-2025 AST [Catalytic activity/Vol] 29 U/L <38 [facility] Lipid Profileon 05-26-2025 CHOL:HDL 1.76 Normal [facility] Comment on above: Order Comment: Order Date: 05/26/25 Order Info: 0786- - CMP Order Info: [id number] - LIPID Order Info: 3 - TSH Performed By: #### L 501.9985, L100.0100, L501.9520, L500.4100, L500.4050 #### [facility] [address] [place], [address] Cholesterol [Mass/Vol] 176 mg/dL Normal <=200 [facility] Comment on above: Order Comment: Order Date: 05/26/25 Order Info: 07 - CMP Order Info: [id number] - LIPID Order Info: 6-3 - TSH Result Comment: Chol esterol level, Desirable <200 mg/dL Borderline high cholesterol 200-239 mg/dL High cholesterol >=240 mg/dL Recommendations of the NCEP Adult Treatment Panel for the following risk-cutoff thresholds for the [place] population. Performed By: #### L 501.9985, L100.0100, L501.9520, L500.4100, L500.4050 #### [facility] [address] [place], [address] Cholesterol in HDL [Mass/Vol] 100 mg/dL Normal [facility] Comment on above: Order Comment: Order Date: 05/26/25 Order Info: [id number] - CMP Order Info: [id number] - LIPID Order Info: 301-3 - TSH Result Comment: Marielle onal Cholesterol Education Program (NCEP) guidelines: <40 mg/dL: Low HDL-cholesterol (major risk factor for CHD) >= 60 mg/dL: High HDL-cholesterol (negative risk factor for CHD) HDL-cholesterol is affected by a number of factors, e.g. smoking, exercise, hormones, sex and age. Performed By: #### L 501.9985, L100.0100, L501.9520, L500.4100, L500.4050 #### [facility] [address] [place], [address] Cholesterol in LDL [Mass/Vol] 56 mg/dL Normal [facility] Comment on above: Order Comment: Order Date: 05/26/25 Order Info: 07 - CMP Order Info: - LIPID Order Info: 3 - TSH Result Comment: Bord zkqbld=083-350 mg/dL Higher Htbh=683 mg/dL or greater Performed By: #### L 501.9985, L100.0100, L501.9520, L500.4100, L500.4050 #### [facility] [address] [place], [address] Cholesterol in VLDL [Mass/Vol] 20 mg/dL Normal 5-40 [facility] Comment on above: Order Comment: Order Date: 05/26/25 Order Info: 0786- - CMP Order Info: [id number] - LIPID Order Info: 3 - TSH Performed By: #### L 501.9985, L100.0100, L501.9520, L500.4100, L500.4050 #### [facility] [address] [place], [address] Triglyceride [Mass/Vol] 98 mg/dL Normal [facility] Comment on above: Order Comment: Order Date: 05/26/25 Order Info: 0786- - CMP Order Info: [id number] - LIPID Order Info: [id number] - TSH Result Comment: The drugs N-Acetylcysteine and Metamizole may falsely depress this assay. Normal range: <150 mg/dL Borderline High: 150-199 mg/dL High: 200-499 mg/dL Very High: >500 mg/dL Performed By: #### L 501.9985, L100.0100, L501.9520, L500.4100, L500.4050 #### [facility] [address] [place], [address] MCV (mean corpuscular volume ) determinationOrdered By: Aure Ponce on 05-26-2025 MCV (RBC) [Entitic vol] 97.3 fL High 80-[address] [facility] Mean corpuscular hemoglobin (MCH) determinationOrdered By: Aure Ponce on 05-26-2025 MCH (RBC) [Entitic mass] 33.6 pg High 27.0-32.0 [facility] Mean corpuscular hemoglobin concentration (MCHC) determinationOrdered By: Aure Ponce on 05-26-2025 MCHC (RBC) [Mass/Vol] 34.6 g/dL 32-36 [facility] Mean platelet volume determi nationOrdered By: Aure Ponce on 05-26-2025 Platelet mean volume (Bld) [Entitic vol] 8.7 fL 6.2-12.0 [facility] Monocyte percentageOrdered B y: Aure Ponce on 05-26-2025 Monocytes/100 WBC (Bld) 11.9 % High 0-[address] [facility] Neutrophil percentageOrdered By: Aure Ponce on 05-26-2025 Neutrophils/100 WBC (Bld) 76.3 % High 47-70 [facility] Nucleated red blood cell per centageOrdered By: Aure Ponce on 05-26-2025 Nucleated RBC/100 WBC (Bld) [Ratio] 0 % 0-5 [facility] Platelet countOrdered By: Sarbjit Ponce on 05-26-2025 Platelets (Bld) [#/Vol] 268 10*3/uL 150-450 [facility] Potassium measurement (mass/ volume)Ordered By: Aure Ponce on 05-26-2025 Potassium (Unsp spec) [Mass/Vol] 4.3 mmol/L 3.3-5.1 [facility] RBC Auto (Bld) [#/Vol]Ordere d By: Aure Ponce on 05-26-2025 RBC (Bld) [#/Vol] 4.40 10*6/uL Low 4.6-6.2 [facility] Screening total cholesterol/ high density lipoprotein (HDL) cholesterol ratioOrdered By: Aure Ponce on 05-26-2025 Cholesterol.total/Cholest mili in HDL [Mass ratio] 1.76 {ratio} [facility] Serum creatinine measurement (mass/volume)Ordered By: Aure Ponce on 05-26-2025 Creatinine [Mass/Vol] 0.64 mg/dL Low 0.70-1.20 [facility] Serum globulin measurementOr dered By: Aure Ponce on 05-26-2025 Globulin (S) [Mass/Vol] 3.0 g/dL 2.2-4.[address] [facility] Serum glucose measurement (m ass/volume)Ordered By: Aure Pocne on 05-26-2025 Glucose [Mass/Vol] 88 mg/dL 70-99 [facility] Serum or plasma alanine montero otransferase (ALT) measurementOrdered By: Aure Ponce on 05-26-2025 ALT [Catalytic activity/Vol] 23 U/L <47 [facility] Serum or plasma albumin rufina urement (mass/volume)Ordered By: Aure Ponce on 05-26-2025 Albumin [Mass/Vol] 4.8 g/dL 3.4-4.8 [facility] Serum or plasma albumin/glob ulin mass ratioOrdered By: Aure Ponce on 05-26-2025 Albumin/Globulin [Mass ratio] 1.6 {ratio} 0.9-2.4 [facility] Serum or plasma alkaline gabriel sphatase measurementOrdered By: Aure Ponce on 05-26-2025 ALP [Catalytic activity/Vol] 75 U/L 40-129 [facility] Serum or plasma calcium rufina urement (mass/volume)Ordered By: Aure Ponce on 05-26-2025 Calcium [Mass/Vol] 10.1 mg/dL 7.6-11.0 [facility] Serum or plasma cholesterol in HDL measurement (mass/volume)Ordered By: Aure Ponce on 05-26-2025 Cholesterol in HDL [Mass/Vol] 100 mg/dL >40 [facility] Comment on above: National Cholesterol Education Program (NCEP) guidelines:<40 mg/dL: Low HDL-cholesterol (major risk factor for CHD)>= 60 mg/dL: High HDL-cholesterol (negative risk factor for CHD)HDL-cholesterol is affected by a number of factors, e.g. smoking, exercise, hormones, sex and age. Serum or plasma cholesterol measurement (mass/volume)Ordered By: Aure Ponce on 05-26-2025 Cholesterol [Mass/Vol] 176 mg/dL <201 [facility] Comment on above: Cholesterol level, D esirable <200 mg/dLBorderline high cholesterol 200-239 mg/dLHigh cholesterol >=240 mg/dLRecommendations of the NCEP Adult Treatment Panel for the following risk-cutoff thresholds for the [place] population. Serum or plasma urea nitroge n measurement (mass/volume)Ordered By: Aure Ponce on 05-26-2025 Urea nitrogen [Mass/Vol] 10 mg/dL 4-19 [facility] Sodium levelOrdered By: Howard Ponce on 05-26-2025 Sodium [Moles/Vol] 132 mmol/L Low 133-145 [facility] TSH DL <= 0.005 mIU/L QnOrde red By: Aure Ponce on 05-26-2025 TSH Qn 0.561 uIU/mL 0.300-4.200 [facility] Thyroid Stim Hormone (TSH)on 05-26-2025 TSH 0.561 uIU/mL Normal 0.300-4.200 [facility] Comment on above: Order Comment: Order Date: 05/26/25 Order Info: [id number] - CMP Order Info: [id number] - LIPID Order Info: [id number] - TSH Performed By: #### L 501.9985, L100.0100, L501.9520, L500.4100, L500.4050 #### [facility] [address] [place], [address] Total proteinOrdered By: Luz Maria Ponce on 05-26-2025 Protein [Mass/Vol] 7.8 g/dL 5.9-8.4 [facility] Triglycerides measurementOrd ered By: Aure Ponce on 05-26-2025 Triglyceride [Mass/Vol] 98 mg/dL <[address] [facility] Comment on above: The drugs N-Acetylcy steine and Metamizole may falsely depress this assay. Normal range: <150 mg/dLBorderline High: 150-199 mg/dLHigh: 200-499 mg/dLVery High: >500 mg/dL Vitamin D,25 Hydroxyon 05-26 Vitamin D 25-OH 27.8 ng/mL Low 30-100 [facility] Comment on above: Order Comment: Order Date: 05/26/25 Order Info: [id number] - CMP Order Info: [id number] - LIPID Order Info: [id number] - TSH Result Comment: Deborah min D Status Deficiency: <20 ng/mL (50nmol/L) Insufficiency: 20-30 ng/mL (50-75 nmol/L) Sufficiency: 30-100 ng/mL (75-250 nmol/L) Toxicity: >100 ng/mL (>250 nmol/L) Performed By: #### L 506.1001 #### [facility] [address] [place], [place], [id number] White blood cell (WBC) count Ordered By: Aure Ponce on 05-26-2025 WBC (Bld) [#/Vol] 8.5 10*3/uL 4.4-11.0 [facility] Arterial study reportOrdered By: Donaldo Brown on 03-15-2025 Noninvasive arteriosclerosis study report [facility] [address] [place] [address] Lower Ext Art Exam w/o Exercis 03/15/25 1312 MR#: [id number] Acct: [id number] Name: MAVIS IRWIN Rep #:[id number] : [...] Performed By: LUIS ENRIQUE BERMUDEZ T 03/15/25 8088 Date _ Donaldo Brown MD CC: DPSam Burns; Dr. Aure Ponce MD ~ Date Dictated: 03/15/25 1312 Date Transcribed: 03/15/258 Suspender Maker: Signed [facility] Work Phone: Lower Ext Art Exam w/o Exerc moe 03-15-2025 Lower Ext Art Exam w/o Exercis [facility] [place] [address] Lower Ext Art Exam w/o Exercis 03/15/25 1312 MR#: [id number] Acct: [id number] Name: MAVIS IRWIN Rep #: [id number] : 1950 74 From: Donaldo Brown MD Attending Dr: Dr. Titus Burns DPM Status: R EG CLI Ordering Dr: Titus Burns DPM Date: 03/15/25 Location: [facility] Sex: M C Admitted: Reason [...] Date Dictated: 03/15/25 1312 Date Transcribed: 03/15/251657 Suspender Maker: Signed Normal [facility] Foot min 3 Viewson 5 Foot min 3 Views [facility] Imaging Services [address] [place] [address] Foot min 3 Views MR#: [id number] Acct: [id number] Name: MAVIS IRWIN Rep #: [id number] : 1950 M 74 From: Shabana Swartz MD PCP: Dr. Aure Ponce MD Status: REG CLI Study: Foot min 3 Views Date of Exam: 02/14/25 Exam# [id number] Ordering Dr: Aure Ponce MD EXAM: Three [...] with MRI as clinically indicated. Reading Location: [facility] CC: Dr. Aure Ponce MD Suspender Maker: Signed Normal [facility] Knee 4 or More Viewson 11-11 Knee 4 or More Views [facility] Imaging Services [address] [place], [place] [address] Knee 4 or More Views MR#: [id number] Acct: [id number] Name: MAVIS IRWIN Rep #: [id number] : 1950 M 73 From: Blake Jarquin MD PCP: Dr. Aure Ponce MD Status: REG CLI Study: Knee 4 or More Views Date of Exam: 11/11/24 Exam# [id number] Ordering Dr: Aure Ponce MD -[id number] STUDY: X-RAY - RIGHT KNEE REASON [...] EST , CC: Dr. Aure Ponce MD Suspender Maker: Signed Normal [facility] Basophil percentageOrdered B y: Lennox Oliveira on 03-18-2024 Hemoglobin (Bld) [Mass/Vol] 11.9 g/dL 13.0-16.5 [facility] WBC (Bld) [#/Vol] 9.0 10*3/uL 4.4-11.0 [facility] Determination of erythrocyte mean corpuscular volume (MCV)Ordered By: Lennox Oliveira on 03-18-2024 MCV (RBC) [Entitic vol] 101.1 fL 80-[address] [facility] Erythrocyte distribution wid th ratioOrdered By: Lennox Oliveira on 03-18-2024 Erythrocyte distribution width (RBC) [Ratio] 12.9 % 11.6-14.6 [facility] Erythrocyte distribution wid th standard deviationOrdered By: Lennox Oliveira on 03-18-2024 Erythrocyte distribution width (RBC) [Entitic vol] 48.1 fL 35.1-43.9 [facility] Hematocrit Auto (Bld) [Volum e fraction]Ordered By: Lennox Oliveira on 03-18-2024 Hematocrit (Bld) [Volume fraction] 36.0 % 40-54 [facility] Laboratory - Hematology and Cell countsOrdered By: Lennox Oliveira on 03-18-2024 MCH (RBC) [Entitic mass] 33.4 pg 27.0-32.0 [facility] MCHC (RBC) [Mass/Vol] 33.1 g/dL 32-36 [facility] Platelet mean volume (Bld) [Entitic vol] 8.7 fL 6.2-12.0 [facility] Platelets (Bld) [#/Vol] 166 10*3/uL 150-450 [facility] RBC Auto (Bld) [#/Vol]Ordere d By: Lennox Oliveira on 03-18-2024 RBC (Bld) [#/Vol] 3.56 10*6/uL 4.6-6.2 [facility] Absolute lymphocyte countOrd ered By: Pepe Chavez on 03-17-2024 Lymphocytes Auto (Unsp spec) [#/Vol] 0.51 10*3/uL 0.83-4.51 [facility] Automated lymphocyte count a s percentage of total leukocytesOrdered By: Pepe Chavez on 03-17-2024 Lymphocytes/100 WBC Auto (Unsp spec) 4.0 % 19-41 [facility] Basophil percentageOrdered B y: Pepe Chavez on 03-17-2024 Basophils/100 WBC (Bld) 0.2 % 0-[address] [facility] Chloride [Moles/Vol] 99 mmol/L 98-107 [facility] Eosinophils/100 WBC (Bld) 0.1 % 0-5 [facility] Glucose [Mass/Vol] 114 mg/dL 74-106 [facility] Comment on above: Fasting Glucose resu lt from 100 to 125 mg/dL suggests IMPAIRED HOMEOSTASIS per A.D.A. criteria. Hemoglobin (Bld) [Mass/Vol] 13.5 g/dL 13.0-16.5 [facility] Monocytes/100 WBC (Bld) 15.0 % 0-[address] [facility] Neutrophils (Bld) [#/Vol] 10.4 10*3/uL 2.0-7.7 [facility] Neutrophils/100 WBC (Bld) 80.3 % 47-70 [facility] Potassium [Moles/Vol] 4.2 mmol/L 3.5-5.1 [facility] Sodium [Moles/Vol] 134 mmol/L 136-145 [facility] WBC (Bld) [#/Vol] 12.9 10*3/uL 4.4-11.0 [facility] Blood manual differential co mment interpretation (narrative result)Ordered By: Pepe Chavez on 03-17-2024 Manual differential comment Dougie (Bld) [Interp] COMMENT [facility] Comment on above: LYMPHOPENIA.MONOCYTO SIS. Determination of erythrocyte mean corpuscular volume (MCV)Ordered By: Pepe Chavez on 03-17-2024 MCV (RBC) [Entitic vol] 97.5 fL 80-[address] [facility] Erythrocyte distribution wid th ratioOrdered By: Pepe Chavez on 03-17-2024 Erythrocyte distribution width (RBC) [Ratio] 12.2 % 11.6-14.6 [facility] Erythrocyte distribution wid th standard deviationOrdered By: Pepe Chavez on 03-17-2024 Erythrocyte distribution width (RBC) [Entitic vol] 43.9 fL 35.1-43.9 [facility] Hematocrit Auto (Bld) [Volum e fraction]Ordered By: Pepe Chavez on 03-17-2024 Hematocrit (Bld) [Volume fraction] 39.2 % 40-54 [facility] Immature granulocytes/100 WB C Auto (Bld)Ordered By: Pepe Chavez on 03-17-2024 Immature granulocytes/100 WBC (Bld) 0.400 % 0.0-0.9 [facility] Comment on above: IG% - Immature Granu locytes (promyelocytes, myelocytes and metamyelocytes) > 1% indicates that a LEFT SHIFT is Present. Laboratory - Chemistry and C hemistry - challengeOrdered By: Lennox Oliveira on 03-17-2024 Cobalamin (Vitamin B12) [Mass/Vol] 235 pg/mL 211-911 [facility] Laboratory - Chemistry and C hemistry - challengeOrdered By: Pepe Chavez on 03-17-2024 CK [Catalytic activity/Vol] 124 U/L 39-308 [facility] CO2 [Moles/Vol] 28.0 mmol/L 21.0-32.0 [facility] Urea nitrogen/Creatinine [Mass ratio] 11.7 mg/mg 10-20 [facility] Laboratory - CoagulationOrde red By: Lennox Oliveira on 03-17-2024 INR Coag (Bld) [Relative time] 1.1 {INR} [facility] PT Coag (PPP) [Time] 14.0 s 11.7-14.9 [facility] Laboratory - Hematology and Cell countsOrdered By: Pepe Chavez on 03-17-2024 MCH (RBC) [Entitic mass] 33.6 pg 27.0-32.0 [facility] MCHC (RBC) [Mass/Vol] 34.4 g/dL 32-36 [facility] Nucleated RBC/100 WBC (Bld) [Ratio] 0 % 0-5 [facility] Platelet mean volume (Bld) [Entitic vol] 8.1 fL 6.2-12.0 [facility] Platelets (Bld) [#/Vol] 195 10*3/uL 150-450 [facility] No Panel InformationOrdered By: Pepe Chavez [...] coma Estimated Creatinine Clearance Calc 74.98 ml/min [facility] Estimated GFR (MDRD) Amer 129 mL/min >60 [facility] Comment on above: GFR Calc Estimated GFR (MDRD) Non-Af Amer 106 mL/min >60 [facility] Comment on above: Non- GFR Calc No Panel InformationOrdered By: Lennox Oliveira on 03-17-2024 Vitamin D 25-Hydroxy 21.7 ng/mL [facility] Comment on above: Vitamin D 25(OH) Sta tus Range Deficiency <20 ng/mL (50nmol/L) Insufficiency 20 - 30 ng/mL (50 - 75 nmol/L) Sufficiency 30 - 100 ng/mL (75 - 250 nmol/L) Toxicity >100 ng/mL (>250 nmol/L) Folate 12.30 ng/mL 3.1-55.4 [facility] RBC Auto (Bld) [#/Vol]Ordere d By: Pepe Chavez on 03-17-2024 RBC (Bld) [#/Vol] 4.02 10*6/uL 4.6-6.2 [facility] Review by pathologistOrdered By: Pepe Chavez on 03-17-2024 Pathologist review Dougie (Unsp spec) [Interp] May foll [facility] Serum or plasma calcium rufina urement (mass/volume)Ordered By: Pepe Chavez on 03-17-2024 Calcium [Mass/Vol] 9.2 mg/dL 8.5-10.1 [facility] Serum or plasma creatinine m easurement (mass/volume)Ordered By: Pepe Chavez on 03-17-2024 Creatinine [Mass/Vol] 0.77 mg/dL 0.70-1.30 [facility] Comment on above: The validity of the calculated GFR & GFRAA in patients over 70 years has not been determined. Clinical correlation is essential. Serum or plasma urea nitroge n measurement (mass/volume)Ordered By: Pepe Chavez on 03-17-2024 Urea nitrogen [Mass/Vol] 9 mg/dL 7-18 [facility] Thin prep Papanicolaou smear with manual screeningOrdered By: Pepe Chavez on 03-17-2024 Thin prep Papanicolaou smear with manual screening 7 5-15 [facility] Absolute lymphocyte countOrd ered By: Aure Noriegake on 03-14-2024 Lymphocytes Auto (Unsp spec) [#/Vol] 1.14 10*3/uL 0.83-4.51 [facility] Automated lymphocyte count a s percentage of total leukocytesOrdered By: Aure Ponce on 03-14-2024 Lymphocytes/100 WBC Auto (Unsp spec) 18.3 % 19-41 [facility] Basophil percentageOrdered B y: Howardjunior Kris on 03-14-2024 Basophils/100 WBC (Bld) 0.8 % 0-[address] [facility] Bilirubin [Mass/Vol] 0.70 mg/dL 0.20-1.00 [facility] Comment on above: For patients on eltr ombopag therapy, use of Dimension [place] TBIL is not recommended. Chloride [Moles/Vol] 96 mmol/L 98-107 [facility] Cholesterol [Mass/Vol] 232 mg/dL <200 [facility] Comment on above: <200 mg/dL Desirable 200-240 mg/dL Borderline >240 mg/dL High Risk Eosinophils/100 WBC (Bld) 2.4 % 0-5 [facility] Glucose [Mass/Vol] 141 mg/dL 74-106 [facility] Comment on above: Fasting Glucose resu lt greater than or equal to 126 mg/dL suggests DIABETES MELLITUS per A.D.A. criteria. Hemoglobin (Bld) [Mass/Vol] 15.4 g/dL 13.0-16.5 [facility] Monocytes/100 WBC (Bld) 15.0 % 0-[address] [facility] Neutrophils (Bld) [#/Vol] 3.9 10*3/uL 2.0-7.7 [facility] Neutrophils/100 WBC (Bld) 63.3 % 47-70 [facility] Potassium [Moles/Vol] 4.1 mmol/L 3.5-5.1 [facility] Protein [Mass/Vol] 7.6 g/dL 6.4-8.2 [facility] Sodium [Moles/Vol] 131 mmol/L 136-145 [facility] Triglyceride [Mass/Vol] 160 mg/dL <[address] [facility] Comment on above: The drugs N-Acetylcy steine and Metamizole may falsely depress this assay.Serum Triglycerides Reference Interval Normal <150 mg/dL Borderline high 150 - 199 mg/dL High 200 - 499 mg/dL Very High > or = 500 mg/dL WBC (Bld) [#/Vol] 6.2 10*3/uL 4.4-11.0 [facility] Determination of erythrocyte mean corpuscular volume (MCV)Ordered By: Aure Ponce on 03-14-2024 MCV (RBC) [Entitic vol] 97.6 fL 80-[address] [facility] Erythrocyte distribution wid th ratioOrdered By: Aure Kris on 03-14-2024 Erythrocyte distribution width (RBC) [Ratio] 12.5 % 11.6-14.6 [facility] Erythrocyte distribution wid th standard deviationOrdered By: Aure Ponce on 03-14-2024 Erythrocyte distribution width (RBC) [Entitic vol] 44.8 fL 35.1-43.9 [facility] Hematocrit Auto (Bld) [Volum e fraction]Ordered By: Aure Ponce on 03-14-2024 Hematocrit (Bld) [Volume fraction] 45.6 % 40-54 [facility] Immature granulocytes/100 WB C Auto (Bld)Ordered By: Aure Kris on 03-14-2024 Immature granulocytes/100 WBC (Bld) 0.200 % 0.0-0.9 [facility] Comment on above: IG% - Immature Granu locytes (promyelocytes, myelocytes and metamyelocytes) > 1% indicates that a LEFT SHIFT is Present. Laboratory - Chemistry and C hemistry - challengeOrdered By: Aure Ponce on 03-14-2024 Albumin/Globulin [Mass ratio] 1.1 {ratio} 0.9-2.4 [facility] ALP [Catalytic activity/Vol] 61 U/L 45-117 [facility] ALT [Catalytic activity/Vol] 17 U/L 16-61 [facility] Cholesterol in HDL [Mass/Vol] 68 mg/dL >40 [facility] Comment on above: The drugs N-Acetylcy steine and Metamizole may falsely depress this assay. Reference Range HDL <40 mg/dL Low HDL Cholesterol HDL >or= 60 mg/dL High HDL Cholesterol Cholesterol in LDL [Mass/Vol] 132 mg/dL 0-130 [facility] CO2 [Moles/Vol] 27.0 mmol/L 21.0-32.0 [facility] Globulin (S) [Mass/Vol] 3.6 g/dL 2.2-4.[address] [facility] Urea nitrogen/Creatinine [Mass ratio] 14.9 mg/mg 10-20 [facility] Laboratory - Hematology and Cell countsOrdered By: Aure Ponce on 03-14-2024 MCH (RBC) [Entitic mass] 33.0 pg 27.0-32.0 [facility] MCHC (RBC) [Mass/Vol] 33.8 g/dL 32-36 [facility] Nucleated RBC/100 WBC (Bld) [Ratio] 0 % 0-5 [facility] Platelet mean volume (Bld) [Entitic vol] 8.2 fL 6.2-12.0 [facility] Platelets (Bld) [#/Vol] 222 10*3/uL 150-450 [facility] No Panel InformationOrdered By: Aure Ponce on 03-14-2024 Estimated GFR (MDRD) Amer 111 mL/min >60 [facility] Comment on above: GFR Calc Estimated GFR (MDRD) Non-Af Amer 91 mL/min >60 [facility] Comment on above: Non- GFR Calc Prostate Specific Antigen Screen 2.93 ng/mL 0.00-4.00 [facility] Comment on above: This test was perfor med using the TPSA assay method for theinContact chemistry system. Values obtained with differentassay methods cannot be used interchangably.When changing PSA assays in the course of monitoring apatient, additional sequential testing should be carriedout to confirm baseline values. VLDL Cholesterol 32 mg/dL 5-40 [facility] RBC Auto (Bld) [#/Vol]Ordere d By: Aure Ponce on 03-14-2024 RBC (Bld) [#/Vol] 4.67 10*6/uL 4.6-6.2 [facility] Serum or plasma calcium rufina urement (mass/volume)Ordered By: Aure Ponce on 03-14-2024 Calcium [Mass/Vol] 9.7 mg/dL 8.5-10.1 [facility] Serum or plasma creatinine m easurement (mass/volume)Ordered By: Aure Ponce on 03-14-2024 Creatinine [Mass/Vol] 0.87 mg/dL 0.70-1.30 [facility] Comment on above: The validity of the calculated GFR & GFRAA in patients over 70 years has not been determined. Clinical correlation is essential. Serum or plasma urea nitroge n measurement (mass/volume)Ordered By: Aure Ponce on 03-14-2024 Urea nitrogen [Mass/Vol] 13 mg/dL 7-18 [facility] Thin prep Papanicolaou smear with manual screeningOrdered By: [facility] on 03-14-2024 Thin prep Papanicolaou smear with manual screening 4.0 g/dL 3.2-5.0 [facility] Thin prep Papanicolaou smear with manual screening 19 U/L 15-37 [facility] Thin prep Papanicolaou smear with manual screening 8 5-15 [facility] Clinical Event Noteon 2020 Clinical Event Note Clinical Event: Clinical Event Note: Details Patient has necrotic right pinky toe. Causing him pain. Patient was not seen here he was instructed to go straight to the ER. Patient says been going on about 5 weeks. Patient wants to go to the [place] [facility]. Electronic Signatures: Mayra Reyes (AQUARIUM SPECIALIST-TUBE W[employer]ER HAND) (Signed 17-Jun-2021 16:06) Authored: Clinical Event Note Last Updated: 17-Jun-2021 16:06 by Mayra Reyes (AQUARIUM SPECIALIST-[employer] W[employer]ER HAND) Normal [facility] Auto Diffon 08-09-2019 Basophils (Bld) [#/Vol] 0.0 E3/mcL Normal 0.0-0.2 [facility] Comment on above: Order Comment: Order Added by Discern Expert. Performed By: #### 2 [id number] #### ZEE RemHemo [address] [place] [address] Basophils/100 WBC (Bld) 0.9 % Normal 0.0-2.0 [facility] Comment on above: Order Comment: Order Added by Discern Expert. Performed By: #### 2 [id number] #### ZEE RemHemo [address] [place] [address] Eos Absolute 0.2 E3/mcL Normal 0.0-0.7 [facility] Comment on above: Order Comment: Order Added by Discern Expert. Performed By: #### 2 [id number] #### ZEE RemHemo [address] [place] [address] Eosinophils/100 WBC (Bld) 3.9 % Normal 0.0-11.0 [facility] Comment on above: Order Comment: Order Added by Discern Expert. Performed By: #### 2 [id number] #### ZEE Rem[employer] [address] [place] [address] Lymphocytes (Bld) [#/Vol] 1.1 E3/mcL Low 1.2-3.4 [facility] Comment on above: Order Comment: Order Added by Discern Expert. Performed By: #### 2 [id number] #### ZEE Rem[employer] [address] [place] [address] Lymphocytes/100 WBC (Bld) 21.0 % Normal 20.0-55.0 [facility] Comment on above: Order Comment: Order Added by Discern Expert. Performed By: #### 2 [id number] #### ZEE Rem[employer] [address] [place] [address] [place] Absolute 0.8 E3/mcL High 0.0-0.7 [facility] Comment on above: Order Comment: Order Added by Discern Expert. Performed By: #### 2 [id number] #### ZEE Rem[employer] [address] [place] [address] Monocytes/100 WBC (Bld) 14.3 % High 0.0-10.0 [facility] Comment on above: Order Comment: Order Added by Discern Expert. Performed By: #### 2 [id number] #### ZEE RemHemo [address] [place] [address] Neutro Absolute 3.3 E3/mcL Normal 1.4-6.5 [facility] Comment on above: Order Comment: Order Added by Discern Expert. Performed By: #### 2 [id number] #### ZEE RemHemo [address] [place] [address] Neutro Auto 59.9 % Normal 37.0-75.0 [facility] Comment on above: Order Comment: Order Added by Discern Expert. Performed By: #### 2 [id number] #### ZEE RemHemo [address] [place] [address] CBC w/ Auto Diffon Erythrocyte distribution width (RBC) [Ratio] 12.7 % Normal 11.5-14.5 [facility] Comment on above: Performed By: #### 2 [id number] #### ZEE RemHemo [address] [place] [address] Hematocrit (Bld) [Volume fraction] 40.2 % Low 42.0-52.0 [facility] Comment on above: Performed By: #### 2 [id number] #### ZEE RemHemo [facility] [place] [address] Hemoglobin (Bld) [Mass/Vol] 13.7 g/dL Normal 13.5-18.0 [facility] Comment on above: Performed By: #### 2 [id number] #### ZEE RemHemo [address] [place] [address] MCH (RBC) [Entitic mass] 34.9 pg High 27.0-31.0 [facility] Comment on above: Performed By: #### 2 [id number] #### ZEE RemHemo [address] [place] [address] MCHC (RBC) [Mass/Vol] 34.1 g/dL Normal 33.0-37.0 [facility] Comment on above: Performed By: #### 2 [id number] #### ZEE RemHemo [address] [place] [address] MCV (RBC) [Entitic vol] 102.5 fL High 78.0-100.0 [facility] Comment on above: Performed By: #### 2 656759 #### ZEE RemHemo [address] [place] [address] Platelet mean volume (Bld) [Entitic vol] 6.6 fL Low 7.4-11.0 [facility] Comment on above: Performed By: #### 2 [id number] #### ZEE FerreiraHemo [address] [place] [address] Platelets (Bld) [#/Vol] 195 E3/mcL Normal 130-400 [facility] Comment on above: Performed By: #### 2 [id number] #### ZEE FerreiraHemo [address] [place] [address] RBC (Bld) [#/Vol] 3.92 E6/mcL Normal 3.90-6.10 [facility] Comment on above: Performed By: #### 2 [id number] #### ZEESimone FerreiraHemo [address] [place] [address] WBC (Bld) [#/Vol] 5.5 E3/mcL Normal 3.6-11.0 [facility] Comment on above: Performed By: #### 2 [id number] #### ZEE FerreiraHemo [address] [place] [address] CMPon 08-09-2019 Albumin [Mass/Vol] 3.9 g/dL Normal 3.4-5.0 [facility] Comment on above: Performed By: #### 2 [id number] #### ZEE FerreiraChem [address] [place] [address] Albumin/Globulin [Mass ratio] 1.6 {ratio} Normal 1.1-1.9 [facility] Comment on above: Performed By: #### 2 114727 #### ZEESimone FerreiraChem [address] [place] [address] Alk Phos 41 Int._Unit/L Normal 33-136 [facility] Comment on above: Performed By: #### 2 [id number] #### ZEE [employer] [address] [place] [address] ALT [Catalytic activity/Vol] 7 Int._Unit/L Low 10-52 [facility] Comment on above: Performed By: #### 2 [id number] #### ZEE [employer] [address] [place] [address] Anion gap [Moles/Vol] 14 mmol/L Normal 10-20 [facility] Comment on above: Performed By: #### 2 [id number] #### ZEE FerreiraChem [address] [place] [address] AST [Catalytic activity/Vol] 14 Int._Unit/L Normal 9-39 [facility] Comment on above: Performed By: #### 2 [id number] #### ZEE FerreiraChem [address] [place] [address] Bili Total 0.39 mg/dL Normal 0.00-1.20 [facility] Comment on above: Performed By: #### 2 868102 #### ZEE FerreiraChem [facility] [place] [address] Calcium [Mass/Vol] 8.6 mg/dL Normal 8.6-10.3 [facility] Comment on above: Performed By: #### 2 712117 #### [place]EE [place] [address] [place] [address] Chloride [Moles/Vol] 101 mmol/L Normal 98-107 [facility] Comment on above: Performed By: #### 2 282398 #### ZEESimone FerreiraChem [address] [place] [address] CO2 [Moles/Vol] 24.0 mmol/L Normal 21.0-32.0 [facility] Comment on above: Performed By: #### 2 951457 #### ZEE Ferreira[address] [address] Creatinine [Mass/Vol] 0.8 mg/dL Normal 0.5-1.3 [facility] Comment on above: Performed By: #### 2 [id number] #### ZEE FerreiraChem [facility] [place] [address] Globulin (S) [Mass/Vol] 3.0 g/dL Normal 2.0-4.0 [facility] Comment on above: Performed By: #### 2 782323 #### ZEESimone FerreiraChem [address] [place] [address] Glucose [Mass/Vol] 96 mg/dL Normal 70-99 [facility] Comment on above: Performed By: #### 2 678971 #### ZEESimone FerreiraChem [facility] [place] [address] Potassium [Moles/Vol] 4.2 mmol/L Normal 3.5-5.3 [facility] Comment on above: Performed By: #### 2 [id number] #### [employer]EE [employer] [address] [place] [address] Protein [Mass/Vol] 6.4 g/dL Normal 6.4-8.2 [facility] Comment on above: Performed By: #### 2 139857 #### ZEE [employer] [address] [place] [address] Sodium [Moles/Vol] 135 mmol/L Low 136-145 [facility] Comment on above: Performed By: #### 2 966191 #### [employer]EE [employer] [address] [place] [address] Urea nitrogen [Mass/Vol] 12 mg/dL Normal 6-23 [facility] Comment on above: Performed By: #### 2 [id number] #### [employer]EE [employer] [address] [place] [address] Urea nitrogen/Creatinine [Mass ratio] 15.0 ratio Normal 5.4-30.0 [facility] Comment on above: Performed By: #### 2 [id number] #### [employer]EE [employer] [address] [place] [address] Ethanolon 08-09-2019 Ethanol [Mass/Vol] 74 mg/dL High <=10 [facility] Comment on above: Result Comment: SAMP LES WITH CONCENTRATIONS <15 MG/DL SHOULD BE INTERPRETED NEGATIVE. FOR MEDICAL USE ONLY Performed By: #### 2 [id number] #### [employer]EE [employer] [address] [place] [address] Lipase Levelon 08-09-2019 Lipase Lvl 30 Int._Unit/L Normal 9-82 [facility] Comment on above: Performed By: #### 2 183275 #### [employer]EE [employer] [address] [place] [address] Magnesiumon 08-09-2019 Magnesium [Mass/Vol] 2.0 mg/dL Normal 1.6-2.4 [facility] Comment on above: Performed By: #### 2 104310 #### ZEE [employer] [address] [place] [address] Troponin-Ion 08-09-2019 Troponin I.cardiac [Mass/Vol] 0.03 ng/mL Normal 0.00-0.03 [facility] Comment on above: Performed By: #### 2 [id number] #### [employer]EE [employer] [address] [place] [address] eGFRon 08-09-2019 GFR/1.73 sq M predicted among non-blacks MDRD (S/P/Bld) [Vol rate/Area] mL/min/{1.73_m2} Normal [facility] Comment on above: Order Comment: Order added by Discern Expert. Performed By: #### 1 [id number] #### [employer]EE [employer] [address] [place] [address] Vital Signs Date Time Vital Sign Value Performing Clinician Siddhartha garvey 07-12-2025 12:45-0400 Body height 177.8 cm Aure Ponce MD Work Phone: [facility] 07-12-2025 12:45-0400 Body mass index (BMI) [Ratio] 16.5 kg/m2 Aure Ponce MD Work Phone: [facility] 07-12-2025 12:45-0400 Body weight 52.16 kg Aure Ponce MD Work Phone: [facility] 07-12-2025 12:45-0400 Diastolic blood pressure 73 mm[Hg] Aure Ponce MD Work Phone: [facility] 07-12-2025 12:45-0400 Heart rate 87 /min Aure Ponce MD Work Phone: [facility] 07-12-2025 12:45-0400 Respiratory rate 20 /min Aure Ponce MD Work Phone: [facility] 07-12-2025 12:45-0400 Systolic blood pressure 122 mm[Hg] Aure Ponce MD Work Phone: [facility] 03-18-2024 05:52-0400 Body temperature 97.6 [degF] [facility] 03-18-2024 05:52-0400 Diastolic blood pressure 77 mm[Hg] [facility] 03-18-2024 05:52-0400 Heart rate 80 /min [facility] 03-18-2024 05:52-0400 Respiratory rate 18 /min [facility] 03-18-2024 05:52-0400 SaO2% (BldA) [Mass fraction] 97 % [facility] 03-18-2024 05:52-0400 Systolic blood pressure 136 mm[Hg] [facility] 03-17-2024 15:37-0400 Body temperature 98.3 [degF] [facility] 03-17-2024 15:37-0400 Diastolic blood pressure 82 mm[Hg] [facility] 03-17-2024 15:37-0400 Heart rate 90 /min [facility] 03-17-2024 15:37-0400 Respiratory rate 18 /min [facility] 03-17-2024 15:37-0400 SaO2% (BldA) [Mass fraction] 93 % [facility] 03-17-2024 15:37-0400 Systolic blood pressure 144 mm[Hg] [facility] 03-17-2024 15:36-0400 Body height 177.8 cm [facility] 03-17-2024 15:36-0400 Body mass index (BMI) [Ratio] 18.3 kg/m2 [facility] 03-17-2024 15:36-0400 Body weight 58.01 kg [facility] Encounters Encounter Date Encounter Type Care Provider Facility Start: 08-15-2025 delisa Urbina Facility:[facility] Start: 08-09-2025 ambulatory Chalon Kris Facility:[facility] Start: 08-08-2025 ambulatory Chalon Kris Facility:[facility] Start: 08-02-2025 ambulatory Chalon Kris Facility:[facility] Start: 07-21-2025 ambulatory Chalon Kris Facility:[facility] Start: 07-21-2025 ambulatory Tank Carlitos Facility:[facility] Start: 07-12-2025 End: 07-12-[address] Tank Urbina MD -[facility] Work Phone: Start: 07-12-2025 End: 07-12-2025 ambulatory Chalon Kris MD Work Phone: -[facility] Start: 06-01-2025 Encounter for genera l adult medical examination without abnormal findings Aure Ponce [facility] Start: 05-26-2025 End: 05-26-2025 ambulatory Aure Ponce MD Work Phone: -Laboratory [facility] Start: 05-26-2025 End: 05-26-[address] Aure Ponce MD -Laboratory [facility] Start: 05-26-2025 End: 05-26-2025 ambulatory Aure Ponce Facility:[facility] Start: 03-15-2025 Non-patient / Non-visit Dr. Donaldo petty MD -[facility] Start: 03-15-2025 End: 03-15-2025 ambulatory Aure Ponce MD Work Phone: [facility] Work Phone: Start: 03-15-2025 End: 03-15-[address] Titus Burns DP -Cardiovascular Services Work Phone: Start: 03-15-2025 End: 03-15-2025 ambulatory Aure Ponce Facility:[facility] Start: 02-14-2025 End: 02-14-2025 ambulatory Aure Ponce MD Work Phone: [facility] Work Phone: Start: 02-14-2025 End: 02-14-[address] Aure Ponce MD -Radiology, [place] Work Phone: Start: 02-14-2025 End: 02-14-2025 ambulatory Aure Ponce Facility:[facility] Start: 11-11-2024 End: 11-11-[address] Aure Ponce MD -Radiology, [place] Work Phone: Start: 11-11-2024 End: 11-11-2024 ambulatory Aure Ponce Facility:[facility] Start: 03-17-2024 Evaluation and management of inpatient [facility]-Medical Surgical 3 Work Phone: Start: 03-14-2024 End: 03-14-2024 ambulatory [facility] Work Phone: Start: 03-14-2024 End: 03-14-2024 Patient encounter procedure [facility] Work Phone: Start: 02-12-2022 End: 02-12-[address] Eugene Simmons Work Phone: [facility] Start: 10-28-2021 Non-patient / Non-visit Dr. Jael Simmons Work Phone: [facility] Start: 10-28-[address] Eugene Simmons Work Phone: [facility]-Cardiovascula r Services Procedures Date Procedure Procedure [...] 07-12-2025 Evaluation of diagno stic study results [facility] Start: 03-18-2024 Osteoplasty of femur IM Roddin g Hip, Intertan Nail S/N (Right) [facility] Start: 03-18-2024 Fluoroscopic guidance O.R. Flu crystal for C-Arm [facility] Start: 03-18-2024 Plain x-ray of pelvi s and lower extremity Hip 1 view with Pelvis [facility] Start: 03-18-2024 Blood chemistry [facility] Start: 03-17-2024 Assessment of risk o f venous thromboembolism [facility] Start: 03-17-2024 Incentive spirometry [facility] Start: 03-17-2024 Insertion of cathete r into peripheral vein [facility] Start: 03-17-2024 Oxygen therapy [facility] Start: 03-17-2024 Providing care accor ding to standard [facility] Start: 03-17-2024 Provision of activit y privileges [facility] Start: 03-17-2024 Referral to occupati onal therapist [facility] Start: 03-17-2024 Referral to service [facility] Start: 03-17-2024 [facility] Start: 03-17-2024 Following clinical p athway protocol [facility] Start: 03-17-2024 Verification routine [facility] Start: 03-17-2024 [facility] Start: 03-17-2024 Hospital admission, emergency, from emergency room, medical nature [facility] Start: 03-17-2024 Admission procedure [facility] Anion gap measurement [facility] BUN/Creatinine ratio [facility] Calcium [Mass/volume ] in Serum or Plasma [facility] Carbon dioxide, tota l [Moles/volume] in Serum or Plasma [facility] Chloride [Moles/volu me] in Serum or Plasma [facility] Creatinine [Moles/vo lume] in Serum or Plasma [facility] Glucose [Mass/volume ] in Serum or Plasma [facility] Measurement of renal function [facility] Patient referral [facility] Work Phone: Potassium [Moles/vol ume] in Serum or Plasma [facility] Sodium [Moles/volume ] in Serum or Plasma [facility] Urea nitrogen [Mass/ volume] in Serum or Plasma [facility] Payers Date Payer Category Payer Self-pay [id number] 2024 Unknown [id number] Medicare [id number] Unknown [id number] Unknown [employer] AUTH REQUIRED SEE NOTE* * [id number] Unknown [id number] Unknown [id number] Unknown [id number] Unknown [id number] Unknown [id number] Unknown [id number] Unknown [id number] Unknown [id number] Unknown [id number] Unknown [id number] Unknown [id number] [id number] Unknown [id number] Social History Date Type Detail Facility Start: 06-17-2021 End: 03-17-2024 Tobacco smoking status NHIS Unknown if ever smoked [facility] Start: 1950 Sex Assigned At Male [facility]: [facility] Start: 02-18-2025 Sex Male (finding) [facility] Start: 06-28-2025 [facility] [facility] Medical Equipment Procedure Code Equipment Code Equipment Origin al Text Equipment Identifier Dates Insertion, trochanteric nail, femur, proximal ([id number]) Orthopaedic bone screw, non-bioabsorbable, sterile ()[id number] FDA Start: 03-18-2024 Insertion, trochanteric nail, femur, proximal ([id number]) Femur nail, sterile ()[id number] FDA Start: 03-18-2024 Insertion, trochanteric nail, femur, proximal ([id number]) Orthopaedic bone screw, non-bioabsorbable, sterile ()[id number] FDA Start: 03-18-2024 Goals Date Patient Goal Desired Activity /State Functional Status Date Assessment Result Facility 03-18-2024 Functional status Bedrest [facility] Work Phone: Mental Status Date Assessment Result Facility 03-18-2024 Cognitive function Voice/Name [facility] Work Phone: Radiology Diagnostic study note 02-15-2025 Note Date & Type Note Facility 02-15-2025 Radiology Diagnostic study note [facility] Imaging Services [address] [place], [place] [id number] Foot min 3 Views MR#: [id number] Acct: [id number] Name: MAVIS IRWIN Rep #: [id number] : 1950 M 74 From: Crystal James MD PCP: Dr. Aure Ponce MD Status: REG CL I Study:Foot min 3 Views Date of Exam: 07/03 Exam# [id number] Ordering Dr: Luz Maria Ponce MD EXAM: [...] with MRI as clinically indicated. Reading Location: [facility] CC: Dr. Aure Ponce MD ~ Suspender Maker: Signed [facility] Discharge summary 03-17-2024 Note Date & Type Note Facility 03-17-2024 Discharge summary Note Date/Time March 17, 2024 10:44am [facility] Medical Records Department [address] [place] [address] Emergency Department Summary 03/17/24 MR#: [id number] Acct: [id number] Name: MAVIS IRWIN Rep #:[id number] : 1950 73 From: Pepe Chavez DO PCP: NICHOLAS GOODIWN Status:REG ER Location: ED HPI History of [...] 80.3 H Lymph % (Auto) 4.0 L [place] % (Auto) 15.0 H Eos % (Auto) [...] your Primary Care Provider. Call [facility] ([phone]) or report to the closest Emergency Room. [...] (if applicable): cc: GEMINI BERRY ~* Signed [facility] Work Phone: Evaluation note Note Date & Type Note Facility Evaluation note No assessment information availa ble [facility] Work Phone: Evaluation note Note Date & Type Note Facility Evaluation note Diagnosis Onset Date Closed right hip fracture ac hazel ETOH abuse acute Tobacco abuse acute [facility] Work Phone: Reason for referral (narrative) Note Date & Type Note Facility Reason for referral (narrative) No reason for referral information available [facility] Work Phone: Summary Purpose Family History No Family History Records FoundNo Family History Records FoundNo Family History Records Found Advance Directives No Advanced Directives Records Found Advance Directive Response Recorded Date/ Time Living Will No June 17, 2021 7:12pm Power of Fixture Relamper No June 17 7:12pm Advance Directive Response Recorded Date/ Time Name of Medical Power of Fixture Relamper JULIA--JOLENE MCKENZIE March 17, 2024 10:18am Living Will Yes March 17, 2024 10 :18am Power of Fixture Relamper Yes March 17, 2024 10:18am Advance Directive Response Recorded Date/ Time Name of Medical Power of Fixture Relamper Julia farley, Daughter March 17, 2024 3:40pm Living Will Yes March 17, 2024 3: 40pm Power of Fixture Relamper Yes March 17, 2024 3:40pm Chief Complaint [...] section and content) DATE CREATED AUTHOR 08/10/2019 [facility] DATE CREATED AUTHOR AUTHOR'S ORGANIZ ATION 06/18/2021 [facility] DATE CREATED AUTHOR AUTHOR'S ORGANIZ ATION 08/02/2025 [facility] Goals (unrecognized section and content) Goals may [...] July 12, 2025 End: July 12, 2025 Arue Ponce MD Referring Provider Active Start : [...] BE BASED ON THE PRIMARY CLINICAL RECORDS. [employer] provides no warranty or guarantee of the accuracy or completeness of information in this document.
== END | disposition home or self-care (01) ==
LOC: CT 12:44
PROVIDERS: PCP Family Medicine; Referring Provider Internal Medicine Cardiovascular Disease; Visit Provider Internal Medicine Cardiovascular Disease
DX: R55 Syncope and collapse (principal)
CPT/HCPCS: 70496; Q9967

== ENCOUNTER → 2025-08-09 | Outpatient (CLI) | payer MEDICARE, SELFPAY | END | disposition home or self-care (01) | PROVIDERS: PCP Family Medicine; Referring Provider Internal Medicine Cardiovascular Disease; Visit Provider Internal Medicine Cardiovascular Disease | DX: R55 Syncope and collapse (principal) | CPT/HCPCS: 93225; 93226 ==

== ENCOUNTER → 2025-08-15 | Outpatient (CLI) | payer MEDICARE, SELFPAY ==
[2025-08-09 13:11] LABS: Hematocrit 40.4 % (40-54); Hemoglobin 14.4 g/dL (13.0-16.5); Mean Corp Hgb Conc 35.6 g/dL (32-36); Mean Corpuscular Volume 95.3 fL (80-94); Mean Platelet Vol. 8.2 fl (6.2-12.0); Platelet Count 259 K/mm3 (150-450); RBC Distribution Width CV 12.1 % (11.6-14.6); RBC Distribution Width SD 42.5 fl (35.1-43.9); Red Blood Count 4.24 M/mm3 (4.6-6.2); White Blood Count 8.1 K/mm3 (4.4-11.0)
[2025-08-09 14:08] LABS: Anion Gap 16 (5-15); BUN 16 mg/dL (4-19); BUN/Creat Ratio 24.0 RATIO (10-20); Calcium,Total 9.8 mg/dL (7.6-11.0); Carbon Dioxide 22.2 mmol/L (21.0-32.0); Chloride 90 mmol/L (98-108); Glucose 113 mg/dL (70-99); Potassium 4.3 mmol/L (3.3-5.1)
--- NOTE | 2025-08-15 08:50 | CDU_ITS ---
Reason For Study Reason For Study: orthostatic hypotension, syncope Rt. Velocities/BP Lt. Velocities/BP Prox CCA 110.0/13.0 cm/sec. Prox CCA 113.7/20.4 cm/sec. Mid CCA 85.8/14.6 cm/sec. Mid CCA 81.8/16.7 cm/sec. Dist CCA 79.7/15.8 cm/sec. Dist CCA 85.5/20.4 cm/sec. Prox ICA 78.5/20.8 cm/sec. Prox ICA 95.7/22.0 cm/sec. Mid ICA 73.6/24.4 cm/sec. Mid ICA 79.7/20.8 cm/sec. Dist ICA 95.7/28.1 cm/sec. Dist ICA 78.5/18.3 cm/sec. Rt. ICA/CCA = 95.7/85.8=1.1. Lt. ICA/CCA = 95.7/81.8=1.2. Prox ECA 103.9/11.8 cm/sec. Prox ECA 89.1/6.9 cm/sec. Rt. Vert. 50.9/12.2 cm/sec. Lt. Vert. 43.4/13.1 cm/sec. Right Extracranial There is homogeneous, smooth atherosclerotic plaque noted in the right common carotid artery. There is heterogeneous, irregular atherosclerotic plaque noted in the right internal carotid artery. There is heterogeneous, irregular atherosclerotic plaque noted in the right external carotid artery. Antegrade flow is noted in the right vertebral artery. There is heterogeneous, irregular atherosclerotic plaque noted in the right bulb. Left Extracranial There is heterogeneous, irregular atherosclerotic plaque noted in the left common carotid artery. There is heterogeneous, irregular atherosclerotic plaque noted in the left internal carotid artery. There is intimal thickening but no significant atherosclerotic plaque noted in the left external carotid artery. Antegrade flow is noted in the left vertebral artery. There is heterogeneous, irregular atherosclerotic plaque noted in the left bulb. Procedure Carotid Duplex 96372. This is a Carotid Duplex examination using B-mode, color flow and specral Doppler. Exam performed in department. VL/Carotid Duplex Ultrasound Interpretation Summary Mild (<50%) stenosis right extracranial internal carotid. Mild (<50%) stenosis left extracranial internal carotid. Patent and antegrade vertebrals bilaterally. Limited due to calcified shadowing, alternative imaging may be beneficial. Ordering Physician: Tank Urbina Referring Physician: igor Ponce Performed By: Sierra Joyce RDCS, RVT
--- NOTE | 2025-08-15 18:45 | PCM.TILTTABL ---
Staff Staff: Crista Hanna and Dorita Emmanuel Summary Pre Test Resting HR: 75 Pre Test Resting BP: 143/76 Minimum Test HR: 77 Maximum Test HR: 103 Minimum Test BP: 60/0 Maximum Test BP: 125/72 Physician Tilt Table Report Patient's Physicians Primary Care Physician: Aure Ponce Indications/Diagnosis: Syncope Procedure Comments: The patient was brought to the noninvasive lab in the postabsorptive nonsedated state. Informed consent was obtained. The initial heart rate was noted to be 75 bpm with a blood pressure 143/ 76 mmHg. EKG demonstrated normal sinus rhythm. The patient was then placed in the 70 degree head upright tilt position. Continuous EKG monitoring was performed. The patient was in this position for approximately 10 minutes and then started dropping his blood pressure with his heart rate increasing. Patient complained of symptoms of dizziness diaphoresis and then became clammy with his heart rate decreasing to the low of 76 bpm and a blood pressure of 60 mmHg feeling pale and dry and experiencing urinary incontinence. The patient was then placed in the recumbent position treated with IV fluids and improved and normalized. Final heart rate was 75 bpm with a blood pressure of 112/67 mmHg. Summary: Abnormal tilt table test with likely orthostatic hypotension with subsequent syncope.
[2025-08-15 18:50] VITALS: BP 125/72; BP 143/76; BP 60/0
== END | disposition home or self-care (01) ==
LOC: CVS 08:48
PROVIDERS: PCP Family Medicine; Referring Provider Internal Medicine Cardiovascular Disease; Visit Provider Internal Medicine Cardiovascular Disease
DX: R55 Syncope and collapse (principal)
CPT/HCPCS: 36415; 80048; 85027; 93660; 93880; A4216

== ENCOUNTER → 2025-08-28 | Outpatient (CLI) | payer MEDICARE, SELFPAY ==
--- NOTE | 2025-08-28 14:54 | ECHOD_ITS ---
Reason For Study Reason For Study: Syncope Procedure This was a 2D Doppler, Color Flow transthoracic echocardiogram. The study was technically difficult. The study was technically limited. Best images taken from subcostal window. Exam performed in department. Left Ventricle Normal size and thickness. The left ventricular ejection fraction is 55 %. Normal diastology for age. Right Ventricle Normal right ventricle. Atria The left and right atria are normal. Mitral Valve Trivial mitral valve insufficiency. Tricuspid Valve Trivial tricuspid valve insufficiency. Unable to estimate RV systolic pressure due to insufficient tricuspid regurgitant envelope. Aortic Valve Trisinus/trileaflet aortic valve. Mild diffuse aortic valve thickening. Pulmonic Valve The pulmonic valve is not well visualized. Great Vessels The aortic root is not well visualized. Pericardium/Pleural No pericardial effusion. MMode/2D Measurements & Calculations LVIDd: 4.2 cm IVSd: 0.76 cm LVOT diam: 2.1 cm LVIDs: 2.6 cm LVPWd: 0.97 cm LVOT area: 3.4 cm2 FS: 37.6 % LAV(MOD-sp4): 23.5 ml LA A4 area: 11.8 cm2 LA dimension(2D): 2.7 cm RA A4 area: 12.0 cm2 Time Measurements MV dec time: 0.25 sec Doppler Measurements & Calculations MV E max donny: 62.9 cm/sec Lat Peak E' Donny: 8.5 cm/sec Med Peak E' Donny: 13.2 cm/sec MV A max donny: 74.8 cm/sec E/E' lat: 7.4 E/E' med: 4.8 MV E/A: 0.84 MV V2 max: 94.9 cm/sec MV P1/2t max donny: 71.7 cm/sec Ao V2 max: 85.2 cm/sec MV max P.6 mmHg MV P1/2t: 84.1 msec Ao max P.9 mmHg MV V2 mean: 43.9 cm/sec MV dec slope: 249.9 cm/sec2 RUIZ(V,D): 2.9 cm2 MV mean P.95 mmHg MV V2 VTI: 24.4 cm MVA(P1/2t): 2.6 cm2 LV V1 max: 71.7 cm/sec PA V2 max: 107.8 cm/sec TR max donny: 164.5 cm/sec LV V1 max P.1 mmHg TR max P.8 mmHg ECHO/Echo Complete Interpretation Summary Technically difficult study with suboptimal apical views. The left ventricular ejection fraction is 55 %. Mild diffuse aortic valve thickening. Ordering Physician: Tank Urbina Referring Physician: Tank Urbina Performed By: Yobany Blair RCS
== END | disposition home or self-care (01) ==
LOC: CVS 14:52
PROVIDERS: PCP Family Medicine; Referring Provider Internal Medicine Cardiovascular Disease; Visit Provider Internal Medicine Cardiovascular Disease
DX: I25.10 Atherosclerotic heart disease of native coronary artery without angina pectoris (principal)
CPT/HCPCS: 93306

== ENCOUNTER → 2025-09-21 | Outpatient (CLI) | payer MEDICARE, SELFPAY ==
--- NOTE | 2025-09-21 11:00 | RAD_ITS ---
PROCEDURE: KNEE 4 OR MORE VIEWS 09/21/2025 REASON FOR EXAM: RIGHT KNEE DJD, PAIN TECHNIQUE: Procedure Code: RADKN Modality: DX Procedure: KNEE 4 OR MORE VIEWS Laterality: Right COMPARISON: Knee study dated November 11, 2024 FINDINGS: Bones: There are no fractures or dislocations. Joints: Severe degenerative osteoarthritic changes are noted involving the medial femorotibial joint. Mild degenerative osteoarthritic changes are seen involving the patellofemoral joint and lateral femorotibial joint. These findings are similar when compared to the prior exam. Effusion: There is no suprapatellar bursa effusion. Soft tissues: No soft tissue swelling is seen. Other: Extensive arteriosclerotic vascular disease of the vessels are noted. RAD/Knee 4 or More Views IMPRESSION: Severe degenerative osteoarthritic changes involving the medial femorotibial jamie int. Mild degenerative osteoarthritic changes involving the patellofemoral joint and lateral femorotibial joint. Reading Location: [id number]
== END | disposition home or self-care (01) ==
LOC: MTRAD 10:58
PROVIDERS: PCP Family Medicine; Referring Provider Family Medicine; Visit Provider Family Medicine
DX: M17.11 Unilateral primary osteoarthritis, right knee (principal)
CPT/HCPCS: 73564

== ENCOUNTER → 2025-09-28 | Outpatient (CLI) | payer MEDICARE, SELFPAY ==
--- NOTE | 2025-09-28 16:31 | CT_ITS ---
PROCEDURE: LOW DOSE CT LUNG SCREENING 09/28/2025 REASON FOR EXAM: TOBACCO TECHNIQUE: Procedure Code: [id number] Modality: CT Procedure: LOW DOSE CT LUNG SCREENING Coronal and Sagittal reconstruction series were provided. One or more dose reduction techniques were used (e.g., Automated exposure control, adjustment of the mA and/or kV according to patient size, use of iterative reconstruction technique). REFERENCE LINK: [facility] Lung-RADS RADIATION DOSE SUMMARY: CTDlvol: 2.01 mGy DLP: 84.04 mGycm COMPARISON: Previous examination dated 02/12/2022 FINDINGS: Base of the neck: No mass. Lymph Nodes:No mediastinal axillary or hilar lymphadenopathy. Calcified subcarinal lymph node Heart and Vasculature: No cardiomegaly. Mild pericardial effusion. Atherosclerosis of the aorta. No dilatation. No dilatation of the main pulmonary artery. Coronary Artery Calcifications: Present Lungs and Airways: Emphysematous changes of the lung parenchyma with scarring in the right upper lobe anteriorly. No suspicious pulmonary nodule or mass. Debris in the trachea. Pleura:No effusion. No pneumothorax. Upper Abdomen:Unremarkable Bones:No destructive process. Multilevel disc disease and spondylosis. CT/Low Dose CT Lung Screening IMPRESSION: Severe emphysematous changes. No suspicious pulmonary nodule or mass. Coronary artery calcification (CAC) is present Lung-RADS Category: 1 NEGATIVE. RECOMMEND 12-MONTH SCREENING LDCT. Other Significant Findings: None Reading Location: [facility]
== END | disposition home or self-care (01) ==
LOC: CT 16:30
PROVIDERS: PCP Family Medicine; Referring Provider Family Medicine; Visit Provider Family Medicine
DX: Z12.2 Encounter for screening for malignant neoplasm of respiratory organs (principal); F17.210 Nicotine dependence, cigarettes, uncomplicated
CPT/HCPCS: 71271